=== PATIENT | male | born 1950 | race Caucasian/White ===

== ENCOUNTER → 2019-08-30 | Outpatient (CLI) | payer MEDICARE ==
--- NOTE | 2019-08-30 14:59 | CT ---
EXAMINATION TYPE: CT chest wo con DATE OF EXAM: 08/30/2019 COMPARISON: NONE HISTORY: Shortness of breath, asthma CT DLP: 576 mGycm. Automated Exposure Control for Dose Reduction was Utilized. TECHNIQUE: CT scan of the thorax is performed without IV contrast. FINDINGS: LUNGS: There are a few scattered small nodules measuring under 3 mm reference right middle lobe axial image 29. No suspicious focal consolidation or groundglass opacity. No pleural effusion or pneumotho rax noted bilaterally. Mild to moderate central bronchial wall thickening. MEDIASTINUM: Lack of IV contrast is noted to limit evaluation for mediastinal and especially hilar ad enopathy. There are no definitive greater than 1 cm hilar or mediastinal lymph nodes. No cardiomega ly or pericardial effusion is seen. Moderate to severe three-vessel coronary artery calcification and /or stents. Calcification at level of aortic valve. Enlarged main pulmonary artery of 3.5 cm diameter image 25. OTHER: Moderate multilevel disc space narrowing and vacuum disc phenomenon with mild/moderate multile nancy spurring. IMPRESSION: Mild to moderate central peribronchial wall thickening consistent with small airway disea se possibly from acute asthma exacerbation or a viral bronchiolitis. Correlate clinically. No suspici ous focal infiltrate.
== END | disposition home or self-care (01) ==
LOC: RADCTMAIN 13:23
PROVIDERS: ATTEND Family Medicine
DX: J98.4 Other disorders of lung (principal); J45.909 Unspecified asthma, uncomplicated
CPT/HCPCS: 71250; 94060; 94726; 94729

== ENCOUNTER 2019-10-20 17:13 | Inpatient (IN) | payer MEDICARE ==
[2019-10-20] MEDS ORDERED: MAGNESIUM SULFATE-D5W PMX 1 GM in DEXTROSE/WATER 1 100ML.BAG IVPB STA (18:28)
[2019-10-20] MEDS ORDERED: IPRATROPIUM-ALBUTEROL 3 ML NEB INHALATION STA ×2 (18:28→20:49)
[2019-10-20] MEDS ORDERED: methylPREDNISolone SOD SUCCI 125 MG/2 ML VIAL IV STA (18:28)
--- NOTE | 2019-10-20 18:42 | ED ---
SOB HPI - General Chief Complaint: Shortness of Breath Stated Complaint: SOB, bilat foot swelling Time Seen by Provider: 10/20/19 17:20 Source: patient, family Mode of arrival: wheelchair Limitations: no limitations - History of Present Illness Initial Comments: The patient is a 69-year-old male with past medical history of asthma and diabetes who presents emergency Department with reported shortness of breath. is at bedside and helps provide history. She states that the patient has been suffering from shortness of breath for a while however the symptoms have gotten progressively worse over the past month. He was sent for a pulmonary test on August [address] of his chest. He was told that everything looked okay however his symptoms have gotten worse. States he cannot get up and embedded across a room without feeling short of breath. He also states that he cannot lie flat and he has some bilateral lower extremity edema. Reports that he takes hctz 25 mg daily. Has not missed any doses. The swelling is getting more significant. He denies a history of DVT or PE. He is not on any blood thinners. He does admit that he had some mild chest pain yesterday however that has resolved. He denies a previous history of coronary artery disease or congestive heart failure. He has never had a heart cath. Does admit that he has a "leaky valve" for which he gets an ultrasound frequently and follows up with cardiology. He denies ripping or tearing sensation to his back. No recent surgeries. Denies any fevers or chills. No cough or hemoptysis. There are no alleviating, precipitating or modifying factors - Related Data Home Medications Medication Instructions Recorded Confirmed Albuterol Sulfate [Proair Hfa] 1 - 2 puff INHALATION RT-Q4H PRN 10/20/19 10/20/19 Atorvastatin Calcium [Lipitor] 10 mg PO DAILY 10/20/19 10/20/19 Dorzolamide 2% [Trusopt 2%] 1 drop BOTH EYES BID 10/20/19 10/20/19 Hydrochlorothiazide [Hydrodiuril] 25 mg PO DAILY 10/20/19 10/20/19 Lisinopril 40 mg PO DAILY 10/20/19 10/20/19 Montelukast Sodium [Singulair] 10 mg PO HS 10/20/19 10/20/19 Netarsudil Mesylat/Latanoprost 1 drop BOTH EYES HS 10/20/19 10/20/19 [Rocklatan 0.02%-0.005% Eye Drp] glipiZIDE XL [Glucotrol Xl] 2.5 mg PO DAILY 10/20/19 10/20/19 metFORMIN HCL [Glucophage] 500 mg PO TID 10/20/19 10/20/19 Allergies Allergy/AdvReac Type Severity Reaction Status Date / Time No Known Allergies Allergy Verified 10/20/19 23:24 Review of Systems ROS Statement: Those systems with pertinent positive or pertinent negative responses have been documented in the HPI. ROS Other: All systems not noted in ROS Statement are negative. Past Medical History Past Medical History: Asthma, Diabetes Mellitus, Eye Disorder History of Any Multi-Drug Resistant Organisms: None Reported Additional Past Surgical History / Comment(s): throat surgery, cataract removal Past Psychological History: No Psychological Hx Reported Smoking Status: Current every day smoker Past Alcohol Use History: Occasional Past Drug Use History: None Reported - Past Family History Father Family Medical History: Coronary Artery Disease (CAD) Additional Family Medical History / Comment(s): Father had CAD/CABG. He is . Pt had not had contact with his father for 30 yrs. Mother Family Medical History: Congestive Heart Failure (CHF), Neurologic Disorder Additional Family Medical History / Comment(s): Parkinsons dx. Mother from CHF. family Additional Family Medical History / Comment(s): reports CAD history General Exam Limitations: no limitations General appearance: alert, anxious, in distress, other (diaphoretic) Eye exam: Present: normal appearance, PERRL, EOMI. Absent: scleral icterus, conjunctival injection, periorbital swelling ENT exam: Present: normal exam, mucous membranes moist Neck exam: Present: normal inspection. Absent: tenderness, meningismus, lymphadenopathy Respiratory exam: Present: respiratory distress, wheezes, rales, accessory muscle use, decreased breath sounds Cardiovascular Exam: Present: regular rate, normal rhythm, normal heart sounds. Absent: systolic murmur, diastolic murmur, rubs, gallop, clicks GI/Abdominal exam: Present: soft, normal bowel sounds. Absent: distended, tende rness, guarding, rebound, rigid Extremities exam: Present: normal inspection, full ROM, normal capillary refill. Absent: tenderness, pedal edema, joint swelling, calf tenderness Back exam: Present: normal inspection Neurological exam: Present: alert, oriented X3, CN II-XII intact Psychiatric exam: Present: anxious Skin exam: Present: warm, intact, normal color, diaphoretic. Absent: rash Course Vital Signs 10/20/19 10/20/19 10/20/19 17:18 17:58 19:00 Temperature 97.7 F Pulse Rate 97 110 H Pulse Rate [ Pulse Oximetery ] Respiratory 21 26 H Rate Blood Pressure 140/78 Blood Pressure [Right Arm] O2 Sat by Pulse 97 Oximetry 10/20/19 10/20/19 10/20/19 19:10 21:02 21:12 Temperature Pulse Rate 105 H 104 H 107 H Pulse Rate [ Pulse Oximetery ] Respiratory Rate Blood Pressure Blood Pressure [Right Arm] O2 Sat by Pulse Oximetry 10/20/19 10/21/19 10/21/19 21:20 00:18 01:33 Temperature Pulse Rate 105 H 98 96 Pulse Rate [ Pulse Oximetery ] Respiratory 21 20 Rate Blood Pressure 134/98 129/71 Blood Pressure [Right Arm] O2 Sat by Pulse 96 98 Oximetry 10/21/19 10/21/19 10/21/19 01:45 05:59 08:00 Temperature 98 F Pulse Rate 94 83 Pulse Rate [ 76 Pulse Oximetery ] Respiratory 20 20 Rate Blood Pressure 123/71 Blood Pressure 132/74 [Right Arm] O2 Sat by Pulse 99 98 Oximetry 10/21/19 10/21/19 08:28 08:41 Temperature Pulse Rate 88 88 Pulse Rate [ Pulse Oximetery ] Respiratory Rate Blood Pressure Blood Pressure [Right Arm] O2 Sat by Pulse Oximetry Medical Decision Making - Medical Decision Making Upon arrival patient was placed into room 5. A thorough history and physical exam was performed. The patient is a wheezy with conversational dyspnea. We did insert a peripheral IV. The patient was given a DuoNeb breathing treatment, 1 g of magnesium and 125 mg of Solu-Medrol. I did recommend laboratory studies. 12-lead EKG was performed and demonstrates no signs of acute ischemia. Lab studies did demonstrate a sodium of 128, chloride 88, lactic acid 2.9, troponin 0.044. BNP of 4180. Chest x-ray was performed which demonstrates findings due to COPD, bronchitis or reactive airway disease. Pulmonary artery hypertension possibly perihilar airspace disease or atelectasis. Because of the patient's elevated BNP and troponin did recommend a CT of the patient's chest which does not demonstrate any acute signs of PE E however there is development of mediastinal adenopathy in the interval from prior to CT. Interstitial prominence with groundglass opacities. Correlates for congestive heart failure. Recommend to exclude metastatic disease. I also performed Dopplers patient lower extremities because of this lower extremity edema which demonstrates no signs of DVT. Because of the patient's elevated troponin I did heparinize the patient. He has no contra indications to heparinization. He is given a second breathing treatment in the emergency room and as he does have worsening whee zing. I did recommend hospitalization for continued breathing treatments, steroids and echo. I provided the patient with a dose of Lasix 40 mg. I also recommended pulmonology and cardiology consult. The patient did agree to this. I discussed the case with Dr. Downey who accepted admission for the patient. The patient is currently awaiting a bed on the floor - Lab Data Result diagrams: 10/23/19 06:09 10/25/19 06:38 Lab Results 10/20/19 10/20/19 10/20/19 Range/Units 17:53 17:53 17:53 WBC 9.2 (3.8-10.6) k/uL RBC 3.66 L (4.30-5.90) m/uL Hgb 11.9 L (13.0-17.5) gm/dL Hct 35.6 L (39.0-53.0) % MCV 97.1 (80.0-100.0) fL MCH 32.5 (25.0-35.0) pg MCHC 33.5 (31.0-37.0) g/dL RDW 12.7 (11.5-15.5) % Plt Count 270 (150-450) k/uL Neutrophils % 78 % Lymphocytes % 11 % Monocytes % 5 % Eosinophils % 3 % Basophils % 0 % Neutrophils # 7.2 (1.3-7.7) k/uL Lymphocytes # 1.1 (1.0-4.8) k/uL Monocytes # 0.4 (0-1.0) k/uL Eosinophils # 0.3 (0-0.7) k/uL Basophils # 0.0 (0-0.2) k/uL PT 10.0 (9.0-12.0) sec INR 1.0 (<1.2) APTT 25.7 (22.0-30.0) sec Sodium 128 L (137-145) mmol/L Potassium 4.7 (3.5-5.1) mmol/L Chloride 88 L (98-107) mmol/L Carbon Dioxide 26 (22-30) mmol/L Anion Gap 14 mmol/L BUN 20 (9-20) mg/dL Creatinine 1.15 (0.66-1.25) mg/dL Est GFR (CKD-EPI)AfAm 75 (>60 ml/min/1.73 sqM) Est GFR (CKD-EPI)NonAf 65 (>60 ml/min/1.73 sqM) Glucose 207 H (74-99) mg/dL Lactic Ac Sepsis Rflx Plasma Lactic Acid Helder (0.7-2.0) mmol/L Calcium 9.9 (8.4-10.2) mg/dL Total Bilirubin 0.3 (0.2-1.3) mg/dL AST 23 (17-59) U/L ALT 16 (4-49) U/L Alkaline Phosphatase 67 (38-126) U/L Troponin I (0.000-0.034) ng/mL NT-Pro-B Natriuret Pep pg/mL Total Protein 7.2 (6.3-8.2) g/dL Albumin 4.7 (3.5-5.0) g/dL 10/20/19 10/20/19 10/20/19 Range/Units 17:53 17:53 17:53 WBC (3.8-10.6) k/uL RBC (4.30-5.90) m/uL Hgb (13.0-17.5) gm/dL Hct (39.0-53.0) % MCV (80.0-100.0) fL MCH (25.0-35.0) pg MCHC (31.0-37.0) g/dL RDW (11.5-15.5) % Plt Count (150-450) k/uL Neutrophils % % Lymphocytes % % Monocytes % % Eosinophils % % Basophils % % Neutrophils # (1.3-7.7) k/uL Lymphocytes # (1.0-4.8) k/uL Monocytes # (0-1.0) k/uL Eosinophils # (0-0.7) k/uL Basophils # (0-0.2) k/uL PT (9.0-12.0) sec INR (<1.2) APTT (22.0-30.0) sec Sodium (137-145) mmol/L Potassium (3.5-5.1) mmol/L Chloride (98-107) mmol/L Carbon Dioxide (22-30) mmol/L Anion Gap mmol/L BUN (9-20) mg/dL Creatinine (0.66-1.25) mg/dL Est GFR (CKD-EPI)AfAm (>60 ml/min/1.73 sqM) Est GFR (CKD-EPI)NonAf (>60 ml/min/1.73 sqM) Glucose (74-99) mg/dL Lactic Ac Sepsis Rflx Plasma Lactic Acid Helder 2.9 H* (0.7-2.0) mmol/L Calcium (8.4-10.2) mg/dL Total Bilirubin (0.2-1.3) mg/dL AST (17-59) U/L ALT (4-49) U/L Alkaline Phosphatase (38-126) U/L Troponin I 0.044 H* (0.000-0.034) ng/mL NT-Pro-B Natriuret Pep 4180 pg/mL Total Protein (6.3-8.2) g/dL Albumin (3.5-5.0) g/dL 10/20/19 Range/Units 19:03 WBC (3.8-10.6) k/uL RBC (4.30-5.90) m/uL Hgb (13.0-17.5) gm/dL Hct (39.0-53.0) % MCV (80.0-100.0) fL MCH (25.0-35.0) pg MCHC (31.0-37.0) g/dL RDW (11.5-15.5) % Plt Count (150-450) k/uL Neutrophils % % Lymphocytes % % Monocytes % % Eosinophils % % Basophils % % Neutrophils # (1.3-7.7) k/uL Lymphocytes # (1.0-4.8) k/uL Monocytes # (0-1.0) k/uL Eosinophils # (0-0.7) k/uL Basophils # (0-0.2) k/uL PT (9.0-12.0) sec INR (<1.2) APTT (22.0-30.0) sec Sodium (137-145) mmol/L Potassium (3.5-5.1) mmol/L Chloride (98-107) mmol/L Carbon Dioxide (22-30) mmol/L Anion Gap mmol/L BUN (9-20) mg/dL Creatinine (0.66-1.25) mg/dL Est GFR (CKD-EPI)AfAm (>60 ml/min/1.73 sqM) Est GFR (CKD-EPI)NonAf (>60 ml/min/1.73 sqM) Glucose (74-99) mg/dL Lactic Ac Sepsis Rflx Y Plasma Lactic Acid Helder (0.7-2.0) mmol/L Calcium (8.4-10.2) mg/dL Total Bilirubin (0.2-1.3) mg/dL AST (17-59) U/L ALT (4-49) U/L Alkaline Phosphatase (38-126) U/L Troponin I (0.000-0.034) ng/mL NT-Pro-B Natriuret Pep pg/mL Total Protein (6.3-8.2) g/dL Albumin (3.5-5.0) g/dL - EKG Data EKG Comments: EKG demonstrates normal sinus rhythm with a ventricular rate of 99. PA interval 164. QRS 74. QTC of 423. No acute ST segment elevations or depressions concerning for ischemic changes Critical Care Time Critical Care Time: Yes Critical Care Time: 35 minutes Disposition Clinical Impression: Lower extremity edema, NSTEMI (non-ST elevated myocardial infarction), Heart failure, Respiratory insufficiency, Hypernatremia, Lactic acidosis Disposition: ADMITTED IP TO THIS HOSP Condition: Serious Is patient prescribed a controlled substance at d/c from ED?: No Decision to Admit Reason: Admit from EC Decision Date: 10/20/19 Decision Time: 20:52
[2019-10-20 18:45] LABS: Basophils % (A) 0 %; Eosinophils # (A) 0.3 k/uL (0-0.7); Eosinophils % (A) 3 %; HCT 35.6 % (39.0-53.0); HGB 11.9 gm/dL (13.0-17.5); Lymphocytes # (A) 1.1 k/uL (1.0-4.8); Lymphocytes % (A) 11 %; MCH 32.5 pg (25.0-35.0); MCHC 33.5 g/dL (31.0-37.0); MCV 97.1 fL (80.0-100.0); Mean Platelet Volume 7.9; Monocytes # (A) 0.4 k/uL (0-1.0); Monocytes % (A) 5 %; Neutrophils # (A) 7.2 k/uL (1.3-7.7); Neutrophils % (A) 78 %; Platelet Count 270 k/uL (150-450); RBC 3.66 m/uL (4.30-5.90); RDW 12.7 % (11.5-15.5); WBC 9.2 k/uL (3.8-10.6)
[2019-10-20 18:53] LABS: Partial Thromboplastin Time 25.7 sec (22.0-30.0)
[2019-10-20 18:56] LABS: Albumin 4.7 g/dL (3.5-5.0); Calcium 9.9 mg/dL (8.4-10.2); Potassium 4.7 mmol/L (3.5-5.1); Total Bilirubin 0.3 mg/dL (0.2-1.3); Total Protein 7.2 g/dL (6.3-8.2)
--- NOTE | 2019-10-20 19:18 | XR ---
EXAMINATION TYPE: XR chest 2V DATE OF EXAM: 10/20/2019 COMPARISON: Chest CT 08/30/2019 HISTORY: Shortness of breath and asthma TECHNIQUE: Frontal and lateral views of the chest are obtained. FINDINGS: There is no focal air space opacity, pleural effusion, or pneumothorax seen. The cardiac silhouette size is within normal limits. The osseous structures are intact. There is increased AP d iameter of the chest. Bronchial wall thickening is present. There is thoracic spondylosis. Prominence of pulmonary artery could be due to pulmonary artery hypertension. Technique somewhat apical lordoti c and rotated. There are overlying cardiac leads. Patchy perihilar density is noted. IMPRESSION: Findings could be due to COPD, bronchitis or reactive airways disease, pulmonary artery hypertension and possibly perihilar airspace disease or atelectasis
--- NOTE | 2019-10-20 19:27 | US ---
EXAMINATION TYPE: US venous doppler duplex LE BI DATE OF EXAM: 10/20/2019 7:14 PM COMPARISON: NONE CLINICAL HISTORY: swelling, shortness of breath. Swelling x months. Short of breath. No hx of DVT. Pa tient does not take blood thinners. SIDE PERFORMED: Bilateral TECHNIQUE: The lower extremity deep venous system is examined utilizing real time linear array sonog bindu with graded compression, doppler sonography and color-flow sonography. VESSELS IMAGED: External Iliac Vein (EIV) Common Femoral Vein Deep Femoral Vein Greater Saphenous Vein * Femoral Vein Popliteal Vein Small Saphenous Vein * Proximal Calf Veins (* superficial vessels) Normal color flow, compressibility, no abnormal luminal echoes Right Leg: No evidence of DVT in veins imaged at this time from popliteal vein to EIV. Limited visib ility and evaluation of prox calf veins due to edema. Left Leg: No evidence of DVT in veins imaged at this time from popliteal vein to EIV. Limited visibi lity and evaluation of prox calf veins due to edema. Limited due to body habitus and edema. IMPRESSION: No evident deep venous thrombosis within the limitations of the exam at or above the kne es
--- NOTE | 2019-10-20 20:27 | CT ---
EXAMINATION TYPE: CT chest angio for PE DATE OF EXAM: 10/20/2019 COMPARISON: HISTORY: SOB EDEMA POSSIBLE PE CT DLP: 805 mGycm Automated exposure control for dose reduction was used. CONTRAST: CT Chest for pulmonary embolism performed with with IV Contrast, patient injected with 90 mL of Isovu e 370. Three-dimensional reconstructions performed on an alternate workstation FINDINGS: LUNGS: The lungs are remarkable for diffuse prominence of the interstitium, some interval development of soft tissue in the left upper lobe, axial image 63, nodular density in the left lower lobe axial image 111 measures 12 mm and some groundglass opacity adjacent to the fissure in the left lower lobe on axial image 72 are also interval findings, some scattered areas of groundglass opacity also presen t in the right lung some of which are somewhat nodular. There is no pleural effusion or pneumothora x seen. The tracheobronchial tree is patent. MEDIASTINUM: There is satisfactory enhancement of the pulmonary artery and its branches, there is no CT evidence for pulmonary embolism. There is retrocaval pretracheal lymph node which is mildly enlar ged with short axis XII.3 mm, prevascular adenopathy also present, aorticopulmonary window adenopathy and subcarinal adenopathy present. Pulmonary artery is again enlarged. There is prominence of the h ilar nodes. No pericardial effusion is seen. There are coronary artery calcifications. AORTA: No additional significant abnormality is seen. OTHER: Hiatal hernia is present.. IMPRESSION: Development of mediastinal adenopathy in the interval from prior CT. Interstitial prominence with martita undglass opacity, correlate to exclude congestive heart failure, follow-up is recommended to exclude soft tissue nodules, metastatic disease. There is no pulmonary embolus. Correlate for possible pulmon donald artery hypertension. Coronary artery disease.
[2019-10-20] MEDS ORDERED: HEPARIN SODIUM,PORCINE 5,000 UNIT/ML 1 ML VIAL IV ONE (20:48)
[2019-10-20] MEDS ORDERED: HEPARIN SODIUM,PORCINE 5,000 UNIT/ML 1 ML VIAL IV PRN (20:48)
[2019-10-20] MEDS ORDERED: NALOXONE 0.4 MG/ML 1 ML VIAL IV PRN (20:52)
[2019-10-20] MEDS ORDERED: FUROSEMIDE 10 MG/ML 4 ML VIAL IV STA (20:54)
[2019-10-20] MEDS: HEPARIN SOD,PORK IN 0.45% NACL 25,000 UNIT in 0.45% NACL 1 250ML.BAG IV SCH (21:12)
[2019-10-20] MEDS ORDERED: ASPIRIN 81 MG PO STA (21:31)
[2019-10-21] MEDS: methylPREDNISolone SOD SUCCI 40 MG/ML 1 ML VIAL IV SCH ×4 (00:19→23:22)
[2019-10-21 00:23] LABS: Glucose,Whole Blood 302 mg/dL (75-99)
[2019-10-21] MEDS ORDERED: INSULIN ASPART (NovoLOG) 100 UNIT/ML VIAL SQ ONE (00:29)
--- NOTE | 2019-10-21 01:17 | P.HPIM ---
History of Present Illness H&P Date: 10/20/19 Chief Complaint: SOB 69 year old male with hypertension well controlled, diabetes mellitus well controlled with A1C 6.8%, and asthma presents due to worsening shortness of breath over the past few days. he reports symptoms has been going on for one to two months now with on/off symptoms of exertional dyspnea, but he believes that overall his symptoms has been slowly worsening. he describes symptoms of orthopnea, PND, and exertional dyspnea with mild exertions. he denies any chest pain, he does not use home oxygen , and walks independantly . he noticed bilateral swelling of his feet and legs. denies any recent immobility, traveling, hospitalization or surgery. denies any history of cancer. denies any cardiac history. over the past few days, he noticed increase wheezing, not improving much with inhalers. he does not use nebulizer,. he started feeling increase chest tightness with mild activity. denies any fever, chills, coughing, runny nose, sore throat or body aches. denies any history of intubation. denies any sick contact. or contact with people traveling from high risk areas for COVID-19 one. in the ED, he was wheezing, improved alittle bit with nebulizers but continues to feel tight, blood work showed elevated pro bnp and troponin , he was started on heparin gtt. CTA of chest and lower extremity doppler was negative for VTE. Review of Systems Pertinent positives as noted in HPI. All other systems were reviewed and are negative Past Medical History Past Medical History: Asthma, Diabetes Mellitus, Eye Disorder, Hypertension History of Any Multi-Drug Resistant Organisms: None Reported Additional Past Surgical History / Comment(s): throat surgery, cataract removal Past Psychological History: No Psychological Hx Reported Smoking Status: Current every day smoker Past Alcohol Use History: Occasional Past Drug Use History: None Reported - Past Family History family Additional Family Medical History / Comment(s): reports CAD history Medications and Allergies Home Medications Medication Instructions Recorded Confirmed Type Albuterol Sulfate [Proair Hfa] 1 - 2 puff INHALATION RT-Q4H PRN 10/20/19 10/20/19 History Atorvastatin Calcium [Lipitor] 10 mg PO DAILY 10/20/19 10/20/19 History Dorzolamide 2% [Trusopt 2%] 1 drop BOTH EYES BID 10/20/19 10/20/19 History Hydrochlorothiazide [Hydrodiuril] 25 mg PO DAILY 10/20/19 10/20/19 History Lisinopril 40 mg PO DAILY 10/20/19 10/20/19 History Montelukast Sodium [Singulair] 10 mg PO HS 10/20/19 10/20/19 History Netarsudil Mesylat/Latanoprost 1 drop BOTH EYES HS 10/20/19 10/20/19 History [Rocklatan 0.02%-0.005% Eye Drp] glipiZIDE XL [Glucotrol Xl] 2.5 mg PO DAILY 10/20/19 10/20/19 History metFORMIN HCL [Glucophage] 500 mg PO TID 10/20/19 10/20/19 History Allergies Allergy/AdvReac Type Severity Reaction Status Date / Time No Known Allergies Allergy Verified 10/20/19 23:24 Physical Exam Vitals: Vital Signs Temp Pulse Resp BP Pulse Ox 10/20/19 21:02 104 H 10/20/19 19:10 105 H 10/20/19 19:00 110 H 10/20/19 17:58 26 H 10/20/19 17:18 97.7 F 97 21 140/78 97 Intake and Output 10/20/19 10/20/19 10/20/19 06:59 14:59 22:59 Other: Weight 99.79 kg Constitutional: No acute distress, conversant, pleasant Eyes: Anicteric sclerae, moist conjunctiva, Pupils equal round reactive to light ENMT: NC/AT Oropharynx clear, no erythema, or exudates Neck: Supple, FROM, no masses, or JVD No carotid bruits No thyromegaly Lungs: good breath sounds, diffuse expiratory wheezing, no rales Clear to percussion Normal respiratory effort, no accessory muscle use Cardiovascular: Heart regular in rate and rhythm, No murmurs, gallops, or rubs +2 peripheral edema bilaterally Abdominal: Soft Nontender, no guarding, rebound or rigidity Abdomen moving with respiration Normoactive bowel sounds No hepatomegaly, No splenomegaly No palpable mass No abdominal wall hernia noted Skin: Normal temperature, tone, texture, turgor No induration No subcutaneous nodules No rash, lesions No ulcers Extremities: No digital cyanosis No clubbing Pedal pulses intact and symmetrical Radial pulses intact and symmetrical No calf tenderness Psychiatric: Alert and oriented to person, place and time Appropriate affect fair judgment Neuro Muscles Strength 5/5 in all 4 extremities Sensation to light touch grossly present throughout Cranial nerves II-XII grossly intact No focal sensory deficits Lymphatics: no palpable cervical or supraclavicular , or inguinal lymph nodes Results CBC & Chem 7: 10/20/19 17:53 10/20/19 17:53 Labs: Abnormal Lab Results - Last 24 Hours (Table) 10/20/19 10/20/19 10/20/19 Range/Units 17:53 17:53 17:53 RBC 3.66 L (4.30-5.90) m/uL Hgb 11.9 L (13.0-17.5) gm/dL Hct 35.6 L (39.0-53.0) % Sodium 128 L (137-145) mmol/L Chloride 88 L (98-107) mmol/L Glucose 207 H (74-99) mg/dL Plasma Lactic Acid Helder 2.9 H* (0.7-2.0) mmol/L Troponin I (0.000-0.034) ng/mL 10/20/19 Range/Units 17:53 RBC (4.30-5.90) m/uL Hgb (13.0-17.5) gm/dL Hct (39.0-53.0) % Sodium (137-145) mmol/L Chloride (98-107) mmol/L Glucose (74-99) mg/dL Plasma Lactic Acid Helder (0.7-2.0) mmol/L Troponin I 0.044 H* (0.000-0.034) ng/mL Assessment and Plan Assessment: 69 year old male with hypertension well controlled, diabetes mellitus well controlled with A1C 6.8%, and asthma admitted as inpatient for acute asthma exacerbation and to rule out new onset CHF , anticipated length of stay >2 midnights Plan: acute asthma exacerbation rule out new onset CHF, and underlying cardiac disease hyperglycemia with well controlled DM , A1C 6.8%, secondary to steroids hypertension well controlled hyponatremia lactic acidosis resolved mild anemia , denies any GI bleeding plan systemic iv steroids breathing treatment around the clock and as needed check echocardiogram, evaluate for LV function , and for valve disease IV diuresis trend cardiac enzymes continue home meds hold oral hypoglycemic agents, transition to insulin sliding scale while hospitalized heparin drip for elevated troponins cardiology input CODE STATUS: full code DVT prophylaxis: heparin drip for elevated troponin Discussed with: Patient, ER, RN Anticipated length of stay > than [address]: home A total of 60 minutes was spent on the care of this complex patient more than 50% of the time was spent in counseling and care coordination.
[2019-10-21] MEDS: IPRATROPIUM-ALBUTEROL 3 ML NEB INHALATION PRN ×3 (01:32→11:50)
[2019-10-21 02:34] LABS: Glucose,Whole Blood 244 mg/dL (75-99)
[2019-10-21 03:20] LABS: Basophils % (A) 0 %; Eosinophils % (A) 0 %; HGB 11.5 gm/dL (13.0-17.5); Lymphocytes # (A) 0.3 k/uL (1.0-4.8); Lymphocytes % (A) 4 %; MCH 32.2 pg (25.0-35.0); MCV 97.7 fL (80.0-100.0); Mean Platelet Volume 7.3; Monocytes # (A) 0.1 k/uL (0-1.0); Monocytes % (A) 1 %; Neutrophils # (A) 6.2 k/uL (1.3-7.7); Neutrophils % (A) 93 %; Platelet Count 259 k/uL (150-450); RBC 3.58 m/uL (4.30-5.90); RDW 12.6 % (11.5-15.5); WBC 6.7 k/uL (3.8-10.6)
[2019-10-21 03:33] LABS: Calcium 9.3 mg/dL (8.4-10.2); Potassium 4.8 mmol/L (3.5-5.1)
[2019-10-21 06:46] LABS: Prothrombin Time 10.6 sec (9.0-12.0)
[2019-10-21 08:07] LABS: Glucose,Whole Blood 231 mg/dL (75-99)
[2019-10-21] MEDS: FUROSEMIDE 10 MG/ML 2 ML VIAL IV SCH ×2 (08:52→20:34)
[2019-10-21] MEDS: INSULIN ASPART (NovoLOG) 100 UNIT/ML VIAL SQ SCH ×4 (08:54→20:48)
[2019-10-21] MEDS: ATORVASTATIN 10 MG TAB PO SCH (08:54)
[2019-10-21] MEDS ORDERED: LISINOPRIL 20 MG TAB PO SCH (09:00)
[2019-10-21] MEDS ORDERED: INFLUENZA VACCINE (6 MOS+) 60 MCG/0.5 ML SYRINGE IM ONE (10:15)
--- NOTE | 2019-10-21 10:34 | P.CRDCN ---
History of Present Illness Consult date: 10/21/19 Requesting physician: Pako Downey Reason for Consult (text): NSTEMI Chief complaint: progressively worsening shortness of breath History of present illness: This is a pleasant 69-year-old male patient who follows with a firmware developer through [facility], Dr. Beto Silverman. He is a past medical history of hypertension, hyperlipidemia, diabetes mellitus type 2, and a "leaky heart valve ". According to him he last underwent echocardiogram about 3 months ago and followed up with his firmware developer shortly after that. It's been many years since his last stress test. He has a current every day smoker about a half a pack a day for many years, drinks about 4 cups of coffee daily and drinks 4-5 mixed drinks every other day. He's been having complaints of shortness of breath over the last several months with a PFT in August which findings were consistent with interstitial lung disease and recommended high resolution computed tomography scan of the chest. Presented to the emergency department because over the last 3 days or so his shortness of breath has been progressively getting worse causing him to have difficulties even walking to the bathroom. He's also been having complaints of lower extremity edema which has been intermittent over the last several months as well but recently somewhat worse. Also complains of orthopnea and PND. He's been sleeping in a chair for the last few weeks. Venous Doppler of the lower extremities show no evidence of DVT. Chest x-ray showed findings related to either COPD, bronchitis or reactive airway disease, pulmonary artery hypertension and possibly perihilar airspace disease or atelectasis. Computed tomography scan of the chest showed development of mediastinal adenopathy and the intraoral from prior CT, interstitial prominence with groundglass [place], correlate to exclude congestive heart failure, follow-up is recommended to exclude soft tissue nodules, metastatic disease, no PE, correlate for possible pulmonary artery hypertension, coronary artery disease. EKG on admission showed sinus rhythm with nonspecific ST-T wave abnormalities with no findings suggestive of acute ischemia. Labs on admission showed a normal white blood cell count, hemoglobin 11.9, sodium 128, chloride 88, BUN 20, creatinine 1.15, plasma lactic acid 2.9, NT proBNP 4180 which was 1970 in August, and troponins minimally elevated at 0. 044, 0.045 and 0.051. Vital signs are stable. Upon examination, patient is sitting up at the edge of the bed. Overall he feels his breathing is somewhat better but he has not been up moving around much. He denies any recent complaints of chest discomfort but did have an episode a few weeks ago which he attributed to gas, occurred after eating and relieved with belching. He is currently on heparin drip and Lasix 20 mg IV push every 12 hours as well as lisinopril 40 mg daily, Singulair, NovoLog, and Solu-Medrol. Past Medical History Past Medical History: Asthma, Diabetes Mellitus, Eye Disorder, Hypertension History of Any Multi-Drug Resistant Organisms: None Reported Additional Past Surgical History / Comment(s): throat surgery, cataract removal Past Psychological History: No Psychological Hx Reported Smoking Status: Current every day smoker Past Alcohol Use History: Occasional Past Drug Use History: None Reported - Past Family History family Additional Family Medical History / Comment(s): reports CAD history Father Family Medical History: Coronary Artery Disease (CAD) Additional Family Medical History / Comment(s): Father had CAD/CABG. He is . Pt had not had contact with his father for 30 yrs. Mother Family Medical History: Congestive Heart Failure (CHF), Neurologic Disorder Additional Family Medical History / Comment(s): Parkinsons dx. Mother from CHF. Medications and Allergies Home Medications Medication Instructions Recorded Confirmed Type Albuterol Sulfate [Proair Hfa] 1 - 2 puff INHALATION RT-Q4H PRN 10/20/19 10/20/19 History Atorvastatin Calcium [Lipitor] 10 mg PO DAILY 10/20/19 10/20/19 History Dorzolamide 2% [Trusopt 2%] 1 drop BOTH EYES BID 10/20/19 10/20/19 History Hydrochlorothiazide [Hydrodiuril] 25 mg PO DAILY 10/20/19 10/20/19 History Lisinopril 40 mg PO DAILY 10/20/19 10/20/19 History Montelukast Sodium [Singulair] 10 mg PO HS 10/20/19 10/20/19 History Netarsudil Mesylat/Latanoprost 1 drop BOTH EYES HS 10/20/19 10/20/19 History [Rocklatan 0.02%-0.005% Eye Drp] glipiZIDE XL [Glucotrol Xl] 2.5 mg PO DAILY 10/20/19 10/20/19 History metFORMIN HCL [Glucophage] 500 mg PO TID 10/20/19 10/20/19 History Allergies Allergy/AdvReac Type Severity Reaction Status Date / Time No Known Allergies Allergy Verified 10/20/19 23:24 Physical Exam Vitals: Vital Signs Temp Pulse Pulse Resp BP BP Pulse Ox 10/21/19 08:41 88 10/21/19 08:28 88 10/21/19 08:00 98 F 76 20 132/74 98 10/21/19 05:59 83 20 123/71 99 10/21/19 01:45 94 10/21/19 01:33 96 10/21/19 00:18 98 20 129/71 98 10/20/19 21:20 105 H 21 134/98 96 10/20/19 21:12 107 H 10/20/19 21:02 104 H 10/20/19 19:10 105 H 10/20/19 19:00 110 H 10/20/19 17:58 26 H 10/20/19 17:18 97.7 F 97 21 140/78 97 Intake and Output 10/20/19 10/21/19 10/21/19 22:59 06:59 14:59 Output Total 500 Balance -500 Output: Urine 500 Other: Weight 99.79 kg PHYSICAL EXAMINATION: HEENT: Head is atraumatic, normocephalic. Pupils equal, round. Neck is supple. There is no elevated jugular venous pressure. No carotid bruits auscultated. HEART EXAMINATION: Heart sounds regular, S1 and S2 with a systolic ejection murmur at the base. CHEST EXAMINATION: Lungs reveal diffuse expiratory wheezing. No chest wall tenderness is noted on palpation or with deep breathing. ABDOMEN: Soft, obese, nontender. Bowel sounds are heard. No organomegaly noted. EXTREMITIES: 2+ peripheral pulses with evidence of 1-2+ pitting peripheral edema and no calf tenderness noted. NEUROLOGIC patient is awake, alert and oriented x3. . Results 10/21/19 02:55 10/21/19 02:55 Cardiac Enzymes 10/20/19 10/20/19 10/20/19 Range/Units 17:53 17:53 23:54 AST 23 (17-59) U/L Troponin I 0.044 H* 0.049 H* (0.000-0.034) ng/mL 10/21/19 Range/Units 06:16 AST (17-59) U/L Troponin I 0.051 H* (0.000-0.034) ng/mL Coagulation 10/20/19 10/21/19 10/21/19 Range/Units 17:53 02:55 06:16 PT 10.0 10.6 (9.0-12.0) sec APTT 25.7 35.9 H (22.0-30.0) sec CBC 10/20/19 10/21/19 Range/Units 17:53 02:55 WBC 9.2 6.7 (3.8-10.6) k/uL RBC 3.66 L 3.58 L (4.30-5.90) m/uL Hgb 11.9 L 11.5 L (13.0-17.5) gm/dL Hct 35.6 L 35.0 L (39.0-53.0) % Plt Count 270 259 (150-450) k/uL Comprehensive Metabolic Panel 10/20/19 10/21/19 Range/Units 17:53 02:55 Sodium 128 L 128 L (137-145) mmol/L Potassium 4.7 4.8 (3.5-5.1) mmol/L Chloride 88 L 91 L (98-107) mmol/L Carbon Dioxide 26 27 (22-30) mmol/L BUN 20 22 H (9-20) mg/dL Creatinine 1.15 1.17 (0.66-1.25) mg/dL Glucose 207 H 199 H (74-99) mg/dL Calcium 9.9 9.3 (8.4-10.2) mg/dL AST 23 (17-59) U/L ALT 16 (4-49) U/L Alkaline Phosphatase 67 (38-126) U/L Total Protein 7.2 (6.3-8.2) g/dL Albumin 4.7 (3.5-5.0) g/dL Current Medications Generic Name Dose Route Start Last Admin Trade Name Freq PRN Reason Stop Dose Admin Albuterol/Ipratropium 3 ml 10/20/19 21:11 10/21/19 08:28 Duoneb 0.5 Mg-3 Mg/3 Ml Soln INHALATION 3 ml RT-QID PRN Administration Shortness Of Breath Or Wheezing Atorvastatin Calcium 10 mg 10/21/19 09:00 10/21/19 08:54 Lipitor PO 10 mg DAILY ARIELA Administration Dorzolamide HCl 1 drops 10/21/19 09:00 Trusopt BOTH EYES BID ARIELA Furosemide 20 mg 10/21/19 09:00 10/21/19 08:52 Lasix IV 20 mg Q12HR ARIELA Administration Heparin Sodium (Porcine) 0 unit 10/20/19 20:48 Heparin IV PER PROTOCOL PRN Low PTT Protocol Heparin Sodium/Sodium Chloride 250 mls @ 9.979 mls/hr 10/20/19 21:00 10/20/19 21:12 25,000 unit/ Sodium Chloride IV 10 units/kg/hr .Q24H ARIELA 9.979 mls/hr Administration Protocol 10 UNITS/KG/HR Insulin Aspart 0 unit 10/21/19 07:30 10/21/19 08:54 Novolog SQ 10 unit ACHS ARIELA Administration Protocol Lisinopril 40 mg 10/21/19 09:00 10/21/19 08:55 Zestril PO 40 mg DAILY ARIELA Administration Methylprednisolone Sodium Succinate 40 mg 10/21/19 00:00 10/21/19 08:54 Solu-Medrol IV 40 mg Q8HR ARIELA Administration Montelukast Sodium 10 mg 10/21/19 21:00 Singulair PO HS ARIELA Naloxone HCl 0.2 mg 10/20/19 20:52 Narcan IV Q2M PRN Opioid Reversal Netarsudil Mesylat/ 1 drop 10/21/19 21:00 Latanoprost [ BOTH EYES Rocklatan 0.02%-0. HS ARIELA 005% Eye Drp] 1 Drop Intake and Output 10/20/19 10/21/19 10/21/19 22:59 06:59 14:59 Output Total 500 Balance -500 Output: Urine 500 Other: Weight 99.79 kg 10/21/19 02:55 10/21/19 02:55 Assessment and Plan Assessment: #1 symptoms of progressively worsening shortness of breath, edema, orthopnea and PND likely secondary to combination of underlying lung disease as well as acute on chronic congestive heart failure, ejection fraction unknown at this time but likely diastolic in nature as patient has never been told he has cardiomyopathy. #2 hypertension #3 hyperlipidemia #4 diabetes mellitus type 2 #5 nicotine dependence #6 minimally elevated troponins, not consistent with acute coronary syndrome #7 valvular heart disease, systolic ejection murmur consistent with Plan: From cardiology's perspective, we will review echocardiogram done in the emergency department. Continue IV Lasix. We'll obtain records from Dr. Silverman. Awaiting input from pulmonology. We'll continue to follow the patient for further recommendations accordingly. HUNTING GUIDE note has been reviewed, I agree with a documented findings and plan of care. Patient was seen and examined.
--- NOTE | 2019-10-21 11:01 | ECHOF ---
Referral Reason:CHF exacerbation, NSTEMI, hx valve disease MEASUREMENTS -------- HEIGHT: 170.2 cm WEIGHT: 99.8 kg BP: 151/86 RVIDd: 3.5 cm (< 3.3) IVSd: 1.4 cm (0.6 - 1.1) LVIDd: 4.5 cm (3.9 - 5.3) LVPWd: 1.5 cm (0.6 - 1.1) IVSs: 1.7 cm LVIDs: 3.4 cm LVPWs: 2.2 cm LA Diam: 3.9 cm (2.7 - 3.8) LAESV Index (A-L): 36.61 ml/m Ao Diam: 3.6 cm (2.0 - 3.7) AV Cusp: 1.5 cm (1.5 - 2.6) MV EXCURSION: 19.132 mm (> 18.000) MV EF SLOPE: 100 mm/s (70 - 150) EPSS: 1.8 cm MV E Koko: 1.26 m/s MV DecT: 210 ms MV A Koko: 0.64 m/s MV E/A Ratio: 1.98 AV maxP.92 mmHg AV meanP.27 mmHg RAP: 15.00 mmHg RVSP: 48.72 mmHg TAPSE: 21.95 mm FINDINGS -------- Sinus rhythm. This was a technically difficult study with suboptimal views. The left ventricular size is normal. There is moderate concentric left ventricular hypertrophy. O verall left ventricular systolic function is normal with, an EF between 55 - 60 %. The right ventricle is mildly enlarged. LA is moderately dilated 34-39 ml/m2 The right atrium is normal in size. 3 ml of Lumason was utilized for enhancement of images. Interatrial and interventricular septum intact. There is moderate aortic valve sclerosis. There is mild aortic regurgitation. There is moderate a ortic stenosis present. Peak/mean gradient across the Aortic Valve is 48.92mmHg / 25.27mmHg. Mild mitral annular calcification present. Mild mitral regurgitation is present. Mild tricuspid regurgitation present. There is moderate pulmonary hypertension. The right ventric ular systolic pressure, as measured by Doppler, is 48.72mmHg. The pulmonic valve was not well visualized. The aortic root size is normal. Normal inferior vena cava with less than 50% inspiratory collapse consistent with estimated right atr ial pressure of 15 mmHg. There is no pericardial effusion. CONCLUSIONS -------- 1. Sinus rhythm. 2. This was a technically difficult study with suboptimal views. 3. The left ventricular size is normal. 4. There is moderate concentric left ventricular hypertrophy. 5. Overall left ventricular systolic function is normal with, an EF between 55 - 60 %. 6. The right ventricle is mildly enlarged. 7. LA is moderately dilated 34-39 ml/m2 8. The right atrium is normal in size. 9. 3 ml of Lumason was utilized for enhancement of images. 10. Interatrial and interventricular septum intact. 11. There is moderate aortic valve sclerosis. 12. There is mild aortic regurgitation. 13. There is moderate aortic stenosis present. 14. Peak/mean gradient across the Aortic Valve is 48.92mmHg / 25.27mmHg. 15. Mild mitral annular calcification present. 16. Mild mitral regurgitation is present. 17. Mild tricuspid regurgitation present. 18. There is moderate pulmonary hypertension. 19. The right ventricular systolic pressure, as measured by Doppler, is 48.72mmHg. 20. The pulmonic valve was not well visualized. 21. The aortic root size is normal. 22. Normal inferior vena cava with less than 50% inspiratory collapse consistent with estimated right atrial pressure of 15 mmHg. 23. consider RAYMON for more optimal evaluation FARM ADVISOR: Roxann Johnson RDCS
[2019-10-21 12:12] LABS: Glucose,Whole Blood 159 mg/dL (75-99)
[2019-10-21] MEDS: IPRATROPIUM-ALBUTEROL 3 ML NEB INHALATION SCH ×3 (14:31→20:34)
--- NOTE | 2019-10-21 15:19 | P.PN ---
Subjective Progress Note Date: 10/21/19 Principal diagnosis: sob Patient is feeling a little better compared to when he came in. Still having shortness of breath upon lying down and moving. No fevers or chills. No chest pain. He has cough but that is not productive. Objective - Vital Signs Vital signs: Vital Signs Temp 97 F L 10/21/19 11:55 Pulse 90 10/21/19 14:43 Resp 16 10/21/19 11:55 BP 118/74 10/21/19 11:55 Pulse Ox 99 10/21/19 11:55 Intake & Output 10/20/19 10/21/19 10/21/19 18:59 06:59 18:59 Intake Total 162.491 Output Total 500 175 Balance -500 -12.509 Weight 99.79 kg 99.79 kg Intake: Intake, IV Titration 162.491 Amount Heparin Sod,Pork in 0.45% 162.491 NaCl 25,000 unit In 0.45 % NaCl 1 250ml.bag @ 10 UNITS/KG/HR 9.979 mls/hr IV .Q24H [facility] Rx#: [id number] Output: Urine 500 175 Other: # Voids 1 - Exam Constitutional: No acute distress, conversant, pleasant Eyes:Anicteric sclerae, moist conjunctiva, no lid-lag, PERRLA, ENMT: Oropharynx clear, no erythema, exudates Neck: Supple, FROM, no masses, or JVD, No carotid bruits, No thyromegaly Lungs: Diminished breath sounds bilaterally, bilateral diffuse wheezing Clear to percussion, Normal respiratory effort, no accessory muscle use Cardiovascular: Heart regular in rate and rhythm, No murmurs, gallops, or rubs, 2+ peripheral edema Abdominal: Soft, Nontender, no guarding, rebound or rigidity, Normoactive bowel sounds, No hepatomegaly, No splenomegaly, No palpable mass Skin: Normal temperature, tone, texture, turgor, no induration, No subcutaneous nodules, No rash, lesions, No ulcers Extremities: No digital cyanosis, No clubbing, Pedal pulses intact and symmetrical, Radial pulses intact and symmetrical, No calf tenderness Psychiatric: Alert and oriented to person, place and time, appropriate affect, intact judgement Neuro: Muscles Strength 5/5 in all 4 extremities, Sensation to light touch grossly present throughout, Cranial nerves II-XII grossly intact, no focal sensory deficits - Labs CBC & Chem 7: 10/21/19 02:55 10/21/19 02:55 Labs: Abnormal Lab Results - Last 24 Hours (Table) 10/20/19 10/20/19 10/20/19 Range/Units 17:53 17:53 17:53 RBC 3.66 L (4.30-5.90) m/uL Hgb 11.9 L (13.0-17.5) gm/dL Hct 35.6 L (39.0-53.0) % Lymphocytes # (1.0-4.8) k/uL APTT (22.0-30.0) sec Sodium 128 L (137-145) mmol/L Chloride 88 L (98-107) mmol/L BUN (9-20) mg/dL Glucose 207 H (74-99) mg/dL POC Glucose (mg/dL) (75-99) mg/dL Plasma Lactic Acid Helder 2.9 H* (0.7-2.0) mmol/L Troponin I (0.000-0.034) ng/mL 10/20/19 10/20/19 10/21/19 Range/Units 17:53 23:54 00:21 RBC (4.30-5.90) m/uL Hgb (13.0-17.5) gm/dL Hct (39.0-53.0) % Lymphocytes # (1.0-4.8) k/uL APTT (22.0-30.0) sec Sodium (137-145) mmol/L Chloride (98-107) mmol/L BUN (9-20) mg/dL Glucose (74-99) mg/dL POC Glucose (mg/dL) 302 H (75-99) mg/dL Plasma Lactic Acid Helder (0.7-2.0) mmol/L Troponin I 0.044 H* 0.049 H* (0.000-0.034) ng/mL 10/21/19 10/21/19 10/21/19 Range/Units 02:32 02:55 02:55 RBC 3.58 L (4.30-5.90) m/uL Hgb 11.5 L (13.0-17.5) gm/dL Hct 35.0 L (39.0-53.0) % Lymphocytes # 0.3 L (1.0-4.8) k/uL APTT 35.9 H (22.0-30.0) sec Sodium (137-145) mmol/L Chloride (98-107) mmol/L BUN (9-20) mg/dL Glucose (74-99) mg/dL POC Glucose (mg/dL) 244 H (75-99) mg/dL Plasma Lactic Acid Helder (0.7-2.0) mmol/L Troponin I (0.000-0.034) ng/mL 10/21/19 10/21/19 10/21/19 Range/Units 02:55 06:16 08:04 RBC (4.30-5.90) m/uL Hgb (13.0-17.5) gm/dL Hct (39.0-53.0) % Lymphocytes # (1.0-4.8) k/uL APTT (22.0-30.0) sec Sodium 128 L (137-145) mmol/L Chloride 91 L (98-107) mmol/L BUN 22 H (9-20) mg/dL Glucose 199 H (74-99) mg/dL POC Glucose (mg/dL) 231 H (75-99) mg/dL Plasma Lactic Acid Helder (0.7-2.0) mmol/L Troponin I 0.051 H* (0.000-0.034) ng/mL 10/21/19 10/21/19 Range/Units 09:43 12:10 RBC (4.30-5.90) m/uL Hgb (13.0-17.5) gm/dL Hct (39.0-53.0) % Lymphocytes # (1.0-4.8) k/uL APTT 31.3 H (22.0-30.0) sec Sodium (137-145) mmol/L Chloride (98-107) mmol/L BUN (9-20) mg/dL Glucose (74-99) mg/dL POC Glucose (mg/dL) 159 H (75-99) mg/dL Plasma Lactic Acid Helder (0.7-2.0) mmol/L Troponin I (0.000-0.034) ng/mL Assessment and Plan Plan: Acute asthma exacerbation Acute diastolic CHF, echo showing normal EF, aortic stenosis as well as moderate pulmonary hypertension Hyperglycemia with well controlled DM , A1C 6.8%, secondary to steroids Hypertension well controlled Hyponatremia lactic acidosis resolved Systemic iv steroids Continue DuoNeb IV diuresis IV heparin Cardiology and pulmonary consultations continue home meds Hold oral hypoglycemic agents, transition to insulin sliding scale while ho spitalized CODE STATUS: full code DVT prophylaxis: heparin drip for elevated troponin Discussed with: Patient, family Anticipated discharge place: home A total of 35 minutes was spent on the care of this complex patient more than 50% of the time was spent in counseling and care coordination.
--- NOTE | 2019-10-21 16:20 | P.CNPUL ---
History of Present Illness Consult date: 10/21/19 Reason for consult: dyspnea History of present illness: A 69-year-old patient with known history of COPD, obesity, diabetes and hyperlipidemia, who has been having progressive worsening shortness of breath and lower extremity edema that has been developing over the past few weeks. Limited cough. No symptoms sputum production. No angina. No palpitations. No chest pain. He presented with these symptoms and as part of a further investigation, his sodium was at 128 with a creatinine of 1.1 and lactic acid level of 2.9. ProBNP level was elevated at 4150 and the troponins were slightly elevated and fluid leaking with level of 0.04 and 0.04 and 0.05. Chest x-ray showed COPD and some increased residual markings. CAT scan of the chest was done utilizing the PEEP principal discharge no evidence of pulmonary embolism and there is chronic calcification and increased interstitial marking consistent with CHF. There was some limited groundglass changes bilaterally consistent with CHF. EKG was sinus rhythm with nonspecific changes. The patient is currently being treated with a combination of COPD and CHF exacerbation. He is on examination bronchodilators and steroids and the patient is also on IV diuretics. Echocardiogram was done and echo showed moderate LVH, EF 55-60%, moderate aortic sclerosis, moderate aortic stenosis, mild MR, no significant pulmonary hypertension and the gradient across the aortic valve was 48 max 25 mean. Review of Systems Constitutional: Reports fatigue, Reports weakness, Reports weight gain Eyes: denies as per HPI, denies blurred vision, denies bulging eye, denies decreased vision, denies diplopia, denies discharge, denies dry eye, denies irritation, denies itching, denies pain, denies photophobia, denies loss of peripheral vision, denies loss of vision, denies tunnel vision/blind spots Ears: deny: decreased hearing, ear discharge, earache, tinnitus Ears, nose, mouth and throat: Denies headache, Denies sore throat Breasts: absent: as per HPI, gynecomastia Cardiovascular: Reports decreased exercise tolerance, Reports dyspnea on exertion, Reports leg edema, Reports shortness of breath Respiratory: Reports cough, Reports dyspnea, Reports wheezing Gastrointestinal: Reports as per HPI Genitourinary: Reports as per HPI Musculoskeletal: Reports as per HPI Musculoskeletal: bilateral: ankle swelling, absent: ankle pain, ankle stiffness Integumentary: Denies pruritus, Denies rash Neurological: Reports as per HPI Psychiatric: Reports as per HPI Endocrine: Reports as per HPI, Reports fatigue Hematologic/Lymphatic: Reports as per HPI Allergic/Immunologic: Reports as per HPI Past Medical History Past Medical History: COPD, Diabetes Mellitus, Eye Disorder, Hyperlipidemia, Hypertension Additional Past Medical History / Comment(s): "leaky" heart valve-pt does not recall which valve, NIDDM type II, neuropathy bilateral feet, bronchitis, bilateral glaucoma, past gastric ulcer, chronic low back pain History of Any Multi-Drug Resistant Organisms: None Reported Additional Past Surgical History / Comment(s): throat surgery, cataract removal Past Anesthesia/Blood Transfusion Reactions: No Reported Reaction Past Psychological History: No Psychological Hx Reported Smoking Status: Current every day smoker Past Alcohol Use History: Occasional Past Drug Use History: None Reported - Past Family History Father Family Medical History: Coronary Artery Disease (CAD) Additional Family Medical History / Comment(s): Father had CAD/CABG. He is . Pt had not had contact with his father for 30 yrs. Mother Family Medical History: Congestive Heart Failure (CHF), Neurologic Disorder Additional Family Medical History / Comment(s): Parkinsons dx. Mother from CHF. family Additional Family Medical History / Comment(s): reports CAD history Medications and Allergies Home Medications Medication Instructions Recorded Confirmed Type Albuterol Sulfate [Proair Hfa] 1 - 2 puff INHALATION RT-Q4H PRN 10/20/19 10/20/19 History Atorvastatin Calcium [Lipitor] 10 mg PO DAILY 10/20/19 10/20/19 History Dorzolamide 2% [Trusopt 2%] 1 drop BOTH EYES BID 10/20/19 10/20/19 History Hydrochlorothiazide [Hydrodiuril] 25 mg PO DAILY 10/20/19 10/20/19 History Lisinopril 40 mg PO DAILY 10/20/19 10/20/19 History Montelukast Sodium [Singulair] 10 mg PO HS 10/20/19 10/20/19 History Netarsudil Mesylat/Latanoprost 1 drop BOTH EYES HS 10/20/19 10/20/19 History [Rocklatan 0.02%-0.005% Eye Drp] glipiZIDE XL [Glucotrol Xl] 2.5 mg PO DAILY 10/20/19 10/20/19 History metFORMIN HCL [Glucophage] 500 mg PO TID 10/20/19 10/20/19 History Allergies Allergy/AdvReac Type Severity Reaction Status Date / Time No Known Allergies Allergy Verified 10/20/19 23:24 Physical Exam Vitals: Vital Signs Temp Pulse Pulse Resp BP BP Pulse Ox 10/21/19 14:43 90 10/21/19 14:31 92 10/21/19 12:00 88 10/21/19 11:55 97 F L 81 16 118/74 99 10/21/19 11:50 80 10/21/19 08:41 88 10/21/19 08:28 88 10/21/19 08:00 98 F 76 20 132/74 98 10/21/19 05:59 83 20 123/71 99 10/21/19 01:45 94 10/21/19 01:33 96 10/21/19 00:18 98 20 129/71 98 10/20/19 21:20 105 H 21 134/98 96 10/20/19 21:12 107 H 10/20/19 21:02 104 H 10/20/19 19:10 105 H 10/20/19 19:00 110 H 10/20/19 17:58 26 H 10/20/19 17:18 97.7 F 97 21 140/78 97 Intake and Output 10/21/19 10/21/19 10/21/19 06:59 14:59 22:59 Intake Total 162.491 Output Total 175 Balance -12.509 Intake: Intake, IV Titration 162.491 Amount Heparin Sod,Pork in 0.45% 162.491 NaCl 25,000 unit In 0.45 % NaCl 1 250ml.bag @ 10 UNITS/KG/HR 9.979 mls/hr IV .Q24H [facility] Rx#: [id number] Output: Urine 175 Other: # Voids 1 Weight 99.79 kg Constitutional: No acute distress, conversant, pleasant Eyes:Anicteric sclerae, moist conjunctiva, no lid-lag, PERRLA, ENMT: Oropharynx clear, no erythema, exudates Neck: Supple, FROM, no masses, or JVD, No carotid bruits, No thyromegaly Lungs: Diminished breath sounds bilaterally, bilateral diffuse wheezing Clear to percussion, Normal respiratory effort, no accessory muscle use Cardiovascular: Heart regular in rate and rhythm, No murmurs, gallops, or rubs, 2+ peripheral edema Abdominal: Soft, Nontender, no guarding, rebound or rigidity, Normoactive bowel sounds, No hepatomegaly, No splenomegaly, No palpable mass Skin: Normal temperature, tone, texture, turgor, no induration, No subcutaneous nodules, No rash, lesions, No ulcers Extremities: No digital cyanosis, No clubbing, Pedal pulses intact and symmetrical, Radial pulses intact and symmetrical, No calf tenderness Psychiatric: Alert and oriented to person, place and time, appropriate affect, intact judgement Neuro: Muscles Strength 5/5 in all 4 extremities, Sensation to light touch grossly present throughout, Cranial nerves II-XII grossly intact, no focal senso ry deficits Results - Laboratory Findings CBC and BMP: 10/21/19 02:55 10/21/19 02:55 PT/INR, D-dimer PT 10.6 sec (9.0-12.0) 10/21/19 06:16 INR 1.0 (<1.2) 10/21/19 06:16 Abnormal lab findings: Abnormal Labs 10/20/19 10/20/19 10/20/19 17:53 17:53 17:53 RBC 3.66 L Hgb 11.9 L Hct 35.6 L Lymphocytes # APTT Sodium 128 L Chloride 88 L BUN Glucose 207 H POC Glucose (mg/dL) Plasma Lactic Acid Helder 2.9 H* Troponin I 10/20/19 10/20/19 10/21/19 17:53 23:54 00:21 RBC Hgb Hct Lymphocytes # APTT Sodium Chloride BUN Glucose POC Glucose (mg/dL) 302 H Plasma Lactic Acid Helder Troponin I 0.044 H* 0.049 H* 10/21/19 10/21/19 10/21/19 02:32 02:55 02:55 RBC 3.58 L Hgb 11.5 L Hct 35.0 L Lymphocytes # 0.3 L APTT 35.9 H Sodium Chloride BUN Glucose POC Glucose (mg/dL) 244 H Plasma Lactic Acid Helder Troponin I 10/21/19 10/21/19 10/21/19 02:55 06:16 08:04 RBC Hgb Hct Lymphocytes # APTT Sodium 128 L Chloride 91 L BUN 22 H Glucose 199 H POC Glucose (mg/dL) 231 H Plasma Lactic Acid Helder Troponin I 0.051 H* 10/21/19 10/21/19 09:43 12:10 RBC Hgb Hct Lymphocytes # APTT 31.3 H Sodium Chloride BUN Glucose POC Glucose (mg/dL) 159 H Plasma Lactic Acid Helder Troponin I - Diagnostic Findings Chest x-ray: image reviewed CT scan - chest: image reviewed Assessment and Plan Plan: 1 dyspnea, multifactorial, with a combination of COPD and CHF exacerbation 2 acute hypoxic respiratory failure secondary to above 3 COPD with acute exacerbation 4 CHF with diastolic heart failure and the mother aortic stenosis based on echocardiogram findings 5 diabetes mellitus 6 hypertension 7 hyperlipidemia 8 lower extremity edema 9 troponin leak Plan Continue current treatment which includes a combination of bronchodilators steroids and diuretics Monitor lower extremity edema Monitor body weight Monitor blood sugar and put the patient on sliding scale coverage insulin Industrial Eng comment on the patient's troponin leak as the patient has several risk factors for now underlying CAD We'll follow
[2019-10-21 17:17] LABS: Glucose,Whole Blood 340 mg/dL (75-99)
[2019-10-21] MEDS: DORZOLAMIDE HCL 2% DROPS 10 ML BTL BOTH EYES SCH ×2 (18:42→20:31)
[2019-10-21 20:31] LABS: Glucose,Whole Blood 169 mg/dL (75-99)
[2019-10-21] MEDS: NETARSUDIL MESYLAT BOTH EYES SCH (20:31)
[2019-10-21] MEDS: LATANOPROST BOTH EYES SCH (20:31)
[2019-10-21] MEDS: MONTELUKAST 10 MG TAB PO SCH (20:34)
[2019-10-21] MEDS: HEPARIN SOD,PORK IN 0.45% NACL 25,000 UNIT in 0.45% NACL 1 250ML.BAG IV SCH (20:36)
[2019-10-22] MEDS: IPRATROPIUM-ALBUTEROL 3 ML NEB INHALATION SCH ×5 (00:06→21:18)
[2019-10-22] MEDS: IPRATROPIUM-ALBUTEROL 3 ML NEB INHALATION PRN ×2 (00:08→05:56)
[2019-10-22 03:14] LABS: Calcium 8.9 mg/dL (8.4-10.2); Magnesium 1.7 mg/dL (1.6-2.3); Phosphorus 4.1 mg/dL (2.5-4.5); Potassium 5.4 mmol/L (3.5-5.1)
[2019-10-22 06:12] LABS: Glucose,Whole Blood 313 mg/dL (75-99)
[2019-10-22] MEDS: INSULIN ASPART (NovoLOG) 100 UNIT/ML VIAL SQ SCH ×4 (06:28→21:26)
[2019-10-22 08:05] LABS: Basophils % (A) 0 %; Eosinophils % (A) 0 %; HCT 34.7 % (39.0-53.0); HGB 11.2 gm/dL (13.0-17.5); Lymphocytes # (A) 0.7 k/uL (1.0-4.8); Lymphocytes % (A) 5 %; MCH 32.2 pg (25.0-35.0); MCHC 32.2 g/dL (31.0-37.0); Mean Platelet Volume 8.1; Monocytes # (A) 0.6 k/uL (0-1.0); Monocytes % (A) 4 %; Neutrophils # (A) 12.5 k/uL (1.3-7.7); Neutrophils % (A) 90 %; Platelet Count 195 k/uL (150-450); RBC 3.47 m/uL (4.30-5.90); RDW 12.7 % (11.5-15.5)
[2019-10-22 08:17] LABS: Prothrombin Time 10.4 sec (9.0-12.0)
[2019-10-22] MEDS: DORZOLAMIDE HCL 2% DROPS 10 ML BTL BOTH EYES SCH ×2 (08:53→21:26)
[2019-10-22] MEDS: methylPREDNISolone SOD SUCCI 40 MG/ML 1 ML VIAL IV SCH ×2 (08:53→21:27)
[2019-10-22] MEDS: ATORVASTATIN 10 MG TAB PO SCH (08:54)
[2019-10-22 08:57] LABS: Albumin 4.5 g/dL (3.5-5.0); Calcium 9.1 mg/dL (8.4-10.2); Magnesium 1.7 mg/dL (1.6-2.3); Phosphorus 4.3 mg/dL (2.5-4.5); Potassium 5.2 mmol/L (3.5-5.1); Total Bilirubin 0.3 mg/dL (0.2-1.3)
--- NOTE | 2019-10-22 09:08 | P.PN ---
Subjective Progress Note Date: 10/22/19 Principal diagnosis: sob Patient is feeling better. Breathing is getting better, no chest pain. Still having cough but not able to bring anything up. Objective - Vital Signs Vital signs: Vital Signs Temp 98.0 F 10/22/19 00:00 Pulse 88 10/22/19 08:54 Resp 18 10/22/19 03:56 BP 135/74 10/22/19 00:00 Pulse Ox 95 10/22/19 00:00 Intake & Output 10/21/19 10/22/19 10/22/19 18:59 06:59 18:59 Intake Total 402.491 565.433 Output Total 175 800 Balance 227.491 -234.567 Weight 99.79 kg 97.9 kg Intake: Intake, IV Titration 162.491 85.433 Amount Heparin Sod,Pork in 0.45% 162.491 85.433 NaCl 25,000 unit In 0.45 % NaCl 1 250ml.bag @ 10 UNITS/KG/HR 9.979 mls/hr IV .Q24H [facility] Rx#: [id number] Oral 240 480 Output: Urine 175 800 Other: Voiding Method Urinal # Voids 1 - Exam Constitutional: No acute distress, conversant, pleasant Eyes:Anicteric sclerae, moist conjunctiva, no lid-lag, PERRLA, ENMT: Oropharynx clear, no erythema, exudates Neck: Supple, FROM, no masses, or JVD, No carotid bruits, No thyromegaly Lungs: Diminished breath sounds bilaterally, scattered wheezing Clear to percussion, Normal respiratory effort, no accessory muscle use Cardiovascular: Heart regular in rate and rhythm, No murmurs, gallops, or rubs, 2+ peripheral edema Abdominal: Soft, Nontender, no guarding, rebound or rigidity, Normoactive bowel sounds, No hepatomegaly, No splenomegaly, No palpable mass Skin: Normal temperature, tone, texture, turgor, no induration, No subcutaneous nodules, No rash, lesions, No ulcers Extremities: No digital cyanosis, No clubbing, Pedal pulses intact and symmetrical, Radial pulses intact and symmetrical, No calf tenderness Psychiatric: Alert and oriented to person, place and time, appropriate affect, intact judgement Neuro: Muscles Strength 5/5 in all 4 extremities, Sensation to light touch grossly present throughout, Cranial nerves II-XII grossly intact, no focal sensory deficits - Labs CBC & Chem 7: 10/22/19 07:17 10/22/19 07:17 Labs: Abnormal Lab Results - Last 24 Hours (Table) 10/21/19 10/21/19 10/21/19 Range/Units 09:43 12:10 17:14 WBC (3.8-10.6) k/uL RBC (4.30-5.90) m/uL Hgb (13.0-17.5) gm/dL Hct (39.0-53.0) % Neutrophils # (1.3-7.7) k/uL Lymphocytes # (1.0-4.8) k/uL APTT 31.3 H (22.0-30.0) sec Sodium (137-145) mmol/L Potassium (3.5-5.1) mmol/L Chloride (98-107) mmol/L BUN (9-20) mg/dL Creatinine (0.66-1.25) mg/dL Glucose (74-99) mg/dL POC Glucose (mg/dL) 159 H 340 H (75-99) mg/dL 10/21/19 10/21/19 10/22/19 Range/Units 18:59 20:30 02:25 WBC (3.8-10.6) k/uL RBC (4.30-5.90) m/uL Hgb (13.0-17.5) gm/dL Hct (39.0-53.0) % Neutrophils # (1.3-7.7) k/uL Lymphocytes # (1.0-4.8) k/uL APTT 36.0 H (22.0-30.0) sec Sodium 125 L (137-145) mmol/L Potassium 5.4 H (3.5-5.1) mmol/L Chloride 88 L (98-107) mmol/L BUN 41 H (9-20) mg/dL Creatinine 1.48 H (0.66-1.25) mg/dL Glucose 265 H (74-99) mg/dL POC Glucose (mg/dL) 169 H (75-99) mg/dL 10/22/19 10/22/19 10/22/19 Range/Units 02:25 06:11 07:17 WBC 14.0 H (3.8-10.6) k/uL RBC 3.47 L (4.30-5.90) m/uL Hgb 11.2 L (13.0-17.5) gm/dL Hct 34.7 L (39.0-53.0) % Neutrophils # 12.5 H (1.3-7.7) k/uL Lymphocytes # 0.7 L (1.0-4.8) k/uL APTT 58.2 H (22.0-30.0) sec Sodium (137-145) mmol/L Potassium (3.5-5.1) mmol/L Chloride (98-107) mmol/L BUN (9-20) mg/dL Creatinine (0.66-1.25) mg/dL Glucose (74-99) mg/dL POC Glucose (mg/dL) 313 H (75-99) mg/dL 10/22/19 Range/Units 07:17 WBC (3.8-10.6) k/uL RBC (4.30-5.90) m/uL Hgb (13.0-17.5) gm/dL Hct (39.0-53.0) % Neutrophils # (1.3-7.7) k/uL Lymphocytes # (1.0-4.8) k/uL APTT (22.0-30.0) sec Sodium 127 L (137-145) mmol/L Potassium 5.2 H (3.5-5.1) mmol/L Chloride 89 L (98-107) mmol/L BUN 42 H (9-20) mg/dL Creatinine 1.40 H (0.66-1.25) mg/dL Glucose 264 H (74-99) mg/dL POC Glucose (mg/dL) (75-99) mg/dL Assessment and Plan Plan: Acute asthma exacerbation Acute diastolic CHF, echo showing normal EF, aortic stenosis as well as moderate pulmonary hypertension GUY Hyponatremia Hyperglycemia with history of type 2 DM , A1C 6.8%, secondary to steroids Hypertension well controlled Wean down systemic iv steroids as wheezing improved Continue DuoNeb Decrease IV lasix to once a day due to GUY Hold lisinopril due to GUY and hyperkalemia IV heparin Send plasma and urine osmolalities to investigate hyponatremia Start Lantus 10 units daily due to persistently elevated blood sugars, resume sliding scale insulin Cardiology and pulmonary following continue home meds Hold oral hypoglycemic agents, transition to insulin sliding scale while hospitalized CODE STATUS: full code DVT prophylaxis: heparin drip for elevated troponin Discussed with: Patient, family Anticipated discharge place: home A total of 35 minutes was spent on the care of this complex patient more than 50% of the time was spent in counseling and care coordination.
[2019-10-22 12:45] LABS: Glucose,Whole Blood 286 mg/dL (75-99)
[2019-10-22] MEDS: guaiFENesin 600 MG TABLET.ER PO SCH ×2 (13:08→21:26)
--- NOTE | 2019-10-22 14:51 | P.PN ---
Subjective Progress Note Date: 10/22/19 On today's evaluation of 10/22/2019, the patient continues to be symptomatic. Continues to BE short of breath. He is having difficulty laying down flat because of increased shortness of breath. He is on IV Lasix 20 mg every 24 hours. Urine output is not a whole lot in the creatinine is up to 1.4 and I'm concerned about an underlying conscious nephropathy as the patient underwent a CT angiogram a time of admission and the patient is diabetic. In terms of his COPD exacerbation, he continues to be actively bronchospastic and wheezy. Limited improvement since yesterday. He remains on DuoNeb nebulized treatments around the clock and IV Solu Medrol 40 mg every 12 hours. Based on his blood work, the sodium level is up down to 125 and later on it's up to 127. BUN is at 42 with a creatinine of 1.4 stable compared to yesterday. Blood sugar is elevated related to systemic steroid use. Objective - Vital Signs Vital signs: Vital Signs Temp 98.5 F 10/22/19 12:00 Pulse 79 10/22/19 12:00 Resp 16 10/22/19 12:00 BP 105/62 10/22/19 12:00 Pulse Ox 98 10/22/19 08:00 Intake & Output 10/21/19 10/22/19 10/22/19 18:59 06:59 18:59 Intake Total 402.491 565.433 600 Output Total 175 800 100 Balance 227.491 -234.567 500 Weight 99.79 kg 97.9 kg Intake: Intake, IV Titration 162.491 85.433 Amount Heparin Sod,Pork in 0.45% 162.491 85.433 NaCl 25,000 unit In 0.45 % NaCl 1 250ml.bag @ 10 UNITS/KG/HR 9.979 mls/hr IV .Q24H [facility] Rx#: [id number] Oral 240 480 600 Output: Urine 175 800 100 Other: Voiding Method Urinal Urinal # Voids 1 - Exam Constitutional: No acute distress, conversant, pleasant Eyes:Anicteric sclerae, moist conjunctiva, no lid-lag, PERRLA, ENMT: Oropharynx clear, no erythema, exudates Neck: Supple, FROM, no masses, or JVD, No carotid bruits, No thyromegaly Lungs: Diminished breath sounds bilaterally, bilateral diffuse wheezing Clear to percussion, Normal respiratory effort, no accessory muscle use Cardiovascular: Heart regular in rate and rhythm, No murmurs, gallops, or rubs, 2+ peripheral edema Abdominal: Soft, Nontender, no guarding, rebound or rigidity, Normoactive bowel sounds, No hepatomegaly, No splenomegaly, No palpable mass Skin: Normal temperature, tone, texture, turgor, no induration, No subcutaneous nodules, No rash, lesions, No ulcers Extremities: No digital cyanosis, No clubbing, Pedal pulses intact and symmetrical, Radial pulses intact and symmetrical, No calf tenderness Psychiatric: Alert and oriented to person, place and time, appropriate affect, intact judgement Neuro: Muscles Strength 5/5 in all 4 extremities, Sensation to light touch grossly present throughout, Cranial nerves II-XII grossly intact, no focal sens ory deficits - Labs CBC & Chem 7: 10/22/19 07:17 10/22/19 07:17 Labs: Abnormal Lab Results - Last 24 Hours (Table) 10/21/19 10/21/19 10/21/19 Range/Units 17:14 18:59 20:30 WBC (3.8-10.6) k/uL RBC (4.30-5.90) m/uL Hgb (13.0-17.5) gm/dL Hct (39.0-53.0) % Neutrophils # (1.3-7.7) k/uL Lymphocytes # (1.0-4.8) k/uL APTT 36.0 H (22.0-30.0) sec Sodium (137-145) mmol/L Potassium (3.5-5.1) mmol/L Chloride (98-107) mmol/L BUN (9-20) mg/dL Creatinine (0.66-1.25) mg/dL Glucose (74-99) mg/dL POC Glucose (mg/dL) 340 H 169 H (75-99) mg/dL 10/22/19 10/22/19 10/22/19 Range/Units 02:25 02:25 06:11 WBC (3.8-10.6) k/uL RBC (4.30-5.90) m/uL Hgb (13.0-17.5) gm/dL Hct (39.0-53.0) % Neutrophils # (1.3-7.7) k/uL Lymphocytes # (1.0-4.8) k/uL APTT 58.2 H (22.0-30.0) sec Sodium 125 L (137-145) mmol/L Potassium 5.4 H (3.5-5.1) mmol/L Chloride 88 L (98-107) mmol/L BUN 41 H (9-20) mg/dL Creatinine 1.48 H (0.66-1.25) mg/dL Glucose 265 H (74-99) mg/dL POC Glucose (mg/dL) 313 H (75-99) mg/dL 10/22/19 10/22/19 10/22/19 Range/Units 07:17 07:17 12:43 WBC 14.0 H (3.8-10.6) k/uL RBC 3.47 L (4.30-5.90) m/uL Hgb 11.2 L (13.0-17.5) gm/dL Hct 34.7 L (39.0-53.0) % Neutrophils # 12.5 H (1.3-7.7) k/uL Lymphocytes # 0.7 L (1.0-4.8) k/uL APTT (22.0-30.0) sec Sodium 127 L (137-145) mmol/L Potassium 5.2 H (3.5-5.1) mmol/L Chloride 89 L (98-107) mmol/L BUN 42 H (9-20) mg/dL Creatinine 1.40 H (0.66-1.25) mg/dL Glucose 264 H (74-99) mg/dL POC Glucose (mg/dL) 286 H (75-99) mg/dL Assessment and Plan Plan: 1 dyspnea, multifactorial, with a combination of COPD and CHF exacerbation 2 acute hypoxic respiratory failure secondary to above 3 COPD with acute exacerbation 4 CHF with diastolic heart failure and the moderate aortic stenosis based on echocardiogram findings 5 diabetes mellitus 6 hypertension 7 hyperlipidemia 8 lower extremity edema 9 troponin leak 10 acute kidney injury with a creatinine of 1.4, consider contrast nephropathy Plan Continue DuoNeb nebulized treatments around the clock Add Perforomist and Pulmicort neb last treatment twice a day Continue IV Solu-Medrol IV Lasix Monitor renal function We'll continue to follow
--- NOTE | 2019-10-22 15:56 | P.PN ---
Subjective Progress Note Date: 10/22/19 This is a pleasant 69-year-old male patient who follows with a engineering drafter through [facility], Dr. Beto Silverman. He is a past medical history of hypertension, hyperlipidemia, diabetes mellitus type 2, and a "leaky heart valve". According to him he last underwent echocardiogram about 3 months ago a nd followed up with his engineering drafter shortly after that. It's been many years since his last stress test. He has a current every day smoker about a half a pack a day for many years, drinks about 4 cups of coffee daily and drinks 4-5 mixed drinks every other day. He's been having complaints of shortness of breath over the last several months with a PFT in August which findings were consistent with interstitial lung disease and recommended high resolution computed tomography scan of the chest. Presented to the emergency department because over the last 3 days or so his shortness of breath has been progressively getting worse causing him to have difficulties even walking to the bathroom. He's also been having complaints of lower extremity edema which has been intermittent over the last several months as well but recently somewhat worse. Also complains of orthopnea and PND. He's been sleeping in a chair for the last few weeks. Venous Doppler of the lower extremities show no evidence of DVT. Chest x-ray showed findings related to either COPD, bronchitis or reactive airway disease, pulmonary artery hypertension and possibly perihilar airspace disease or atelectasis. Computed tomography scan of the chest showed development of mediastinal adenopathy and the intraoral from prior CT, interstitial prominence with groundglass [place], correlate to exclude congestive heart failure, follow-up is recommended to exclude soft tissue nodules, metastatic disease, no PE, correlate for possible pulmonary artery hypertension, coronary artery disease. EKG on admission showed sinus rhythm with nonspecific ST-T wave abnormalities with no findings suggestive of acute ischemia. Labs on admission showed a normal white blood cell count, hemoglobin 11.9, sodium 128, chloride 88, BUN 20, creatinine 1.15, plasma lactic acid 2.9, NT proBNP 4180 which was 1970 in August, and troponins minimally elevated at 0.044, 0.045 and 0.051. Vital signs are stable. Upon examination, patient is sitting up at the edge of the bed. Overall he feels his breathing is somewhat better but he has not been up moving around much. He denies any recent complaints of chest discomfort but did have an episode a few weeks ago which he attributed to gas, occurred after eating and relieved with belching. He is currently on heparin drip and Lasix 20 mg IV push every 12 hours as well as lisinopril 40 mg daily, Singulair, NovoLog, and Solu-Medrol. 10/22/2019 Upon examination, patient continues to feel short of breath but is feeling somewhat better. Echocardiogram done yesterday showed moderate LVH, normal LV systolic function with an ejection fraction between 55-60%, mildly enlarged RV, moderately dilated LA, moderate aortic valve sclerosis, mild aortic regurgitation, moderate aortic stenosis, mild mitral regurgitation, mild tricuspid regurgitation and moderate pulmonary hypertension. Aortic valve appears stable compared to his last echocardiogram done with his primary engineering drafter. Labs this morning showed sodium of 127, potassium 5.2, BUN 42, creatinine 1.4. He is currently on Lasix 20 mg IV daily and Solu-Medrol. Objective - Vital Signs Vital signs: Vital Signs Temp 98.5 F 10/22/19 12:00 Pulse 79 10/22/19 12:00 Resp 16 10/22/19 12:00 BP 105/62 10/22/19 12:00 Pulse Ox 98 10/22/19 08:00 Intake & Output 10/21/19 10/22/19 10/22/19 18:59 06:59 18:59 Intake Total 402.491 565.433 600 Output Total 175 800 100 Balance 227.491 -234.567 500 Weight 99.79 kg 97.9 kg Intake: Intake, IV Titration 162.491 85.433 Amount Heparin Sod,Pork in 0.45% 162.491 85.433 NaCl 25,000 unit In 0.45 % NaCl 1 250ml.bag @ 10 UNITS/KG/HR 9.979 mls/hr IV .Q24H ARIELA Rx#: [id number] Oral 240 480 600 Output: Urine 175 800 100 Other: Voiding Method Urinal Urinal # Voids 1 - Exam PHYSICAL EXAMINATION: HEENT: Head is atraumatic, normocephalic. Pupils equal, round. Neck is supple. There is no elevated jugular venous pressure. No carotid bruits auscultated. HEART EXAMINATION: Heart sounds regular, S1 and S2 with a systolic ejection murmur at the base. CHEST EXAMINATION: Lungs reveal diffuse expiratory wheezing. No chest wall tenderness is noted on palpation or with deep breathing. ABDOMEN: Soft, obese, nontender. Bowel sounds are heard. No organomegaly noted. EXTREMITIES: 2+ peripheral pulses with evidence of 1-2+ pitting peripheral edema and no calf tenderness noted. NEUROLOGIC patient is awake, alert and oriented x3. - Labs CBC & Chem 7: 10/22/19 07:17 10/22/19 07:17 Labs: Abnormal Lab Results - Last 24 Hours (Table) 10/21/19 10/21/19 10/21/19 Range/Units 17:14 18:59 20:30 WBC (3.8-10.6) k/uL RBC (4.30-5.90) m/uL Hgb (13.0-17.5) gm/dL Hct (39.0-53.0) % Neutrophils # (1.3-7.7) k/uL Lymphocytes # (1.0-4.8) k/uL APTT 36.0 H (22.0-30.0) sec Sodium (137-145) mmol/L Potassium (3.5-5.1) mmol/L Chloride (98-107) mmol/L BUN (9-20) mg/dL Creatinine (0.66-1.25) mg/dL Glucose (74-99) mg/dL POC Glucose (mg/dL) 340 H 169 H (75-99) mg/dL 10/22/19 10/22/19 10/22/19 Range/Units 02:25 02:25 06:11 WBC (3.8-10.6) k/uL RBC (4.30-5.90) m/uL Hgb (13.0-17.5) gm/dL Hct (39.0-53.0) % Neutrophils # (1.3-7.7) k/uL Lymphocytes # (1.0-4.8) k/uL APTT 58.2 H (22.0-30.0) sec Sodium 125 L (137-145) mmol/L Potassium 5.4 H (3.5-5.1) mmol/L Chloride 88 L (98-107) mmol/L BUN 41 H (9-20) mg/dL Creatinine 1.48 H (0.66-1.25) mg/dL Glucose 265 H (74-99) mg/dL POC Glucose (mg/dL) 313 H (75-99) mg/dL 10/22/19 10/22/19 10/22/19 Range/Units 07:17 07:17 12:43 WBC 14.0 H (3.8-10.6) k/uL RBC 3.47 L (4.30-5.90) m/uL Hgb 11.2 L (13.0-17.5) gm/dL Hct 34.7 L (39.0-53.0) % Neutrophils # 12.5 H (1.3-7.7) k/uL Lymphocytes # 0.7 L (1.0-4.8) k/uL APTT (22.0-30.0) sec Sodium 127 L (137-145) mmol/L Potassium 5.2 H (3.5-5.1) mmol/L Chloride 89 L (98-107) mmol/L BUN 42 H (9-20) mg/dL Creatinine 1.40 H (0.66-1.25) mg/dL Glucose 264 H (74-99) mg/dL POC Glucose (mg/dL) 286 H (75-99) mg/dL Assessment and Plan Assessment: #1 symptoms of progressively worsening shortness of breath, edema, orthopnea and PND likely secondary to combination of underlying lung disease as well as acute on chronic diastolic congestive heart failure #2 hypertension #3 hyperlipidemia #4 diabetes mellitus type 2 #5 nicotine dependence #6 minimally elevated troponins, not consistent with acute coronary syndrome #7 moderate aortic valve stenosis #8 COPD with evidence of moderate pulmonary hypertension on echocardiogram #9 suspected obstructive sleep apnea Plan: From cardiology's perspective, we will continue IV Lasix. Continue to follow th e patient's renal function, electrolytes, daily weights and accurate I&O's. We will discontinue IV heparin. We will continue to follow the patient provide further recommendations accordingly. ELECTRICIAN ASSISTANT note has been reviewed, I agree with a documented findings and plan of care. Patient was seen and examined.
[2019-10-22 17:19] LABS: Glucose,Whole Blood 246 mg/dL (75-99)
[2019-10-22 20:39] LABS: Glucose,Whole Blood 166 mg/dL (75-99)
[2019-10-22] MEDS: FORMOTEROL FUMARATE 20 MCG/2 ML NEBU INHALATION SCH (21:18)
[2019-10-22] MEDS: BUDESONIDE 0.5 MG/2 ML NEBU INHALATION SCH (21:18)
[2019-10-22] MEDS: MONTELUKAST 10 MG TAB PO SCH (21:26)
[2019-10-22] MEDS: INSULIN DETEMIR (LEVEMIR) 100 UNIT/ML SYR SQ SCH (21:26)
[2019-10-22] MEDS: LATANOPROST BOTH EYES SCH (21:28)
[2019-10-22] MEDS: NETARSUDIL MESYLAT BOTH EYES SCH (21:28)
[2019-10-23 06:19] LABS: Glucose,Whole Blood 241 mg/dL (75-99)
[2019-10-23] MEDS: INSULIN ASPART (NovoLOG) 100 UNIT/ML VIAL SQ SCH ×4 (06:35→20:53)
[2019-10-23 07:05] LABS: Basophils % (A) 0 %; Eosinophils % (A) 0 %; HGB 11.5 gm/dL (13.0-17.5); Lymphocytes # (A) 0.5 k/uL (1.0-4.8); Lymphocytes % (A) 4 %; MCH 32.6 pg (25.0-35.0); MCHC 32.8 g/dL (31.0-37.0); MCV 99.3 fL (80.0-100.0); Mean Platelet Volume 8.1; Monocytes # (A) 0.4 k/uL (0-1.0); Monocytes % (A) 3 %; Neutrophils # (A) 10.8 k/uL (1.3-7.7); Neutrophils % (A) 92 %; Platelet Count 189 k/uL (150-450); RBC 3.52 m/uL (4.30-5.90); RDW 12.7 % (11.5-15.5); WBC 11.8 k/uL (3.8-10.6)
[2019-10-23 07:13] LABS: Prothrombin Time 10.2 sec (9.0-12.0)
[2019-10-23 07:19] LABS: Potassium 5.7 mmol/L (3.5-5.1)
[2019-10-23] MEDS: methylPREDNISolone SOD SUCCI 40 MG/ML 1 ML VIAL IV SCH ×2 (07:59→20:08)
[2019-10-23] MEDS: guaiFENesin 600 MG TABLET.ER PO SCH ×2 (08:00→20:08)
[2019-10-23] MEDS: ATORVASTATIN 10 MG TAB PO SCH (08:00)
[2019-10-23] MEDS: DORZOLAMIDE HCL 2% DROPS 10 ML BTL BOTH EYES SCH ×2 (08:05→20:08)
[2019-10-23] MEDS: FORMOTEROL FUMARATE 20 MCG/2 ML NEBU INHALATION SCH ×2 (09:00→20:35)
[2019-10-23] MEDS: BUDESONIDE 0.5 MG/2 ML NEBU INHALATION SCH ×2 (09:00→20:35)
[2019-10-23] MEDS ORDERED: FUROSEMIDE 10 MG/ML 2 ML VIAL IV SCH (09:00)
[2019-10-23] MEDS: IPRATROPIUM-ALBUTEROL 3 ML NEB INHALATION SCH ×4 (09:01→20:35)
[2019-10-23 12:05] LABS: Glucose,Whole Blood 373 mg/dL (75-99)
--- NOTE | 2019-10-23 13:27 | XR ---
EXAMINATION TYPE: XR chest 2V DATE OF EXAM: 10/23/2019 COMPARISON: 10/20/2019 HISTORY: Congestive heart failure TECHNIQUE: Frontal and lateral views of the chest are obtained. FINDINGS: Cardiomediastinal silhouette is enlarged. There is slightly improved diffuse interstitial edema. No sizable pleural effusion. Flattening of the diaphragms on the lateral view indicative of un derlying COPD. Mild degenerative change of the spine. IMPRESSION: Improved, now minimal diffuse interstitial pulmonary edema. No pleural effusions. Cardio megaly persists.
--- NOTE | 2019-10-23 15:45 | P.NPCON ---
History of Present Illness - Reason for Consult Consult date: 10/23/19 acute renal failure - Chief Complaint Acute kidney injury and chronic kidney disease - History of Present Illness This is a 69-year-old patient seen in consultation because of acute kidney injury and chronic kidney disease. He had CTA on 10/20/2019, and a PE was ruled out. Creatinine was stable at 1.17 on 10/21/2019 but went up to 1.48 on 10/22/2019. It subsequently was 1.4 and is down to 1.29 as of this morning He continues to have significant edema and shortness of breath. No nausea vo miting diarrhea. No chest pain no fever chills. Further workup has included an echocardiogram, shows 55-60% ejection fraction, moderate aortic valve sclerosis and stenosis, right and blood pressure is 48 mm He is on Lasix 40 IV every 12, blood pressure in the 120-140 range Urine output is not well documented Past Medical History Past Medical History: COPD, Diabetes Mellitus, Eye Disorder, Hyperlipidemia, Hypertension Additional Past Medical History / Comment(s): "leaky" heart valve-pt does not recall which valve, NIDDM type II, neuropathy bilateral feet, bronchitis, bilateral glaucoma, past gastric ulcer, chronic low back pain History of Any Multi-Drug Resistant Organisms: None Reported Additional Past Surgical History / Comment(s): throat surgery, cataract removal Past Anesthesia/Blood Transfusion Reactions: No Reported Reaction Past Psychological History: No Psychological Hx Reported Smoking Status: Current every day smoker Past Alcohol Use History: Occasional Past Drug Use History: None Reported - Past Family History Father Family Medical History: Coronary Artery Disease (CAD) Additional Family Medical History / Comment(s): Father had CAD/CABG. He is de ceased. Pt had not had contact with his father for 30 yrs. Mother Family Medical History: Congestive Heart Failure (CHF), Neurologic Disorder Additional Family Medical History / Comment(s): Parkinsons dx. Mother from CHF. family Additional Family Medical History / Comment(s): reports CAD history Medications and Allergies Home Medications Medication Instructions Recorded Confirmed Type Albuterol Sulfate [Proair Hfa] 1 - 2 puff INHALATION RT-Q4H PRN 10/20/19 10/20/19 History Atorvastatin Calcium [Lipitor] 10 mg PO DAILY 10/20/19 10/20/19 History Dorzolamide 2% [Trusopt 2%] 1 drop BOTH EYES BID 10/20/19 10/20/19 History Hydrochlorothiazide [Hydrodiuril] 25 mg PO DAILY 10/20/19 10/20/19 History Lisinopril 40 mg PO DAILY 10/20/19 10/20/19 History Montelukast Sodium [Singulair] 10 mg PO HS 10/20/19 10/20/19 History Netarsudil Mesylat/Latanoprost 1 drop BOTH EYES HS 10/20/19 10/20/19 History [Rocklatan 0.02%-0.005% Eye Drp] glipiZIDE XL [Glucotrol Xl] 2.5 mg PO DAILY 10/20/19 10/20/19 History metFORMIN HCL [Glucophage] 500 mg PO TID 10/20/19 10/20/19 History Allergies Allergy/AdvReac Type Severity Reaction Status Date / Time No Known Allergies Allergy Verified 10/20/19 23:24 Physical Exam Vitals: Vital Signs Temp Pulse Pulse Resp BP Pulse Ox 10/23/19 15:18 97.3 F L 90 18 117/67 93 L 10/23/19 12:27 87 10/23/19 12:13 86 10/23/19 12:00 98.2 F 84 18 119/74 98 10/23/19 09:29 90 10/23/19 09:20 89 10/23/19 09:04 91 96 10/23/19 08:00 90 18 10/23/19 07:53 98.4 F 90 18 124/77 95 10/23/19 04:00 85 24 126/71 95 10/23/19 00:00 76 20 10/22/19 23:41 76 20 115/60 96 10/22/19 21:47 80 10/22/19 21:34 84 10/22/19 21:32 84 10/22/19 21:19 88 10/22/19 20:00 75 16 105/68 10/22/19 16:36 84 10/22/19 16:20 80 10/22/19 16:00 16 Intake and Output 10/23/19 10/23/19 10/23/19 06:59 14:59 22:59 Intake Total 540 Output Total 600 Balance 540 -600 Intake: Oral 540 Output: Urine 600 Other: Voiding Method Urinal # Voids 2 Weight 102.6 kg On examination is awake alert oriented comfortable HEENT exam no JVP neck is supple no facial asymmetry Lungs are clear to auscultation good air entry bilaterally Heart sounds are unremarkable for any murmur rub gallop Abdomen soft nontender obese protuberant Extremity exam was 2+ edema Neurologically awake alert oriented Results - Lab Results Most recent lab results Calcium 9.0 mg/dL (8.4-10.2) 10/23/19 06:09 Phosphorus 4.3 mg/dL (2.5-4.5) 10/22/19 07:17 Magnesium 1.7 mg/dL (1.6-2.3) 10/22/19 07:17 10/23/19 06:09 10/23/19 06:09 Assessment and Plan Assessment: Impression 1. Acute kidney injury likely from CTA., An element of prerenal cannot be completely ruled out 2. 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 Hyponatremia secondary to acute kidney injury. Sodium is 125 4. Hyperkalemia secondary to acute kidney injury potassium is 5.7 with a concurrent blood sugar of 227 therefore this is an element of transcellular shift because of the hyperglycemia. 5. Blood pressure is controlled at target 6. Significant edema. Venous Doppler dated 10/20/2019 is unremarkable Recommendation 1. Check urine analysis again less urine on 08/26/2019 showed no proteins microglial to creatinine ratio 60 mg/g of creatinine. 2. Continue diuretics for right now. 3. Expect renal function to improve it is from dye toxicity, in a few days 4. Monitor labs urine output and vital signs closely
--- NOTE | 2019-10-23 16:03 | P.PN ---
Subjective Progress Note Date: 10/23/19 Principal diagnosis: Acute exacerbation of COPD with an acute exacerbation of diastolic congestive heart failure The patient is seen today 10/23/2019 in follow-up on the selective care unit. He is currently sitting up in a chair at the bedside. Awake and alert in no acute distress. Breathing a bit easier today compared to yesterday. Still somewhat bronchospastic and wheezy. Not quite back to his baseline. He is maintaining good O2 saturations in the 90s on room air. He's been afebrile. Hemodynamically stable. White count 11.8. Hemoglobin 11.5. Sodium 125. Potas sium 5.7. Creatinine 1.29. He remains on diuretics at 40 mg of Lasix IV every 12 hours now. DuoNeb inhalations, Pulmicort and Perforomist inhalations, IV Solu-Medrol. Objective - Vital Signs Vital signs: Vital Signs Temp 97.3 F L 10/23/19 15:18 Pulse 90 10/23/19 15:18 Resp 18 10/23/19 15:18 BP 117/67 10/23/19 15:18 Pulse Ox 93 L 10/23/19 15:18 Intake & Output 10/22/19 10/23/19 10/23/19 18:59 06:59 18:59 Intake Total 840 540 Output Total 100 600 Balance 740 540 -600 Weight 102.6 kg Intake: Oral 840 540 Output: Urine 100 600 Other: Voiding Method Urinal Urinal # Voids 2 - Exam GENERAL EXAM: Alert, pleasant 69-year-old gentleman, up in a chair, on room air comfortable in no apparent distress. HEAD: Normocephalic. EYES: Normal reaction of pupils, equal size. NOSE: Clear with pink turbinates. THROAT: No erythema or exudates. NECK: No masses, no JVD. CHEST: No chest wall deformity. LUNGS: Equal air entry with crackles in the bilateral bases, end expiratory wheeze, diminished. CVS: S1 and S2 normal with no audible murmur, regular rhythm. ABDOMEN: No hepatosplenomegaly, normal bowel sounds, no guarding or rigidity. SPINE: No scoliosis or deformity SKIN: No rashes CENTRAL NERVOUS SYSTEM: No focal deficits, tone is normal in all 4 extremities. EXTREMITIES: There is no peripheral edema. No clubbing, no cyanosis. Peripheral pulses are intact. - Labs CBC & Chem 7: 10/23/19 06:09 10/23/19 06:09 Labs: Abnormal Lab Results - Last 24 Hours (Table) 10/22/19 10/22/19 10/23/19 Range/Units 17:18 20:38 06:09 WBC 11.8 H (3.8-10.6) k/uL RBC 3.52 L (4.30-5.90) m/uL Hgb 11.5 L (13.0-17.5) gm/dL Hct 35.0 L (39.0-53.0) % Neutrophils # 10.8 H (1.3-7.7) k/uL Lymphocytes # 0.5 L (1.0-4.8) k/uL Sodium (137-145) mmol/L Potassium (3.5-5.1) mmol/L Chloride (98-107) mmol/L BUN (9-20) mg/dL Creatinine (0.66-1.25) mg/dL Glucose (74-99) mg/dL POC Glucose (mg/dL) 246 H 166 H (75-99) mg/dL 10/23/19 10/23/19 10/23/19 Range/Units 06:09 06:18 12:04 WBC (3.8-10.6) k/uL RBC (4.30-5.90) m/uL Hgb (13.0-17.5) gm/dL Hct (39.0-53.0) % Neutrophils # (1.3-7.7) k/uL Lymphocytes # (1.0-4.8) k/uL Sodium 125 L (137-145) mmol/L Potassium 5.7 H (3.5-5.1) mmol/L Chloride 89 L (98-107) mmol/L BUN 48 H (9-20) mg/dL Creatinine 1.29 H (0.66-1.25) mg/dL Glucose 227 H (74-99) mg/dL POC Glucose (mg/dL) 241 H 373 H (75-99) mg/dL Assessment and Plan Assessment: 1 dyspnea, multifactorial, with a combination of COPD and CHF exacerbation 2 acute hypoxic respiratory failure secondary to above 3 COPD with acute exacerbation 4 CHF with diastolic heart failure and the moderate aortic stenosis based on echocardiogram findings 5 diabetes mellitus 6 hypertension 7 hyperlipidemia 8 lower extremity edema 9 troponin leak 10 acute kidney injury with a creatinine of 1.29, consider contrast nephropathy Plan Seen and evaluated by Dr. Garcia Remains on DuoNeb inhalations Pulmicort and perform his inhalations IV Solu-Medrol IV diuretics We'll continue to follow I, the cosigning physician, performed a history & physical examination of the patient. Lungs sounds with crackles in bilateral posterior bases, end expiratory wheeze, diminished. Maintaining good O2 saturations in the 90s on room air. I discussed the assessment and plan of care with my nurse practitioner, Brook Souaz. I attest to the above note as dictated by her.
[2019-10-23 17:15] LABS: Glucose,Whole Blood 334 mg/dL (75-99)
[2019-10-23] MEDS: FUROSEMIDE 10 MG/ML 4 ML VIAL IV SCH (20:07)
[2019-10-23] MEDS: MONTELUKAST 10 MG TAB PO SCH (20:08)
[2019-10-23 20:11] LABS: Glucose,Whole Blood 301 mg/dL (75-99)
[2019-10-23] MEDS: INSULIN DETEMIR (LEVEMIR) 100 UNIT/ML SYR SQ SCH (20:53)
--- NOTE | 2019-10-23 22:20 | PN ---
PROGRESS NOTE Mr. Caro is a 69-year-old gentleman. The patient is admitted with the symptoms of shortness of breath and is treated with acute exacerbation of underlying COPD as well as congestive diastolic heart failure. The patient is feeling better. He continues to feel short of breath, but is afebrile and denies any chest pain. The patient's heart rate is 90 per minute, blood pressure is 117/67 mmHg, oxygen saturation is 93%. First and second heart sounds are heard. Lungs examination revealed bilateral scattered wheezing and rhonchi. The patient's sodium is 125, potassium is 5.7, BUN is 48, and creatinine is 1.29. Chest x-ray shows mild degree of congestion. ASSESSMENT AND PLAN: 1. At present patient's symptoms primary appears to be acute exacerbation of chronic obstructive pulmonary disease. 2. He may have underlying mild heart failure. 3. Hyponatremia could be secondary to diuretic. 4. We will decrease the dose of the Lasix to IV once a day. MMODL / IJN: [id number] /
[2019-10-23] MEDS: NETARSUDIL MESYLAT BOTH EYES SCH (22:27)
[2019-10-23] MEDS: LATANOPROST BOTH EYES SCH (22:27)
[2019-10-24 06:18] LABS: Glucose,Whole Blood 282 mg/dL (75-99)
[2019-10-24] MEDS: INSULIN ASPART (NovoLOG) 100 UNIT/ML VIAL SQ SCH ×5 (06:22→20:38)
[2019-10-24] MEDS: FORMOTEROL FUMARATE 20 MCG/2 ML NEBU INHALATION SCH ×2 (07:04→19:21)
[2019-10-24] MEDS: IPRATROPIUM-ALBUTEROL 3 ML NEB INHALATION SCH ×4 (07:04→19:21)
[2019-10-24] MEDS: BUDESONIDE 0.5 MG/2 ML NEBU INHALATION SCH ×2 (07:04→19:21)
[2019-10-24] MEDS: ATORVASTATIN 10 MG TAB PO SCH (08:15)
[2019-10-24] MEDS: guaiFENesin 600 MG TABLET.ER PO SCH ×2 (08:15→20:37)
[2019-10-24] MEDS: methylPREDNISolone SOD SUCCI 40 MG/ML 1 ML VIAL IV SCH ×2 (08:16→20:37)
[2019-10-24] MEDS: DORZOLAMIDE HCL 2% DROPS 10 ML BTL BOTH EYES SCH ×2 (08:16→20:38)
[2019-10-24] MEDS: FUROSEMIDE 10 MG/ML 4 ML VIAL IV SCH ×2 (08:16→20:37)
[2019-10-24] MEDS ORDERED: SODIUM POLYSTYRENE SULFONATE 15 GM/60 ML BOTTLE PO STA (10:04)
--- NOTE | 2019-10-24 10:07 | P.PN ---
Subjective Progress Note Date: 10/24/19 Patient seen and examined at bedside sitting up reporting that he still wheezing but it's improved but not quite back to his baseline, patient still pretty dyspneic with ambulation to the restroom. No acute events overnight Objective - Vital Signs Vital signs: Vital Signs Temp 98.1 F 10/24/19 08:00 Pulse 90 10/24/19 08:00 Resp 18 10/24/19 08:00 BP 117/68 10/24/19 08:00 Pulse Ox 98 10/24/19 08:00 Intake & Output 10/23/19 10/24/19 10/24/19 18:59 06:59 18:59 Intake Total 240 Output Total 2925 1500 Balance -5305 -1500 Weight 103.1 kg Intake: Oral 240 Output: Urine 2925 1500 Other: Voiding Method Urinal # Voids 2 1 - Exam Constitutional: No acute distress, conversant, pleasant Eyes: Anicteric sclerae, moist conjunctiva, no lid-lag, PERRLA ENMT: NC/AT,Oropharynx clear, no erythema, exudates Neck:Supple, FROM, no masses, or JVD, No carotid bruits; No thyromegaly Lungs: Expiratory wheezes improved, currently on room air unlabored Cardiovascular: Heart regular in rate and rhythm, No murmurs, gallops, or rubs no peripheral edema Abdominal: Soft Nontender, nom distended, no guarding, no rebound or rigidity, Normoactive bowel sounds No hepatomegaly, No splenomegaly, No palpable mass No abdominal wall hernia noted Skin: Normal temperature, tone, texture, turgor, No induration No subcutaneous nodules, No rash, lesions, No ulcers Extremities:No digital cyanosis No clubbing, Pedal pulses intact and sy mmetrical Radial pulses intact and symmetrical Normal gait and station, No calf tenderness Psychiatric: Alert and oriented to person, place and time, Appropriate affect Intact judgement Neuro: Muscles Strength 5/5 in all 4 extremities, Sensation to light touch grossly present throughout, Cranial nerves II-XII grossly intact. No focal sensory deficits - Labs CBC & Chem 7: 10/23/19 06:09 10/23/19 06:09 Labs: Abnormal Lab Results - Last 24 Hours (Table) 10/23/19 10/23/19 10/23/19 Range/Units 12:04 17:14 20:09 POC Glucose (mg/dL) 373 H 334 H 301 H (75-99) mg/dL 10/24/19 Range/Units 06:16 POC Glucose (mg/dL) 282 H (75-99) mg/dL Assessment and Plan Assessment: Acute asthma exacerbation * Continue systemic steroids with IV Solu-Medrol 40 mg IV qv12 * Continue DuoNeb, Perforomist, Singulair and Mucinex Acute diastolic CHF, echo showing normal EF, aortic stenosis as well as moderate pulmonary hypertension * Continue Lasix 40 mg IV q12 * Cardiology consulted for further recommendations * Chest x-ray yesterday showed minimal diffuse interstitial pulmonary edema without pleural effusions GUY with hyperkalemia * Creatinine trending down to 1.29 * Nephrology consulted * Continue to hold nephrotoxic agents Hyponatremia * Labs pending, plasma and urine osmolalities to investigate hyponatremia * Nephrology consult pending Hyperkalemia * We'll give a dose of Kayexalate and recheck labs tomorrow Hyperglycemia with history of type 2 DM , A1C 6.8%, secondary to steroids * Continue Lantus 10 units daily due to persistently elevated blood sugars, re sume sliding scale insulin * Hold oral hypoglycemic agents, transition to insulin sliding scale while hospitalized Hypertension well controlled * Continue home regimen CODE STATUS: full code DVT prophylaxis: Subcu heparin Discussed with: Patient, family Anticipated discharge place: In 1-2 days A total of 35 minutes was spent on the care of this complex patient more than 50% of the time was spent in counseling and care coordination.
--- NOTE | 2019-10-24 10:09 | P.PN ---
Subjective Progress Note Date: 10/23/19 The patient examined at bedside, currently receiving breathing treatment and complains of dyspnea ongoing wheezing as he continues to be bronchospastic. Serum sodium was 125, serum potassium 5.7, creatinine 1.29, WBC 11.8 hemoglobin 11.5. No acute events overnight Objective - Vital Signs Vital signs: Vital Signs Temp 98.2 F 10/23/19 12:00 Pulse 87 10/23/19 12:27 Resp 18 10/23/19 12:00 BP 119/74 10/23/19 12:00 Pulse Ox 98 10/23/19 12:00 Intake & Output 10/22/19 10/23/19 10/23/19 18:59 06:59 18:59 Intake Total 840 540 Output Total 100 225 Balance 740 540 -225 Weight 102.6 kg Intake: Oral 840 540 Output: Urine 100 225 Other: Voiding Method Urinal Urinal - Exam Constitutional: No acute distress, conversant, pleasant Eyes: Anicteric sclerae, moist conjunctiva, no lid-lag, PERRLA ENMT: NC/AT,Oropharynx clear, no erythema, exudates Neck:Supple, FROM, no masses, or JVD, No carotid bruits; No thyromegaly Lungs: Bronchospastic with expiratory wheezes on 2 L by nasal cannula respirations unlabored Cardiovascular: Heart regular in rate and rhythm, No murmurs, gallops, or rubs no peripheral edema Abdominal: Soft Nontender, nom distended, no guarding, no rebound or rigidity, Normoactive bowel sounds No hepatomegaly, No splenomegaly, No palpable mass No abdominal wall hernia noted Skin: Normal temperature, tone, texture, turgor, No induration No subcutaneous nodules, No rash, lesions, No ulcers Extremities:No digital cyanosis No clubbing, Pedal pulses intact and symmetrical Radial pulses intact and symmetrical Normal gait and station, No calf tenderness Psychiatric: Alert and oriented to person, place and time, Appropriate affect Intact judgement Neuro: Muscles Strength 5/5 in all 4 extremities, Sensation to light touch grossly present throughout, Cranial nerves II-XII grossly intact. No focal sensory deficits - Labs CBC & Chem 7: 10/23/19 06:09 10/23/19 06:09 Labs: Abnormal Lab Results - Last 24 Hours (Table) 10/22/19 10/22/19 10/23/19 Range/Units 17:18 20:38 06:09 WBC 11.8 H (3.8-10.6) k/uL RBC 3.52 L (4.30-5.90) m/uL Hgb 11.5 L (13.0-17.5) gm/dL Hct 35.0 L (39.0-53.0) % Neutrophils # 10.8 H (1.3-7.7) k/uL Lymphocytes # 0.5 L (1.0-4.8) k/uL Sodium (137-145) mmol/L Potassium (3.5-5.1) mmol/L Chloride (98-107) mmol/L BUN (9-20) mg/dL Creatinine (0.66-1.25) mg/dL Glucose (74-99) mg/dL POC Glucose (mg/dL) 246 H 166 H (75-99) mg/dL 10/23/19 10/23/19 10/23/19 Range/Units 06:09 06:18 12:04 WBC (3.8-10.6) k/uL RBC (4.30-5.90) m/uL Hgb (13.0-17.5) gm/dL Hct (39.0-53.0) % Neutrophils # (1.3-7.7) k/uL Lymphocytes # (1.0-4.8) k/uL Sodium 125 L (137-145) mmol/L Potassium 5.7 H (3.5-5.1) mmol/L Chloride 89 L (98-107) mmol/L BUN 48 H (9-20) mg/dL Creatinine 1.29 H (0.66-1.25) mg/dL Glucose 227 H (74-99) mg/dL POC Glucose (mg/dL) 241 H 373 H (75-99) mg/dL Assessment and Plan Assessment: Acute asthma exacerbation * Continue systemic steroids with IV Solu-Medrol 40 mg IV qv12 * Continue DuoNeb, Perforomist, Singulair and Mucinex Acute diastolic CHF, echo showing normal EF, aortic stenosis as well as moderate pulmonary hypertension * Continue Lasix 40 mg IV q12 * Cardiology consulted for further recommendations * Chest x-ray yesterday showed minimal diffuse interstitial pulmonary edema without pleural effusions GUY with hyperkalemia * Creatinine trending up to 1.4 * Nephrology consulted * Continue to hold nephrotoxic agents Hyponatremia * Labs pending, plasma and urine osmolalities to investigate hyponatremia * Nephrology consult pending Hyperkalemia * We'll give a dose of Kayexalate and recheck labs tomorrow Hyperglycemia with history of type 2 DM , A1C 6.8%, secondary to steroids * Continue Lantus 10 units daily due to persistently elevated blood sugars, res ume sliding scale insulin * Hold oral hypoglycemic agents, transition to insulin sliding scale while hospitalized Hypertension well controlled * Continue home regimen CODE STATUS: full code DVT prophylaxis: heparin drip for elevated troponin Discussed with: Patient, family Anticipated discharge place: home A total of 35 minutes was spent on the care of this complex patient more than 50% of the time was spent in counseling and care coordination.
[2019-10-24 10:11] LABS: Albumin 4.8 g/dL (3.5-5.0); Calcium 9.5 mg/dL (8.4-10.2); Potassium 5.9 mmol/L (3.5-5.1); Total Bilirubin 0.5 mg/dL (0.2-1.3); Total Protein 7.2 g/dL (6.3-8.2)
--- NOTE | 2019-10-24 11:52 | P.PN ---
Subjective Progress Note Date: 10/24/19 Principal diagnosis: Acute exacerbation of COPD with an acute exacerbation of diastolic congestive heart failure The patient was seen today 10/24/2019 in follow-up on the selective care unit. He is currently sitting up in a chair at the bedside. Awake and alert in no acute distress. Breathing a bit easier today compared to yesterday. Not quite back to his baseline. He is maintaining O2 saturations in the 90s on room air. He's afebrile. Hemodynamically stable. Sodium 126. Potassium 5.9. Creatinine 1.27. Continued on DuoNeb inhalations, Pulmicort and Perforomist inhalations, IV Solu-Medrol. He is also continued on IV diuretics. Currently in a negative balance. Less lower extremity edema. Objective - Vital Signs Vital signs: Vital Signs Temp 98.1 F 10/24/19 08:00 Pulse 91 10/24/19 11:11 Resp 18 10/24/19 08:00 BP 117/68 10/24/19 08:00 Pulse Ox 98 10/24/19 08:00 Intake & Output 10/23/19 10/24/19 10/24/19 18:59 06:59 18:59 Intake Total 240 Output Total 2925 1500 Balance -2685 -1500 Weight 103.1 kg Intake: Oral 240 Output: Urine 2925 1500 Other: Voiding Method Urinal # Voids 2 1 - Exam GENERAL EXAM: Alert, pleasant 69-year-old gentleman, up in a chair, on room air comfortable in no apparent distress. HEAD: Normocephalic. EYES: Normal reaction of pupils, equal size. NOSE: Clear with pink turbinates. THROAT: No erythema or exudates. NECK: No masses, no JVD. CHEST: No chest wall deformity. LUNGS: Equal air entry with crackles in the bilateral bases, end expiratory whe mike, diminished. CVS: S1 and S2 normal with no audible murmur, regular rhythm. ABDOMEN: No hepatosplenomegaly, normal bowel sounds, no guarding or rigidity. SPINE: No scoliosis or deformity SKIN: No rashes CENTRAL NERVOUS SYSTEM: No focal deficits, tone is normal in all 4 extremities. EXTREMITIES: There is 1+ peripheral edema. No clubbing, no cyanosis. Peripheral pulses are intact. - Labs CBC & Chem 7: 10/23/19 06:09 10/24/19 06:23 Labs: Abnormal Lab Results - Last 24 Hours (Table) 10/23/19 10/23/19 10/23/19 Range/Units 12:04 17:14 20:09 Sodium (137-145) mmol/L Potassium (3.5-5.1) mmol/L Chloride (98-107) mmol/L BUN (9-20) mg/dL Creatinine (0.66-1.25) mg/dL Glucose (74-99) mg/dL POC Glucose (mg/dL) 373 H 334 H 301 H (75-99) mg/dL 10/24/19 10/24/19 Range/Units 06:16 06:23 Sodium 126 L (137-145) mmol/L Potassium 5.9 H (3.5-5.1) mmol/L Chloride 89 L (98-107) mmol/L BUN 50 H (9-20) mg/dL Creatinine 1.27 H (0.66-1.25) mg/dL Glucose 275 H (74-99) mg/dL POC Glucose (mg/dL) 282 H (75-99) mg/dL Assessment and Plan Assessment: 1 dyspnea, multifactorial, with a combination of COPD and CHF exacerbation 2 acute hypoxic respiratory failure secondary to above 3 COPD with acute exacerbation 4 CHF with diastolic heart failure and the moderate aortic stenosis based on e chocardiogram findings 5 diabetes mellitus 6 hypertension 7 hyperlipidemia 8 lower extremity edema 9 troponin leak 10 acute kidney injury with a creatinine of 1.29, consider contrast nephropathy Plan Improved today not quite back to his baseline. Continued on bronchodilators IV Solu-Medrol IV diuretics Increase activity as tolerated We'll continue to follow I, the cosigning physician, performed a history & physical examination of the patient. Lungs sounds with crackles in bilateral posterior bases, end expiratory wheeze, diminished. Maintaining good O2 saturations in the 90s on room air. I discussed the assessment and plan of care with my nurse practitioner, Brook Souza . I attest to the above note as dictated by her.
[2019-10-24 12:07] LABS: Glucose,Whole Blood 347 mg/dL (75-99)
--- NOTE | 2019-10-24 13:13 | P.PN ---
Subjective Progress Note Date: 10/24/19 Principal diagnosis: This is a 69-year-old male seen in consultation because of acute kidney injury from diet toxicity after he underwent a CTA to rule out pulmonary embolism. Creatinine went up from 1.1-1.4 and is coming down with good urine output. He has significant edema. Venous Doppler is negative for any DVT. Additionally he had hyperkalemia and hyponatremia from acute kidney injury. Some of the hyperkalemia secondary to high blood sugar. Potassium this morning is 5.9 with a concurrent blood sugar of 282. Bicarb is 25 and anion gap is 12. Creatinine is 1.2 improved from 1.48 He had 44 25 mL of urine output, on Lasix 40 twice a day He is known with diabetes, COPD, neuropathy obesity and chronic low back pain Objective - Vital Signs Vital signs: Vital Signs Temp 98.3 F 10/24/19 12:00 Pulse 90 10/24/19 12:00 Resp 18 10/24/19 12:00 BP 132/76 10/24/19 12:00 Pulse Ox 98 10/24/19 12:00 Intake & Output 10/23/19 10/24/19 10/24/19 18:59 06:59 18:59 Intake Total 240 Output Total 2925 1500 1000 Balance -2685 -1500 -1000 Weight 103.1 kg Intake: Oral 240 Output: Urine 2925 1500 1000 Other: Voiding Method Urinal # Voids 2 1 On examination is awake alert oriented comfortable somewhat anxious HEENT exam no JVP neck is supple no facial asymmetry Lungs are clear to auscultation good air entry bilaterally Heart sounds are unremarkable for any murmur rub gallop Abdomen somewhat obese protuberant nontender Extremity exam reveals moderate edema. Neurologically awake alert oriented - Labs CBC & Chem 7: 10/23/19 06:09 10/24/19 06:23 Labs: Abnormal Lab Results - Last 24 Hours (Table) 10/23/19 10/23/19 10/24/19 Range/Units 17:14 20:09 06:16 Sodium (137-145) mmol/L Potassium (3.5-5.1) mmol/L Chloride (98-107) mmol/L BUN (9-20) mg/dL Creatinine (0.66-1.25) mg/dL Glucose (74-99) mg/dL POC Glucose (mg/dL) 334 H 301 H 282 H (75-99) mg/dL 10/24/19 10/24/19 Range/Units 06:23 12:06 Sodium 126 L (137-145) mmol/L Potassium 5.9 H (3.5-5.1) mmol/L Chloride 89 L (98-107) mmol/L BUN 50 H (9-20) mg/dL Creatinine 1.27 H (0.66-1.25) mg/dL Glucose 275 H (74-99) mg/dL POC Glucose (mg/dL) 347 H (75-99) mg/dL Assessment and Plan Assessment: Impression 1. Acute kidney injury likely from CTA., An element of prerenal cannot be completely ruled out. Improving with creatinine coming down to 1.27 from a peak of 1.4 2. 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 Hyponatremia secondary to acute kidney injury. Sodium is 125, sodium rem ains low at 126, from acute kidney injury as well as blood sugar being high of 275 and 282 4. Hyperkalemia secondary to acute kidney injury as well as from transcellular shift. Today potassium is 5.9, with a concurrent blood sugar of 282. 5. Blood pressure is controlled at target 6. Significant edema. Venous Doppler dated 10/20/2019 is unremarkable. Echocardiogram shows right ventricular pressure 48. Urine microalbumin to creatinine ratio 60 mg/g of creatinine dated 08/26/2019 Recommendation 1. Continue diuretics for right now. This will improve his edema as well as his potassium 2. Monitor labs urine output and vital signs closely. 3. to improve his sodium and potassium is controlled his blood sugars better. The Lasix will also improve his hyponatremia and hyperkalemia 4. Restrict free water to 1500 mL
[2019-10-24 16:44] LABS: Glucose,Whole Blood 394 mg/dL (75-99)
--- NOTE | 2019-10-24 19:53 | PN ---
PROGRESS NOTE This patient is admitted with acute respiratory distress secondary to underlying congestive heart failure as well as bronchitis. Patient is doing well. He is comfortable and is having mostly some non-productive cough. Oxygen saturation is 98% on room air and blood pressure is 117/68 mmHg. First and second heart sounds are normal. Bilateral lungs reveal bilateral scattered rhonchi, which is improved as compared to yesterday. Chest x-ray showed minimal pulmonary venous congestion. The patient's sodium is 126 and potassium is 5.9. The patient's BNP remains elevated. We will recommend to continue the patient on IV diuretics. MMODL / IJN: [id number] /
[2019-10-24 20:17] LABS: Glucose,Whole Blood 199 mg/dL (75-99)
[2019-10-24] MEDS: HEPARIN SODIUM,PORCINE 5,000 UNIT/ML 1 ML VIAL SQ SCH (20:37)
[2019-10-24] MEDS: MONTELUKAST 10 MG TAB PO SCH (20:38)
[2019-10-24] MEDS: INSULIN DETEMIR (LEVEMIR) 100 UNIT/ML SYR SQ SCH (20:38)
[2019-10-24] MEDS: NETARSUDIL MESYLAT BOTH EYES SCH (20:39)
[2019-10-24] MEDS: LATANOPROST BOTH EYES SCH (20:39)
[2019-10-25 06:07] LABS: Glucose,Whole Blood 294 mg/dL (75-99)
[2019-10-25] MEDS: INSULIN ASPART (NovoLOG) 100 UNIT/ML VIAL SQ SCH ×4 (06:34→20:48)
[2019-10-25 07:06] LABS: Albumin 4.4 g/dL (3.5-5.0); Calcium 9.2 mg/dL (8.4-10.2); Potassium 5.1 mmol/L (3.5-5.1); Total Bilirubin 0.4 mg/dL (0.2-1.3); Total Protein 6.9 g/dL (6.3-8.2)
[2019-10-25] MEDS: IPRATROPIUM-ALBUTEROL 3 ML NEB INHALATION SCH ×4 (07:07→20:20)
[2019-10-25] MEDS: FORMOTEROL FUMARATE 20 MCG/2 ML NEBU INHALATION SCH ×2 (07:07→20:20)
[2019-10-25] MEDS: BUDESONIDE 0.5 MG/2 ML NEBU INHALATION SCH ×2 (07:07→20:20)
[2019-10-25] MEDS: HEPARIN SODIUM,PORCINE 5,000 UNIT/ML 1 ML VIAL SQ SCH ×2 (09:01→20:47)
[2019-10-25] MEDS: ATORVASTATIN 10 MG TAB PO SCH (09:01)
[2019-10-25] MEDS: FUROSEMIDE 10 MG/ML 4 ML VIAL IV SCH ×2 (09:01→20:47)
[2019-10-25] MEDS: methylPREDNISolone SOD SUCCI 40 MG/ML 1 ML VIAL IV SCH (09:01)
[2019-10-25] MEDS: guaiFENesin 600 MG TABLET.ER PO SCH ×2 (09:01→20:47)
[2019-10-25] MEDS: DORZOLAMIDE HCL 2% DROPS 10 ML BTL BOTH EYES SCH ×2 (09:02→20:48)
--- NOTE | 2019-10-25 10:22 | P.PN ---
Subjective Patient is seen in follow-up for acute kidney injury and chronic kidney disease. Renal function is stable. He admits to good urine output. No vomiting or diarrhea. Oral intake is fair. Vital signs are stable. General: The patient appeared well nourished and normally developed. HEENT: Head exam is unremarkable. Neck is without jugular venous distension. LUNGS: Lungs are clear to auscultation and percussion. Breath sounds decreased. HEART: Rate and Rhythm are regular. Murmur present. ABDOMEN: Abdominal exam reveals normal bowel sounds. Non-tender and non- distended. No evidence of peritonitis. EXTREMITITES: 1+ edema. Objective - Vital Signs Vital signs: Vital Signs Temp 97.3 F L 10/25/19 08:00 Pulse 71 10/25/19 08:00 Resp 18 10/25/19 08:00 BP 124/76 10/25/19 08:00 Pulse Ox 94 L 10/25/19 08:00 Intake & Output 10/24/19 10/25/19 10/25/19 18:59 06:59 18:59 Intake Total 240 500 Output Total 1000 400 Balance -760 -400 500 Weight 96.4 kg Intake: Oral 240 500 Output: Urine 1000 400 Other: Voiding Method Urinal # Voids 200 1 - Labs CBC & Chem 7: 10/23/19 06:09 10/25/19 06:38 Labs: Abnormal Lab Results - Last 24 Hours (Table) 10/24/19 10/24/19 10/24/19 Range/Units 12:06 16:38 20:16 Sodium (137-145) mmol/L Chloride (98-107) mmol/L BUN (9-20) mg/dL Glucose (74-99) mg/dL POC Glucose (mg/dL) 347 H 394 H 199 H (75-99) mg/dL 10/25/19 10/25/19 Range/Units 06:05 06:38 Sodium 129 L (137-145) mmol/L Chloride 88 L (98-107) mmol/L BUN 50 H (9-20) mg/dL Glucose 277 H (74-99) mg/dL POC Glucose (mg/dL) 294 H (75-99) mg/dL Assessment and Plan Plan: Assessment: 1. Acute kidney injury mostly prerenal secondary to cardiorenal syndrome. Renal function stable. Creatinine 1.25 today. 2. Chronic kidney disease stage III with baseline creatinine near 1.1 secondary to nephrosclerosis. 3. Acute on chronic diastolic CHF with moderate aortic stenosis and pulmonary hypertension. 4. Volume overload. 5. Hypervolemic hyponatremia. Also component of hyperglycemia. Better. 6. Diabetes mellitus. Plan: Maintain Lasix 40 mg IV twice daily - can be transitioned to oral upon discharge. 1500 mL fluid restriction. Avoid nephrotoxins. Continue to monitor renal function and urine output.
--- NOTE | 2019-10-25 11:11 | P.PN ---
Subjective Progress Note Date: 10/25/19 On 10/25/2019 patient seen in follow-up on selective care unit. He is awake and alert, in no acute distress, he sitting up in the chair the room air pulse ox is 94%, afebrile, hemodynamically stable, he is in sinus mechanism with a rate of 71 BPM, no compressive chest pain, no worsening dyspnea, he states he is breathing easier, and his exertional dyspnea has improved, he was able to ambulate in the hallway without any significant problems. He remains on IV Lasix at 40 mg every 12 hours and he is in -4185 ML fluid balance over the last 24 hours. Lower extremity edema is improving, with residual 1+ pitting edema in the pretibial and pedal areas. Repeat chest x-ray is pending today, today's lab work has been reviewed, showing serum sodium improvement up to 129 from 126 on yesterday's labs, potassium is 5.1, chloride is 88, BUN 50, creatinine is 1.25. Patient remains on oral steroids, 60 mg daily, no significant wheezing, lung sounds reveal scattered bibasilar crackles, no rhonchi, only occasional cough, no significant congestion. Objective - Vital Signs Vital signs: Vital Signs Temp 97.3 F L 10/25/19 08:00 Pulse 71 10/25/19 08:00 Resp 18 10/25/19 08:00 BP 124/76 10/25/19 08:00 Pulse Ox 94 L 10/25/19 08:00 Intake & Output 10/24/19 10/25/19 10/25/19 18:59 06:59 18:59 Intake Total 240 500 Output Total 1000 400 Balance -760 -400 500 Weight 96.4 kg Intake: Oral 240 500 Output: Urine 1000 400 Other: Voiding Method Urinal # Voids 200 1 - Exam GENERAL EXAM: Alert, very pleasant, 69-year-old white male, with room air pulse ox 94%, sitting up in the recliner comfortable in no apparent distress. HEAD: Normocephalic/atraumatic. EYES: Normal reaction of pupils, equal size. Conjunctiva pink, sclera white. NOSE: Clear with pink turbinates. THROAT: No erythema or exudates. NECK: No masses, no JVD, no thyroid enlargement, no adenopathy. CHEST: No chest wall deformity. Symmetrical expansion. LUNGS: Equal air entry with basilar crackles, no wheezes, no rhonchi CVS: Regular rate and rhythm, normal S1 and S2, no gallops, no murmurs, no rubs ABDOMEN: Soft, nontender. No hepatosplenomegaly, normal bowel sounds, no guarding or rigidity. EXTREMITIES: No clubbing, mild pretibial and pedal edema, no cyanosis, 2+ pulses and upper and lower extremities. MUSCULOSKELETAL: Muscle strength and tone normal. SPINE: No scoliosis or deformity SKIN: No rashes CENTRAL NERVOUS SYSTEM: Alert and oriented -3. No focal deficits, tone is normal in all 4 extremities. PSYCHIATRIC: Alert and oriented -3. Appropriate affect. Intact judgment and insight. - Labs CBC & Chem 7: 10/23/19 06:09 10/25/19 06:38 Labs: Abnormal Lab Results - Last 24 Hours (Table) 10/24/19 10/24/19 10/24/19 Range/Units 12:06 16:38 20:16 Sodium (137-145) mmol/L Chloride (98-107) mmol/L BUN (9-20) mg/dL Glucose (74-99) mg/dL POC Glucose (mg/dL) 347 H 394 H 199 H (75-99) mg/dL 10/25/19 10/25/19 Range/Units 06:05 06:38 Sodium 129 L (137-145) mmol/L Chloride 88 L (98-107) mmol/L BUN 50 H (9-20) mg/dL Glucose 277 H (74-99) mg/dL POC Glucose (mg/dL) 294 H (75-99) mg/dL Assessment and Plan Plan: Assessment: 1 dyspnea, multifactorial, with a combination of COPD and CHF exacerbation 2 acute hypoxic respiratory failure secondary to above 3 COPD with acute exacerbation 4 CHF with diastolic heart failure and the moderate aortic stenosis based on echocardiogram findings 5 diabetes mellitus 6 hypertension 7 hyperlipidemia 8 lower extremity edema 9 troponin leak 10 acute kidney injury with a creatinine of 1.29, consider contrast nephropathy, on 10/25/2019 creatinine improved down to 1.25 11 hyponatremia likely hypervolemic, improving patient remains on IV Lasix Plan: Patient is on room air, vital signs are stable, breathing is improving, no wheezing no congestion, patient has been transitioned to oral prednisone, continue breathing treatments, vital signs are stable, he is maintaining diuresis, is in negative fluid balance, creatinine is improving, no acute issues overnight, repeat chest x-ray is pending. We'll review chest x-ray, from pulmonary perspective patient can be considered for discharge home once cleared by cardiology I performed a history & physical examination of the patient and discussed their management with my nurse practitioner, Karishma Major. I reviewed the nurse practitioner's note and agree with the documented findings and plan of care. Lung sounds are positive for basilar rales. The findings and the impression was discussed with the patient. I attest to the documentation by the nurse pract dequan. Time with Patient: Less than 30
--- NOTE | 2019-10-25 11:23 | P.PN ---
Subjective Progress Note Date: 10/25/19 Principal diagnosis: shortness of breath Patient is a 69-year-old male past medical history of hypertension, diabetes well-controlled with A1c of 6.8, asthma, and aortic stenosis who presented to the emergency department with complaints of worsening shortness of breath and lower extremity edema. In the ER he underwent an extensive evaluation. His initial vital signs within normal limits. Lower extremity venous Doppler showed no DVT, chest x-ray showed COPD, bronchitis or active airway disease, or pulmonary hypertension and possible perihilar airspace disease, CTA showed mediastinal adenopathy with interstitial prominence with groundglass with possible congestive heart failure. Initial laboratory analysis shows a hemoglobin of 11.9, sodium 128, chloride 88, and glucose of 207. Troponin was mildly elevated at 0.049 and BNP was mildly elevated at 4180. He was diagnosed with acute exacerbation of asthma and possible new onset congestive heart failure. He was admitted for further monitoring. He was started on diuretics, IV steroids, and bronchodilators. He underwent an echocardiogram which showed an ejection fraction of 55-60%, moderate LVH, modera te aortic stenosis, and moderate pulmonary hypertension with RVSP of 48.72. His troponin remained flat and was not consistent with acute coronary syndrome. He was seen by cardiology and pulmonary who agreed with continued bronchodilators, steroids, and Lasix. He did have an increase in his creatinine which is felt to be multifactorial including exposure to IV contrast dye. Nephrology was consulted and recommended continuing diuretics. He did have a slight increase in his potassium which was treated with Lasix and ultimately Kayexalate. He has continued to slowly improve. Patient seen and examined at bedside. He feels as though his breathing is significantly improved. He is still struggling with some lower extremity edema. He is frustrated that his blood sugars have been so uncontrolled on steroids. He denies any nausea or vomiting. He reports that he has not been sleeping w ell. Objective - Vital Signs Vital signs: Vital Signs Temp 97.3 F L 10/25/19 08:00 Pulse 71 10/25/19 08:00 Resp 18 10/25/19 08:00 BP 124/76 10/25/19 08:00 Pulse Ox 94 L 10/25/19 08:00 Intake & Output 10/24/19 10/25/19 10/25/19 18:59 06:59 18:59 Intake Total 240 500 Output Total 1000 400 Balance -760 -400 500 Weight 96.4 kg Intake: Oral 240 500 Output: Urine 1000 400 Other: Voiding Method Urinal # Voids 200 1 - Exam General: non toxic, no distress, appears at stated age Derm: Red sydni appearance to face, warm, dry Head: atraumatic, normocephalic, symmetric Eyes: EOMI, no lid lag, anicteric sclera Mouth: no lip lesion, mucus membranes moist Cardiovascular: S1S2 reg, grade 3 systolic ejection murmur, positive posterior tibial pulse bilateral, Lungs: Wheeze right base , no accessory muscle use Abdominal: soft, nontender to palpation, no guarding, no appreciable organomegaly Ext: no gross muscle atrophy, + edema, no contractures Neuro: CN II-XI grossly intact, no focal neuro deficits Psych: Alert, oriented, appropriate affect - Labs CBC & Chem 7: 10/23/19 06:09 10/25/19 06:38 Labs: Abnormal Lab Results - Last 24 Hours (Table) 10/24/19 10/24/19 10/24/19 Range/Units 12:06 16:38 20:16 Sodium (137-145) mmol/L Chloride (98-107) mmol/L BUN (9-20) mg/dL Glucose (74-99) mg/dL POC Glucose (mg/dL) 347 H 394 H 199 H (75-99) mg/dL 10/25/19 10/25/19 Range/Units 06:05 06:38 Sodium 129 L (137-145) mmol/L Chloride 88 L (98-107) mmol/L BUN 50 H (9-20) mg/dL Glucose 277 H (74-99) mg/dL POC Glucose (mg/dL) 294 H (75-99) mg/dL Assessment and Plan Assessment: Acute exacerbation of diastolic congestive heart failure, new onset with coexisting moderate aortic stenosis and moderate pulmonary hypertension -Continue with Lasix IV twice daily plan to transition to oral on discharge -Cardiology recommendations appreciated -Lisinopril on hold secondary recent hyperkalemia -Has been transitioned from hydrochlorothiazide to Lasix -Not chronically on a beta melissa -RAYMON suggested on initial echo -Strict I's and O's, daily weight Acute exacerbation of COPD -Pulmonary recommendations appreciated -Transition to oral steroids -Continue with bronchodilators -Pulmonary hygiene - singulair Acute hypoxic respiratory failure -Treatment as above GUY on chronic kidney disease stage III secondary to cardiorenal syndrome -Nephrology recommendations appreciated -Avoid additional nephrotoxic agents -Continue with diuresis and fluid restriction Diabetes mellitus type 2 with hyperglycemia and drug induced secondary to s teroids -Hemoglobin A1c 6.8 in August - Levemir increased, SSI -metformin on hold, glipizide on hold Hyponatremia secondary to fluid overload examination of chronic hyponatremia -Baseline is approximately 132 -Improving -Continue to monitor with IV diuresis Chronic: Hypertension Dyslipidemia Troponin leak Hyperkalemia, resolved DVT prophylaxis: Heparin Discussed with: Patient, nursing, cardio, left message with patients 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
--- NOTE | 2019-10-25 11:31 | PN ---
PROGRESS NOTE This patient is admitted with acute shortness of breath and he was treated for acute bronchitis as well as acute diastolic heart failure. The patient is feeling better. Denies any orthopnea or PND. The patient has mild swelling in the legs. First and second heart sounds are normal. The rhonchi are significantly improving. IMPRESSION: Congestive heart failure is improving. We will repeat the chest x-ray and continue the Lasix 40 mg IV b.i.d. for 24 hours and then can switch to the p.o. Lasix. MMODL / IJN: [id number] /
[2019-10-25 12:24] LABS: Glucose,Whole Blood 265 mg/dL (75-99)
--- NOTE | 2019-10-25 15:48 | XR ---
EXAMINATION TYPE: XR chest 2V DATE OF EXAM: 10/25/2019 COMPARISON: 10/23/2019 TECHNIQUE: PA and lateral views submitted. HISTORY: Shortness of breath FINDINGS: Diffuse interstitial pattern with bilateral consolidation and pleural atherosclerotic change aorta. N o pneumothorax. Hypertrophic and degenerative change of the spine. IMPRESSION: 1. Correlate for CHF otherwise consider interstitial pneumonitis
[2019-10-25 16:59] LABS: Glucose,Whole Blood 341 mg/dL (75-99)
[2019-10-25 20:09] LABS: Glucose,Whole Blood 363 mg/dL (75-99)
[2019-10-25] MEDS: MONTELUKAST 10 MG TAB PO SCH (20:47)
[2019-10-25] MEDS ORDERED: INSULIN DETEMIR (LEVEMIR) 100 UNIT/ML SYR SQ SCH (21:00)
[2019-10-25] MEDS: LATANOPROST BOTH EYES SCH (22:45)
[2019-10-25] MEDS: NETARSUDIL MESYLAT BOTH EYES SCH (22:45)
[2019-10-26] MEDS: INSULIN ASPART (NovoLOG) 100 UNIT/ML VIAL SQ SCH ×2 (06:19→12:28)
[2019-10-26 06:42] LABS: Glucose,Whole Blood 97 mg/dL (75-99)
[2019-10-26 06:57] LABS: Calcium 9.5 mg/dL (8.4-10.2); Magnesium 2.1 mg/dL (1.6-2.3)
[2019-10-26] MEDS: ATORVASTATIN 10 MG TAB PO SCH (08:57)
[2019-10-26] MEDS: HEPARIN SODIUM,PORCINE 5,000 UNIT/ML 1 ML VIAL SQ SCH (08:57)
[2019-10-26] MEDS: FUROSEMIDE 10 MG/ML 4 ML VIAL IV SCH (08:57)
[2019-10-26] MEDS: guaiFENesin 600 MG TABLET.ER PO SCH (08:57)
[2019-10-26] MEDS: DORZOLAMIDE HCL 2% DROPS 10 ML BTL BOTH EYES SCH (08:58)
[2019-10-26 09:12] VITALS: BP 130/59; RESP 20; TEMP 98
[2019-10-26] MEDS: FORMOTEROL FUMARATE 20 MCG/2 ML NEBU INHALATION SCH (09:17)
[2019-10-26] MEDS: IPRATROPIUM-ALBUTEROL 3 ML NEB INHALATION SCH ×2 (09:17→12:19)
[2019-10-26] MEDS: BUDESONIDE 0.5 MG/2 ML NEBU INHALATION SCH (09:17)
--- NOTE | 2019-10-26 09:54 | P.PN ---
Subjective Progress Note Date: 10/26/19 On 10/25/2019 patient seen in follow-up on selective care unit. He is awake and alert, in no acute distress, he sitting up in the chair the room air pulse ox is 94%, afebrile, hemodynamically stable, he is in sinus mechanism with a rate of 71 BPM, no compressive chest pain, no worsening dyspnea, he states he is breathing easier, and his exertional dyspnea has improved, he was able to ambulate in the hallway without any significant problems. He remains on IV Lasix at 40 mg every 12 hours and he is in -4185 ML fluid balance over the last 24 hours. Lower extremity edema is improving, with residual 1+ pitting edema in the pretibial and pedal areas. Repeat chest x-ray is pending today, today's lab work has been reviewed, showing serum sodium improvement up to 129 from 126 on yesterday's labs, potassium is 5.1, chloride is 88, BUN 50, creatinine is 1.25. Patient remains on oral steroids, 60 mg daily, no significant wheezing, lung sounds reveal scattered bibasilar crackles, no rhonchi, only occasional cough, no significant congestion. On 10/26/2019 patient seen in follow-up on selective care unit, he is up ambulating, he is on room air in no acute distress, lung sounds reveal minimal expiratory wheezes, no rhonchi, equal air entry bilaterally, patient has been afebrile, yesterday chest x-ray has been reviewed still showing interstitial edema and patient was kept on IV diuretics for another 24 hours, lower extremity edema is improving, with some residual 1+ pitting edema in the pretibial and pedal areas, breathing is improving, will obtain a follow-up chest x-ray today, and possibly discharge home today Objective - Vital Signs Vital signs: Vital Signs Temp 98 F 10/26/19 08:00 Pulse 82 10/26/19 09:40 Resp 20 10/26/19 08:00 BP 130/59 10/26/19 08:00 Pulse Ox 96 10/26/19 08:00 Intake & Output 10/25/19 10/26/19 10/26/19 18:59 06:59 18:59 Intake Total 980 240 240 Output Total 365 1150 140 Balance 615 -910 100 Weight 97.3 kg Intake: Oral 980 240 240 Output: Urine 365 1150 140 Other: Voiding Method Urinal # Voids 1 1 - Exam GENERAL EXAM: Alert, very pleasant, 69-year-old white male, with room air pulse ox 94%, sitting up in the recliner comfortable in no apparent distress. HEAD: Normocephalic/atraumatic. EYES: Normal reaction of pupils, equal size. Conjunctiva pink, sclera white. NOSE: Clear with pink turbinates. THROAT: No erythema or exudates. NECK: No masses, no JVD, no thyroid enlargement, no adenopathy. CHEST: No chest wall deformity. Symmetrical expansion. LUNGS: Equal air entry with minimal wheezes on forced expiratory maneuver, no rhonchi or crackles CVS: Regular rate and rhythm, normal S1 and S2, no gallops, no murmurs, no rubs ABDOMEN: Soft, nontender. No hepatosplenomegaly, normal bowel sounds, no guarding or rigidity. EXTREMITIES: No clubbing, mild pretibial and pedal edema, no cyanosis, 2+ pulses and upper and lower extremities. MUSCULOSKELETAL: Muscle strength and tone normal. SPINE: No scoliosis or deformity SKIN: No rashes CENTRAL NERVOUS SYSTEM: Alert and oriented -3. No focal deficits, tone is normal in all 4 extremities. PSYCHIATRIC: Alert and oriented -3. Appropriate affect. Intact judgment and insight. - Labs CBC & Chem 7: 10/23/19 06:09 10/26/19 05:41 Labs: Abnormal Lab Results - Last 24 Hours (Table) 10/25/19 10/25/19 10/25/19 Range/Units 12:22 16:57 19:49 Sodium (137-145) mmol/L Chloride (98-107) mmol/L Carbon Dioxide (22-30) mmol/L BUN (9-20) mg/dL Creatinine (0.66-1.25) mg/dL POC Glucose (mg/dL) 265 H 341 H 363 H (75-99) mg/dL 10/26/19 Range/Units 05:41 Sodium 135 L (137-145) mmol/L Chloride 92 L (98-107) mmol/L Carbon Dioxide 34 H (22-30) mmol/L BUN 54 H (9-20) mg/dL Creatinine 1.49 H (0.66-1.25) mg/dL POC Glucose (mg/dL) (75-99) mg/dL Assessment and Plan Plan: Assessment: 1 dyspnea, multifactorial, with a combination of COPD and CHF exacerbation 2 acute hypoxic respiratory failure secondary to above 3 COPD with acute exacerbation 4 CHF with diastolic heart failure and the moderate aortic stenosis based on echocardiogram findings 5 diabetes mellitus 6 hypertension 7 hyperlipidemia 8 lower extremity edema 9 troponin leak 10 acute kidney injury with a creatinine of 1.29, consider contrast nephropathy, on 10/25/2019 creatinine improved down to 1.25 11 hyponatremia likely hypervolemic, improving patient remains on IV Lasix Plan: We'll obtain follow-up chest x-ray today, patient was kept on IV diuretics for 24 hours, breathing easier, maintaining negative fluid balance, case discussed with nephrology, who cleared the patient for discharge home today on oral Lasix 40 mg twice daily. From pulmonary perspective patient stable for discharge home, will speak to discharge planning in regards to a nebulizer with DuoNeb treatments, prednisone taper. He will need outpatient follow-up in the office in 7-10 days I performed a history & physical examination of the patient and discussed their management with my nurse practitioner, Karishma Major. I reviewed the nurse practitioner's note and agree with the documented findings and plan of care. Lung sounds are positive for basilar rales. The findings and the impression was discussed with the patient. I attest to the documentation by the nurse practitioner. Time with Patient: Less than 30
--- NOTE | 2019-10-26 10:10 | P.PN ---
Subjective Patient is seen in follow-up for acute kidney injury and chronic kidney disease. Renal function is slightly worse which is due to diuresis. He admits to good urine output. No vomiting or diarrhea. Oral intake is fair. Eager to be discharged. Vital signs are stable. General: The patient appeared well nourished and normally developed. HEENT: Head exam is unremarkable. Neck is without jugular venous distension. LUNGS: Lungs are clear to auscultation and percussion. Breath sounds decreased. HEART: Rate and Rhythm are regular. Murmur present. ABDOMEN: Abdominal exam reveals normal bowel sounds. Non-tender and non- distended. No evidence of peritonitis. EXTREMITITES: 1+ edema. Objective - Vital Signs Vital signs: Vital Signs Temp 98 F 10/26/19 08:00 Pulse 82 10/26/19 09:40 Resp 20 10/26/19 08:00 BP 130/59 10/26/19 08:00 Pulse Ox 96 10/26/19 08:00 Intake & Output 10/25/19 10/26/19 10/26/19 18:59 06:59 18:59 Intake Total 980 240 240 Output Total 365 1150 140 Balance 615 -910 100 Weight 97.3 kg Intake: Oral 980 240 240 Output: Urine 365 1150 140 Other: Voiding Method Urinal # Voids 1 1 - Labs CBC & Chem 7: 10/23/19 06:09 10/26/19 05:41 Labs: Abnormal Lab Results - Last 24 Hours (Table) 10/25/19 10/25/19 10/25/19 Range/Units 12:22 16:57 19:49 Sodium (137-145) mmol/L Chloride (98-107) mmol/L Carbon Dioxide (22-30) mmol/L BUN (9-20) mg/dL Creatinine (0.66-1.25) mg/dL POC Glucose (mg/dL) 265 H 341 H 363 H (75-99) mg/dL 10/26/19 Range/Units 05:41 Sodium 135 L (137-145) mmol/L Chloride 92 L (98-107) mmol/L Carbon Dioxide 34 H (22-30) mmol/L BUN 54 H (9-20) mg/dL Creatinine 1.49 H (0.66-1.25) mg/dL POC Glucose (mg/dL) (75-99) mg/dL Assessment and Plan Plan: Assessment: 1. Acute kidney injury mostly prerenal secondary to cardiorenal syndrome. Renal function is slightly worse which is due to diuresis. Creatinine 1.49 today. 2. Chronic kidney disease stage III with baseline creatinine near 1.1 secondary to nephrosclerosis. 3. Acute on chronic diastolic CHF with moderate aortic stenosis and pulmonary hypertension. 4. Volume overload. 5. Hypervolemic hyponatremia. Also component of hyperglycemia. Better. 6. Diabetes mellitus. Plan: Maintain Lasix 40 mg IV twice daily - can be transitioned to oral upon discharge. 1500 mL fluid restriction. Avoid nephrotoxins. Continue to monitor renal function and urine output. Discussed with pulmonology team. If chest x-ray shows improvement, he will be discharged.
--- NOTE | 2019-10-26 10:15 | XR ---
EXAMINATION TYPE: XR chest 2V DATE OF EXAM: 10/26/2019 COMPARISON: Chest x-ray from yesterday and older studies. CT chest October 20, 2019. HISTORY: CHF progress study. TECHNIQUE: Frontal and lateral views of the chest are obtained. FINDINGS: Overlying EKG leads. Osseous structures demineralized with some exaggerated kyphosis. Card iac silhouette size upper limits of normal with atherosclerotic thoracic aorta. Background chronic em physematous change with continued improving reticulonodular opacities bilaterally from CT. No new foc al airspace opacity, pleural effusion, or pneumothorax seen bilaterally. Patchy left basilar atelecta sis and/or infiltrate is redemonstrated. IMPRESSION: Resolving reticular and nodular interstitial opacities bilaterally on background chronic emphysematous change. Persistent patchy left basilar atelectasis and/or infiltrate noted.
[2019-10-26 10:28] VITALS: PULSE 78
[2019-10-26 10:32] VITALS: BMI 33.5
--- NOTE | 2019-10-26 10:55 | P.DS ---
Providers Date of admission: 10/20/19 20:54 Expected date of discharge: 10/26/19 Attending physician: Pako Downey MD Consults: 10/20/19 20:53 Consult Physician Urgent Consulting Provider: Chastity Garcia Consult Reason/Comments: acute respiratory insufficiency Do you want consulting provider notified?: Yes Consult Physician Urgent Consulting Provider: [facility] Consult Reason/Comments: NSTEMI Do you want consulting provider notified?: Yes 10/23/19 13:28 Consult Physician Routine Consulting Provider: Armand Jon Consult Reason/Comments: hyponatremia/GUY Do you want consulting provider notified?: Yes Primary care physician: Kitty Stacy Hospital Course: Discharge Diagnosis: Acute exacerbation of diastolic congestive heart failure, new onset with coexisting moderate aortic stenosis and moderate pulmonary hypertension Acute exacerbation of COPD Acute hypoxic respiratory failure GUY on chronic kidney disease stage III secondary to cardiorenal syndrome Diabetes mellitus type 2 with hyperglycemia and drug induced secondary to steroids Hyponatremia secondary to fluid overload examination of chronic hyponatremia, resolved Hypertension Dyslipidemia Troponin leak, not consistent with PA or acute coronary syndrome Hyperkalemia, resolved Hospital Course: Patient is a 69-year-old male past medical history of hypertension, diabetes well-controlled with A1c of 6.8, asthma, and aortic stenosis who presented to the emergency department with complaints of worsening shortness of breath and lower extremity edema. In the ER he underwent an extensive evaluation. His initial vital signs within normal limits. Lower extremity venous Doppler showed no DVT, chest x-ray showed COPD, bronchitis or active airway disease, or pulmonary hypertension and possible perihilar airspace disease, CTA showed mediastinal adenopathy with interstitial prominence with groundglass with possible congestive heart failure. Initial laboratory analysis shows a hemoglobin of 11.9, sodium 128, chloride 88, and glucose of 207. Troponin was mildly elevated at 0.049 and BNP was mildly elevated at 4180. He was diagnosed with acute exacerbation of asthma and possible new onset congestive heart failure. He was admitted for further monitoring. He was started on diuretics, IV steroids, and bronchodilators. He underwent an echocardiogram which showed an ejection fraction of 55-60%, moderate LVH, moderate aortic stenosis, and moderate pulmonary hypertension with RVSP of 48. 72. His troponin remained flat and was not consistent with acute coronary syndrome. He was seen by cardiology and pulmonary who agreed with continued bronchodilators, steroids, and Lasix. He did have an increase in his creatinine which is felt to be multifactorial including exposure to IV contrast dye. Nephrology was consulted and recommended continuing diuretics. He did have a slight increase in his potassium which was treated with Lasix and ultimately Kayexalate. He has continued to slowly improve. His renal function stabilized. He was clincally improved. He was determined stable for discharge home. He will stop his HCTZ and start Lasix twice daily. He will follow with his penology professor in 1-2 weeks, Pulm in 7-10 days, and Dr. Stacy in 3-5 days. Patient seen and examined at bedside. No chest pain, Shortness of breath, Vital signs reviewed and stable. General: non toxic, no distress, appears at stated age Derm: warm, dry Head: atraumatic, normocephalic, symmetric Eyes: EOMI, no lid lag, anicteric sclera Mouth: no lip lesion, mucus membranes moist Cardiovascular: S1S2 reg, no murmur, positive posterior tibial pulse bilateral, Lungs: wheeze left anterior chest, no rhonchi, no rales , no accessory muscle use Abdominal: soft, nontender to palpation, no guarding, no appreciable organomegaly Ext: no gross muscle atrophy, 2+ edema, no contractures Neuro: CN II-XI grossly intact, no focal neuro deficits Psych: Alert, oriented, appropriate affect A total of 35 minutes of time were spent preparing this complex discharge summary . Patient Condition at Discharge: Stable Plan - Discharge Summary Discharge Rx Participant: No New Discharge Prescriptions: New Ipratropium-Albuterol Nebulize [Duoneb 0.5 mg-3 mg/3 ml Soln] 3 ml INHALATION QID 30 Days #6 box predniSONE [Deltasone] 60 mg PO DAILY #15 tab Furosemide [Lasix] 40 mg PO BID #30 tablet guaiFENesin [Mucinex] 600 mg PO Q12HR tablet.er Continue glipiZIDE XL [Glucotrol XL] 2.5 mg PO DAILY Dorzolamide 2% [Trusopt 2%] 1 drop BOTH EYES BID Albuterol Sulfate [Proair Hfa] 1 - 2 puff INHALATION RT-Q4H PRN PRN Reason: Shortness Of Breath metFORMIN HCL [Glucophage] 500 mg PO TID Montelukast Sodium [Singulair] 10 mg PO HS Atorvastatin Calcium [Lipitor] 10 mg PO DAILY Netarsudil Mesylat/Latanoprost [Rocklatan 0.02%-0.005% Eye Drp] 1 drop BOTH EYES HS Discontinued Hydrochlorothiazide [Hydrodiuril] 25 mg PO DAILY Lisinopril 40 mg PO DAILY Discharge Medication List Albuterol Sulfate [Proair Hfa] 1 - 2 puff INHALATION RT-Q4H PRN 10/20/19 [History] Atorvastatin Calcium [Lipitor] 10 mg PO DAILY 10/20/19 [History] Dorzolamide 2% [Trusopt 2%] 1 drop BOTH EYES BID 10/20/19 [History] Montelukast Sodium [Singulair] 10 mg PO HS 10/20/19 [History] Netarsudil Mesylat/Latanoprost [Rocklatan 0.02%-0.005% Eye Drp] 1 drop BOTH EYES HS 10/20/19 [History] glipiZIDE XL [Glucotrol XL] 2.5 mg PO DAILY 10/20/19 [History] metFORMIN HCL [Glucophage] 500 mg PO TID 10/20/19 [History] Furosemide [Lasix] 40 mg PO BID #30 tablet 10/26/19 [Rx] Ipratropium-Albuterol Nebulize [Duoneb 0.5 mg-3 mg/3 ml Soln] 3 ml INHALATION QID 30 Days #6 box 10/26/19 [Rx] guaiFENesin [Mucinex] 600 mg PO Q12HR tablet.er 10/26/19 [Rx] predniSONE [Deltasone] 60 mg PO DAILY #15 tab 10/26/19 [Rx] Follow up Appointment(s)/Referral(s): Cardiology, [Other] - 1 Week (Please follow up with your penology professor) Kitty Stacy MD [Primary Care Provider] - 11/02/19 11:20 am (Friday) Evens Gastelum DO [Doctor of Osteopathic Medicine] - 1 Week Ambulatory/Diagnostic Orders: Basic Metabolic Panel [LAB.AMB] Location: None Selected Activity/Diet/Wound Care/Special Instructions: Activity: as tolerated Diet: heart healthy and carb consistent Special Instructions: Recommended repeat labs with Dr. Stacy for renal function, stay off your lisinopril until you see Dr. Stacy and then will likely be restarted on this. Discharge Disposition: HOME SELF-CARE
[2019-10-26 11:59] LABS: Glucose,Whole Blood 196 mg/dL (75-99)
[2019-10-26] MEDS ORDERED: predniSONE 20 MG TAB PO SCH (16:00)
== END 2019-10-26 12:48 | disposition home or self-care (01) | DRG 291 ==
LOC: EC 17:13 → 3SCARD 20:54
PROVIDERS: ADMIT Internal Medicine; ATTEND Internal Medicine
DX: I13.0 Hypertensive heart and chronic kidney disease with heart failure and stage 1 through stage 4 chronic kidney disease, or unspecified chronic kidney disease (principal); I50.33 Acute on chronic diastolic (congestive) heart failure; J96.01 Acute respiratory failure with hypoxia; J45.901 Unspecified asthma with (acute) exacerbation; E87.2 Acidosis; E87.0 Hyperosmolality and hypernatremia; E87.1 Hypo-osmolality and hyponatremia; J84.9 Interstitial pulmonary disease, unspecified; J44.1 Chronic obstructive pulmonary disease with (acute) exacerbation; N17.9 Acute kidney failure, unspecified; J44.0 Chronic obstructive pulmonary disease with (acute) lower respiratory infection; I27.29 Other secondary pulmonary hypertension; D63.1 Anemia in chronic kidney disease; E11.22 Type 2 diabetes mellitus with diabetic chronic kidney disease; N18.3 Chronic kidney disease, stage 3 (moderate); E11.42 Type 2 diabetes mellitus with diabetic polyneuropathy; E11.65 Type 2 diabetes mellitus with hyperglycemia; F17.210 Nicotine dependence, cigarettes, uncomplicated; H40.9 Unspecified glaucoma; R59.0 Localized enlarged lymph nodes; E78.5 Hyperlipidemia, unspecified; E66.9 Obesity, unspecified; G89.29 Other chronic pain; E87.5 Hyperkalemia; I08.3 Combined rheumatic disorders of mitral, aortic and tricuspid valves; J20.9 Acute bronchitis, unspecified; N14.1 Nephropathy induced by other drugs, medicaments and biological substances; T38.0X5A Adverse effect of glucocorticoids and synthetic analogues, initial encounter; T50.1X5A Adverse effect of loop [high-ceiling] diuretics, initial encounter; T50.8X5A Adverse effect of diagnostic agents, initial encounter; Z68.33 Body mass index [BMI] 33.0-33.9, adult; Z79.84 Long term (current) use of oral hypoglycemic drugs; Z79.899 Other long term (current) drug therapy; Z98.42 Cataract extraction status, left eye; Z98.41 Cataract extraction status, right eye; Z87.11 Personal history of peptic ulcer disease; Z98.890 Other specified postprocedural states; Z71.3 Dietary counseling and surveillance; Z90.13 Acquired absence of bilateral breasts and nipples; Z82.49 Family history of ischemic heart disease and other diseases of the circulatory system; Z82.0 Family history of epilepsy and other diseases of the nervous system
CPT/HCPCS: 36415; 71046; 71275; 80048; 80053; 83605; 83735; 83880; 84100; 84484; 85025; 85610; 85730; 90686; 93005; 93306; 93970; 94640; 94760; 96365; 96366; 96367; 96375; 96376; 99291

== ENCOUNTER → 2019-10-29 | Outpatient (CLI) | payer MEDICARE ==
[2019-10-29 16:23] LABS: Anion Gap 14.3 mmol/L (4.00-12.00); Calcium 9.7 mg/dL (8.7-10.3); Carbon Dioxide 29.7 mmol/L (21.6-31.8); Non-African American GFR(CKD) 50.9 (60.0-200.0); Potassium 4.7 mmol/L (3.5-5.5)
== END | disposition home or self-care (01) ==
LOC: LABWHC1 08:54
PROVIDERS: ATTEND Internal Medicine
DX: N17.9 Acute kidney failure, unspecified (principal)
CPT/HCPCS: 36415; 80048

== ENCOUNTER → 2020-01-26 | Outpatient (CLI) | payer MEDICARE ==
[2020-01-26 09:20] LABS: Basophils % (A) 1 %; Eosinophils # (A) 0.3 k/uL (0-0.7); Eosinophils % (A) 3 %; HCT 37.9 % (39.0-53.0); HGB 12.2 gm/dL (13.0-17.5); Lymphocytes # (A) 1.1 k/uL (1.0-4.8); Lymphocytes % (A) 13 %; MCH 31.8 pg (25.0-35.0); MCHC 32.1 g/dL (31.0-37.0); Mean Platelet Volume 7.6; Monocytes # (A) 0.4 k/uL (0-1.0); Monocytes % (A) 5 %; Neutrophils # (A) 6.5 k/uL (1.3-7.7); Neutrophils % (A) 76 %; Platelet Count 253 k/uL (150-450); RBC 3.82 m/uL (4.30-5.90); RDW 13.2 % (11.5-15.5); WBC 8.6 k/uL (3.8-10.6)
[2020-01-26 09:35] LABS: Appearance,Urine Clear (Clear); Bilirubin,Urine Negative (Negative); Blood,Urine Negative (Negative); Color,Urine Yellow; Glucose,Urine (UA) 3+ (Negative); Ketones,Urine Negative (Negative); Leukocyte Esterase,Urine Negative (Negative); Nitrite,Urine Negative (Negative); PH, Urine 6.5 (5.0-8.0); Protein,Urine Negative (Negative); Specific Gravity,Urine 1.008 (1.001-1.035); Urobilinogen,Urine <2.0 mg/dL (<2.0)
[2020-01-26 18:37] LABS: % Iron Saturation 24.32 (15.00-50.00); African American GFR (CKD) 54.3 (60.0-200.0); Anion Gap 12.6 mmol/L (4.00-12.00); Calcium 9.1 mg/dL (8.7-10.3); Carbon Dioxide 28.4 mmol/L (21.6-31.8); Magnesium 1.5 mg/dL (1.5-2.4); Non-African American GFR(CKD) 46.8 (60.0-200.0); Phosphorus 3.8 mg/dL (2.4-5.1); Potassium 3.8 mmol/L (3.5-5.5); Uric Acid 10.3 mg/dL (3.7-8.7)
[2020-01-26 18:46] LABS: Ferritin 76.1 ng/mL (22.0-322.0)
== END | disposition home or self-care (01) ==
LOC: LABWHC1 08:19
PROVIDERS: ATTEND Nurse Practitioner Family
DX: N18.3 Chronic kidney disease, stage 3 (moderate) (principal); D63.1 Anemia in chronic kidney disease; E55.9 Vitamin D deficiency, unspecified; N25.81 Secondary hyperparathyroidism of renal origin; N39.0 Urinary tract infection, site not specified; M10.9 Gout, unspecified
CPT/HCPCS: 36415; 80048; 81003; 82306; 82728; 83540; 83550; 83735; 83970; 84100; 84550; 85025

== ENCOUNTER 2020-04-23 03:36 | Inpatient (IN) | payer MEDICARE ==
[2020-04-23] MEDS ORDERED: IPRATROPIUM-ALBUTEROL 3 ML NEB INHALATION STA (03:49)
[2020-04-23] MEDS: ALBUTEROL NEB (CONC) 2.5 MG/0.5 ML INHALATION SCH ×4 (03:52→19:28)
[2020-04-23] MEDS ORDERED: NITROGLYCERIN-D5W PMX 50 MG in DEXTROSE/WATER 1 250ML.BAG IV STA (03:57)
[2020-04-23] MEDS ORDERED: MORPHINE SULFATE 4 MG/ML SYRINGE IV STA (03:57)
[2020-04-23 04:14] LABS: Basophils # (A) 0.1 k/uL (0-0.2); Basophils % (A) 0 %; Eosinophils # (A) 0.2 k/uL (0-0.7); Eosinophils % (A) 2 %; HCT 38.4 % (39.0-53.0); HGB 12.7 gm/dL (13.0-17.5); Lymphocytes # (A) 1.1 k/uL (1.0-4.8); Lymphocytes % (A) 8 %; MCH 32.5 pg (25.0-35.0); MCHC 32.9 g/dL (31.0-37.0); MCV 98.6 fL (80.0-100.0); Mean Platelet Volume 7.7; Monocytes # (A) 0.5 k/uL (0-1.0); Monocytes % (A) 3 %; Neutrophils # (A) 11.9 k/uL (1.3-7.7); Neutrophils % (A) 85 %; Platelet Count 206 k/uL (150-450); RDW 13.4 % (11.5-15.5); WBC 14.1 k/uL (3.8-10.6)
--- NOTE | 2020-04-23 04:22 | ED ---
SOB HPI - General Chief Complaint: Shortness of Breath Stated Complaint: JORDYN Time Seen by Provider: 04/23/20 03:50 Source: patient, family Mode of arrival: wheelchair - History of Present Illness Initial Comments: This patient is a 70-year-old man with history of COPD, CHF, diabetes and renal failure, who presents with worsening dyspnea going on for the past 2-3 days. The patient also has developed orthopnea tonight and states that the shortness of breath became severe. He has a little bit of a cough mainly nonproductive. No chest pain. This morning he noted that he was feeling hot and sweaty. The patient does have some bilateral ankle edema but states she has had this much worse past. No change in urination. No bloody or dark tarry stools. MD Complaint: shortness of breath -: days(s) Improves With: upright position Worsens With: lying flat, exertion Known History Of: COPD, congestive heart failure, diabetes Associated Symptoms: orthopnea, diaphoresis Treatments Prior to Arrival: bronchodilator - Related Data Home Oxygen Therapy: No Home Medications Medication Instructions Recorded Confirmed Albuterol Sulfate [Proair Hfa] 1 - 2 puff INHALATION RT-QID PRN 10/20/19 04/23/20 Atorvastatin Calcium [Lipitor] 10 mg PO DAILY 10/20/19 04/23/20 Dorzolamide 2% [Trusopt 2%] 1 drop BOTH EYES BID 10/20/19 04/23/20 Montelukast Sodium [Singulair] 10 mg PO HS 10/20/19 04/23/20 Netarsudil Mesylat/Latanoprost 1 drop BOTH EYES HS 10/20/19 04/23/20 [Rocklatan 0.02%-0.005% Eye Drp] glipiZIDE XL [Glucotrol XL] 5 mg PO BID 10/20/19 04/23/20 metFORMIN HCL [Glucophage] 500 mg PO TID 10/20/19 04/23/20 Allopurinol [Zyloprim] 100 mg PO DAILY 04/23/20 04/23/20 Baclofen [Lioresal] 10 mg PO TID PRN 04/23/20 04/23/20 Ergocalciferol [Vitamin D2] 50,000 unit PO Q30D 04/23/20 04/23/20 Ipratropium-Albuterol Nebulize 3 ml INHALATION RT-QID 04/23/20 04/23/20 [Duoneb 0.5 mg-3 mg/3 ml Soln] Metoprolol Succinate (ER) [Toprol 25 mg PO DAILY 04/23/20 04/23/20 Xl] Previous Rx's Medication Instructions Recorded Furosemide [Lasix] 40 mg PO BID #30 tablet 10/26/19 Allergies Allergy/AdvReac Type Severity Reaction Status Date / Time No Known Allergies Allergy Verified 04/23/20 08:55 Review of Systems ROS Statement: Those systems with pertinent positive or pertinent negative responses have been documented in the HPI. ROS Other: All systems not noted in ROS Statement are negative. Constitutional: Denies: fever, chills Respiratory: Reports: as per HPI, cough, dyspnea. Denies: wheezes, hemoptysis, stridor Cardiovascular: Reports: orthopnea, edema. Denies: chest pain, palpitations, dyspnea on exertion, syncope Gastrointestinal: Denies: abdominal pain, nausea, vomiting, diarrhea, melena, hematochezia Genitourinary: Denies: dysuria, hematuria Musculoskeletal: Denies: back pain Skin: Denies: rash Neurological: Denies: headache, weakness, numbness Psychiatric: Reports: anxiety Past Medical History Past Medical History: Asthma, Diabetes Mellitus, Eye Disorder Additional Past Medical History / Comment(s): "leaky" heart valve-pt does not recall which valve, NIDDM type II, neuropathy bilateral feet, bronchitis, bilateral glaucoma, past gastric ulcer, chronic low back pain History of Any Multi-Drug Resistant Organisms: None Reported Additional Past Surgical History / Comment(s): throat surgery, cataract removal Past Anesthesia/Blood Transfusion Reactions: No Reported Reaction Past Psychological History: No Psychological Hx Reported Smoking Status: Former smoker Past Alcohol Use History: Occasional Past Drug Use History: None Reported - Past Family History Father Family Medical History: Coronary Artery Disease (CAD) Additional Family Medical History / Comment(s): Father had CAD/CABG. He is . Pt had not had contact with his father for 30 yrs. Mother Family Medical History: Congestive Heart Failure (CHF), Neurologic Disorder Additional Family Medical History / Comment(s): Parkinsons dx. Mother from CHF. family Additional Family Medical History / Comment(s): reports CAD history General Exam General appearance: alert, anxious, in distress Head exam: Present: atraumatic, normocephalic Eye exam: Present: normal appearance. Absent: scleral icterus, conjunctival injection ENT exam: Present: normal oropharynx Neck exam: Present: normal inspection, full ROM Respiratory exam: Present: respiratory distress, wheezes, accessory muscle use. Absent: rales, rhonchi, stridor, decreased breath sounds, prolonged expiratory Cardiovascular Exam: Present: normal rhythm, tachycardia, gallop. Absent: systolic murmur, diastolic murmur, rubs GI/Abdominal exam: Present: soft. Absent: distended, tenderness, guarding, rebound, rigid, mass, pulsatile mass Extremities exam: Present: normal capillary refill, pedal edema (Bilateral ankle edema.). Absent: tenderness, calf tenderness Back exam: Present: normal inspection. Absent: CVA tenderness (R), CVA tende rness (L) Neurological exam: Present: alert Skin exam: Present: warm, intact, normal color, diaphoretic. Absent: rash, cyanosis, petechiae, pallor, mottled Course Vital Signs 04/23/20 04/23/20 04/23/20 03:39 03:56 04:00 Temperature 99.4 F Pulse Rate 126 H 133 H 128 H Pulse Rate [ Pulse Oximetery ] Respiratory 32 H 22 23 Rate Blood Pressure 164/82 186/117 134/105 Blood Pressure [Right Arm] O2 Sat by Pulse 94 L 92 L 91 L Oximetry 04/23/20 04/23/20 04/23/20 04:05 04:07 04:18 Temperature Pulse Rate Pulse Rate [ Pulse Oximetery ] Respiratory 23 Rate Blood Pressure 118/92 127/71 Blood Pressure [Right Arm] O2 Sat by Pulse 99 Oximetry 04/23/20 04/23/20 04/23/20 05:03 05:17 05:55 Temperature 97.9 F Pulse Rate 110 H Pulse Rate [ 107 H Pulse Oximetery ] Respiratory 20 Rate Blood Pressure 130/93 Blood Pressure 135/79 [Right Arm] O2 Sat by Pulse 99 99 97 Oximetry 04/23/20 06:06 Temperature Pulse Rate 114 H Pulse Rate [ Pulse Oximetery ] Respiratory 18 Rate Blood Pressure 122/75 Blood Pressure [Right Arm] O2 Sat by Pulse 99 Oximetry Medical Decision Making - Lab Data Result diagrams: 04/23/20 04:07 04/23/20 04:07 Lab Results 04/23/20 04/23/20 04/23/20 Range/Units 04:07 04:07 04:07 WBC 14.1 H (3.8-10.6) k/uL RBC 3.90 L (4.30-5.90) m/uL Hgb 12.7 L (13.0-17.5) gm/dL Hct 38.4 L (39.0-53.0) % MCV 98.6 (80.0-100.0) fL MCH 32.5 (25.0-35.0) pg MCHC 32.9 (31.0-37.0) g/dL RDW 13.4 (11.5-15.5) % Plt Count 206 (150-450) k/uL Neutrophils % 85 % Lymphocytes % 8 % Monocytes % 3 % Eosinophils % 2 % Basophils % 0 % Neutrophils # 11.9 H (1.3-7.7) k/uL Lymphocytes # 1.1 (1.0-4.8) k/uL Monocytes # 0.5 (0-1.0) k/uL Eosinophils # 0.2 (0-0.7) k/uL Basophils # 0.1 (0-0.2) k/uL PT 10.0 (9.0-12.0) sec INR 1.0 (<1.2) APTT 24.8 (22.0-30.0) sec D-Dimer 0.51 (<0.60) mg/L FEU Sodium 132 L (137-145) mmol/L Potassium 4.0 (3.5-5.1) mmol/L Chloride 94 L (98-107) mmol/L Carbon Dioxide 24 (22-30) mmol/L Anion Gap 14 mmol/L BUN 19 (9-20) mg/dL Creatinine 1.51 H (0.66-1.25) mg/dL Est GFR (CKD-EPI)AfAm 54 (>60 ml/min/1.73 sqM) Est GFR (CKD-EPI)NonAf 46 (>60 ml/min/1.73 sqM) Glucose 273 H (74-99) mg/dL Lactic Ac Sepsis Rflx Plasma Lactic Acid Helder (0.7-2.0) mmol/L Calcium 9.3 (8.4-10.2) mg/dL Magnesium 1.3 L (1.6-2.3) mg/dL Total Bilirubin 0.9 (0.2-1.3) mg/dL AST 27 (17-59) U/L ALT 18 (4-49) U/L Alkaline Phosphatase 92 (38-126) U/L Troponin I (0.000-0.034) ng/mL NT-Pro-B Natriuret Pep pg/mL Total Protein 7.3 (6.3-8.2) g/dL Albumin 4.7 (3.5-5.0) g/dL 04/23/20 04/23/20 04/23/20 Range/Units 04:07 04:07 04:07 WBC (3.8-10.6) k/uL RBC (4.30-5.90) m/uL Hgb (13.0-17.5) gm/dL Hct (39.0-53.0) % MCV (80.0-100.0) fL MCH (25.0-35.0) pg MCHC (31.0-37.0) g/dL RDW (11.5-15.5) % Plt Count (150-450) k/uL Neutrophils % % Lymphocytes % % Monocytes % % Eosinophils % % Basophils % % Neutrophils # (1.3-7.7) k/uL Lymphocytes # (1.0-4.8) k/uL Monocytes # (0-1.0) k/uL Eosinophils # (0-0.7) k/uL Basophils # (0-0.2) k/uL PT (9.0-12.0) sec INR (<1.2) APTT (22.0-30.0) sec D-Dimer (<0.60) mg/L FEU Sodium (137-145) mmol/L Potassium (3.5-5.1) mmol/L Chloride (98-107) mmol/L Carbon Dioxide (22-30) mmol/L Anion Gap mmol/L BUN (9-20) mg/dL Creatinine (0.66-1.25) mg/dL Est GFR (CKD-EPI)AfAm (>60 ml/min/1.73 sqM) Est GFR (CKD-EPI)NonAf (>60 ml/min/1.73 sqM) Glucose (74-99) mg/dL Lactic Ac Sepsis Rflx Plasma Lactic Acid Helder 2.1 H* (0.7-2.0) mmol/L Calcium (8.4-10.2) mg/dL Magnesium (1.6-2.3) mg/dL Total Bilirubin (0.2-1.3) mg/dL AST (17-59) U/L ALT (4-49) U/L Alkaline Phosphatase (38-126) U/L Troponin I 0.055 H* (0.000-0.034) ng/mL NT-Pro-B Natriuret Pep 6290 pg/mL Total Protein (6.3-8.2) g/dL Albumin (3.5-5.0) g/dL 04/23/20 Range/Units 04:28 WBC (3.8-10.6) k/uL RBC (4.30-5.90) m/uL Hgb (13.0-17.5) gm/dL Hct (39.0-53.0) % MCV (80.0-100.0) fL MCH (25.0-35.0) pg MCHC (31.0-37.0) g/dL RDW (11.5-15.5) % Plt Count (150-450) k/uL Neutrophils % % Lymphocytes % % Monocytes % % Eosinophils % % Basophils % % Neutrophils # (1.3-7.7) k/uL Lymphocytes # (1.0-4.8) k/uL Monocytes # (0-1.0) k/uL Eosinophils # (0-0.7) k/uL Basophils # (0-0.2) k/uL PT (9.0-12.0) sec INR (<1.2) APTT (22.0-30.0) sec D-Dimer (<0.60) mg/L FEU Sodium (137-145) mmol/L Potassium (3.5-5.1) mmol/L Chloride (98-107) mmol/L Carbon Dioxide (22-30) mmol/L Anion Gap mmol/L BUN (9-20) mg/dL Creatinine (0.66-1.25) mg/dL Est GFR (CKD-EPI)AfAm (>60 ml/min/1.73 sqM) Est GFR (CKD-EPI)NonAf (>60 ml/min/1.73 sqM) Glucose (74-99) mg/dL Lactic Ac Sepsis Rflx Y Plasma Lactic Acid Helder (0.7-2.0) mmol/L Calcium (8.4-10.2) mg/dL Magnesium (1.6-2.3) mg/dL Total Bilirubin (0.2-1.3) mg/dL AST (17-59) U/L ALT (4-49) U/L Alkaline Phosphatase (38-126) U/L Troponin I (0.000-0.034) ng/mL NT-Pro-B Natriuret Pep pg/mL Total Protein (6.3-8.2) g/dL Albumin (3.5-5.0) g/dL - EKG Data -: EKG Interpreted by Me EKG shows normal: sinus rhythm (With PVC), axis (Normal), intervals (Normal), QRS complexes (Normal) Rate: tachycardia (Rate approximately 141) Interpretation: nonspecific ST-T wave changes Critical Care Time Critical Care Time: Yes (35 minutes) Disposition Clinical Impression: Congestive heart failure, COPD (chronic obstructive pulmonary disease) Disposition: ADMITTED IP TO THIS [facility] Condition: Serious
[2020-04-23 04:23] LABS: Albumin 4.7 g/dL (3.5-5.0); Calcium 9.3 mg/dL (8.4-10.2); Magnesium 1.3 mg/dL (1.6-2.3); Total Bilirubin 0.9 mg/dL (0.2-1.3); Total Protein 7.3 g/dL (6.3-8.2)
[2020-04-23 04:27] LABS: D-Dimer 0.51 mg/L FEU (<0.60); Partial Thromboplastin Time 24.8 sec (22.0-30.0)
--- NOTE | 2020-04-23 04:32 | XR ---
EXAMINATION TYPE: XR chest 1V portable DATE OF EXAM: 04/23/2020 COMPARISON: 10/26/2019 HISTORY: Short of breath TECHNIQUE: Single view FINDINGS: There is some pulmonary vascular mild congestion. Heart appears enlarged. There are chest l rachid. Costophrenic angles are clear. IMPRESSION: There is evidence of mild heart failure that is a change compared to old exam.
[2020-04-23] MEDS ORDERED: LORazepam 2 MG/ML INJ IV STA (04:56)
[2020-04-23] MEDS ORDERED: FUROSEMIDE 10 MG/ML 10 ML VIAL IV STA (05:04)
--- NOTE | 2020-04-23 05:51 | P.HPIM ---
History of Present Illness H&P Date: 04/23/20 The patient is a 70-year-old male with a PMH of diastolic CHF, COPD, chronic kidney disease stage III, type II DM, hypertension, and hyperlipidemia who presented to the ED accompanied short of breath. Patient reports that over the past few days, he noticed that his breathing gradually got worse. He reports that he was not able to lay flat in his bed, and has been sleeping in his chair, and also had significant exertional dyspnea with just a few steps. Reported a cough productive of whitish phlegm. He also noted some lower extremity swelling that worsened over the past few days. Reports compliance with his Lasix and dietary restrictions. Also reports compliance with his inhalers and nebulizers at home. He notes that he took his rescue inhaler several times today, with little improvement in his symptoms. He denied chest pain, nausea, vomiting, diaphoresis, fever, or leg pain. In the emergency room a chest x-ray was consistent with mild heart failure with laboratory evaluation showing proBNP 6290, WBC count of 14.1, hemoglobin 12.7, lactic acid 2.1, sodium 132, creatinine 1.51, glucose 273, and magnesium 1.3. The patient was noted to be hypoxic and was started on BiPAP. Review of Systems Pertinent positives and negatives as discussed in HPI, a complete review of systems was performed and all other systems are negative. Past Medical History Past Medical History: Asthma, Diabetes Mellitus, Eye Disorder Additional Past Medical History / Comment(s): "leaky" heart valve-pt does not recall which valve, NIDDM type II, neuropathy bilateral feet, bronchitis, bilateral glaucoma, past gastric ulcer, chronic low back pain History of Any Multi-Drug Resistant Organisms: None Reported Additional Past Surgical History / Comment(s): throat surgery, cataract removal Past Anesthesia/Blood Transfusion Reactions: No Reported Reaction Past Psychological History: No Psychological Hx Reported Smoking Status: Former smoker Past Alcohol Use History: Occasional Past Drug Use History: None Reported - Past Family History Father Family Medical History: Coronary Artery Disease (CAD) Additional Family Medical History / Comment(s): Father had CAD/CABG. He is . Pt had not had contact with his father for 30 yrs. Mother Family Medical History: Congestive Heart Failure (CHF), Neurologic Disorder Additional Family Medical History / Comment(s): Parkinsons dx. Mother from CHF. family Additional Family Medical History / Comment(s): reports CAD history Medications and Allergies Home Medications Medication Instructions Recorded Confirmed Type Albuterol Sulfate [Proair Hfa] 1 - 2 puff INHALATION RT-Q4H PRN 10/20/19 10/20/19 History Atorvastatin Calcium [Lipitor] 10 mg PO DAILY 10/20/19 10/20/19 History Dorzolamide 2% [Trusopt 2%] 1 drop BOTH EYES BID 10/20/19 10/20/19 History Montelukast Sodium [Singulair] 10 mg PO HS 10/20/19 10/20/19 History Netarsudil Mesylat/Latanoprost 1 drop BOTH EYES HS 10/20/19 10/20/19 History [Rocklatan 0.02%-0.005% Eye Drp] glipiZIDE XL [Glucotrol XL] 2.5 mg PO DAILY 10/20/19 10/20/19 History metFORMIN HCL [Glucophage] 500 mg PO TID 10/20/19 10/20/19 History Furosemide [Lasix] 40 mg PO BID #30 tablet 10/26/19 Rx Ipratropium-Albuterol Nebulize 3 ml INHALATION QID 30 Days #6 box 10/26/19 Rx [Duoneb 0.5 mg-3 mg/3 ml Soln] guaiFENesin [Mucinex] 600 mg PO Q12HR tablet.er 10/26/19 Rx predniSONE [Deltasone] 60 mg PO DAILY #15 tab 10/26/19 Rx Allergies Allergy/AdvReac Type Severity Reaction Status Date / Time No Known Allergies Allergy Verified 04/23/20 03:43 Physical Exam Vitals: Vital Signs Temp Pulse Resp BP Pulse Ox 04/23/20 04:07 118/92 04/23/20 04:05 23 04/23/20 04:00 128 H 23 134/105 91 L 04/23/20 03:56 133 H 22 186/117 92 L 04/23/20 03:39 99.4 F 126 H 32 H 164/82 94 L Intake and Output 04/22/20 04/22/20 04/23/20 14:59 22:59 06:59 Other: Weight 99.79 kg General: non toxic, in some respiratory distress, appears at stated age, morbidly obese Derm: Right forearm ecchymosis (from a fall 2 weeks ago, no head injury reported), warm, dry Head: atraumatic, normocephalic, symmetric Eyes: EOMI, no lid lag, anicteric sclera, pupils equal round reactive to light ENT: Nose and ears atraumatic, no thrush, no pharyngeal erythema Neck: No thyromegaly, no cervical lymphadenopathy, trachea midline, supple Mouth: no lip lesion, mucus membranes moist Cardiovascular: S1S2 reg, tachycardic, no murmur, positive posterior tibial pulse bilateral, 2+ bilateral lower extremity pitting edema, capillary refill less than 2 seconds Lungs: Bilateral poor air entry with decreased breath sounds and wheezing with bibasilar rales, no accessory muscle use Abdominal: soft, nontender to palpation, no guarding, no appreciable organomegaly, normal bowel sounds Ext: no gross muscle atrophy, muscle strength 5 out of 5 in all 4 extremities grossly, no contractures Neuro: CN II-XI grossly intact, light touch intact all 4 extremities, finger to nose within normal limits Psych: Alert, oriented, appropriate affect Results CBC & Chem 7: 04/23/20 04:07 04/23/20 04:07 Labs: Abnormal Lab Results - Last 24 Hours (Table) 04/23/20 04/23/20 04/23/20 Range/Units 04:07 04:07 04:07 WBC 14.1 H (3.8-10.6) k/uL RBC 3.90 L (4.30-5.90) m/uL Hgb 12.7 L (13.0-17.5) gm/dL Hct 38.4 L (39.0-53.0) % Neutrophils # 11.9 H (1.3-7.7) k/uL Sodium 132 L (137-145) mmol/L Chloride 94 L (98-107) mmol/L Creatinine 1.51 H (0.66-1.25) mg/dL Glucose 273 H (74-99) mg/dL Plasma Lactic Acid Helder 2.1 H* (0.7-2.0) mmol/L Magnesium 1.3 L (1.6-2.3) mg/dL Assessment and Plan Plan: Shortness of breath, likely multifactorial from acute diastolic CHF and acute COPD exacerbations -Continue with BiPAP when necessary -Lasix 40 mg every 12 hourly -Fluid restriction, intake and output, daily weights -Cardiac monitoring -Solu-Medrol 60 mg every 6 hourly -DuoNeb's [id number] and as needed -Supplemental oxygen Type II DM -Levemir 10 units daily at bedtime with lispro insulin sliding scale and blood glucose monitoring -Hold oral hypoglycemics Hyponatremia, chronic -Likely secondary to cardiorenal syndrome -Monitor for now Leukocytosis -Likely secondary to acute stress -Monitor for now Hypomagnesemia -Replace and monitor Chronic kidney disease, at baseline DVT prophylaxis -Heparin subq The patient is admitted with an anticipated more than 2 midnight stay for luis alfredo luation of CHF exacerbations CODE STATUS: Full Code Discussed with: Patient, Anticipated discharge date: 2-[address]: Home A total of 40 minutes was spent on the care of this complex patient more than 50% of the time was spent in counseling and care coordination.
[2020-04-23] MEDS ORDERED: NITROGLYCERIN OINT 1 INCH/GM PACKET TOPICAL STA (06:05)
[2020-04-23] MEDS: methylPREDNISolone SOD SUCCI 125 MG/2 ML VIAL IV SCH ×3 (06:15→17:30)
[2020-04-23] MEDS: MAGNESIUM SULFATE-D5W PMX 1 GM in DEXTROSE/WATER 1 100ML.BAG IVPB SCH ×3 (06:17→09:37)
[2020-04-23 06:39] LABS: Glucose,Whole Blood 258 mg/dL (75-99)
[2020-04-23] MEDS: INSULIN ASPART (NovoLOG) 100 UNIT/ML VIAL SQ SCH ×4 (06:47→21:10)
[2020-04-23] MEDS: FUROSEMIDE 10 MG/ML 4 ML VIAL IV SCH ×2 (06:47→17:13)
[2020-04-23 07:16] LABS: Appearance,Urine Clear (Clear); Bilirubin,Urine Negative (Negative); Blood,Urine Negative (Negative); Color,Urine Yellow; Glucose,Urine (UA) 2+ (Negative); Ketones,Urine Negative (Negative); Leukocyte Esterase,Urine Negative (Negative); Nitrite,Urine Negative (Negative); Protein,Urine Trace (Negative); Urobilinogen,Urine <2.0 mg/dL (<2.0)
[2020-04-23] MEDS: IPRATROPIUM-ALBUTEROL 3 ML NEB INHALATION SCH ×4 (07:48→19:28)
[2020-04-23] MEDS: HEPARIN SODIUM,PORCINE 5,000 UNIT/ML 1 ML VIAL SQ SCH ×2 (09:40→17:13)
[2020-04-23 12:12] LABS: Glucose,Whole Blood 243 mg/dL (75-99)
--- NOTE | 2020-04-23 12:45 | P.PN ---
Progress Note - Text Progress Note Date: 04/23/20 Patient was seen. Please refer to H&P for full documentation. Patient reports slight improvement in his breathing since admission. Still not back to baseline. He denies any chest pain or palpitations. No nausea or vomiting. No fever chills. Patient is in no acute distress eating lunch. He is decreased breath sounds bilaterally. 1+ pitting edema bilaterally. Speaking in full sentences. Acute COPD exacerbation Acute diastolic CHF exacerbation Acute kidney injury Plans: Continue Lasix IV. Optimize COPD medications. Continue Solu-Medrol. Supplemental O2 to maintain O2 saturation greater than 92%. Telemetry monitoring. Plans: We'll obtain kidney ultrasound.
[2020-04-23] MEDS: ATORVASTATIN 10 MG TAB PO SCH (13:09)
[2020-04-23] MEDS: allopurinoL 100 MG TAB PO SCH (13:09)
[2020-04-23] MEDS: METOPROLOL SUCCINATE (ER) 25 MG TAB.ER.24H PO SCH (13:09)
--- NOTE | 2020-04-23 13:17 | US ---
EXAMINATION TYPE: US kidneys/renal and bladder DATE OF EXAM: 04/23/2020 COMPARISON: NONE CLINICAL HISTORY: elevated Creatinine. Diabetic EXAM MEASUREMENTS: Right Kidney: 10.1 x 7.1 x 5.4 cm Left Kidney: 10.4 x 4.2 x 5.9 cm Post Void Residual Volume: not assessed on inpatient Right Kidney: No hydronephrosis or masses seen Left Kidney: mid lateral hypoechoic nodule is imaged = 1.3 x 1.2 x 1.1cm` Bladder: wnl Bilateral Jets seen: yes There is no evidence for hydronephrosis at this point in time. No nephrolithiasis is seen. The urina ry bladder is anechoic. Bilateral ureteral jets are seen. IMPRESSION: No hydronephrosis or nephrolithiasis. Hypoechoic nodule within the left kidney is too small to charac terize but likely related to a cyst
[2020-04-23 17:02] LABS: Glucose,Whole Blood 318 mg/dL (75-99)
[2020-04-23] MEDS ORDERED: INSULIN ASPART (NovoLOG) 100 UNIT/ML VIAL SQ ONE (17:07)
[2020-04-23 20:48] LABS: Glucose,Whole Blood 339 mg/dL (75-99)
[2020-04-23] MEDS: MONTELUKAST 10 MG TAB PO SCH (20:48)
[2020-04-23] MEDS: FUROSEMIDE 40 MG TAB PO SCH (20:48)
[2020-04-23] MEDS: DORZOLAMIDE HCL 2% DROPS 10 ML BTL BOTH EYES SCH (20:48)
[2020-04-23] MEDS ORDERED: NON FORMULARY DRUG (Netarsudil Mesylat/Latanoprost [Rocklatan 0.02%-0.005% Eye Drp] 2.5 ML BOTH EYES SCH (21:00)
[2020-04-24] MEDS: HEPARIN SODIUM,PORCINE 5,000 UNIT/ML 1 ML VIAL SQ SCH ×3 (00:28→17:08)
[2020-04-24] MEDS: methylPREDNISolone SOD SUCCI 125 MG/2 ML VIAL IV SCH ×4 (00:29→21:34)
[2020-04-24] MEDS: FUROSEMIDE 10 MG/ML 4 ML VIAL IV SCH ×2 (05:50→18:57)
[2020-04-24 06:18] LABS: Glucose,Whole Blood 390 mg/dL (75-99)
[2020-04-24] MEDS ORDERED: INSULIN ASPART (NovoLOG) 100 UNIT/ML VIAL SQ ONE ×2 (06:50→17:15)
[2020-04-24 06:57] LABS: Magnesium 2.3 mg/dL (1.6-2.3); Phosphorus 4.8 mg/dL (2.5-4.5); Uric Acid 7.9 mg/dL (3.5-8.5)
[2020-04-24] MEDS: INSULIN ASPART (NovoLOG) 100 UNIT/ML VIAL SQ SCH ×4 (06:57→17:14)
[2020-04-24] MEDS: IPRATROPIUM-ALBUTEROL 3 ML NEB INHALATION SCH ×4 (08:37→19:33)
[2020-04-24] MEDS: ALBUTEROL NEB (CONC) 2.5 MG/0.5 ML INHALATION SCH (08:37)
[2020-04-24] MEDS: DORZOLAMIDE HCL 2% DROPS 10 ML BTL BOTH EYES SCH ×2 (09:59→21:34)
[2020-04-24] MEDS: ATORVASTATIN 10 MG TAB PO SCH (09:59)
[2020-04-24] MEDS: allopurinoL 100 MG TAB PO SCH (09:59)
[2020-04-24] MEDS: METOPROLOL SUCCINATE (ER) 25 MG TAB.ER.24H PO SCH (10:00)
[2020-04-24] MEDS: FUROSEMIDE 40 MG TAB PO SCH (10:00)
[2020-04-24 10:10] LABS: % Iron Saturation 14.86 (15.00-50.00)
[2020-04-24 10:15] LABS: Basophils % (A) 0 %; Eosinophils % (A) 0 %; HCT 37.2 % (39.0-53.0); HGB 11.8 gm/dL (13.0-17.5); Lymphocytes # (A) 0.6 k/uL (1.0-4.8); Lymphocytes % (A) 4 %; MCH 31.9 pg (25.0-35.0); MCHC 31.8 g/dL (31.0-37.0); MCV 100.5 fL (80.0-100.0); Macrocytosis Slight; Mean Platelet Volume 9.5; Monocytes # (A) 0.2 k/uL (0-1.0); Monocytes % (A) 2 %; Neutrophils # (A) 12.9 k/uL (1.3-7.7); Neutrophils % (A) 93 %; Platelet Count 196 k/uL (150-450); RDW 13.4 % (11.5-15.5); WBC 13.8 k/uL (3.8-10.6)
[2020-04-24 10:19] LABS: Ferritin 125.1 ng/mL (22.0-322.0)
[2020-04-24 10:31] LABS: Potassium 4.8 mmol/L (3.5-5.1)
[2020-04-24 11:59] LABS: Glucose,Whole Blood 359 mg/dL (75-99)
--- NOTE | 2020-04-24 13:35 | ECHOF ---
Referral Reason:SOB MEASUREMENTS -------- HEIGHT: 170.2 cm WEIGHT: 100.7 kg BP: 127/69 RVIDd: 3.7 cm (< 3.3) IVSd: 1.4 cm (0.6 - 1.1) LVIDd: 4.3 cm (3.9 - 5.3) LVPWd: 1.4 cm (0.6 - 1.1) IVSs: 2.1 cm LVIDs: 3.8 cm LVPWs: 1.8 cm LA Diam: 3.2 cm (2.7 - 3.8) LAESV Index (A-L): 34.88 ml/m Ao Diam: 3.6 cm (2.0 - 3.7) AV Cusp: 1.4 cm (1.5 - 2.6) MV EXCURSION: 12.885 mm (> 18.000) MV EF SLOPE: 68 mm/s (70 - 150) EPSS: 2.2 cm AV maxP.66 mmHg AV meanP.93 mmHg AR PHT: 439 ms RAP: 5.00 mmHg RVSP: 53.43 mmHg FINDINGS -------- Sinus rhythm. This was a technically difficult study with suboptimal views. The left ventricular size is normal. There is moderate concentric left ventricular hypertrophy. O verall left ventricular systolic function is mildly impaired with, an EF between 45 - 50 %. The right ventricle is mildly enlarged. LA is moderately dilated 34-39 ml/m2 The right atrial size is normal. 5.0mg of Lumason was utilized for enhancement of images Interatrial and interventricular septum intact. There is moderate aortic valve sclerosis. There is mild aortic regurgitation. Moderate to severe aortic stenosis with peak/mean pressure gradient of 59.66mmHg / 40.93mmHg, the aortic valve area by c ontinuity equation is 0.8cm. Peak/mean gradient across the Aortic Valve is 59.66mmHg / 40.93mmHg. Mild mitral annular calcification present. [id number] mitral regurgitation is present. Mild tricuspid regurgitation present. There is moderate pulmonary hypertension. The right ventric ular systolic pressure, as measured by Doppler, is 53.43mmHg. There is no pulmonic regurgitation present. The aortic root size is normal. Normal inferior vena cava with normal inspiratory collapse consistent with estimated right atrial pre ssure of 5 mmHg. The inferior vena cava is mildly dilated. There is no pericardial effusion. CONCLUSIONS -------- 1. There is moderate concentric left ventricular hypertrophy. 2. Overall left ventricular systolic function is mildly impaired with, an EF between 45 - 50 %. 3. The right ventricle is mildly enlarged. 4. LA is moderately dilated 34-39 ml/m2 5. There is moderate aortic valve sclerosis. 6. There is mild aortic regurgitation. 7. Moderate to severe aortic stenosis with peak/mean pressure gradient of 59.66mmHg / 40.93mmHg, the aortic valve area by continuity equation is 0.8cm. 8. Peak/mean gradient across the Aortic Valve is 59.66mmHg / 40.93mmHg. 9. Mild mitral annular calcification present. 10. [id number] mitral regurgitation is present. 11. Mild tricuspid regurgitation present. 12. There is moderate pulmonary hypertension. 13. The inferior vena cava is mildly dilated. 14. There is no pericardial effusion. 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
[2020-04-24] MEDS ORDERED: NETARSUDIL MESYLAT BOTH EYES SCH (15:02)
[2020-04-24] MEDS ORDERED: LATANOPROST BOTH EYES SCH (15:02)
--- NOTE | 2020-04-24 15:17 | P.PN ---
Subjective Progress Note Date: 04/24/20 The patient is a 70-year-old male with a PMH of diastolic CHF, COPD, chronic kidney disease stage III, type II DM, hypertension, and hyperlipidemia who presented to the ED accompanied short of breath. In the emergency room a chest x-ray was consistent with mild heart failure with laboratory evaluation showing proBNP 6290, WBC count of 14.1, hemoglobin 12.7, lactic acid 2.1, sodium 132, creatinine 1.51, glucose 273, and magnesium 1.3. The patient was noted to be hypoxic and was started on BiPAP. He was transitioned to nasal cannula. Patient was started on Solu-Medrol and was given DuoNeb's around the clock. Patient was started on Lasix IV for treatment of diastolic CHF exacerbation. Echocardiogram was ordered which showed EF 45-50%. Patient was seen and examined. No acute events overnight. Patient reports not much improvement in breathing since admission. [place] winded this morning. He denies any chest pain or palpitations. No nausea or vomiting. No fever or chills. Objective - Vital Signs Vital signs: Vital Signs Temp 97.8 F 04/24/20 08:00 Pulse 94 04/24/20 12:17 Resp 20 04/24/20 12:00 BP 115/63 04/24/20 12:00 Pulse Ox 97 04/24/20 12:00 Intake & Output 04/23/20 04/24/20 04/24/20 18:59 06:59 18:59 Intake Total 240 480 Output Total 700 1000 400 Balance -460 -1000 80 Weight 101.6 kg 101 kg Intake: Oral 240 480 Output: Urine 700 1000 400 - Exam General: [non toxic], [no distress], [appears at stated age] Derm: [warm], [dry] Head: [atraumatic], [normocephalic], [symmetric] Eyes: [EOMI], [no lid lag], [anicteric sclera] Mouth: [no lip lesion], [mucus membranes moist] Cardiovascular: [S1S2 reg], [tachycardic], [positive posterior tibial pulse bilateral], Lungs: [Decreased breath sounds bilateral], [no rhonchi, no rales] , [no accessory muscle use] Abdominal: [soft], [ nontender to palpation], [no guarding], [no appreciable organomegaly] Ext: [no gross muscle atrophy], [no edema], [no contractures] Neuro: [ CN II-XI grossly intact], [no focal neuro deficits] Psych: [Alert], [oriented], [appropriate affect] - Labs CBC & Chem 7: 04/24/20 06:18 04/24/20 06:18 Labs: Abnormal Lab Results - Last 24 Hours (Table) 04/23/20 04/23/20 04/24/20 Range/Units 17:01 20:46 06:17 WBC (3.8-10.6) k/uL RBC (4.30-5.90) m/uL Hgb (13.0-17.5) gm/dL Hct (39.0-53.0) % MCV (80.0-100.0) fL Neutrophils # (1.3-7.7) k/uL Lymphocytes # (1.0-4.8) k/uL Sodium (137-145) mmol/L BUN (9-20) mg/dL Creatinine (0.66-1.25) mg/dL Glucose (74-99) mg/dL POC Glucose (mg/dL) 318 H 339 H 390 H (75-99) mg/dL Phosphorus (2.5-4.5) mg/dL Iron (65-175) ug/dL % Saturation (15.00-50.00) Troponin I (0.000-0.034) ng/mL Vitamin D 25-Hydroxy (30.0-100.0) ng/mL 04/24/20 04/24/20 04/24/20 Range/Units 06:18 06:18 06:18 WBC 13.8 H (3.8-10.6) k/uL RBC 3.70 L (4.30-5.90) m/uL Hgb 11.8 L (13.0-17.5) gm/dL Hct 37.2 L (39.0-53.0) % MCV 100.5 H (80.0-100.0) fL Neutrophils # 12.9 H (1.3-7.7) k/uL Lymphocytes # 0.6 L (1.0-4.8) k/uL Sodium (137-145) mmol/L BUN (9-20) mg/dL Creatinine (0.66-1.25) mg/dL Glucose (74-99) mg/dL POC Glucose (mg/dL) (75-99) mg/dL Phosphorus 4.8 H (2.5-4.5) mg/dL Iron 48 L (65-175) ug/dL % Saturation 14.86 L (15.00-50.00) Troponin I 0.046 H* (0.000-0.034) ng/mL Vitamin D 25-Hydroxy 19.4 L (30.0-100.0) ng/mL 04/24/20 04/24/20 Range/Units 06:18 11:57 WBC (3.8-10.6) k/uL RBC (4.30-5.90) m/uL Hgb (13.0-17.5) gm/dL Hct (39.0-53.0) % MCV (80.0-100.0) fL Neutrophils # (1.3-7.7) k/uL Lymphocytes # (1.0-4.8) k/uL Sodium 133 L (137-145) mmol/L BUN 38 H (9-20) mg/dL Creatinine 1.46 H (0.66-1.25) mg/dL Glucose 428 H (74-99) mg/dL POC Glucose (mg/dL) 359 H (75-99) mg/dL Phosphorus (2.5-4.5) mg/dL Iron (65-175) ug/dL % Saturation (15.00-50.00) Troponin I (0.000-0.034) ng/mL Vitamin D 25-Hydroxy (30.0-100.0) ng/mL Assessment and Plan Assessment: Shortness of breath, likely multifactorial from acute diastolic CHF and acute COPD exacerbations -Continue with BiPAP when necessary -Lasix 40 mg every 12 hourly -Fluid restriction, intake and output, daily weights -Cardiac monitoring -Solu-Medrol 60 mg every 6 hourly -DuoNeb's [id number] and as needed - Add Mucinex and Pulmicort -Supplemental oxygen Troponin elevation -Troponin 0.055, 0.076, 0.084, 0.046 -Likely demand ischemia -Acute coronary syndrome ruled out -Echocardiogram shows no regional wall motion abnormalities Type II DM -Levemir 10 units daily at bedtime with lispro insulin sliding scale and blood glucose monitoring - Add NovoLog 5 units 3 times a day with meals and cut down on steroids to 3 t imes a day dosing instead a 4 times a day dosing -Hold oral hypoglycemics Hyponatremia, chronic -Likely secondary to cardiorenal syndrome -Monitor for now Leukocytosis -Likely secondary to acute stress -Monitor for now Hypomagnesemia -Replace and monitor Chronic kidney disease -Renal ultrasound and lab work ordered DVT prophylaxis -Heparin subq
[2020-04-24 16:52] LABS: Glucose,Whole Blood 463 mg/dL (75-99)
[2020-04-24 18:16] LABS: Glucose,Whole Blood 470 mg/dL (75-99)
[2020-04-24] MEDS ORDERED: INSULIN REGULAR BOLUS (FROM DRIP BAG) IV ONE (18:33)
[2020-04-24] MEDS: INSULIN REGULAR 100 UNIT in SODIUM CHLORIDE 0.9% 100 ML IV SCH (19:07)
[2020-04-24] MEDS: SYMBICORT 160-4.5 MCG INHALER INHALATION SCH (19:34)
[2020-04-24 19:41] LABS: Glucose,Whole Blood 345 mg/dL (75-99)
[2020-04-24] MEDS ORDERED: BUDESONIDE 0.5 MG/2 ML NEBU INHALATION SCH (20:00)
[2020-04-24 20:14] LABS: Glucose,Whole Blood 232 mg/dL (75-99)
[2020-04-24 20:48] LABS: Glucose,Whole Blood 163 mg/dL (75-99)
[2020-04-24 21:25] LABS: Glucose,Whole Blood 145 mg/dL (75-99)
[2020-04-24] MEDS: MONTELUKAST 10 MG TAB PO SCH (21:34)
[2020-04-24] MEDS: guaiFENesin 600 MG TABLET.ER PO SCH (21:34)
[2020-04-24] MEDS: NETARSUDIL MESYLAT BOTH EYES SCH (21:35)
[2020-04-24] MEDS: LATANOPROST BOTH EYES SCH (21:35)
[2020-04-24 21:58] LABS: Glucose,Whole Blood 114 mg/dL (75-99)
[2020-04-24 23:06] LABS: Glucose,Whole Blood 153 mg/dL (75-99)
[2020-04-25] MEDS: HEPARIN SODIUM,PORCINE 5,000 UNIT/ML 1 ML VIAL SQ SCH ×4 (00:05→23:30)
[2020-04-25 01:11] LABS: Glucose,Whole Blood 185 mg/dL (75-99)
[2020-04-25] MEDS: INSULIN REGULAR 100 UNIT in SODIUM CHLORIDE 0.9% 100 ML IV SCH (01:16)
[2020-04-25 03:01] LABS: Glucose,Whole Blood 127 mg/dL (75-99)
[2020-04-25 04:59] LABS: Protein/Creatinine Ratio,Urine 0.088
[2020-04-25] MEDS: methylPREDNISolone SOD SUCCI 125 MG/2 ML VIAL IV SCH (05:09)
[2020-04-25] MEDS: FUROSEMIDE 10 MG/ML 4 ML VIAL IV SCH (05:09)
[2020-04-25 05:10] LABS: Glucose,Whole Blood 170 mg/dL (75-99)
[2020-04-25 05:11] LABS: Hemoglobin A1C 8.8 % (4.0-6.0)
[2020-04-25 06:53] LABS: Glucose,Whole Blood 177 mg/dL (75-99)
[2020-04-25] MEDS: INSULIN ASPART (NovoLOG) 100 UNIT/ML VIAL SQ SCH ×5 (06:53→20:46)
[2020-04-25] MEDS: IPRATROPIUM-ALBUTEROL 3 ML NEB INHALATION SCH ×4 (07:41→19:15)
[2020-04-25] MEDS: SYMBICORT 160-4.5 MCG INHALER INHALATION SCH ×2 (07:41→19:15)
[2020-04-25] MEDS: DORZOLAMIDE HCL 2% DROPS 10 ML BTL BOTH EYES SCH ×2 (08:39→20:45)
[2020-04-25] MEDS: ATORVASTATIN 10 MG TAB PO SCH (08:40)
[2020-04-25] MEDS: guaiFENesin 600 MG TABLET.ER PO SCH ×2 (08:40→20:49)
[2020-04-25] MEDS: allopurinoL 100 MG TAB PO SCH (08:40)
[2020-04-25] MEDS: METOPROLOL SUCCINATE (ER) 25 MG TAB.ER.24H PO SCH (08:40)
[2020-04-25 09:01] LABS: Glucose,Whole Blood 246 mg/dL (75-99)
[2020-04-25 09:17] LABS: Basophils % (A) 0 %; Eosinophils % (A) 0 %; HCT 35.2 % (39.0-53.0); HGB 11.3 gm/dL (13.0-17.5); Lymphocytes # (A) 0.6 k/uL (1.0-4.8); Lymphocytes % (A) 4 %; MCH 31.7 pg (25.0-35.0); MCHC 31.9 g/dL (31.0-37.0); MCV 99.4 fL (80.0-100.0); Mean Platelet Volume 8.3; Monocytes # (A) 0.3 k/uL (0-1.0); Monocytes % (A) 2 %; Neutrophils # (A) 15.3 k/uL (1.3-7.7); Neutrophils % (A) 93 %; Platelet Count 190 k/uL (150-450); RBC 3.54 m/uL (4.30-5.90); RDW 13.6 % (11.5-15.5); WBC 16.4 k/uL (3.8-10.6)
[2020-04-25 09:30] LABS: Magnesium 2.2 mg/dL (1.6-2.3); Potassium 4.5 mmol/L (3.5-5.1)
[2020-04-25] MEDS: INSULIN DETEMIR (LEVEMIR) 100 UNIT/ML SYR SQ SCH (11:04)
[2020-04-25 11:18] LABS: Glucose,Whole Blood 234 mg/dL (75-99)
[2020-04-25 11:58] LABS: Glucose,Whole Blood 207 mg/dL (75-99)
--- NOTE | 2020-04-25 13:09 | P.CRDCN ---
History of Present Illness Consult date: 04/25/20 Reason for Consult (text): Aortic stenosis Chief complaint: Shortness of breath History of present illness: This is a pleasant 70-year-old gentleman who follows with a him specialists through [facility], Dr. Silverman. He has a past medical history significant for hypertension, hyperlipidemia, diabetes, aortic stenosis. Patient also is a current smoker, and drinks about 4 cups of coffee a day and 4- 5 mixed drinks every other day. He presented to the hospital on this occasion with symptoms of shortness of breath. Patient had an echocardiogram with Doppler study performed in October of this year which revealed an ejection fraction of 55-60%, he had moderate aortic stenosis. The peak/mean gradient acr oss the aortic valve was 48.92/ 25.27, he had a repeat echocardiogram with Doppler study performed on this admission which revealed an ejection fraction of 45-50%. Moderate to severe aortic stenosis with a peak/mean gradient of 59.6/40.9, aortic valve area 0.8 cm, mild to moderate mitral regurgitation. Because of the worsening in the aortic stenosis as well as the patient's congestive heart failure, a cardiology consultation has been requested. Chest x-ray on presentation here showed evidence of mild congestive heart failure. EKG shows a sinus tachycardia with occasional PVC. Ultrasound of the bladder and abdomen show no hydronephrosis, no nephrolithiasis. Hypoechogenic nodule within the left kidney, likely a cyst. Blood pressure 130/70 with a heart rate in the 70s, 93% on room air. White blood cell count 16.4, hemoglobin 11.3, platelet count 190. Sodium 134, potassium 4.5, BUN 56, creatinine 1.6. Magnesium 2.2, iron 48, TIBC 323, iron saturation 14.8. Troponins 0.05, 0.07, 0.08, 0.04. BNP level 6290. Patient was initiated on IV Lasix, overall he's been diuresing well but still complains of feeling quite short of breath. Past Medical History Past Medical History: Asthma, Diabetes Mellitus, Eye Disorder Additional Past Medical History / Comment(s): "leaky" heart valve-pt does not recall which valve, NIDDM type II, neuropathy bilateral feet, bronchitis, bilateral glaucoma, past gastric ulcer, chronic low back pain History of Any Multi-Drug Resistant Organisms: None Reported Additional Past Surgical History / Comment(s): throat surgery, cataract removal Past Anesthesia/Blood Transfusion Reactions: No Reported Reaction Past Psychological History: No Psychological Hx Reported Smoking Status: Former smoker Past Alcohol Use History: Occasional Past Drug Use History: None Reported - Past Family History Father Family Medical History: Coronary Artery Disease (CAD) Additional Family Medical History / Comment(s): Father had CAD/CABG. He is d eceased. Pt had not had contact with his father for 30 yrs. Mother Family Medical History: Congestive Heart Failure (CHF), Neurologic Disorder Additional Family Medical History / Comment(s): Parkinsons dx. Mother from CHF. family Additional Family Medical History / Comment(s): reports CAD history Medications and Allergies Home Medications Medication Instructions Recorded Confirmed Type Albuterol Sulfate [Proair Hfa] 1 - 2 puff INHALATION RT-QID PRN 10/20/19 04/23/20 History Atorvastatin Calcium [Lipitor] 10 mg PO DAILY 10/20/19 04/23/20 History Dorzolamide 2% [Trusopt 2%] 1 drop BOTH EYES BID 10/20/19 04/23/20 History Montelukast Sodium [Singulair] 10 mg PO HS 10/20/19 04/23/20 History Netarsudil Mesylat/Latanoprost 1 drop BOTH EYES HS 10/20/19 04/23/20 History [Rocklatan 0.02%-0.005% Eye Drp] glipiZIDE XL [Glucotrol XL] 5 mg PO BID 10/20/19 04/23/20 History metFORMIN HCL [Glucophage] 500 mg PO TID 10/20/19 04/23/20 History Furosemide [Lasix] 40 mg PO BID #30 tablet 10/26/19 04/23/20 Rx Allopurinol [Zyloprim] 100 mg PO DAILY 04/23/20 04/23/20 History Baclofen [Lioresal] 10 mg PO TID PRN 04/23/20 04/23/20 History Ergocalciferol [Vitamin D2] 50,000 unit PO Q30D 04/23/20 04/23/20 History Ipratropium-Albuterol Nebulize 3 ml INHALATION RT-QID 04/23/20 04/23/20 History [Duoneb 0.5 mg-3 mg/3 ml Soln] Metoprolol Succinate (ER) [Toprol 25 mg PO DAILY 04/23/20 04/23/20 History Xl] Allergies Allergy/AdvReac Type Severity Reaction Status Date / Time No Known Allergies Allergy Verified 04/23/20 08:55 Physical Exam Vitals: Vital Signs Temp Pulse Pulse Resp BP Pulse Ox 04/25/20 11:20 78 04/25/20 11:09 78 04/25/20 08:00 97.5 F L 82 19 131/70 93 L 04/25/20 07:52 90 04/25/20 07:41 90 96 04/25/20 04:00 97.9 F 72 18 120/65 97 04/25/20 00:00 97.7 F 62 18 126/50 97 04/24/20 20:00 98.3 F 89 20 121/60 98 04/24/20 19:47 100 04/24/20 19:35 100 04/24/20 16:00 96 20 120/67 96 04/24/20 15:30 100 04/24/20 15:17 100 04/24/20 12:17 94 04/24/20 12:06 98 04/24/20 12:00 103 H 20 115/63 97 Intake and Output 04/24/20 04/25/20 04/25/20 22:59 06:59 14:59 Intake Total 247.511 7881.189 249.427 Output Total 250 400 725 Balance -104.001 618.189 -475.573 Intake: Intake, IV Titration 25.999 18.189 9.427 Amount Insulin Regular 100 unit 25.999 18.189 9.427 In Sodium Chloride 0.9% 100 ml @ Titrate IV .Q0M [facility] Rx#:[id number] Oral 120 1000 240 Output: Urine 250 400 725 Other: # Voids 2 Weight 101 kg PHYSICAL EXAMINATION: GENERAL: 70-year-old gentleman in no acute distress at the time of my examination HEENT: Head is atraumatic, normocephalic. Pupils equal, round. Sclera anicteric. Conjunctiva are clear. Mucous membranes of the mouth are moist. Neck is supple. There is elevated jugular venous pressure. No carotid bruit is heard. HEART EXAMINATION: Heart S1 S2 1 systolic ejection murmur is heard CHEST EXAMINATION: Lungs reveal scattered diffuse wheezing throughout ABDOMEN: Soft, obese, nontender. Bowel sounds are heard. No organomegaly noted. EXTREMITIES: 2+ peripheral pulses with trace to 1+ evidence of peripheral edema and no calf tenderness noted. NEUROLOGIC patient is awake, alert and oriented 3 . Results 04/25/20 08:59 04/25/20 08:59 CBC 04/25/20 Range/Units 08:59 WBC 16.4 H (3.8-10.6) k/uL RBC 3.54 L (4.30-5.90) m/uL Hgb 11.3 L (13.0-17.5) gm/dL Hct 35.2 L (39.0-53.0) % Plt Count 190 (150-450) k/uL Comprehensive Metabolic Panel 04/25/20 Range/Units 08:59 Sodium 134 L (137-145) mmol/L Potassium 4.5 (3.5-5.1) mmol/L Chloride 94 L (98-107) mmol/L Carbon Dioxide 30 (22-30) mmol/L BUN 56 H (9-20) mg/dL Creatinine 1.67 H (0.66-1.25) mg/dL Glucose 254 H (74-99) mg/dL Calcium 9.0 (8.4-10.2) mg/dL Current Medications Generic Name Dose Route Start Last Admin Trade Name Freq PRN Reason Stop Dose Admin Albuterol/Ipratropium 3 ml 04/23/20 08:00 04/25/20 11:09 Ipratropium-Albuterol 3 Ml Neb INHALATION 3 ml RT-QID [facility] Administration Albuterol/Ipratropium 3 ml 04/23/20 05:57 Ipratropium-Albuterol 3 Ml Neb INHALATION RT-QID PRN Shortness Of Breath Or Wheezing Allopurinol 100 mg 04/23/20 12:30 04/25/20 08:40 Allopurinol 100 Mg Tab PO 100 mg DAILY [facility] Administration Atorvastatin Calcium 10 mg 04/23/20 12:30 04/25/20 08:40 Atorvastatin 10 Mg Tab PO 10 mg DAILY [facility] Administration Budesonide/Formoterol Fumarate 2 puff 04/24/20 20:00 04/25/20 07:41 Symbicort 160-4.5 Mcg Inhaler INHALATION 2 puff RT-BID [facility] Administration Dorzolamide HCl 1 drops 04/23/20 21:00 04/25/20 08:39 Dorzolamide Hcl 2% Drops 10 Ml Btl BOTH EYES 1 drops BID [facility] Administration Furosemide 40 mg 04/23/20 05:45 04/25/20 05:09 Furosemide 10 Mg/Ml 4 Ml Vial IV 40 mg Q12H [facility] Administration Guaifenesin 1,200 mg 04/24/20 21:00 04/25/20 08:40 Guaifenesin 600 Mg Tablet.Er PO 1,200 mg Q12HR [facility] Administration Heparin Sodium (Porcine) 5,000 unit 04/23/20 08:00 04/25/20 08:39 Heparin Sodium,Porcine 5,000 Unit/Ml 1 Ml Vial SQ 5,000 unit Q8HR [facility] Administration Insulin Aspart 0 unit 04/25/20 12:30 Insulin Aspart (Novolog) 100 Unit/Ml Vial SQ ACHS [facility] Protocol Insulin Detemir 20 unit 04/25/20 11:00 Insulin Detemir (Levemir) 100 Unit/Ml Syr SQ DAILY@0700 [facility] Melatonin 5 mg 04/25/20 21:00 Melatonin 5 Mg Tablet PO HS [facility] Metoprolol Succinate 25 mg 04/23/20 12:30 04/25/20 08:40 Metoprolol Succinate (Er) 25 Mg Tab.Er.24h PO 25 mg DAILY [facility] Administration Montelukast Sodium 10 mg 04/23/20 21:00 04/24/20 21:34 Montelukast 10 Mg Tab PO 10 mg HS [facility] Administration (Netarsudil Mesylat/ 1 drop 04/24/20 21:00 04/24/20 21:35 Latanoprost [ BOTH EYES 1 drop Rocklatan 0.02%-0. HS [facility] Administration 005% Eye Drp] 2.5 Ml Prednisone 60 mg 04/26/20 09:00 Prednisone 20 Mg Tab PO DAILY [facility] Sodium Chloride 10 ml 04/23/20 09:00 04/25/20 08:40 Sodium Chloride 0.9% Flush 10 Ml Syringe IV Not Given BID [facility] Intake and Output 04/24/20 04/25/20 04/25/20 22:59 06:59 14:59 Intake Total 904.806 1944.189 249.427 Output Total 250 400 725 Balance -104.001 618.189 -475.573 Intake: Intake, IV Titration 25.999 18.189 9.427 Amount Insulin Regular 100 unit 25.999 18.189 9.427 In Sodium Chloride 0.9% 100 ml @ Titrate IV .Q0M [facility] Rx#:[id number] Oral 120 1000 240 Output: Urine 250 400 725 Other: # Voids 2 Weight 101 kg 04/25/20 08:59 04/25/20 08:59 EKG Interpretations (text) EKG shows sinus tachycardia with occasional PVC, nonspecific ST-T wave changes Assessment and Plan Plan: Assessment and plan #1 symptoms of shortness of breath, likely secondary to COPD exacerbation and mild diastolic congestive heart failure acute on chronic #2 moderate to severe aortic stenosis #3 diabetes #4 hypertension #5 hyponatremia #6 chronic kidney disease #7 troponin abnormality, not reflective of acute coronary syndrome, patient consistently has troponin abnormality within this range Plan We'll discontinue the IV Lasix. Patient's aortic stenosis appears to have worsened since October of this year, patient has been recommended to undergo a t ransesophageal echocardiographic study. Seizure explained to the patient, this will be performed tomorrow by Dr. Hebert. We'll check lytes BUN and creatinine in the morning. DNP note has been reviewed, I agree with a documented findings and plan of care. Patient was seen and examined.
[2020-04-25 17:07] LABS: Glucose,Whole Blood 361 mg/dL (75-99)
--- NOTE | 2020-04-25 20:14 | P.PN ---
Subjective Progress Note Date: 04/25/20 (delayed charting seen at 0945) Principal diagnosis: shortness of breath Patient is a 70-year-old male for history of diastolic congestive heart failure, COPD, aortic stenosis, chronic kidney disease stage III, diabetes mellitus type 2, hypertension, and dyslipidemia who initially presented to the emergency department for complaints of shortness of breath. She was subsequently admitted for treatment of acute exacerbation of CHF and acute exacerbation of COPD. Patient seen and examined at bedside. 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 He reports continued dyspnea is improved somewhat from admission. He reports chronic fatigue with exercise intolerance that has been progressive. He denies any nausea or vomiting. He states he is not having any lower extremity edema at this point in time. General: non toxic, no distress, appears at stated age Derm: warm, dry Head: atraumatic, normocephalic, symmetric Eyes: EOMI, no lid lag, anicteric sclera Mouth: no lip lesion, mucus membranes moist Cardiovascular: S1S2 reg, no murmur, positive posterior tibial pulse bilateral, Lungs: Wheeze bilateral bases, no accessory muscle use Abdominal: soft, nontender to palpation, no guarding, no appreciable organomegaly Ext: no gross muscle atrophy, no edema, no contractures Neuro: CN II-XI grossly intact, no focal neuro deficits Psych: Alert, oriented, appropriate affect Acute exacerbation of diastolic congestive heart failure with ejection fraction 45-50% and severe aortic stenosis -Continue with Lasix -Consult cardiology: plan is for [facility] -Telemetry, strict I's and O's, daily weights -Patient is not on beta melissa and BIPIN inhibitor at this point in time and will not start Acute exacerbation of COPD -Transition to oral steroids -Continue with scheduled and as needed bronchodilators -Outpatient follow-up with pulmonary -Singulair -Mucinex -Pulmonary hygiene - Due to leukocytosis + sputum production start doxycycline Leukocytosis -Aiken to be steroid-induced vs bronchitis, start doxycycline -repeat in AM Diabetes mellitus type 2 with hyperglycemia -Stop insulin drip, start long-acting, fixed dose, and sliding scale insulin -Follow blood sugars -Hemoglobin A1c 8.8 CKD basleine Cr 1.5 - Renal US with cyts - follow closely with lasix - avoid additional nephrotoxic agents Hyponatremia - suspect due to fluid overload - improving with diuresis - repeat in AM Elevated troponin - flat and not consistent with ACS - CArdio recs - likely reflective of demand ischemia with severe and AE CHF Hypomagnesemia, resolved DVT prophylaxis: Heparin Discussed with: nursing, cardio Anticipated discharge: 2-[address]: home A total of 45 minutes was spent on the care of this complex patient more than 50% of the time was spent in counseling and care coordination. Objective - Vital Signs Vital signs: Vital Signs Temp 97.5 F L 04/25/20 08:00 Pulse 77 04/25/20 19:26 Resp 18 04/25/20 16:00 BP 131/80 04/25/20 16:00 Pulse Ox 96 04/25/20 16:00 Intake & Output 04/25/20 04/25/20 04/26/20 06:59 18:59 06:59 Intake Total 1044.188 489.427 240 Output Total 650 1225 275 Balance 394.188 -735.573 -35 Weight 101 kg Intake: Intake, IV Titration 44.188 9.427 Amount Insulin Regular 100 unit 44.188 9.427 In Sodium Chloride 0.9% 100 ml @ Titrate IV .Q0M [facility] Rx#:[id number] Oral 1000 480 240 Output: Urine 650 1225 275 Other: # Voids 2 - Labs CBC & Chem 7: 04/25/20 08:59 04/25/20 08:59 Labs: Abnormal Lab Results - Last 24 Hours (Table) 04/24/20 04/24/20 04/24/20 Range/Units 06:18 20:13 20:46 WBC (3.8-10.6) k/uL RBC (4.30-5.90) m/uL Hgb (13.0-17.5) gm/dL Hct (39.0-53.0) % Neutrophils # (1.3-7.7) k/uL Lymphocytes # (1.0-4.8) k/uL Sodium (137-145) mmol/L Chloride (98-107) mmol/L BUN (9-20) mg/dL Creatinine (0.66-1.25) mg/dL Glucose (74-99) mg/dL POC Glucose (mg/dL) 232 H 163 H (75-99) mg/dL Hemoglobin A1c 8.8 H (4.0-6.0) % 04/24/20 04/24/20 04/24/20 Range/Units 21:24 21:57 23:04 WBC (3.8-10.6) k/uL RBC (4.30-5.90) m/uL Hgb (13.0-17.5) gm/dL Hct (39.0-53.0) % Neutrophils # (1.3-7.7) k/uL Lymphocytes # (1.0-4.8) k/uL Sodium (137-145) mmol/L Chloride (98-107) mmol/L BUN (9-20) mg/dL Creatinine (0.66-1.25) mg/dL Glucose (74-99) mg/dL POC Glucose (mg/dL) 145 H 114 H 153 H (75-99) mg/dL Hemoglobin A1c (4.0-6.0) % 04/25/20 04/25/20 04/25/20 Range/Units 01:10 02:59 05:08 WBC (3.8-10.6) k/uL RBC (4.30-5.90) m/uL Hgb (13.0-17.5) gm/dL Hct (39.0-53.0) % Neutrophils # (1.3-7.7) k/uL Lymphocytes # (1.0-4.8) k/uL Sodium (137-145) mmol/L Chloride (98-107) mmol/L BUN (9-20) mg/dL Creatinine (0.66-1.25) mg/dL Glucose (74-99) mg/dL POC Glucose (mg/dL) 185 H 127 H 170 H (75-99) mg/dL Hemoglobin A1c (4.0-6.0) % 04/25/20 04/25/20 04/25/20 Range/Units 06:51 08:59 08:59 WBC 16.4 H (3.8-10.6) k/uL RBC 3.54 L (4.30-5.90) m/uL Hgb 11.3 L (13.0-17.5) gm/dL Hct 35.2 L (39.0-53.0) % Neutrophils # 15.3 H (1.3-7.7) k/uL Lymphocytes # 0.6 L (1.0-4.8) k/uL Sodium 134 L (137-145) mmol/L Chloride 94 L (98-107) mmol/L BUN 56 H (9-20) mg/dL Creatinine 1.67 H (0.66-1.25) mg/dL Glucose 254 H (74-99) mg/dL POC Glucose (mg/dL) 177 H (75-99) mg/dL Hemoglobin A1c (4.0-6.0) % 04/25/20 04/25/20 04/25/20 Range/Units 08:59 11:07 11:54 WBC (3.8-10.6) k/uL RBC (4.30-5.90) m/uL Hgb (13.0-17.5) gm/dL Hct (39.0-53.0) % Neutrophils # (1.3-7.7) k/uL Lymphocytes # (1.0-4.8) k/uL Sodium (137-145) mmol/L Chloride (98-107) mmol/L BUN (9-20) mg/dL Creatinine (0.66-1.25) mg/dL Glucose (74-99) mg/dL POC Glucose (mg/dL) 246 H 234 H 207 H (75-99) mg/dL Hemoglobin A1c (4.0-6.0) % 04/25/20 Range/Units 17:04 WBC (3.8-10.6) k/uL RBC (4.30-5.90) m/uL Hgb (13.0-17.5) gm/dL Hct (39.0-53.0) % Neutrophils # (1.3-7.7) k/uL Lymphocytes # (1.0-4.8) k/uL Sodium (137-145) mmol/L Chloride (98-107) mmol/L BUN (9-20) mg/dL Creatinine (0.66-1.25) mg/dL Glucose (74-99) mg/dL POC Glucose (mg/dL) 361 H (75-99) mg/dL Hemoglobin A1c (4.0-6.0) %
[2020-04-25 20:25] LABS: Glucose,Whole Blood 335 mg/dL (75-99)
[2020-04-25] MEDS: MELATONIN 5 MG TABLET PO SCH (20:45)
[2020-04-25] MEDS: MONTELUKAST 10 MG TAB PO SCH (20:45)
[2020-04-25] MEDS: DOXYCYCLINE 100 MG CAP PO SCH (20:45)
[2020-04-25] MEDS: LATANOPROST BOTH EYES SCH (20:46)
[2020-04-25] MEDS: NETARSUDIL MESYLAT BOTH EYES SCH (20:46)
[2020-04-25] MEDS: IPRATROPIUM-ALBUTEROL 3 ML NEB INHALATION PRN (23:36)
--- NOTE | 2020-04-26 00:29 | XR ---
EXAMINATION TYPE: XR chest 1V portable DATE OF EXAM: 04/26/2020 COMPARISON: 04/23/2020 HISTORY: Short of breath TECHNIQUE: FINDINGS: Heart is top normal in size. Thoracic aorta is atheromatous. There is coarse interstitial p ulmonary density. There is no pleural effusion. There are no hilar masses. Mediastinum is normal. Bon y thorax is intact. IMPRESSION: Increased pulmonary interstitial density. This probably relates to some mild heart failur e unchanged compared to old exam. There is probably some pulmonary fibrosis.
[2020-04-26] MEDS: IPRATROPIUM-ALBUTEROL 3 ML NEB INHALATION PRN (03:27)
[2020-04-26] MEDS ORDERED: ASPIRIN 325 MG TAB PO ONE (06:00)
[2020-04-26] MEDS ORDERED: ALPRAZolam 0.25 MG TAB PO STA (06:27)
[2020-04-26 07:05] LABS: Glucose,Whole Blood 149 mg/dL (75-99)
[2020-04-26] MEDS ORDERED: ALBUTEROL NEBULIZED 2.5 MG/3 ML INHALATION PRN (07:21)
[2020-04-26 07:42] LABS: HCT 35.9 % (39.0-53.0); HGB 11.5 gm/dL (13.0-17.5); MCH 31.8 pg (25.0-35.0); MCHC 31.9 g/dL (31.0-37.0); MCV 99.4 fL (80.0-100.0); Mean Platelet Volume 7.8; Platelet Count 209 k/uL (150-450); RBC 3.61 m/uL (4.30-5.90); RDW 13.6 % (11.5-15.5); WBC 14.3 k/uL (3.8-10.6)
[2020-04-26] MEDS: INSULIN DETEMIR (LEVEMIR) 100 UNIT/ML SYR SQ SCH (07:43)
[2020-04-26 08:03] LABS: Calcium 8.7 mg/dL (8.4-10.2); Magnesium 2.1 mg/dL (1.6-2.3); Phosphorus 3.4 mg/dL (2.5-4.5); Potassium 4.5 mmol/L (3.5-5.1)
[2020-04-26] MEDS: SYMBICORT 160-4.5 MCG INHALER INHALATION SCH ×2 (08:21→19:58)
[2020-04-26] MEDS: IPRATROPIUM-ALBUTEROL 3 ML NEB INHALATION SCH ×4 (08:21→19:59)
[2020-04-26] MEDS: INSULIN ASPART (NovoLOG) 100 UNIT/ML VIAL SQ SCH ×5 (08:36→20:51)
[2020-04-26] MEDS: DOXYCYCLINE 100 MG CAP PO SCH ×2 (08:37→20:52)
[2020-04-26] MEDS: allopurinoL 100 MG TAB PO SCH (08:37)
[2020-04-26] MEDS: guaiFENesin 600 MG TABLET.ER PO SCH ×2 (08:37→20:52)
[2020-04-26] MEDS: METOPROLOL SUCCINATE (ER) 25 MG TAB.ER.24H PO SCH (08:37)
[2020-04-26] MEDS: predniSONE 20 MG TAB PO SCH (08:37)
[2020-04-26] MEDS: ATORVASTATIN 10 MG TAB PO SCH (08:37)
[2020-04-26] MEDS: HEPARIN SODIUM,PORCINE 5,000 UNIT/ML 1 ML VIAL SQ SCH ×2 (08:42→14:41)
[2020-04-26] MEDS: DORZOLAMIDE HCL 2% DROPS 10 ML BTL BOTH EYES SCH ×2 (08:43→20:52)
--- NOTE | 2020-04-26 09:16 | P.PN ---
Subjective Progress Note Date: 04/26/20 Principal diagnosis: shortness of breath Patient is a 70-year-old male for history of diastolic congestive heart failure, COPD, aortic stenosis, chronic kidney disease stage III, diabetes mellitus type 2, hypertension, and dyslipidemia who initially presented to the emergency dep artment for complaints of shortness of breath. Patient is a 70-year-old male with diastolic congestive heart failure, known moderate aortic stenosis, COPD, chronic kidney disease stage III, and diabetes mellitus type 2 who presented to the emergency department with complaints of shortness of breath. On arrival to the ER he was tachycardic to 126, respirations 32, satting 94% on room air. She'll laboratory analysis showed a white blood cell count of 14.1, hemoglobin 12.7, d-dimer 0.5, sodium 132, creatinine 1.51, glucose 273, lactic acid 2.1, troponin was mildly elevated at 0.055. Chest x-ray showed mild heart failure. He was started on chemotherapy, Lasix, and fluid extraction. He was admitted for further management of acute exacerbation of CHF and acute exacerbation of COPD. He was also started on DuoNeb's and IV steroids. He underwent an echocardiogram ejection fraction 45-50%, moderate aortic sclerosis with moderate to severe aortic stenosis. Renal ultrasound showed no hydronephrosis or nephrolithiasis. Despite IV diuresis and steroid use he continued to feel mildly winded. His troponins remained flat and was felt to be elevated due to demand ischemia. Cardiology was consulted and recommended a RAYMON. They stopped his Lasix. Patient seen and examined at bedside. He had an episode of shortness of breath overnight last night when he was feeling anxious and this improved with Xanax. At this point in time his breathing is improved. No chest pain, no nausea, no v omiting. Feeling anxious about the RAYMON. All questions answered best of my ability. General: non toxic, no distress, appears at stated age Derm: warm, dry Head: atraumatic, normocephalic, symmetric Eyes: EOMI, no lid lag, anicteric sclera Mouth: no lip lesion, mucus membranes moist Cardiovascular: S1S2 reg with grade 3 systolic murmur, positive posterior tibial pulse bilateral, Lungs: Faint wheeze bilateral apex , no accessory muscle use Abdominal: soft, nontender to palpation, no guarding, no appreciable organomegaly Ext: no gross muscle atrophy, no edema, no contractures Neuro: CN II-XI grossly intact, no focal neuro deficits Psych: Alert, oriented, appropriate affect Acute exacerbation of diastolic congestive heart failure with ejection fraction 45-50% and severe aortic stenosis - cardiology recs: plan is for RAYMON today, off lasix - Telemetry, strict I's and O's, daily weights - Patient is not on beta melissa and BIPIN inhibitor at this point in time and will not start Acute exacerbation of COPD with acute bronchitis -Oral steroids -Continue with scheduled and as needed bronchodilators -Outpatient follow-up with pulmonary -Singulair -Mucinex -Pulmonary hygiene -Doxycycline Leukocytosis -Ulm to be steroid-induced vs bronchitis, start doxycycline -repeat in AM Diabetes mellitus type 2 with hyperglycemia -long-acting, and sliding scale insulin -stop fixed dose -Follow blood sugars -Hemoglobin A1c 8.8 CKD baseline Cr 1.5 - Renal US with cysts - avoid additional nephrotoxic agents - follow renal profile Hyponatremia - suspect due to fluid overload - improving with diuresis - repeat in AM Elevated troponin - flat and not consistent with ACS - Cardio recs - likely reflective of demand ischemia with severe and AE CHF Anemia, mild - appears to have Fe deficiency - start oral iron - outpatient evaluation for causes of Fe deficiency anemia Hypomagnesemia, resolved DVT prophylaxis: Heparin Discussed with: nursing, cardio Anticipated discharge: 2-[address]: home A total of 45 minutes was spent on the care of this complex patient more than 50% of the time was spent in counseling and care coordination. Objective - Vital Signs Vital signs: Vital Signs Temp 98.3 F 04/26/20 08:00 Pulse 100 04/26/20 08:42 Resp 18 04/26/20 08:00 BP 133/61 04/26/20 08:00 Pulse Ox 96 04/26/20 08:00 Intake & Output 04/25/20 04/26/20 04/26/20 18:59 06:59 18:59 Intake Total 489.427 240 Output Total 1225 1375 Balance -735.573 -1135 Weight 102.2 kg Intake: Intake, IV Titration 9.427 Amount Insulin Regular 100 unit 9.427 In Sodium Chloride 0.9% 100 ml @ Titrate IV .Q0M [facility] Rx#:[id number] Oral 480 240 Output: Urine 1225 1375 - Labs CBC & Chem 7: 04/26/20 07:23 04/26/20 07:23 Labs: Abnormal Lab Results - Last 24 Hours (Table) 04/25/20 04/25/20 04/25/20 Range/Units 08:59 08:59 08:59 WBC 16.4 H (3.8-10.6) k/uL RBC 3.54 L (4.30-5.90) m/uL Hgb 11.3 L (13.0-17.5) gm/dL Hct 35.2 L (39.0-53.0) % Neutrophils # 15.3 H (1.3-7.7) k/uL Lymphocytes # 0.6 L (1.0-4.8) k/uL Sodium 134 L (137-145) mmol/L Chloride 94 L (98-107) mmol/L BUN 56 H (9-20) mg/dL Creatinine 1.67 H (0.66-1.25) mg/dL Glucose 254 H (74-99) mg/dL POC Glucose (mg/dL) 246 H (75-99) mg/dL 04/25/20 04/25/20 04/25/20 Range/Units 11:07 11:54 17:04 WBC (3.8-10.6) k/uL RBC (4.30-5.90) m/uL Hgb (13.0-17.5) gm/dL Hct (39.0-53.0) % Neutrophils # (1.3-7.7) k/uL Lymphocytes # (1.0-4.8) k/uL Sodium (137-145) mmol/L Chloride (98-107) mmol/L BUN (9-20) mg/dL Creatinine (0.66-1.25) mg/dL Glucose (74-99) mg/dL POC Glucose (mg/dL) 234 H 207 H 361 H (75-99) mg/dL 04/25/20 04/26/20 04/26/20 Range/Units 20:24 07:04 07:23 WBC 14.3 H (3.8-10.6) k/uL RBC 3.61 L (4.30-5.90) m/uL Hgb 11.5 L (13.0-17.5) gm/dL Hct 35.9 L (39.0-53.0) % Neutrophils # (1.3-7.7) k/uL Lymphocytes # (1.0-4.8) k/uL Sodium (137-145) mmol/L Chloride (98-107) mmol/L BUN (9-20) mg/dL Creatinine (0.66-1.25) mg/dL Glucose (74-99) mg/dL POC Glucose (mg/dL) 335 H 149 H (75-99) mg/dL 04/26/20 Range/Units 07:23 WBC (3.8-10.6) k/uL RBC (4.30-5.90) m/uL Hgb (13.0-17.5) gm/dL Hct (39.0-53.0) % Neutrophils # (1.3-7.7) k/uL Lymphocytes # (1.0-4.8) k/uL Sodium 135 L (137-145) mmol/L Chloride (98-107) mmol/L BUN 48 H (9-20) mg/dL Creatinine 1.42 H (0.66-1.25) mg/dL Glucose 156 H (74-99) mg/dL POC Glucose (mg/dL) (75-99) mg/dL
[2020-04-26] MEDS: FERROUS SULFATE 325 MG TAB PO SCH (11:11)
[2020-04-26] MEDS ORDERED: fentaNYL (PF) 50 MCG/ML 2 ML AMP ONE (11:45)
[2020-04-26 11:54] LABS: Glucose,Whole Blood 220 mg/dL (75-99)
[2020-04-26] MEDS: BENZOCAINE SPRAY 1 CAN MUCOUS MEM ONE ×2 (12:13→12:22)
[2020-04-26] MEDS ORDERED: SODIUM CHLORIDE 0.9% 500 ML 500 ML IV ONE (12:18)
[2020-04-26] MEDS ORDERED: fentaNYL (PF) 50 MCG/ML 2 ML AMP IV ONE (12:25)
[2020-04-26] MEDS ORDERED: MIDAZOLAM 2 MG/2 ML VIAL IV ONE (12:26)
[2020-04-26 13:23] VITALS: BMI 35.2
[2020-04-26] MEDS: ALPRAZolam 0.25 MG TAB PO PRN (14:41)
--- NOTE | 2020-04-26 14:50 | ECHOT ---
TRANSESOPHAGEAL ECHOCARDIOGRAM INDICATION: Aortic stenosis. PROCEDURE NOTE: After obtaining informed consent, transesophageal echocardiogram is performed in left lateral position using an Omniplane probe. Local and IV sedation were obtained with 2 mg of Versed and 25 mcg of fentanyl. Patient tolerated the procedure well without any obvious immediate complication. Total sedation time was 9 minutes. We performed color Doppler, 2D and pulse-wave evaluation. FINDINGS: 1. Aortic valve is a 3-leaflet valve, appears heavily calcified with severe restriction in leaflet mobility. By planimetry the valve area is on 0.8 cm2. There is moderate aortic regurgitation noted. Ascending aorta does not appear enlarged. Mitral valve shows electromechanical technologist calcification with moderate central mitral regurgitation. 2. Tricuspid valve shows mild tricuspid regurgitation. 3. Interatrial septum, there is no evidence of [id number]-[id number] shunt by color-flow Doppler or scwoy-gq-ieje shunt by agitated saline contrast study. Aorta shows mild- to-moderate atherosclerotic changes. Left atrium appears enlarged, right atrium and right ventricle seen within normal limits. Left ventricle is normal size and systolic function. CONCLUSION: Heavily calcified 3-leaflet aortic valve with severe restriction in leaflet mobility consistent with severe aortic stenosis. Planimetry was difficult. The valve area is somewhere around 0.8 cm2. There is moderate aortic regurgitation also. MMODL / IJN: [id number] /
--- NOTE | 2020-04-26 14:56 | CDI ---
Documentation Clarification Form Date: 04/26/2020 CDS: Jessi Porter RN, CCDS Admit Date: 04/23/2020 Patient Name: Davy Caro ATTENTION: The Clinical Documentation Specialists (CDI) and [facility] Coding Staff appreciate your assistance in clarifying documentation. Please respond to the clarification below the line at the bottom and electronically sign. The CDI & [facility] Coding staff will review the response and follow-up if needed. Please note: Queries are made part of the Legal Health Record. If you have any questions, please contact the author of this message via ITS. Dr. Lenka Pruitt, DO Elevated troponin likely reflective of demand ischemia with severe and AE CHF is documented in the Internal medicine progress note 04/26 Patient History/Risk Factors: 70-year-old male presents to the ED with shortness of breath and lower extremity swelling. Medical history Diastolic CHF, COPD, CKD 3, DM 2 and HTN Clinical Indicators: 04/23 Troponin: 0.076; 0.084 04/23 EKG Results: Undetermined rhythm; ST & T wave abnormality, consider inferolateral ischemia Treatment: 04/23 Toprol XL Daily; Lasix 60mg IV x1 followed by 40mg IV Q12 d/c 04/25 915 Cardiology Consult: troponin abnormality, not reflective of acute coronary syndrome, patient consistently has troponin abnormality within this range In your professional opinion, can you please clarify the clinical significance of the Troponins? Type 2 SD secondary to demand ischemia in the setting of Acute Exacerbation of CHF Type 2 SD secondary to demand ischemia due to (please specify) Type 2 SD ruled out Unable to determine Other Condition, please specify (Last Revision: August 2019) Unable to determine MTDD
[2020-04-26 16:58] LABS: Glucose,Whole Blood 328 mg/dL (75-99)
[2020-04-26 20:16] LABS: Glucose,Whole Blood 289 mg/dL (75-99)
[2020-04-26] MEDS: MONTELUKAST 10 MG TAB PO SCH (20:52)
[2020-04-26] MEDS: MELATONIN 5 MG TABLET PO SCH (20:53)
[2020-04-26] MEDS: NETARSUDIL MESYLAT BOTH EYES SCH (20:58)
[2020-04-26] MEDS: LATANOPROST BOTH EYES SCH (20:58)
[2020-04-27] MEDS: HEPARIN SODIUM,PORCINE 5,000 UNIT/ML 1 ML VIAL SQ SCH ×4 (01:29→23:27)
[2020-04-27] MEDS ORDERED: SODIUM CHLORIDE 0.9% 1,000 ML in EMPTY BAG 1 BAG IV ONE (06:00)
[2020-04-27] MEDS ORDERED: ALPRAZolam 0.5 MG TAB PO PRN (06:00)
[2020-04-27] MEDS ORDERED: ATORVASTATIN 80 MG TAB PO ONE (06:00)
[2020-04-27] MEDS ORDERED: NITROGLYCERIN SL TABS 0.4 MG TAB SUBLINGUAL PRN ×2 (06:00→11:07)
[2020-04-27] MEDS: ATORVASTATIN 10 MG TAB PO SCH (06:28)
[2020-04-27] MEDS: guaiFENesin 600 MG TABLET.ER PO SCH ×2 (06:28→20:53)
[2020-04-27] MEDS: ALPRAZolam 0.25 MG TAB PO PRN ×2 (06:28→23:27)
[2020-04-27] MEDS: METOPROLOL SUCCINATE (ER) 25 MG TAB.ER.24H PO SCH (06:29)
[2020-04-27] MEDS: allopurinoL 100 MG TAB PO SCH (06:29)
[2020-04-27] MEDS: predniSONE 20 MG TAB PO SCH (06:29)
[2020-04-27 06:31] LABS: Glucose,Whole Blood 202 mg/dL (75-99)
[2020-04-27] MEDS: DOXYCYCLINE 100 MG CAP PO SCH ×2 (06:31→23:27)
[2020-04-27] MEDS: DORZOLAMIDE HCL 2% DROPS 10 ML BTL BOTH EYES SCH ×2 (06:31→20:53)
[2020-04-27] MEDS: INSULIN DETEMIR (LEVEMIR) 100 UNIT/ML SYR SQ SCH ×2 (06:35→12:13)
[2020-04-27] MEDS: INSULIN ASPART (NovoLOG) 100 UNIT/ML VIAL SQ SCH ×4 (06:48→20:52)
[2020-04-27] MEDS: IPRATROPIUM-ALBUTEROL 3 ML NEB INHALATION SCH ×4 (07:38→19:31)
[2020-04-27] MEDS: SYMBICORT 160-4.5 MCG INHALER INHALATION SCH ×2 (07:38→19:31)
[2020-04-27] MEDS ORDERED: ASPIRIN 325 MG TAB PO STA (08:21)
[2020-04-27 08:28] LABS: HCT 34.6 % (39.0-53.0); MCH 31.3 pg (25.0-35.0); MCHC 31.9 g/dL (31.0-37.0); MCV 98.3 fL (80.0-100.0); Mean Platelet Volume 7.6; Platelet Count 188 k/uL (150-450); RBC 3.52 m/uL (4.30-5.90); RDW 13.4 % (11.5-15.5); WBC 8.5 k/uL (3.8-10.6)
[2020-04-27 08:39] LABS: Calcium 8.9 mg/dL (8.4-10.2); Potassium 4.9 mmol/L (3.5-5.1)
[2020-04-27] MEDS ORDERED: IV FLUID CONTINUATION 900 ML IV ONE (09:14)
[2020-04-27] MEDS ORDERED: LIDOCAINE 1% INJ 10MG/ML (20 ML MDV) SQ ONE (09:40)
[2020-04-27] MEDS ORDERED: fentaNYL (PF) 50 MCG/ML 2 ML AMP IV ONE (09:40)
[2020-04-27] MEDS ORDERED: MIDAZOLAM 2 MG/2 ML VIAL IV ONE (09:40)
[2020-04-27] MEDS: NITROGLYCERIN 1000MCG/10ML SYRINGE INTRACORON ONE ×2 (10:36→10:51)
--- NOTE | 2020-04-27 10:37 | CC ---
CARDIAC CATHETERIZATION REPORT INDICATION: Aortic stenosis. PROCEDURE NOTE: After obtaining informed consent, left heart catheterization and coronary angiogram were performed via the right femoral artery using standard Cecilia catheters. Patient tolerated the procedure well without any obvious immediate complications. Patient received moderate conscious sedation. Total sedation time was 16 minutes. FINDINGS: 1. HEMODYNAMICS: Central aortic pressure is 110/60. 2. LEFT VENTRICULOGRAM: Left ventriculogram is not performed. 3. ANGIOGRAPHIC DATA: LEFT MAIN CORONARY ARTERY: Left main coronary artery appears calcified but is free of significant stenosis. Divides into left anterior descending coronary artery and circumflex coronary artery. Both the LAD and the left main appear calcified but the LAD is free of significant disease. Gives off large caliber diagonals. One of the branches of the diagonal seems to be occluded. CIRCUMFLEX CORONARY ARTERY: The AV groove circumflex is a small caliber vessel and appears diffusely diseased. RIGHT CORONARY ARTERY: Right coronary artery is a large dominant vessel. There is a long segment of moderate stenosis. IMPRESSION: 1. Severe aortic stenosis by RAYMON. 2. Moderate two-vessel coronary artery disease. PLAN: The patient will undergo an FFR of the right coronary artery and if it is significant undergo stenting. Then I refer the patient for TAVR. He does not want to go through open heart surgery and have surgical aortic valve replacement. MMODL / IJN: [id number] /
--- NOTE | 2020-04-27 10:37 | LTR ---
DATE OF SERVICE: 04/27/2020 RE: Davy Caro Dear Dr. Tang: I performed cardiac catheterization on Davy Caro, a detailed catheterization note is enclosed for your records. In brief, the cardiac catheterization revealed moderate stenosis involving right coronary artery and circumflex coronary artery and patient has severe aortic stenosis. Patient will undergo an FFR of the right coronary artery and undergo stenting if necessary. He does not want to have surgical aortic valve replacement. Hence, we will refer him for TAVR after addressing the CAD. Thank you for giving us the privilege to participate in the care of this pleasant gentleman. Sincerely, MD KEMAL Jansen / JORGE: [id number] /
[2020-04-27] MEDS ORDERED: TICAGRELOR 90 MG TAB PO ONE (10:47)
[2020-04-27] MEDS ORDERED: IOPAMIDOL-370 125ML BTL INJ ONE (10:51)
[2020-04-27] MEDS ORDERED: IOPAMIDOL-370 100ML BTL INJ ONE (10:57)
[2020-04-27] MEDS ORDERED: RX INFO: IV CONTRAST WAS GIVEN 1 EACH MISC MISCELLANE PRN (11:07)
[2020-04-27] MEDS ORDERED: MAG HYDROX/AL HYDROX/SIMETH 30 ML CUP PO PRN (11:07)
[2020-04-27] MEDS ORDERED: ATROPINE SULFATE 0.1 MG/ML 10ML SYRINGE IV PRN (11:07)
[2020-04-27] MEDS ORDERED: ZOLPIDEM 5 MG TAB PO PRN (11:07)
[2020-04-27 11:56] LABS: Glucose,Whole Blood 237 mg/dL (75-99)
[2020-04-27] MEDS: SODIUM CHLORIDE 0.9% 1,000 ML IV SCH ×2 (12:04→23:28)
[2020-04-27] MEDS: FERROUS SULFATE 325 MG TAB PO SCH (12:13)
[2020-04-27] MEDS: METOPROLOL SUCCINATE (ER) 50 MG TAB.ER.24H PO SCH (12:13)
[2020-04-27 17:00] LABS: Glucose,Whole Blood 284 mg/dL (75-99)
--- NOTE | 2020-04-27 17:19 | PTCA ---
PERCUTANEOUSTRANS CORORONARY ANGIOGRAPHY DATE OF SERVICE: 04/27/2020 PROCEDURE: 1. Fractional flow reserve assessment of a moderate lesion in the proximal and mid RCA. 2. Percutaneous transluminal coronary angioplasty and stenting of proximal and mid RCA with a drug-eluting stent. PERFORMED BY: Dr. Carlos Gerardo. Moderate conscious sedation time was 32 minutes. Patient was administered Versed. Oxygen saturation, hemodynamics and EKG were monitored closely. CLINICAL INFORMATION: Mr. Davy Caro is a 70-year-old gentleman with a history of diabetes, hypertension, hyperlipidemia, a patient of Dr. Stacy. He was admitted to the hospital and was seen by Dr. eHbert, who performed a cardiac cath and noted that there was a moderate long area of disease of about 60% in the dominant RCA. Patient has severe aortic stenosis and is being considered for percutaneous aortic valve implant. He also had a diagonal branch occlusion as well with moderate calcification in all of his coronary arteries, but no significant disease in the left system. He was advised FFR and intervention of RCA if significant, and I proceeded to perform procedure in the same setting. PROCEDURE NOTE: The existing right 6-Chinese introducer in the right femoral artery was used to perform the procedure. I used a standard right Cecilia guide catheter to cannulate the right coronary artery. The patient received a total of 7500 units of heparin and his ACT was 314. A Verrata wire was used. Wire was placed under fluoroscopic guidance in the distal portion of the RCA. An IFR was measured. It was about 0.79. Multiple values were checked. After confirming that this was a significant IFR suggesting significant disease in the RCA, which was a long 60% to 70% lesion, I recommended PCI that was performed expeditiously. The same wire was kept. The patient received heparin, and Brilinta 180 mg was given. ACT was 314. I used a 2.5 caliber 20 mm long NC Emerge balloon and pre-dilated the lesion. I then deployed a 33 mm long 3.0 caliber Xience stent at 13 atmospheres. Patient did not have chest pain but had mild inferior ST elevation. Excellent angiographic result without complication was achieved. The sheath was taken out and Angio-Seal device used to secure hemostasis. Results were discussed with the patient, but there were no family members available. Excellent angiographic result without complication was achieved. The patient intends to have a percutaneous aortic valve implant, and this can be done after 6 weeks or so. Results were discussed with the patient and Dr. Hebert. No family was available. MMMONTY / IJN: [id number] /
--- NOTE | 2020-04-27 17:30 | P.PN ---
Subjective Progress Note Date: 04/27/20 (delayed charting seen at 0830) Principal diagnosis: shortness of breath Patient is a 70-year-old male for history of diastolic congestive heart failure, COPD, aortic stenosis, chronic kidney disease stage III, diabetes mellitus type 2, hypertension, and dyslipidemia who initially presented to the emergency department for complaints of shortness of breath. Patient is a 70-year-old male with diastolic congestive heart failure, known moderate aortic stenosis, COPD, chronic kidney disease stage III, and diabetes mellitus type 2 who presented to the emergency department with complaints of shortness of breath. On arrival to the ER he was tachycardic to 126, respirations 32, satting 94% on room air. She'll laboratory analysis showed a white blood cell count of 14.1, hemoglobin 12.7, d-dimer 0.5, sodium 132, creatinine 1.51, glucose 273, lactic acid 2.1, troponin was mildly elevated at 0.055. Chest x-ray showed mild heart failure. He was started on chemotherapy, Lasix, and fluid extraction. He was admitted for further management of acute exacerbation of CHF and acute exacerbation of COPD. He was also started on DuoNeb's and IV steroids. He underwent an echocardiogram ejection fraction 45-50%, moderate aortic sclerosis with moderate to severe aortic stenosis. Renal ultrasound showed no hydronephrosis or nephrolithiasis. Despite IV diuresis and steroid use he continued to feel mildly winded. His troponins remained flat and was felt to be elevated due to demand ischemia. Cardiology was consulted and recommended a RAYMON. They stopped his Lasix. RAYMON showed critical aortic stenosis with valve 0.8 cm. He underwent cardiac cath which showed moderate two-vessel CAD. Patient seen and examined at bedside. Feeling better today, shortness of breath better, no chest pain, Does not want open heart and would prefer TAVR. General: non toxic, no distress, appears at stated age Derm: warm, dry Head: atraumatic, normocephalic, symmetric Eyes: EOMI, no lid lag, anicteric sclera Mouth: no lip lesion, mucus membranes moist Cardiovascular: S1S2 reg with grade 3 systolic murmur, positive posterior tibial pulse bilateral, Lungs: CTA bilateral, no accessory muscle use Abdominal: soft, nontender to palpation, no guarding, no appreciable organomegaly Ext: no gross muscle atrophy, no edema, no contractures Neuro: CN II-XI grossly intact, no focal neuro deficits Psych: Alert, oriented, appropriate affect Acute exacerbation of diastolic congestive heart failure with ejection fraction 45-50% and severe aortic stenosis - Cardiology recs: will need valve replacement TAVR. off lasix - Telemetry, strict I's and O's, daily weights - Cozaar, metoprolol 2 vessel CAD - Brillenta, ASA, lipitor Acute exacerbation of COPD with acute bronchitis -Oral steroids -Continue with scheduled and as needed bronchodilators -Outpatient follow-up with pulmonary -Singulair -Mucinex -Pulmonary hygiene -Doxycycline Diabetes mellitus type 2 with hyperglycemia -long-acting, and sliding scale insulin -stop fixed dose -Follow blood sugars -Hemoglobin A1c 8.8 CKD baseline Cr 1.5 - Renal US with cysts - avoid additional nephrotoxic agents - follow renal profile Elevated troponin - flat and not consistent with ACS - Cardio recs - likely reflective of demand ischemia with severe and AE CHF Anemia, mild - appears to have Fe deficiency - start oral iron - outpatient evaluation for causes of Fe deficiency anemia Hypomagnesemia, resolved Leukocytosis, resolved Hyponatremia, resolved DVT prophylaxis: Heparin Discussed with: nursing, cardio Anticipated discharge: 2-[address]: home A total of 25 minutes was spent on the care of this complex patient more than 50% of the time was spent in counseling and care coordination. Objective - Vital Signs Vital signs: Vital Signs Temp 97.9 F 04/27/20 16:00 Pulse 72 04/27/20 16:05 Resp 19 04/27/20 16:00 BP 121/74 04/27/20 16:00 Pulse Ox 95 04/27/20 16:00 Intake & Output 04/26/20 04/27/20 04/27/20 18:59 06:59 18:59 Intake Total 100 390 Output Total 850 650 320 Balance -750 -650 70 Weight 102.2 kg 101.2 kg Intake: IV 100 150 Oral 240 Output: Urine 850 650 320 Other: Voiding Method Urinal Urinal Urinal # Voids 1 2 1 - Labs CBC & Chem 7: 04/27/20 07:59 04/27/20 07:59 Labs: Abnormal Lab Results - Last 24 Hours (Table) 04/26/20 04/27/20 04/27/20 Range/Units 20:14 06:29 07:59 RBC 3.52 L (4.30-5.90) m/uL Hgb 11.0 L (13.0-17.5) gm/dL Hct 34.6 L (39.0-53.0) % BUN (9-20) mg/dL Glucose (74-99) mg/dL POC Glucose (mg/dL) 289 H 202 H (75-99) mg/dL 04/27/20 04/27/20 04/27/20 Range/Units 07:59 11:55 16:58 RBC (4.30-5.90) m/uL Hgb (13.0-17.5) gm/dL Hct (39.0-53.0) % BUN 25 H (9-20) mg/dL Glucose 206 H (74-99) mg/dL POC Glucose (mg/dL) 237 H 284 H (75-99) mg/dL
[2020-04-27 20:15] LABS: Glucose,Whole Blood 370 mg/dL (75-99)
[2020-04-27] MEDS: LATANOPROST BOTH EYES SCH (20:52)
[2020-04-27] MEDS: NETARSUDIL MESYLAT BOTH EYES SCH (20:52)
[2020-04-27] MEDS: MELATONIN 5 MG TABLET PO SCH (20:53)
[2020-04-27] MEDS: MONTELUKAST 10 MG TAB PO SCH (20:53)
[2020-04-27] MEDS ORDERED: LOSARTAN 25 MG TAB PO SCH (21:00)
[2020-04-28 07:25] LABS: Glucose,Whole Blood 206 mg/dL (75-99)
[2020-04-28] MEDS: INSULIN ASPART (NovoLOG) 100 UNIT/ML VIAL SQ SCH ×2 (08:12→12:46)
[2020-04-28] MEDS: IPRATROPIUM-ALBUTEROL 3 ML NEB INHALATION SCH ×2 (08:15→11:12)
[2020-04-28] MEDS: SYMBICORT 160-4.5 MCG INHALER INHALATION SCH (08:15)
[2020-04-28] MEDS ORDERED: INSULIN DETEMIR (LEVEMIR) 100 UNIT/ML SYR SQ SCH (08:30)
[2020-04-28] MEDS: predniSONE 20 MG TAB PO SCH (08:37)
[2020-04-28] MEDS: allopurinoL 100 MG TAB PO SCH (08:37)
[2020-04-28] MEDS: METOPROLOL SUCCINATE (ER) 50 MG TAB.ER.24H PO SCH (08:38)
[2020-04-28] MEDS: HEPARIN SODIUM,PORCINE 5,000 UNIT/ML 1 ML VIAL SQ SCH (08:38)
[2020-04-28] MEDS: DOXYCYCLINE 100 MG CAP PO SCH (08:39)
[2020-04-28] MEDS: guaiFENesin 600 MG TABLET.ER PO SCH (08:39)
[2020-04-28] MEDS: INSULIN DETEMIR (LEVEMIR) 100 UNIT/ML SYR SQ SCH (08:48)
[2020-04-28 08:51] LABS: Basophils % (A) 0 %; Eosinophils # (A) 0.3 k/uL (0-0.7); Eosinophils % (A) 2 %; HCT 35.5 % (39.0-53.0); HGB 11.3 gm/dL (13.0-17.5); Lymphocytes # (A) 1.9 k/uL (1.0-4.8); Lymphocytes % (A) 16 %; MCH 31.4 pg (25.0-35.0); MCHC 31.9 g/dL (31.0-37.0); MCV 98.4 fL (80.0-100.0); Mean Platelet Volume 8.4; Monocytes # (A) 0.5 k/uL (0-1.0); Monocytes % (A) 4 %; Neutrophils # (A) 9.6 k/uL (1.3-7.7); Neutrophils % (A) 77 %; Platelet Count 245 k/uL (150-450); RDW 13.6 % (11.5-15.5); WBC 12.5 k/uL (3.8-10.6)
[2020-04-28] MEDS ORDERED: ASPIRIN 81 MG PO SCH (09:00)
[2020-04-28] MEDS ORDERED: ATORVASTATIN 80 MG TAB PO SCH (09:00)
[2020-04-28] MEDS ORDERED: TICAGRELOR 90 MG TAB PO SCH (09:00)
[2020-04-28 09:05] LABS: Calcium 8.9 mg/dL (8.4-10.2); Potassium 4.1 mmol/L (3.5-5.1)
[2020-04-28] MEDS: DORZOLAMIDE HCL 2% DROPS 10 ML BTL BOTH EYES SCH (10:50)
[2020-04-28 11:59] LABS: Glucose,Whole Blood 267 mg/dL (75-99)
--- NOTE | 2020-04-28 12:00 | P.PN ---
Subjective Progress Note Date: 04/28/20 This is a pleasant 70-year-old gentleman who follows with a visitor services technician through [facility], Dr. Silverman. He has a past medical history significant for hypertension, hyperlipidemia, diabetes, aortic stenosis. Patient also is a current smoker, and drinks about 4 cups of coffee a day and 4-5 mixed drinks every other day. He presented to the hospital on this occasion with symptoms of shortness of breath. Patient had an echocardiogram with Doppler study performed in October of this year which revealed an ejection fraction of 55-60%, he had moderate aortic stenosis. The peak/mean gradient across the aortic valve was 48.92/ 25.27, he had a repeat echocardiogram with Doppler study performed on this admission which revealed an ejection fraction of 45-50%. Moderate to severe aortic stenosis with a peak/mean gradient of 59.6/40.9, aortic valve area 0.8 cm, mild to moderate mitral regurgitation. Because of the worsening in the aortic stenosis as well as the patient's congestive heart failure, a cardiology consultation has been requested. Chest x-ray on presentation here showed evidence of mild congestive heart failure. EKG shows a sinus tachycardia with occasional PVC. Ultrasound of the bladder and abdomen show no hydronephrosis, no nephrolithiasis. Hypoechogenic nodule wi thin the left kidney, likely a cyst. Blood pressure 130/70 with a heart rate in the 70s, 93% on room air. White blood cell count 16.4, hemoglobin 11.3, platelet count 190. Sodium 134, potassium 4.5, BUN 56, creatinine 1.6. Magnesium 2.2, iron 48, TIBC 323, iron saturation 14.8. Troponins 0.05, 0.07, 0.08, 0.04. BNP level 6290. Patient was initiated on IV Lasix, overall he's been diuresing well but still complains of feeling quite short of breath. 04/28/2020 Patient underwent a RAYMON day before yesterday which revealed a heavily calcified 3 leaflet aortic valve with severe restriction in leaflet mobility consistent with severe aortic stenosis. Aortic valve area is somewhere around 0.8 cm. There is moderate aortic regurgitation also. Yesterday the patient underwent a cardiac catheterization with subsequent FFR which revealed a moderate lesion in the proximal and mid RCA. Subsequently patient underwent PTCA and stenting of the proximal and mid RCA with a drug-eluting stent. He was seen and examined this morning, denied any chest pain or difficulty in breathing. Blood pressure this morning 104/60 with a heart rate in the 70s, 95% on room air. White blood cell count 12.5, hemoglobin 11.3, platelet count 245. Sodium 137, potassium 4.1, BUN 29, creatinine 1.2. Objective - Vital Signs Vital signs: Vital Signs Temp 97.8 F 04/28/20 08:00 Pulse 80 04/28/20 11:22 Resp 20 04/28/20 08:10 BP 104/62 04/28/20 08:00 Pulse Ox 95 04/28/20 08:00 Intake & Output 04/27/20 04/28/20 04/28/20 18:59 06:59 18:59 Intake Total 390 222 240 Output Total 495 500 Balance -105 -278 240 Weight 101.8 kg Intake: IV 150 Oral 240 222 240 Output: Urine 495 500 Other: Voiding Method Urinal Urinal Urinal # Voids 1 1 - Exam PHYSICAL EXAMINATION: GENERAL: 70-year-old gentleman in no acute distress at the time of my examination HEENT: Head is atraumatic, normocephalic. Pupils equal, round. Sclera anicteric. Conjunctiva are clear. Mucous membranes of the mouth are moist. Neck is supple. There is elevated jugular venous pressure. No carotid bruit is heard. HEART EXAMINATION: Heart S1 S2 1 systolic ejection murmur is heard CHEST EXAMINATION: Lungs reveal scattered diffuse wheezing throughout ABDOMEN: Soft, obese, nontender. Bowel sounds are heard. No organomegaly noted. EXTREMITIES: 2+ peripheral pulses with trace to 1+ evidence of peripheral edema and no calf tenderness noted. Right groin soft, no evidence of any hematoma. NEUROLOGIC patient is awake, alert and oriented 3 - Labs CBC & Chem 7: 04/28/20 08:31 04/28/20 08:31 Labs: Abnormal Lab Results - Last 24 Hours (Table) 04/27/20 04/27/20 04/27/20 Range/Units 11:55 16:58 20:12 WBC (3.8-10.6) k/uL RBC (4.30-5.90) m/uL Hgb (13.0-17.5) gm/dL Hct (39.0-53.0) % Neutrophils # (1.3-7.7) k/uL BUN (9-20) mg/dL Creatinine (0.66-1.25) mg/dL Glucose (74-99) mg/dL POC Glucose (mg/dL) 237 H 284 H 370 H (75-99) mg/dL 04/28/20 04/28/20 04/28/20 Range/Units 07:18 08:31 08:31 WBC 12.5 H (3.8-10.6) k/uL RBC 3.60 L (4.30-5.90) m/uL Hgb 11.3 L (13.0-17.5) gm/dL Hct 35.5 L (39.0-53.0) % Neutrophils # 9.6 H (1.3-7.7) k/uL BUN 29 H (9-20) mg/dL Creatinine 1.27 H (0.66-1.25) mg/dL Glucose 252 H (74-99) mg/dL POC Glucose (mg/dL) 206 H (75-99) mg/dL Assessment and Plan Plan: Assessment and plan #1 symptoms of shortness of breath, likely secondary to COPD exacerbation and mild diastolic congestive heart failure acute on chronic #2 severe aortic stenosis, by RAYMON #3 diabetes #4 hypertension #5 hyponatremia #6 chronic kidney disease #7 status post change see and stenting of the proximal and mid RCA Plan From cardiology's perspective, patient may be able to be discharged home today. We'll make him a follow-up appointment to see Dr. Coello in the office in 2 weeks post discharge. As an outpatient Dr. Coello will arrange for TAVR. DNP note has been reviewed, I agree with a documented findings and plan of care. Patient was seen and examined.
[2020-04-28 12:24] VITALS: BP 116/68; PULSE 69; RESP 16
[2020-04-28] MEDS ORDERED: INSULIN ASPART (NovoLOG) 100 UNIT/ML VIAL SQ SCH (12:30)
[2020-04-28] MEDS: FERROUS SULFATE 325 MG TAB PO SCH (12:36)
[2020-04-28 13:17] VITALS: TEMP 98.1
--- NOTE | 2020-04-28 20:31 | P.DS ---
Providers Date of admission: 04/23/20 05:38 Expected date of discharge: 04/28/20 Attending physician: Maria E Patel MD Consults: 04/25/20 10:17 Consult Physician Routine Consulting Provider: Micha Hebert Consult Reason/Comments: cardiomyopathy severe Do you want consulting provider notified?: Yes 04/27/20 11:07 Consult Physician Routine Consulting Provider: [facility] Consult Reason/Comments: Post Interventional patient Do you want consulting provider notified?: Already Contacted Primary care physician: Kitty Stacy [facility] Course: Discharge Diagnosis: Severe symptomatic aortic stenosis Two-vessel coronary artery disease Acute exacerbation of diastolic congestive heart failure Acute exacerbation of COPD Diabetes mellitus type 2 with hyperglycemia steroid induced-A1c 8.8 CKD stage III Elevated troponin, not consistent with myocardial infarction Mild anemia secondary to iron deficiency Hypomagnesemia Leukocytosis Hyponatremia Hospital Course: Patient is a 70-year-old male for history of diastolic congestive heart failure, COPD, aortic stenosis, chronic kidney disease stage III, diabetes mellitus type 2, hypertension, and dyslipidemia who initially presented to the emergency department for complaints of shortness of breath. Patient is a 70-year-old male with diastolic congestive heart failure, known moderate aortic stenosis, COPD, chronic kidney disease stage III, and diabetes mellitus type 2 who presented to the emergency department with complaints of shortness of breath. On arrival to the ER he was tachycardic to 126, respirations 32, satting 94% on room air. She'll laboratory analysis showed a white blood cell count of 14.1, hemoglobin 12.7, d-dimer 0.5, sodium 132, creatinine 1.51, glucose 273, lactic acid 2.1, troponin was mildly elevated at 0.055. Chest x-ray showed mild heart failure. He was started on chemotherapy, Lasix, and fluid extraction. He was admitted for further management of acute exacerbation of CHF and acute exacerbation of COPD. He was also started on DuoNeb's and IV steroids. He underwent an echocardiogram ejection fraction 45-50%, moderate aortic sclerosis with moderate to severe aortic stenosis. Renal ultrasound showed no hydronephrosis or nephrolithiasis. Despite IV diuresis and steroid use he continued to feel mildly winded. His troponins remained flat and was felt to be elevated due to demand ischemia. Cardiology was consulted and recommended a RAYMON. They stopped his Lasix. RAYMON showed critical aortic stenosis with valve 0.8 cm. He underwent cardiac cath which showed moderate two-vessel CAD and he subsequently underwent PCI to the right coronary with good results. The morning after his breathing was improved significantly. He is determined stable for discharge home. He'll continue on Brillenta. Approximately 6 weeks after intervention he will be evaluated for TAVR. He'll follow-up with Dr. Stacy on 05/[address] Hebert on 05/08 Patient seen and examined at bedside. Breathing is much improved since admission but not quite back to his baseline from several months ago, no chest pain, no nausea, no vomiting. Wants to be discharged home. He is aware of the importance of following up for his shalonda. Vital signs reviewed and stable. General: non toxic, no distress, appears at stated age Derm: warm, dry Head: atraumatic, normocephalic, symmetric Eyes: EOMI, no lid lag, anicteric sclera Mouth: no lip lesion, mucus membranes moist Cardiovascular: S1S2 reg with grade 3 systolic ejection murmur, positive posterior tibial pulse bilateral, Lungs: CTA bilateral, no rhonchi, no rales , no accessory muscle use Abdominal: soft, nontender to palpation, no guarding, no appreciable organome luzmaria Ext: no gross muscle atrophy, no edema, no contractures Neuro: CN II-XI grossly intact, no focal neuro deficits Psych: Alert, oriented, appropriate affect A total of 37 minutes of time were spent preparing this complex discharge summary . Patient Condition at Discharge: Stable Plan - Discharge Summary Discharge Rx Participant: No New Discharge Prescriptions: New Aspirin 81 mg PO DAILY #30 tab Ticagrelor [Brilinta] 90 mg PO BID #60 tab Losartan [Cozaar] 25 mg PO HS #30 tab Ferrous Sulfate [Iron (65 MG Elemental)] 325 mg PO W/LUNCH #30 tab Atorvastatin [Lipitor] 80 mg PO DAILY #30 tab Doxycycline [Vibramycin] 100 mg PO BID #4 cap Continue glipiZIDE XL [Glucotrol XL] 5 mg PO BID Dorzolamide 2% [Trusopt 2%] 1 drop BOTH EYES BID Albuterol Sulfate [Proair Hfa] 1 - 2 puff INHALATION RT-QID PRN PRN Reason: Shortness Of Breath metFORMIN HCL [Glucophage] 500 mg PO TID Montelukast Sodium [Singulair] 10 mg PO HS Netarsudil Mesylat/Latanoprost [Rocklatan 0.02%-0.005% Eye Drp] 1 drop BOTH EYES HS Furosemide [Lasix] 40 mg PO BID #30 tablet Metoprolol Succinate (ER) [Toprol XL] 25 mg PO DAILY Ergocalciferol [Vitamin D2 (DRISDOL)] 50,000 unit PO Q30D Baclofen [Lioresal] 10 mg PO TID PRN PRN Reason: Pain Ipratropium-Albuterol Nebulize [Duoneb 0.5 mg-3 mg/3 ml Soln] 3 ml INHALATION RT-QID Allopurinol [Zyloprim] 100 mg PO DAILY Discontinued Atorvastatin Calcium [Lipitor] 10 mg PO DAILY Discharge Medication List Albuterol Sulfate [Proair Hfa] 1 - 2 puff INHALATION RT-QID PRN 10/20/19 [History] Dorzolamide 2% [Trusopt 2%] 1 drop BOTH EYES BID 10/20/19 [History] Montelukast Sodium [Singulair] 10 mg PO HS 10/20/19 [History] Netarsudil Mesylat/Latanoprost [Rocklatan 0.02%-0.005% Eye Drp] 1 drop BOTH EYES HS 10/20/19 [History] glipiZIDE XL [Glucotrol XL] 5 mg PO BID 10/20/19 [History] metFORMIN HCL [Glucophage] 500 mg PO TID 10/20/19 [History] Furosemide [Lasix] 40 mg PO BID #30 tablet 10/26/19 [Rx] Allopurinol [Zyloprim] 100 mg PO DAILY 04/23/20 [History] Baclofen [Lioresal] 10 mg PO TID PRN 04/23/20 [History] Ergocalciferol [Vitamin D2 (DRISDOL)] 50,000 unit PO Q30D 04/23/20 [History] Ipratropium-Albuterol Nebulize [Duoneb 0.5 mg-3 mg/3 ml Soln] 3 ml INHALATION RT-QID 04/23/20 [History] Metoprolol Succinate (ER) [Toprol XL] 25 mg PO DAILY 04/23/20 [History] Aspirin 81 mg PO DAILY #30 tab 04/28/20 [Rx] Atorvastatin [Lipitor] 80 mg PO DAILY #30 tab 04/28/20 [Rx] Doxycycline [Vibramycin] 100 mg PO BID #4 cap 04/28/20 [Rx] Ferrous Sulfate [Iron (65 MG Elemental)] 325 mg PO W/LUNCH #30 tab 04/28/20 [Rx] Losartan [Cozaar] 25 mg PO HS #30 tab 04/28/20 [Rx] Ticagrelor [Brilinta] 90 mg PO BID #60 tab 04/28/20 [Rx] Follow up Appointment(s)/Referral(s): [facility], [NON-STAFF] - Kitty Stacy MD [Primary Care Provider] - 05/03/20 2:20 pm Micha Hebert MD [STAFF PHYSICIAN] - 05/08/20 9:30 am Patient Instructions/Handouts: Heart Failure (DC), COPD (Chronic Obstructive Pulmonary Disease) (DC), Heart Catheterization (DC) Activity/Diet/Wound Care/Special Instructions: Activity: as tolerated Diet: Heart healthy, carb consistent Special Instructions: call Dr. Stacy if morning blood sugars greater than 250 Discharge Disposition: HOME SELF-CARE
[2020-04-29] MEDS ORDERED: INSULIN DETEMIR (LEVEMIR) 100 UNIT/ML SYR SQ SCH (07:00)
--- NOTE | 2020-05-01 10:41 | CDI ---
Documentation Clarification Form Date: 05/01/20 From: Aida Hernandez CCS Phone: If you have a question about this query, please contact Asia Hart, Code Number Stamper at [phone] between 8am and 5pm. Admit Date: 04/23/20 Discharge Date:04/28/20 Patient Name: Davy Caro Visit Number: [id number] ATTENTION: The Clinical Documentation Specialists (CDI) and [facility] Coding Staff appreciate your assistance in clarifying documentation. Please respond to the clarification below the line at the bottom and electronically sign. The CDI & [facility] Coding staff will review the response and follow-up if needed. Please note: Queries are made part of the Legal Health Record. If you have any questions, please contact the author of this message via ITS. Dear Dr. Pruitt, Respiratory distress is documented in the ED and H&P. H&P documents: General: non toxic, in some respiratory distress, appears at stated age, morbidly obese. The patient was noted to be hypoxic and was started on BiPAP. ED note documents: Respiratory exam: Present: respiratory distress, wheezes, accessory muscle use. History/Risk Factors: A/C CHF, COPD w/Exac, HTN, DM, Obesity Clinical Indicators: Hypoxic, Accessory muscle use, Respiratory distress Vital Signs: BP 134/105- RR 32, 22, 23- [place] 128- O2 Sat 94, 92, 91 C-Xray: Increased pulmonary interstitial density.This probably relates to some mild heart failure unchanged compared to old exam.There is probably some pulmonary fibrosis. Treatment: BIPAP, Hand nebulizer Oxygen: Nasal cannula 2 lpm Medications: Albuterol, Pulmicort, Lasix 40 mg IV In order to accurately reflect the severity of condition, please indicate if the above clinical findings and treatment signify a respiratory condition, such as: Acute Respiratory Distress Hyoxia Respiratory Failure, please specify -Acute -Acute on Chronic -Chronic Other, please specify Unable to determine Other, please specify Symptomatic aortic stenosis MTDD
== END 2020-04-28 14:03 | disposition home health service (06) | DRG 246 ==
LOC: EC 03:36 → 3SCARD 05:38
PROVIDERS: ADMIT Internal Medicine; ATTEND Internal Medicine
PROC: 5A09357 Assistance with Respiratory Ventilation, Less than 24 Consecutive Hours, Continuous Positive Airway Pressure (ICD-10-PCS; 2020-04-23)
PROC: B24BZZ4 Ultrasonography of Heart with Aorta, Transesophageal (ICD-10-PCS; 2020-04-26)
PROC: 027034Z Dilation of Coronary Artery, One Artery with Drug-eluting Intraluminal Device, Percutaneous Approach (ICD-10-PCS; principal; 2020-04-27 09:00)
PROC: B2111ZZ Fluoroscopy of Multiple Coronary Arteries using Low Osmolar Contrast (ICD-10-PCS; 2020-04-27 09:00)
PROC: 4A023N7 Measurement of Cardiac Sampling and Pressure, Left Heart, Percutaneous Approach (ICD-10-PCS; 2020-04-27 09:00)
DX: I13.0 Hypertensive heart and chronic kidney disease with heart failure and stage 1 through stage 4 chronic kidney disease, or unspecified chronic kidney disease (principal); I50.33 Acute on chronic diastolic (congestive) heart failure; N17.9 Acute kidney failure, unspecified; J44.1 Chronic obstructive pulmonary disease with (acute) exacerbation; E87.1 Hypo-osmolality and hyponatremia; J44.0 Chronic obstructive pulmonary disease with (acute) lower respiratory infection; I42.9 Cardiomyopathy, unspecified; D63.1 Anemia in chronic kidney disease; N18.3 Chronic kidney disease, stage 3 (moderate); E11.22 Type 2 diabetes mellitus with diabetic chronic kidney disease; E11.42 Type 2 diabetes mellitus with diabetic polyneuropathy; E11.65 Type 2 diabetes mellitus with hyperglycemia; E66.01 Morbid (severe) obesity due to excess calories; H40.9 Unspecified glaucoma; G89.29 Other chronic pain; M54.5 Low back pain; E78.5 Hyperlipidemia, unspecified; R09.02 Hypoxemia; E83.42 Hypomagnesemia; I08.0 Rheumatic disorders of both mitral and aortic valves; N28.1 Cyst of kidney, acquired; I25.10 Atherosclerotic heart disease of native coronary artery without angina pectoris; R79.89 Other specified abnormal findings of blood chemistry; J20.9 Acute bronchitis, unspecified; R00.0 Tachycardia, unspecified; R53.82 Chronic fatigue, unspecified; T38.0X5A Adverse effect of glucocorticoids and synthetic analogues, initial encounter; Z68.35 Body mass index [BMI] 35.0-35.9, adult; Z79.899 Other long term (current) drug therapy; Z79.84 Long term (current) use of oral hypoglycemic drugs; Z98.49 Cataract extraction status, unspecified eye; Z98.890 Other specified postprocedural states; Z87.11 Personal history of peptic ulcer disease; Z87.891 Personal history of nicotine dependence; Z82.49 Family history of ischemic heart disease and other diseases of the circulatory system; Z82.0 Family history of epilepsy and other diseases of the nervous system; Z71.3 Dietary counseling and surveillance
CPT/HCPCS: 36415; 71045; 76770; 80048; 80053; 81003; 82306; 82570; 82728; 83036; 83540; 83550; 83605; 83735; 83880; 84100; 84156; 84484; 84550; 85025; 85027; 85379; 85610; 85730; 93005; 93306; 93312; 93320; 93325; 93454; 93571; 94640; 94660; 94760; 96365; 96366; 96375; 99291

== ENCOUNTER 2020-05-07 10:42 | Observation (INO) | payer MEDICARE ==
--- NOTE | 2020-05-07 11:02 | ED ---
SOB HPI - General Stated Complaint: SOB Time Seen by Provider: 05/07/20 10:50 Source: patient, RN notes reviewed, old records reviewed Mode of arrival: wheelchair Limitations: no limitations - History of Present Illness Initial Comments: This is a 70-year-old male with history of shortness of breath coming in for shortness with today for pound weight gain and history of asthma. Chest pain. Patient states he been taking all medications as prescribed. No other new illnesses. No recent travel history sick contacts, no recent hospitalizations MD Complaint: shortness of breath, cough -: days(s) Severity: moderate Severity scale (1-10): 5 Consistency: constant Improves With: oxygen Worsens With: exertion, movement, coughing Known History Of: COPD, asthma, congestive heart failure Context: recent URI Associated Symptoms: cough, sputum production, orthopnea, palpitations Treatments Prior to Arrival: none - Related Data Home Medications Medication Instructions Recorded Confirmed Albuterol Sulfate [Proair Hfa] 1 - 2 puff INHALATION RT-QID PRN 10/20/19 0 Dorzolamide 2% [Trusopt 2%] 1 drop BOTH EYES BID 10/20/19 04/23/20 Montelukast Sodium [Singulair] 10 mg PO HS 10/20/19 04/23/20 Netarsudil Mesylat/Latanoprost 1 drop BOTH EYES HS 10/20/19 04/23/20 [Rocklatan 0.02%-0.005% Eye Drp] glipiZIDE XL [Glucotrol XL] 5 mg PO BID 10/20/19 04/23/20 metFORMIN HCL [Glucophage] 500 mg PO TID 10/20/19 04/23/20 Allopurinol [Zyloprim] 100 mg PO DAILY 04/23/20 04/23/20 Baclofen [Lioresal] 10 mg PO TID PRN 04/23/20 04/23/20 Ergocalciferol [Vitamin D2 50,000 unit PO Q30D 04/23/20 04/23/20 (DRISDOL)] Ipratropium-Albuterol Nebulize 3 ml INHALATION RT-QID 04/23/20 04/23/20 [Duoneb 0.5 mg-3 mg/3 ml Soln] Metoprolol Succinate (ER) [Toprol 25 mg PO DAILY 04/23/20 04/23/20 XL] Previous Rx's Medication Instructions Recorded Furosemide [Lasix] 40 mg PO BID #30 tablet 10/26/19 Aspirin 81 mg PO DAILY #30 tab 04/28/20 Atorvastatin [Lipitor] 80 mg PO DAILY #30 tab 04/28/20 Doxycycline [Vibramycin] 100 mg PO BID #4 cap 04/28/20 Ferrous Sulfate [Iron (65 MG 325 mg PO W/LUNCH #30 tab 04/28/20 Elemental)] Losartan [Cozaar] 25 mg PO HS #30 tab 04/28/20 Ticagrelor [Brilinta] 90 mg PO BID #60 tab 04/28/20 Allergies Allergy/AdvReac Type Severity Reaction Status Date / Time No Known Allergies Allergy Verified 05/07/20 10:52 Review of Systems ROS Statement: Those systems with pertinent positive or pertinent negative responses have been documented in the HPI. ROS Other: All systems not noted in ROS Statement are negative. Past Medical History Past Medical History: Asthma, Heart Failure, COPD, Diabetes Mellitus, Eye Disorder Additional Past Medical History / Comment(s): "leaky" heart valve-pt does not recall which valve, NIDDM type II, neuropathy bilateral feet, bronchitis, bilateral glaucoma, past gastric ulcer, chronic low back pain History of Any Multi-Drug Resistant Organisms: None Reported Additional Past Surgical History / Comment(s): throat surgery, cataract removal Past Anesthesia/Blood Transfusion Reactions: No Reported Reaction Past Psychological History: No Psychological Hx Reported Smoking Status: Former smoker Past Alcohol Use History: Occasional Past Drug Use History: None Reported - Past Family History Father Family Medical History: Coronary Artery Disease (CAD) Additional Family Medical History / Comment(s): Father had CAD/CABG. He is . Pt had not had contact with his father for 30 yrs. Mother Family Medical History: Congestive Heart Failure (CHF), Neurologic Disorder Additional Family Medical History / Comment(s): Parkinsons dx. Mother from CHF. family Additional Family Medical History / Comment(s): reports CAD history General Exam Limitations: no limitations General appearance: alert, in no apparent distress Head exam: Present: atraumatic, normocephalic, normal inspection Eye exam: Present: normal appearance, PERRL, EOMI. Absent: scleral icterus, conjunctival injection, periorbital swelling ENT exam: Present: normal exam, mucous membranes moist Neck exam: Present: normal inspection. Absent: tenderness, meningismus, lymphadenopathy Respiratory exam: Present: normal lung sounds bilaterally. Absent: respiratory distress, wheezes, rales, rhonchi, stridor Cardiovascular Exam: Present: regular rate, normal rhythm, normal heart sounds. Absent: systolic murmur, diastolic murmur, rubs, gallop, clicks GI/Abdominal exam: Present: soft, normal bowel sounds. Absent: distended, tenderness, guarding, rebound, rigid Extremities exam: Present: normal inspection, full ROM, normal capillary refill. Absent: tenderness, pedal edema, joint swelling, calf tenderness Back exam: Present: normal inspection Neurological exam: Present: alert, oriented X3, CN II-XII intact Psychiatric exam: Present: normal affect, normal mood Skin exam: Present: warm, dry, intact, normal color. Absent: rash Course Vital Signs 05/07/20 05/07/20 05/07/20 10:50 11:12 11:16 Temperature 97.7 F 98.5 F Pulse Rate 77 80 Respiratory 25 H 19 19 Rate Blood Pressure 113/85 122/68 O2 Sat by Pulse 96 95 Oximetry 05/07/20 05/07/20 05/07/20 11:58 12:10 12:23 Temperature Pulse Rate 71 70 90 Respiratory 18 Rate Blood Pressure 122/68 O2 Sat by Pulse 97 Oximetry - Reevaluation(s) Reevaluation #1: 05/07/20 11:35 Medical records reviewed Reevaluation #2: 05/07/20 12:36 Patient feels that breathing is worsened while here in the emergency department, increasing heart rate, increasing shortness of breath - Consultations Consultation #1: Spoke with sound physicians agree to admit patient Medical Decision Making - Medical Decision Making 70 male to the ER for evaluation regards to significant shortness of breath with history of same, patient is probably multifactorial respiratory failure secondary to his COPD underlying CHF and new pneumonia. We'll patient will be test for coronavirus and admitted to the floor - Lab Data Result diagrams: 05/07/20 11:30 05/07/20 11:30 Lab Results 05/07/20 05/07/20 05/07/20 Range/Units 11:30 11:30 11:30 WBC 12.8 H (3.8-10.6) k/uL RBC 4.00 L (4.30-5.90) m/uL Hgb 13.0 (13.0-17.5) gm/dL Hct 38.2 L (39.0-53.0) % MCV 95.6 (80.0-100.0) fL MCH 32.4 (25.0-35.0) pg MCHC 33.9 (31.0-37.0) g/dL RDW 13.6 (11.5-15.5) % Plt Count 259 (150-450) k/uL Neutrophils % 78 % Lymphocytes % 14 % Monocytes % 5 % Eosinophils % 2 % Basophils % 0 % Neutrophils # 10.0 H (1.3-7.7) k/uL Lymphocytes # 1.7 (1.0-4.8) k/uL Monocytes # 0.6 (0-1.0) k/uL Eosinophils # 0.2 (0-0.7) k/uL Basophils # 0.1 (0-0.2) k/uL PT 10.2 (9.0-12.0) sec INR 1.0 (<1.2) APTT 24.1 (22.0-30.0) sec Sodium 135 L (137-145) mmol/L Potassium 4.4 (3.5-5.1) mmol/L Chloride 95 L (98-107) mmol/L Carbon Dioxide 25 (22-30) mmol/L Anion Gap 15 mmol/L BUN 29 H (9-20) mg/dL Creatinine 1.84 H (0.66-1.25) mg/dL Est GFR (CKD-EPI)AfAm 42 (>60 ml/min/1.73 sqM) Est GFR (CKD-EPI)NonAf 36 (>60 ml/min/1.73 sqM) Glucose 98 (74-99) mg/dL Plasma Lactic Acid Helder (0.7-2.0) mmol/L Calcium 9.8 (8.4-10.2) mg/dL Magnesium 1.6 (1.6-2.3) mg/dL Total Bilirubin 0.8 (0.2-1.3) mg/dL AST 32 (17-59) U/L ALT 37 (4-49) U/L Alkaline Phosphatase 71 (38-126) U/L Troponin I (0.000-0.034) ng/mL Total Protein 7.2 (6.3-8.2) g/dL Albumin 4.7 (3.5-5.0) g/dL 05/07/20 05/07/20 Range/Units 11:30 11:59 WBC (3.8-10.6) k/uL RBC (4.30-5.90) m/uL Hgb (13.0-17.5) gm/dL Hct (39.0-53.0) % MCV (80.0-100.0) fL MCH (25.0-35.0) pg MCHC (31.0-37.0) g/dL RDW (11.5-15.5) % Plt Count (150-450) k/uL Neutrophils % % Lymphocytes % % Monocytes % % Eosinophils % % Basophils % % Neutrophils # (1.3-7.7) k/uL Lymphocytes # (1.0-4.8) k/uL Monocytes # (0-1.0) k/uL Eosinophils # (0-0.7) k/uL Basophils # (0-0.2) k/uL PT (9.0-12.0) sec INR (<1.2) APTT (22.0-30.0) sec Sodium (137-145) mmol/L Potassium (3.5-5.1) mmol/L Chloride (98-107) mmol/L Carbon Dioxide (22-30) mmol/L Anion Gap mmol/L BUN (9-20) mg/dL Creatinine (0.66-1.25) mg/dL Est GFR (CKD-EPI)AfAm (>60 ml/min/1.73 sqM) Est GFR (CKD-EPI)NonAf (>60 ml/min/1.73 sqM) Glucose (74-99) mg/dL Plasma Lactic Acid Helder 2.8 H* (0.7-2.0) mmol/L Calcium (8.4-10.2) mg/dL Magnesium (1.6-2.3) mg/dL Total Bilirubin (0.2-1.3) mg/dL AST (17-59) U/L ALT (4-49) U/L Alkaline Phosphatase (38-126) U/L Troponin I 0.016 (0.000-0.034) ng/mL Total Protein (6.3-8.2) g/dL Albumin (3.5-5.0) g/dL - EKG Data -: EKG Interpreted by Me (EKG shows sinus rhythm 75. 160 QRS 76 QTc 454) - Radiology Data Radiology results: report reviewed (Chest x-ray shows right lower lobe pneumonia), image reviewed Critical Care Time Critical Care Time: Yes Total Critical Care Time: 31 Disposition Clinical Impression: Respiratory insufficiency, Congestive heart failure, Heart failure, COPD (chronic obstructive pulmonary disease), Hypoxia, Nosocomial pneumonia Disposition: ADMITTED IP TO THIS HOSP Condition: Fair Is patient prescribed a controlled substance at d/c from ED?: No Referrals: Kitty Stacy MD [Primary Care Provider] - 1-2 days
[2020-05-07] MEDS ORDERED: ALBUTEROL NEBULIZED 2.5 MG/3 ML INHALATION STA (11:12)
[2020-05-07] MEDS ORDERED: IPRATROPIUM 0.5 MG/2.5 ML NEBU INHALATION STA (11:12)
[2020-05-07 12:00] LABS: Albumin 4.7 g/dL (3.5-5.0); Calcium 9.8 mg/dL (8.4-10.2); Magnesium 1.6 mg/dL (1.6-2.3); Potassium 4.4 mmol/L (3.5-5.1); Total Bilirubin 0.8 mg/dL (0.2-1.3); Total Protein 7.2 g/dL (6.3-8.2)
[2020-05-07 12:04] LABS: Partial Thromboplastin Time 24.1 sec (22.0-30.0); Prothrombin Time 10.2 sec (9.0-12.0)
[2020-05-07 12:09] LABS: Basophils # (A) 0.1 k/uL (0-0.2); Basophils % (A) 0 %; Eosinophils # (A) 0.2 k/uL (0-0.7); Eosinophils % (A) 2 %; HCT 38.2 % (39.0-53.0); Lymphocytes # (A) 1.7 k/uL (1.0-4.8); Lymphocytes % (A) 14 %; MCH 32.4 pg (25.0-35.0); MCHC 33.9 g/dL (31.0-37.0); MCV 95.6 fL (80.0-100.0); Mean Platelet Volume 8.1; Monocytes # (A) 0.6 k/uL (0-1.0); Monocytes % (A) 5 %; Neutrophils % (A) 78 %; Platelet Count 259 k/uL (150-450); RDW 13.6 % (11.5-15.5); WBC 12.8 k/uL (3.8-10.6)
--- NOTE | 2020-05-07 12:28 | XR ---
EXAMINATION TYPE: XR chest 2V DATE OF EXAM: 05/07/2020 COMPARISON: 04/26/2020 INDICATION: Difficulty breathing short of breath TECHNIQUE: Frontal and lateral views of the chest are obtained. FINDINGS: The heart size is normal. The pulmonary vasculature is normal. Mild residual infiltrate may be in the right lower lobe. Findings are improved from comparison. IMPRESSION: 1. Mild residual right lower lobe infiltrate.
[2020-05-07] MEDS ORDERED: PNEUMONIA PROTOCOL UTILIZED 1 EACH MISC PO PRN (12:38)
[2020-05-07] MEDS ORDERED: AZITHROMYCIN 500 MG in SODIUM CHLORIDE 0.9% 250 ML IVPB STA (12:38)
[2020-05-07] MEDS ORDERED: PIPERACILLIN-TAZOBACTAM 3.375 GM in SODIUM CHLORIDE 0.9% 100 ML IVPB STA (12:38)
[2020-05-07] MEDS ORDERED: IPRATROPIUM-ALBUTEROL 3 ML NEB INHALATION PRN (12:38)
[2020-05-07] MEDS: SODIUM CHLORIDE 0.9% 1,000 ML IV SCH (13:04)
[2020-05-07 14:17] LABS: Glucose,Whole Blood 97 mg/dL (75-99)
[2020-05-07] MEDS ORDERED: Magnesium Replacement Protocol 1 EACH MISC MISCELLANE PRN (14:52)
[2020-05-07] MEDS ORDERED: IPRATROPIUM-ALBUTEROL 3 ML NEB INHALATION SCH (16:00)
--- NOTE | 2020-05-07 16:06 | P.CRDCN ---
History of Present Illness Consult date: 05/07/20 Chief complaint: Shortness of breath History of present illness: This is a 70-year-old gentleman who sees Dr. Hebert in the office with coronary a rtery disease and recent stenting of the right coronary artery as well as known severe aortic stenosis as well as hypertension and dyslipidemia and COPD/asthma presented to the hospital complaining of shortness of breath. The patient shortness of breath started about 3 days ago and got progressed. He describes exertional dyspnea as well as orthopnea. No lower extremities edema. The patient stated that he gained about 4 about within 24 hours. He denies any symptoms of chest pain or chest discomfort or dizziness or lightheadedness or any feeling of heart racing or fluttering or syncope. He was admitted to the hospital in April 2020 to with chest pain and shortness of breath where he was seen at that time by Dr. Hebert who performed an echocardiogram and transesophageal echocardiogram as well as a heart catheterization. The patient was diagnosed with severe aortic stenosis and moderate aortic insufficiency. The heart catheterization revealed intermediate to severe disease involving the right coronary artery with an FFR was performed and came in to be ischemic. He underwent subsequently stenting of the right coronary artery and he was told that he is going to [facility] to undergo aortic valve replacement. He stated that he was compliant with all of his medications. The patient stated that he was compliant with his diet. The workup at this time including chest x- ray showed infiltrates. The BNP came in to be slightly elevated. The EKG showed sinus rhythm with diffuse nonspecific ST and T wave abnormalities. The patient is known to have asthma/COPD. Past Medical History Past Medical History: Asthma, Heart Failure, COPD, Diabetes Mellitus, Eye Disorder Additional Past Medical History / Comment(s): "leaky" heart valve-pt does not recall which valve, NIDDM type II, neuropathy bilateral feet, bronchitis, bilateral glaucoma, past gastric ulcer, chronic low back pain History of Any Multi-Drug Resistant Organisms: None Reported Past Surgical History: Heart Catheterization With Stent Additional Past Surgical History / Comment(s): throat surgery (nodules removed from vocal cords.), cataract removal Past Anesthesia/Blood Transfusion Reactions: No Reported Reaction Date of Last Stent Placement:: 04/27/20 Past Psychological History: No Psychological Hx Reported Additional Psychological History / Comment(s): Pt resides with his spouse. He is independent. Smoking Status: Former smoker Past Alcohol Use History: Occasional Additional Past Alcohol Use History / Comment(s): Pt started smoking in 1968, quit in October of 2019 Past Drug Use History: None Reported - Past Family History Father Family Medical History: Coronary Artery Disease (CAD) Additional Family Medical History / Comment(s): Father had CAD/CABG. He is . Pt had not had contact with his father for 30 yrs. Mother Family Medical History: Congestive Heart Failure (CHF), Neurologic Disorder Additional Family Medical History / Comment(s): Parkinsons dx. Mother from CHF. family Additional Family Medical History / Comment(s): reports CAD history Medications and Allergies Home Medications Medication Instructions Recorded Confirmed Type Albuterol Sulfate [Proair Hfa] 1 - 2 puff INHALATION RT-QID PRN 10/20/19 04/23/20 History Dorzolamide 2% [Trusopt 2%] 1 drop BOTH EYES BID 10/20/19 04/23/20 History Montelukast Sodium [Singulair] 10 mg PO HS 10/20/19 04/23/20 History Netarsudil Mesylat/Latanoprost 1 drop BOTH EYES HS 10/20/19 04/23/20 History [Rocklatan 0.02%-0.005% Eye Drp] glipiZIDE XL [Glucotrol XL] 5 mg PO BID 10/20/19 04/23/20 History metFORMIN HCL [Glucophage] 500 mg PO TID 10/20/19 05/07/20 History Furosemide [Lasix] 40 mg PO BID #30 tablet 10/26/19 04/23/20 Rx Allopurinol [Zyloprim] 100 mg PO DAILY 04/23/20 04/23/20 History Baclofen [Lioresal] 10 mg PO TID PRN 04/23/20 04/23/20 History Ergocalciferol [Vitamin D2 50,000 unit PO Q30D 04/23/20 04/23/20 History (DRISDOL)] Ipratropium-Albuterol Nebulize 3 ml INHALATION RT-QID 04/23/20 04/23/20 History [Duoneb 0.5 mg-3 mg/3 ml Soln] Metoprolol Succinate (ER) [Toprol 25 mg PO DAILY 04/23/20 04/23/20 History XL] Aspirin 81 mg PO DAILY #30 tab 04/28/20 Rx Atorvastatin [Lipitor] 80 mg PO DAILY #30 tab 04/28/20 Rx Doxycycline [Vibramycin] 100 mg PO BID #4 cap 04/28/20 Rx Ferrous Sulfate [Iron (65 MG 325 mg PO W/LUNCH #30 tab 04/28/20 Rx Elemental)] Losartan [Cozaar] 25 mg PO HS #30 tab 04/28/20 Rx Ticagrelor [Brilinta] 90 mg PO BID #60 tab 04/28/20 Rx Insulin Glargine,Hum.rec.anlog 16 units SQ HS 05/07/20 05/07/20 History [Vickey Baird] Allergies Allergy/AdvReac Type Severity Reaction Status Date / Time No Known Allergies Allergy Verified 05/07/20 10:52 Physical Exam Vitals: Vital Signs Temp Pulse Pulse Resp BP BP Pulse Ox 05/07/20 15:55 74 05/07/20 15:46 72 05/07/20 14:24 98.0 F 71 18 132/55 97 05/07/20 14:09 98.1 F 80 16 113/67 96 05/07/20 13:05 76 18 109/71 96 05/07/20 12:39 86 16 137/58 96 05/07/20 12:23 90 18 122/68 97 05/07/20 12:10 70 05/07/20 11:58 71 05/07/20 11:16 98.5 F 80 19 122/68 95 05/07/20 11:12 19 05/07/20 10:50 97.7 F 77 25 H 113/85 96 Intake and Output 05/07/20 05/07/20 05/07/20 06:59 14:59 22:59 Other: Weight 97.522 kg - Constitutional General appearance: no acute distress - Respiratory Respiratory: bilateral: diminished - Cardiovascular Rhythm: regular Heart sounds: normal: S1, S2 Abnormal Heart Sounds: systolic murmur Results 05/07/20 11:30 05/07/20 11:30 Cardiac Enzymes 05/07/20 05/07/20 Range/Units 11:30 11:30 AST 32 (17-59) U/L Troponin I 0.016 (0.000-0.034) ng/mL Coagulation 05/07/20 Range/Units 11:30 PT 10.2 (9.0-12.0) sec APTT 24.1 (22.0-30.0) sec CBC 05/07/20 Range/Units 11:30 WBC 12.8 H (3.8-10.6) k/uL RBC 4.00 L (4.30-5.90) m/uL Hgb 13.0 (13.0-17.5) gm/dL Hct 38.2 L (39.0-53.0) % Plt Count 259 (150-450) k/uL Comprehensive Metabolic Panel 05/07/20 Range/Units 11:30 Sodium 135 L (137-145) mmol/L Potassium 4.4 (3.5-5.1) mmol/L Chloride 95 L (98-107) mmol/L Carbon Dioxide 25 (22-30) mmol/L BUN 29 H (9-20) mg/dL Creatinine 1.84 H (0.66-1.25) mg/dL Glucose 98 (74-99) mg/dL Calcium 9.8 (8.4-10.2) mg/dL AST 32 (17-59) U/L ALT 37 (4-49) U/L Alkaline Phosphatase 71 (38-126) U/L Total Protein 7.2 (6.3-8.2) g/dL Albumin 4.7 (3.5-5.0) g/dL Current Medications Generic Name Dose Route Start Last Admin Trade Name Freq PRN Reason Stop Dose Admin Albuterol/Ipratropium 3 ml 05/07/20 16:00 05/07/20 15:45 Ipratropium-Albuterol 3 Ml Neb INHALATION 3 ml RT-QID [facility] Administration Albuterol/Ipratropium 3 ml 05/07/20 12:38 Ipratropium-Albuterol 3 Ml Neb INHALATION RT-Q4H PRN shortness of breath Albuterol/Ipratropium 3 ml 05/07/20 16:00 Ipratropium-Albuterol 3 Ml Neb INHALATION RT-QID [facility] Allopurinol 100 mg 05/08/20 09:00 Allopurinol 100 Mg Tab PO DAILY [facility] Aspirin 81 mg 05/08/20 09:00 Aspirin 81 Mg PO DAILY [facility] Atorvastatin Calcium 80 mg 05/08/20 09:00 Atorvastatin 80 Mg Tab PO DAILY [facility] Dorzolamide HCl 1 drops 05/07/20 21:00 Dorzolamide Hcl 2% Drops 10 Ml Btl BOTH EYES BID [facility] Ferrous Sulfate 325 mg 05/08/20 12:30 Ferrous Sulfate 325 Mg Tab PO W/LUNCH [facility] Furosemide 40 mg 05/07/20 21:00 Furosemide 40 Mg Tab PO BID [facility] Sodium Chloride 1,000 mls @ 20 mls/hr 05/07/20 12:45 05/07/20 13:04 Saline 0.9% IV 20 mls/hr .Q24H [facility] Administration Azithromycin 500 mg/ Sodium 250 mls @ 250 mls/hr 05/08/20 16:00 Chloride IVPB 05/12/20 16:01 Q24H [facility] Piperacillin Sod/Tazobactam 100 mls @ 25 mls/hr 05/08/20 00:00 Sod 3.375 gm/ Sodium Chloride IVPB 05/14/20 16:01 Q8HR [facility] Magnesium Sulfate/Dextrose 1 100 mls @ 100 mls/hr 05/07/20 15:00 gm/ IV Solution IVPB 05/07/20 16:59 Q1H [facility] Insulin Aspart 0 unit 05/07/20 17:30 Insulin Aspart (Novolog) 100 Unit/Ml Vial SQ ACHS [facility] Protocol Metoprolol Succinate 25 mg 05/08/20 09:00 Metoprolol Succinate (Er) 25 Mg Tab.Er.24h PO DAILY [facility] Miscellaneous Information 1 each 05/07/20 12:38 Pneumonia Protocol Utilized 1 Each Misc PO ONCE PRN Per Protocol Miscellaneous Information 1 each 05/07/20 14:52 Magnesium Replacement Protocol 1 Each Misc MISCELLANE DAILY PRN Per Protocol Protocol Montelukast Sodium 10 mg 05/07/20 21:00 Montelukast 10 Mg Tab PO HS [facility] Non-Formulary Medication 16 units 05/07/20 21:00 Insulin Glargine,Hum.Rec.Anlog [Vickey Baird] SQ HS [facility] Non-Formulary Medication 1 drop 05/07/20 21:00 Netarsudil Mesylat/Latanoprost [Rocklatan 0.02%-0.005% Eye Drp] BOTH EYES HS [facility] Ticagrelor 90 mg 05/07/20 21:00 Ticagrelor 90 Mg Tab PO BID [facility] Intake and Output 05/07/20 05/07/20 05/07/20 06:59 14:59 22:59 Other: Weight 97.522 kg Patient Weight 05/08/20 06:59 Weight 97.522 kg 05/07/20 11:30 05/07/20 11:30 Assessment and Plan Assessment: Assessment #1 worsening shortness of breath probably related to a combination of COPD as well as heart failure #2 mild congestive heart failure exacerbation secondary to valvular heart disease and diastolic dysfunction #3 coronary artery disease and status post PCI of the RCA #4 severe aortic stenosis #5 COPD/asthma Plan #1 the patient does not seems to be in any severe/overt heart failure at this point. #2 agree about by mouth diuretics #3 avoid any aggressive lowering of the blood pressure in view of the severe aortic stenosis #4 continue monitor the kidney function and electrolytes #5 follow-up with the patient
[2020-05-07] MEDS ORDERED: NALOXONE 0.4 MG/ML 1 ML VIAL IV PRN (16:29)
--- NOTE | 2020-05-07 16:31 | P.HPIM ---
History of Present Illness H&P Date: 05/07/20 70-year-old male with PMH of diastolic CHF, COPD, severe aortic stenosis, chronic kidney disease stage III, diabetes mellitus type 2, hypertension and dyslipidemia presents the ED for shortness of breath. He was recently admitted on April 23 and discharge April 28 for shortness of breath. At that time, he was treated for COPD exacerbation and mild CHF exacerbation. He underwent RAYMON which showed critical aortic stenosis with valve 0.8 cm. Cardiac cath showed moderate 2 vessel CAD and underwent drug-eluting stent of the proximal and mid RCA. He was subsequently discharged to follow-up with cardiology for aortic valve replacement that was to be done 6 weeks later. Patient reports shortness of breath has been progressively getting worse since his discharge. Patient states that he can't lay flat at night. When he had difficulties catching his breath this morning this prompted him to come to the ED. He denies any headache, lower extremity edema, nausea or vomiting, fever or chills, cough, palpitations, changes in urination or bowel habits. No changes in appetite or weight. He denies any dizziness, numbness/weakness/tingling of the extremities. In the ED, his vital signs are stable. CBC showed leukocytosis of 12.8. CMP showed sodium of 135, chloride of 95, BUN 29, creatinine 1.84. Troponin was 0.016. BNP was 2150. Lactic acid was 2.8. Chest x-ray showed possible right lower lobe infiltrate. Patient is admitted for dyspnea, lactic acidosis, possible pneumonia with cardiology and pulmonology on consult. Review of Systems Pertinent positives and negatives as discussed in HPI, a complete review of systems was performed and all other systems are negative. Past Medical History Past Medical History: Asthma, Heart Failure, COPD, Diabetes Mellitus, Eye Disorder Additional Past Medical History / Comment(s): "leaky" heart valve-pt does not recall which valve, NIDDM type II, neuropathy bilateral feet, bronchitis, bilateral glaucoma, past gastric ulcer, chronic low back pain History of Any Multi-Drug Resistant Organisms: None Reported Past Surgical History: Heart Catheterization With Stent Additional Past Surgical History / Comment(s): throat surgery (nodules removed from vocal cords.), cataract removal Past Anesthesia/Blood Transfusion Reactions: No Reported Reaction Date of Last Stent Placement:: 04/27/20 Past Psychological History: No Psychological Hx Reported Additional Psychological History / Comment(s): Pt resides with his spouse. He is independent. Smoking Status: Former smoker Past Alcohol Use History: Occasional Additional Past Alcohol Use History / Comment(s): Pt started smoking in 1968, quit in October of 2019 Past Drug Use History: None Reported - Past Family History Father Family Medical History: Coronary Artery Disease (CAD) Additional Family Medical History / Comment(s): Father had CAD/CABG. He is . Pt had not had contact with his father for 30 yrs. Mother Family Medical History: Congestive Heart Failure (CHF), Neurologic Disorder Additional Family Medical History / Comment(s): Parkinsons dx. Mother from CHF. family Additional Family Medical History / Comment(s): reports CAD history Medications and Allergies Home Medications Medication Instructions Recorded Confirmed Type Albuterol Sulfate [Proair Hfa] 1 - 2 puff INHALATION RT-QID PRN 10/20/19 04/23/20 History Dorzolamide 2% [Trusopt 2%] 1 drop BOTH EYES BID 10/20/19 04/23/20 History Montelukast Sodium [Singulair] 10 mg PO HS 10/20/19 04/23/20 History Netarsudil Mesylat/Latanoprost 1 drop BOTH EYES HS 10/20/19 04/23/20 History [Rocklatan 0.02%-0.005% Eye Drp] glipiZIDE XL [Glucotrol XL] 5 mg PO BID 10/20/19 04/23/20 History metFORMIN HCL [Glucophage] 500 mg PO TID 10/20/19 05/07/20 History Furosemide [Lasix] 40 mg PO BID #30 tablet 10/26/19 04/23/20 Rx Allopurinol [Zyloprim] 100 mg PO DAILY 04/23/20 04/23/20 History Baclofen [Lioresal] 10 mg PO TID PRN 04/23/20 04/23/20 History Ergocalciferol [Vitamin D2 50,000 unit PO Q30D 04/23/20 04/23/20 History (DRISDOL)] Ipratropium-Albuterol Nebulize 3 ml INHALATION RT-QID 04/23/20 04/23/20 History [Duoneb 0.5 mg-3 mg/3 ml Soln] Metoprolol Succinate (ER) [Toprol 25 mg PO DAILY 04/23/20 04/23/20 History XL] Aspirin 81 mg PO DAILY #30 tab 04/28/20 Rx Atorvastatin [Lipitor] 80 mg PO DAILY #30 tab 04/28/20 Rx Doxycycline [Vibramycin] 100 mg PO BID #4 cap 04/28/20 Rx Ferrous Sulfate [Iron (65 MG 325 mg PO W/LUNCH #30 tab 04/28/20 Rx Elemental)] Losartan [Cozaar] 25 mg PO HS #30 tab 04/28/20 Rx Ticagrelor [Brilinta] 90 mg PO BID #60 tab 04/28/20 Rx Insulin Glargine,Hum.rec.anlog 16 units SQ HS 05/07/20 05/07/20 History [Vickey Baird] Allergies Allergy/AdvReac Type Severity Reaction Status Date / Time No Known Allergies Allergy Verified 05/07/20 10:52 Physical Exam Vitals: Vital Signs Temp Pulse Pulse Resp BP BP Pulse Ox 05/07/20 15:46 72 05/07/20 14:24 98.0 F 71 18 132/55 97 05/07/20 14:09 98.1 F 80 16 113/67 96 05/07/20 13:05 76 18 109/71 96 05/07/20 12:39 86 16 137/58 96 05/07/20 12:23 90 18 122/68 97 05/07/20 12:10 70 05/07/20 11:58 71 05/07/20 11:16 98.5 F 80 19 122/68 95 05/07/20 11:12 19 05/07/20 10:50 97.7 F 77 25 H 113/85 96 Intake and Output 05/07/20 05/07/20 05/07/20 06:59 14:59 22:59 Other: Weight 97.522 kg General: [non toxic], [no distress], [appears at stated age] Derm: [warm], [dry] Head: [atraumatic], [normocephalic], [symmetric] Eyes: [EOMI], [no lid lag], [anicteric sclera] Mouth: [no lip lesion], [mucus membranes moist] Cardiovascular: [S1S2 reg], [systolic murmur], [positive DP pulse bilateral], Lungs: [Decreased breath sounds bilateral with scattered wheezing], [no rhonchi, no rales] , [no accessory muscle use] Abdominal: [soft], [ nontender to palpation], [no guarding], [no appreciable org anomegaly] Ext: [no gross muscle atrophy], [minimal lower extremity edema], [no contractures] Neuro: [ CN II-XI grossly intact], [no focal neuro deficits] Psych: [Alert], [oriented], [appropriate affect] Results CBC & Chem 7: 05/07/20 11:30 05/07/20 11:30 Labs: Abnormal Lab Results - Last 24 Hours (Table) 05/07/20 05/07/20 05/07/20 Range/Units 11:30 11:30 11:59 WBC 12.8 H (3.8-10.6) k/uL RBC 4.00 L (4.30-5.90) m/uL Hct 38.2 L (39.0-53.0) % Neutrophils # 10.0 H (1.3-7.7) k/uL Sodium 135 L (137-145) mmol/L Chloride 95 L (98-107) mmol/L BUN 29 H (9-20) mg/dL Creatinine 1.84 H (0.66-1.25) mg/dL Plasma Lactic Acid Helder 2.8 H* (0.7-2.0) mmol/L Thrombosis Risk Factor Assmnt - Choose All That Apply Any of the Below Risk Factors Present?: Yes Each Factor Represents 1 point: Heart failure (<1month), Obesity (BMI >25), Serious lung disease incl. pneumonia (< 1month) Other Risk Factors: Yes Each Risk Factor Represents 2 Points: Age 61-74 years Thrombosis Risk Factor Assessment Total Risk Factor Score: 5 Thrombosis Risk Factor Assessment Level: High Risk Assessment and Plan Assessment: Dyspnea, multifactorial with history of diastolic CHF, COPD exacerbation, severe aortic stenosis and possible Pneumonia - BNP improved from previous admission - continue oral Lasix - Continue Metoprolol and Cozaar - Follow Cardiology consultation - Patient was to follow up with Cardiology in the outpatient setting for arrangements for TAVR - CXR showing possible R lower lobe infiltrate - Started on Zosyn and Azithromycin in the ED - Follow Sputum Cx, procalcitonin - Mucinex scheduled - Pulmonology consult - Optimize COPD medications - Continue singulair - DuoNeb as scheduled and as needed for SOB and wheezing - Start Prednisone by mouth for a total of 5 days - Telemetry monitoring Lactic acidosis - Lactic acid 2.8 - Gentle hydration - Repeat until negative CAD post stenting - Brilinta, ASA, lipitor, Metoprolol Diabetes mellitus type 2 with hyperglycemia -long-acting, and sliding scale insulin -Regular accuchecks with hypoglycemic precautions -Hemoglobin A1c 8.8 CKD baseline Cr 1.5 - Cr slightly elevated at 1.84 - Renal US with cysts on previous admission - avoid nephrotoxic meds - Repeat BMP tomorrow morning DVT prophylaxis: [Heparin] Discussed with: [Patient] Anticipated discharge: [2 days] Anticipated discharge place: [Home] A total of [45] minutes was spent on the care of this complex patient more than 50% of the time was spent in counseling and care coordination. Patient names his [place] decision-maker if he can't make decisions for himself. Patient would like to be full code.
[2020-05-07 16:34] LABS: Glucose,Whole Blood 218 mg/dL (75-99)
[2020-05-07] MEDS: IPRATROPIUM-ALBUTEROL 3 ML NEB INHALATION SCH ×2 (16:47→19:19)
[2020-05-07] MEDS: predniSONE 20 MG TAB PO SCH (17:07)
[2020-05-07] MEDS: FUROSEMIDE 40 MG TAB PO SCH (17:07)
[2020-05-07] MEDS: INSULIN ASPART (NovoLOG) 100 UNIT/ML VIAL SQ SCH ×2 (17:07→20:29)
[2020-05-07] MEDS: MAGNESIUM SULFATE-D5W PMX 1 GM in DEXTROSE/WATER 1 100ML.BAG IVPB SCH ×2 (17:24→18:45)
[2020-05-07 20:20] LABS: Glucose,Whole Blood 238 mg/dL (75-99)
[2020-05-07] MEDS: TICAGRELOR 90 MG TAB PO SCH (20:28)
[2020-05-07] MEDS: HEPARIN SODIUM,PORCINE 5,000 UNIT/ML 1 ML VIAL SQ SCH (20:29)
[2020-05-07] MEDS: guaiFENesin 600 MG TABLET.ER PO SCH (20:29)
[2020-05-07] MEDS: DORZOLAMIDE HCL 2% DROPS 10 ML BTL BOTH EYES SCH (20:30)
[2020-05-07] MEDS ORDERED: MELATONIN 5 MG TABLET PO PRN (20:33)
[2020-05-07] MEDS ORDERED: LOSARTAN 25 MG TAB PO SCH (21:00)
[2020-05-07] MEDS ORDERED: INSULIN DETEMIR (LEVEMIR) 100 UNIT/ML SYR SQ SCH (21:00)
[2020-05-07] MEDS ORDERED: PATIENT'S OWN (Netarsudil Mesylat/Latanoprost [Rocklatan 0.02%-0.005% Eye Drp] 2.5 ML BOTH EYES SCH (21:00)
[2020-05-07] MEDS ORDERED: MONTELUKAST 10 MG TAB PO SCH (21:00)
[2020-05-07] MEDS: PIPERACILLIN-TAZOBACTAM 3.375 GM in SODIUM CHLORIDE 0.9% 100 ML IVPB SCH (23:04)
[2020-05-08 07:21] LABS: Basophils % (A) 0 %; Eosinophils % (A) 0 %; HCT 37.6 % (39.0-53.0); HGB 12.4 gm/dL (13.0-17.5); Lymphocytes # (A) 0.6 k/uL (1.0-4.8); Lymphocytes % (A) 5 %; MCH 31.9 pg (25.0-35.0); MCHC 33.1 g/dL (31.0-37.0); MCV 96.5 fL (80.0-100.0); Monocytes # (A) 0.2 k/uL (0-1.0); Monocytes % (A) 2 %; Neutrophils # (A) 11.2 k/uL (1.3-7.7); Neutrophils % (A) 92 %; Platelet Count 255 k/uL (150-450); RBC 3.89 m/uL (4.30-5.90); RDW 13.3 % (11.5-15.5); WBC 12.2 k/uL (3.8-10.6)
[2020-05-08 07:26] LABS: Glucose,Whole Blood 269 mg/dL (75-99)
[2020-05-08] MEDS: predniSONE 20 MG TAB PO SCH (07:35)
[2020-05-08] MEDS: IPRATROPIUM-ALBUTEROL 3 ML NEB INHALATION SCH ×3 (07:36→15:32)
[2020-05-08] MEDS: guaiFENesin 600 MG TABLET.ER PO SCH (07:36)
[2020-05-08] MEDS: FUROSEMIDE 40 MG TAB PO SCH (07:36)
[2020-05-08] MEDS: INSULIN ASPART (NovoLOG) 100 UNIT/ML VIAL SQ SCH ×2 (07:38→12:04)
[2020-05-08] MEDS: HEPARIN SODIUM,PORCINE 5,000 UNIT/ML 1 ML VIAL SQ SCH (07:39)
[2020-05-08] MEDS: PIPERACILLIN-TAZOBACTAM 3.375 GM in SODIUM CHLORIDE 0.9% 100 ML IVPB SCH (07:39)
[2020-05-08] MEDS: TICAGRELOR 90 MG TAB PO SCH (08:12)
[2020-05-08] MEDS: DORZOLAMIDE HCL 2% DROPS 10 ML BTL BOTH EYES SCH (08:12)
[2020-05-08] MEDS ORDERED: allopurinoL 100 MG TAB PO SCH (09:00)
[2020-05-08] MEDS ORDERED: ATORVASTATIN 80 MG TAB PO SCH (09:00)
[2020-05-08] MEDS ORDERED: METOPROLOL SUCCINATE (ER) 25 MG TAB.ER.24H PO SCH (09:00)
[2020-05-08] MEDS ORDERED: ASPIRIN 81 MG PO SCH (09:00)
--- NOTE | 2020-05-08 10:48 | P.PN ---
Subjective HISTORY OF PRESENTING ILLNESS This is a pleasant 70-year-old male past medical history significant for very artery disease status post recent PCI to the RCA, severe aortic stenosis, hypertension, dyslipidemia and COPD. He follows in the office with Dr. Hebert. He is seen and examined sitting up in the chair in no acute distress. He states he is feeling much better since admission. He did sleep sitting up in the chair last night however he states that is normal for him. He denies worsening shortness of breath. He has no chest pain, dizziness or palpitations. Laboratory data reviewed, WBC 12.2, hemoglobin 12.4, platelets 255, cardiac enzymes negative 2. Currently maintained on IV antibiotics, aspirin 81 mg daily, brilinta 90 mg twice a day, atorvastatin 80 mg daily, Lasix 40 mg by mouth twice a day, losartan 25 mg at bedtime and Toprol 25 mg daily. PHYSICAL EXAMINATION Blood pressure 110/68 heart rate 60 afebrile and maintaining oxygen saturation on room air. CONSTITUTIONAL: No apparent distress. HEENT: Head is normocephalic. Pupils are equal, round. Sclerae anicteric. Mucous membranes of the mouth are moist. No JVD. No carotid bruit. CHEST EXAMINATION: Rales at the right base, no wheezes or rhonchi. No chest wall tenderness is noted on palpation or with deep breathing. HEART EXAMINATION: Regular rate and rhythm. S1, S2 heard. Systolic ejection murmur at the base, no gallops or rub. EXTREMITIES: 2+ peripheral pulses, no lower extremity edema and no calf tenderness. ASSESSMENT Acute on chronic diastolic heart failure Pneumonia Severe aortic stenosis Leukocytosis Lactic acidosis Acute on chronic renal failure Coronary artery disease status post recent PCI maintained on dual antiplatelet therapy Hypertension Dyslipidemia Diabetes mellitus PLAN Continue current medical regimen. Nurse Practitioner note has been reviewed, I agree with a documented findings and plan of care. Patient was seen and examined. Objective - Vital Signs Vital signs: Vital Signs Temp 97.5 F L 05/08/20 07:00 Pulse 60 05/08/20 07:36 Resp 16 05/08/20 07:30 BP 110/68 05/08/20 07:00 Pulse Ox 96 05/08/20 07:00 Intake & Output 05/07/20 05/08/20 05/08/20 18:59 06:59 18:59 Intake Total 240 Output Total 550 Balance -550 240 Weight 97.522 kg 98 kg Intake: Oral 240 Output: Urine 550 Other: # Voids 3 - Labs CBC & Chem 7: 05/08/20 06:52 05/07/20 11:30 Labs: Abnormal Lab Results - Last 24 Hours (Table) 05/07/20 05/07/20 05/07/20 Range/Units 11:30 11:30 11:59 WBC 12.8 H (3.8-10.6) k/uL RBC 4.00 L (4.30-5.90) m/uL Hgb (13.0-17.5) gm/dL Hct 38.2 L (39.0-53.0) % Neutrophils # 10.0 H (1.3-7.7) k/uL Lymphocytes # (1.0-4.8) k/uL Sodium 135 L (137-145) mmol/L Chloride 95 L (98-107) mmol/L BUN 29 H (9-20) mg/dL Creatinine 1.84 H (0.66-1.25) mg/dL POC Glucose (mg/dL) (75-99) mg/dL Plasma Lactic Acid Helder 2.8 H* (0.7-2.0) mmol/L 05/07/20 05/07/20 05/08/20 Range/Units 16:33 20:18 06:52 WBC 12.2 H (3.8-10.6) k/uL RBC 3.89 L (4.30-5.90) m/uL Hgb 12.4 L (13.0-17.5) gm/dL Hct 37.6 L (39.0-53.0) % Neutrophils # 11.2 H (1.3-7.7) k/uL Lymphocytes # 0.6 L (1.0-4.8) k/uL Sodium (137-145) mmol/L Chloride (98-107) mmol/L BUN (9-20) mg/dL Creatinine (0.66-1.25) mg/dL POC Glucose (mg/dL) 218 H 238 H (75-99) mg/dL Plasma Lactic Acid Helder (0.7-2.0) mmol/L 05/08/20 Range/Units 07:13 WBC (3.8-10.6) k/uL RBC (4.30-5.90) m/uL Hgb (13.0-17.5) gm/dL Hct (39.0-53.0) % Neutrophils # (1.3-7.7) k/uL Lymphocytes # (1.0-4.8) k/uL Sodium (137-145) mmol/L Chloride (98-107) mmol/L BUN (9-20) mg/dL Creatinine (0.66-1.25) mg/dL POC Glucose (mg/dL) 269 H (75-99) mg/dL Plasma Lactic Acid Helder (0.7-2.0) mmol/L
[2020-05-08 11:02] LABS: African American GFR (CKD) 49.8 (60.0-200.0); Albumin 4.6 g/dL (3.80-4.90); Albumin/Globulin Ratio 2.42 (1.60-3.17); Anion Gap 11.5 mmol/L (4.00-12.00); Calcium 9.6 mg/dL (8.7-10.3); Carbon Dioxide 22.5 mmol/L (21.6-31.8); Globulin 1.9 g/dL (1.6-3.3); Magnesium 2.1 mg/dL (1.5-2.4); Potassium 4.8 mmol/L (3.5-5.5); Total Bilirubin 0.5 mg/dL (0.3-1.2); Total Protein 6.5 g/dL (6.2-8.2)
[2020-05-08 11:51] LABS: Glucose,Whole Blood 319 mg/dL (75-99)
[2020-05-08] MEDS ORDERED: FERROUS SULFATE 325 MG TAB PO SCH (12:30)
--- NOTE | 2020-05-08 14:11 | P.DS ---
Providers Date of admission: 05/07/20 12:38 Expected date of discharge: 05/08/20 Attending physician: Michelle Raymundo MD Consults: 05/07/20 12:38 Consult Physician Routine Consulting Provider: Chastity Garcia Consult Reason/Comments: copd Do you want consulting provider notified?: Yes 05/07/20 12:39 Consult Physician Routine Consulting Provider: George Hassan Consult Reason/Comments: chf Do you want consulting provider notified?: Yes Primary care physician: [facility] Course: 70-year-old male with PMH of diastolic CHF, COPD, severe aortic stenosis, chron ic kidney disease stage III, diabetes mellitus type 2, hypertension and dyslipidemia presents the ED for shortness of breath. He was recently admitted on April 23 and discharge April 28 for shortness of breath. At that time, he was treated for COPD exacerbation and mild CHF exacerbation. He underwent RAYMON which showed critical aortic stenosis with valve 0.8 cm. Cardiac cath showed moderate 2 vessel CAD and underwent drug-eluting stent of the proximal and mid RCA. He was subsequently discharged to follow-up with cardiology for aortic valve replacement that was to be done 6 weeks later. Patient reports shortness of breath has been progressively getting worse since his discharge. Patient states that he can't lay flat at night. When he had difficulties catching his breath this morning this prompted him to come to the ED. He denies any headache, lower extremity edema, nausea or vomiting, fever or chills, cough, palpitations, changes in urination or bowel habits. No changes in appetite or weight. He denies any dizziness, numbness/weakness/tingling of the extremities. In the ED, his vital signs are stable. CBC showed leukocytosis of 12.8. CMP showed sodium of 135, chloride of 95, BUN 29, creatinine 1.84. Troponin was 0.016. BNP was 2150. Lactic acid was 2.8. Chest x-ray showed possible right lower lobe infiltrate. Patient is admitted for dyspnea, lactic acidosis, possible pneumonia with cardiology and pulmonology on consult. Patient had an improved BNP from previous admission. Cardiology evaluated the patient and recommended continuing home medications. Patient was advised to follow-up in the outpatient setting for TAVR procedure. With regard to the possible right lower lobe infiltrate, patient was started on azithromycin and Zosyn from the emergency room. Pro-calcitonin was was obtained which was negative. He was otherwise optimized on his COPD medications. He had a lactic acidosis of 2.8 that resolved on repeat. He was continued on his home medication for CAD and was given insulin for his diabetes mellitus. Patient was seen and examined. No acute events overnight. He reports improvement in his shortness of breath. Continues to complain of feeling winded with exertion. His is at bedside. He denies any chest pain or palpitations. No nausea or vomiting. No fever or chills. General: [non toxic], [no distress], [appears at stated age] Derm: [warm], [dry] Head: [atraumatic], [normocephalic], [symmetric] Eyes: [EOMI], [no lid lag], [anicteric sclera] Mouth: [no lip lesion], [mucus membranes moist] Cardiovascular: [S1S2 reg], [systolic murmur], [positive DP pulse bilateral], Lungs: [Decreased breath sounds bilateral], [no rhonchi, no rales] , [no accessory muscle use] Abdominal: [soft], [ nontender to palpation], [no guarding], [no appreciable organomegaly] Ext: [no gross muscle atrophy], [minimal lower extremity edema], [no contractures] Neuro: [ CN II-XI grossly intact], [no focal neuro deficits] Psych: [Alert], [oriented], [appropriate affect] Dyspnea, multifactorial with history of diastolic CHF, COPD exacerbation, severe aortic stenosis and possible Pneumonia - BNP improved from previous admission - continue oral Lasix - Continue Metoprolol and Cozaar - Follow Cardiology consultation - Patient was to follow up with Cardiology in the outpatient setting for arrang ements for TAVR - CXR showing possible R lower lobe infiltrate - Clinically doubt PNA, DC antibiotics. - Procalcitonin negative - Mucinex scheduled - Pulmonology consult - Optimize COPD medications - Continue singulair - DuoNeb as scheduled and as needed for SOB and wheezing - Start Prednisone by mouth for a total of 5 days - Telemetry monitoring Lactic acidosis - Lactic acid 2.8 and negative on repeat - Gentle hydration CAD post stenting - Brilinta, ASA, lipitor, Metoprolol Diabetes mellitus type 2 with hyperglycemia -long-acting, and sliding scale insulin -Regular accuchecks with hypoglycemic precautions -Hemoglobin A1c 8.8 CKD baseline Cr 1.5 - Cr slightly elevated at 1.6 - Renal US with cysts on previous admission - avoid nephrotoxic meds - Repeat BMP tomorrow morning [Patient admitted for shortness of breath. Cleared by cardiology for discharge. Unfortunately, I think that this is his baseline and he will need to follow-up with cardiology for TAVR procedure for severe aortic stenosis. Patient has been advised to not exert himself until he is able to undergo this procedure. Patient advised to ambulate the hallways and I anticipate DC home today if patient is comfortable ambulating. This complex discharge took about 35 minutes to complete.] Pertinent Studies: Chest x-ray Patient Condition at Discharge: Stable Plan - Discharge Summary Discharge Rx Participant: No New Discharge Prescriptions: No Action glipiZIDE XL [Glucotrol XL] 5 mg PO BID Dorzolamide 2% [Trusopt 2%] 1 drop BOTH EYES BID Albuterol Sulfate [Proair Hfa] 1 - 2 puff INHALATION RT-QID PRN PRN Reason: Shortness Of Breath metFORMIN HCL [Glucophage] 500 mg PO TID Montelukast Sodium [Singulair] 10 mg PO HS Netarsudil Mesylat/Latanoprost [Rocklatan 0.02%-0.005% Eye Drp] 1 drop BOTH EYES HS Furosemide [Lasix] 40 mg PO BID #30 tablet Metoprolol Succinate (ER) [Toprol XL] 25 mg PO DAILY Ergocalciferol [Vitamin D2 (DRISDOL)] 50,000 unit PO Q30D Baclofen [Lioresal] 10 mg PO TID PRN PRN Reason: Pain Ipratropium-Albuterol Nebulize [Duoneb 0.5 mg-3 mg/3 ml Soln] 3 ml INHALATION RT-QID Allopurinol [Zyloprim] 100 mg PO DAILY Aspirin 81 mg PO DAILY #30 tab Ticagrelor [Brilinta] 90 mg PO BID #60 tab Losartan [Cozaar] 25 mg PO HS #30 tab Ferrous Sulfate [Iron (65 MG Elemental)] 325 mg PO W/LUNCH #30 tab Atorvastatin [Lipitor] 80 mg PO DAILY #30 tab Doxycycline [Vibramycin] 100 mg PO BID #4 cap Insulin Glargine,Hum.rec.anlog [Toujeo Max Solostar] 16 units SQ HS Discharge Medication List Albuterol Sulfate [Proair Hfa] 1 - 2 puff INHALATION RT-QID PRN 10/20/19 [History] Dorzolamide 2% [Trusopt 2%] 1 drop BOTH EYES BID 10/20/19 [History] Montelukast Sodium [Singulair] 10 mg PO HS 10/20/19 [History] Netarsudil Mesylat/Latanoprost [Rocklatan 0.02%-0.005% Eye Drp] 1 drop BOTH EYES HS 10/20/19 [History] glipiZIDE XL [Glucotrol XL] 5 mg PO BID 10/20/19 [History] metFORMIN HCL [Glucophage] 500 mg PO TID 10/20/19 [History] Furosemide [Lasix] 40 mg PO BID #30 tablet 10/26/19 [Rx] Allopurinol [Zyloprim] 100 mg PO DAILY 04/23/20 [History] Baclofen [Lioresal] 10 mg PO TID PRN 04/23/20 [History] Ergocalciferol [Vitamin D2 (DRISDOL)] 50,000 unit PO Q30D 04/23/20 [History] Ipratropium-Albuterol Nebulize [Duoneb 0.5 mg-3 mg/3 ml Soln] 3 ml INHALATION RT-QID 04/23/20 [History] Metoprolol Succinate (ER) [Toprol XL] 25 mg PO DAILY 04/23/20 [History] Aspirin 81 mg PO DAILY #30 tab 04/28/20 [Rx] Atorvastatin [Lipitor] 80 mg PO DAILY #30 tab 04/28/20 [Rx] Doxycycline [Vibramycin] 100 mg PO BID #4 cap 04/28/20 [Rx] Ferrous Sulfate [Iron (65 MG Elemental)] 325 mg PO W/LUNCH #30 tab 04/28/20 [Rx] Losartan [Cozaar] 25 mg PO HS #30 tab 04/28/20 [Rx] Ticagrelor [Brilinta] 90 mg PO BID #60 tab 04/28/20 [Rx] Insulin Glargine,Hum.rec.anlog [Vickey Hernandezostar] 16 units SQ HS 05/07/20 [H istory] Follow up Appointment(s)/Referral(s): Jorge Lu[facility], [NON-STAFF] - As Needed Kitty Stacy MD [Primary Care Provider] - 1-2 days Micha Hebert MD [STAFF PHYSICIAN] - 2 Weeks
[2020-05-08] MEDS: SODIUM CHLORIDE 0.9% 1,000 ML IV SCH (14:43)
[2020-05-08 15:17] VITALS: BP 123/70; RESP 20; TEMP 97.6
[2020-05-08 15:44] VITALS: PULSE 65
[2020-05-08] MEDS ORDERED: AZITHROMYCIN 500 MG in SODIUM CHLORIDE 0.9% 250 ML IVPB SCH (16:00)
--- NOTE | 2020-05-08 22:53 | CONS ---
CONSULTATION PULMONARY/CRITICAL CARE CONSULTATION: DATE OF SERVICE: May 08, 2020. REASON FOR CONSULTATION: Shortness of breath. HISTORY OF PRESENT ILLNESS: This is a 70-year-old male with a history of shortness of breath chronically. He comes into the emergency room with complaints of increasing weight gain, lower extremity edema and shortness of breath. The patient apparently was admitted with a diagnosis of possible underlying congestive heart failure. He apparently has a bad heart valve and is going to be transferred or evaluated at [facility], possibly for a transcatheter aortic valve replacement. He apparently has been taking all his medications as prescribed. He denies any fever or chills. He has not had any contacts with anybody who has been sick. The patient states he did have a hard time lying flat and sleeping. He did have a cough. It was dry. Other symptoms include orthopnea, and palpitations. His shortness of breath was primarily with exertion and much less at rest. CURRENT MEDICATIONS: Reviewed. He is on a ProAir inhaler, eye drops, Singulair, glipizide, metformin, Zyloprim, Baclofen, vitamin D2, updrafts, metoprolol, Lasix, aspirin, Lipitor, Vibramycin, iron, losartan, and Brilinta. ALLERGIES: Denied. PAST MEDICAL HISTORY: Reviewed. He has a history of asthma, CHF, COPD, diabetes, leaky heart valve, diabetes mellitus, neuropathy, bronchitis, glaucoma, gastric ulcer, and chronic low back pain. SURGICAL HISTORY: Includes among other things, throat surgery and cataract surgery. SOCIAL HISTORY: Positive for previous tobacco use. He drinks occasionally. Denies any illicit drug use. FAMILY HISTORY: Positive for CAD, and that was in his father. His father apparently has had a bypass grafting. Mother's history is positive for heart failure, heart failure, and Parkinson's disease. REVIEW OF SYSTEMS: CONSTITUTIONAL: Weakness. NEUROLOGIC negative. HEENT negative. CARDIOVASCULAR: Orthopnea. PULMONARY: Shortness of breath, cough, and dyspnea on exertion. GI negative. RHEUMATOLOGIC: Negative. IMMUNOLOGIC negative. ENDOCRINOLOGIC negative. DERMATOLOGIC negative. PHYSICAL EXAMINATION: VITAL SIGNS: Current vital signs are reviewed. Temperature 97.6. Heart rate 64, respiratory rate 20. Blood pressure 123/70, mean 87. Room-air saturation 93%. GENERAL: Appears in no acute distress. The patient is sitting up at the bedside. HEENT: Examination is grossly unremarkable. NECK: Supple. Full range of motion. No adenopathy. Neck veins are flat. CARDIOVASCULAR: Examination reveals a regular rhythm and rate. Heart sounds are distant. S1, S2 normal. There is a harsh systolic murmur, grade 3/6. LUNGS: Reveal bibasilar crackles. A few scattered rhonchi. No wheezes. Breath sounds equal bilaterally. ABDOMEN: Obese. Bowel sounds are heard. EXTREMITIES are intact. There is edema. It is pitting. It is 1 to 2+. No cyanosis or clubbing. SKIN: Without rash. NEUROLOGIC: Examination is nonfocal. LABS: Reviewed. White count 12.2, hemoglobin 12.4, hematocrit 37.6, platelet count 255,000. PT/INR PTT all normal. Sodium 132, potassium 4.8, chloride 98, CO2 23. Anion gap is 11.5, BUN and creatinine were 32 and 1.6. The N terminal proBNP on admission was 2150. Troponin was 0.019. Procalcitonin was 0.07. Microbiology is negative. Chest x-ray in my opinion shows some mild cephalization. The abnormalities described by the radiologist in the right lower lobe appeared to be more atelectatic to me. Medications are reviewed. He is basically on nothing at this time. ASSESSMENT: 1. History of a congestive heart failure, likely secondary to underlying aortic stenosis and valvular heart disease. 2. History of chronic bronchial asthma, not particularly active at this time. 3. No evidence of infection at this time. 4. Diabetes mellitus. 5. Rule out chronic obstructive pulmonary disease secondary to previous tobacco use. 6. Diabetes mellitus. 7. History of aortic stenosis. 8. History of coronary artery disease. 9. History of gastric ulcer. 10.Bilateral glaucoma. 11.Diabetic neuropathy. 12.Chronic low back pain. PLAN: The patient states that he is going to be evaluated at [facility] for possible valvular procedure. I think he is talking about a transcatheter aortic valve replacement. Clinically, the patient seems to be doing reasonably well. He is sitting up in bed. He is not particularly short of breath. The patient's medications are reviewed. Additional recommendations and suggestions are forthcoming. Prognosis is guarded. We will continue to follow. MMODL / IJN: [id number] /
--- NOTE | 2020-05-10 21:16 | CDI ---
Documentation Clarification Form Date: 05/11/2020 From: Jonathon Gerardo Phone: If you have a question about this query, please contact Asia Hart, Training Systems Officer at [phone] between 8am and 5pm. Admit Date: 05/07/2020 Discharge Date:05/08/2020 Patient Name: Davy Caro Visit Number: [id number] ATTENTION: The Clinical Documentation Specialists (CDI) and [facility] Coding Staff appreciate your assistance in clarifying documentation. Please respond to the clarification below the line at the bottom and electronically sign. The CDI & [facility] Coding staff will review the response and follow-up if needed. Please note: Queries are made part of the Legal Health Record. If you have any questions, please contact the author of this message via ITS. Dear Michelle Hernández MD., Conflicting documentation has been found in the medical record: History/Risk Factors: CHF,CKD stage 3, GUY, DM type 2 Clinical Indicators: SOB, COPD , Aortic stenosis Treatment: lasix, Prednisone. Pe cardiology Dr. Mo Vazquez "mild congestive heart failure exacerbation secondary to valvular heart disease and diastolic dysfunction". Per pulmonary Dr. Evens Gastelum "History of a congestive heart failure, likely secondary to underlying aortic stenosis and valvular heart disease", No evidence of infection at this time. Per DS Dyspnea, multifactorial with history of diastolic CHF, COPD exacerbation, severe aortic stenosis and possible Pneumonia In your opinion, Please Clarify the following Diagnosis? Acute on chronic diastolic CHF Exacerbation due to severe aortic stenosis Chronic diastolic CHF due to severe aortic stenosis and Pneumonia Ruled out Pneumonia Ruled in Other explanation of clinical findings Unable to determine (no explanation for clinical findings) PNA ruled out MTDD
== END 2020-05-08 16:10 | disposition home or self-care (01) ==
LOC: EC 10:42 → INTOOBSV 12:38 → 4SSUR 12:38 → UNDODISIN 05-08 16:10
PROVIDERS: ADMIT Family Medicine; ATTEND Family Medicine
DX: I35.2 Nonrheumatic aortic (valve) stenosis with insufficiency (principal); I13.0 Hypertensive heart and chronic kidney disease with heart failure and stage 1 through stage 4 chronic kidney disease, or unspecified chronic kidney disease; I50.33 Acute on chronic diastolic (congestive) heart failure; N18.3 Chronic kidney disease, stage 3 (moderate); J44.1 Chronic obstructive pulmonary disease with (acute) exacerbation; E87.2 Acidosis; N17.9 Acute kidney failure, unspecified; I25.10 Atherosclerotic heart disease of native coronary artery without angina pectoris; H40.9 Unspecified glaucoma; E78.5 Hyperlipidemia, unspecified; E11.22 Type 2 diabetes mellitus with diabetic chronic kidney disease; E11.40 Type 2 diabetes mellitus with diabetic neuropathy, unspecified; E11.65 Type 2 diabetes mellitus with hyperglycemia; G89.29 Other chronic pain; M54.5 Low back pain; R91.8 Other nonspecific abnormal finding of lung field; E66.9 Obesity, unspecified; Z68.33 Body mass index [BMI] 33.0-33.9, adult; Z79.84 Long term (current) use of oral hypoglycemic drugs; Z79.82 Long term (current) use of aspirin; Z79.02 Long term (current) use of antithrombotics/antiplatelets; Z79.899 Other long term (current) drug therapy; Z87.11 Personal history of peptic ulcer disease; Z95.5 Presence of coronary angioplasty implant and graft; Z87.891 Personal history of nicotine dependence; Z98.49 Cataract extraction status, unspecified eye; Z82.49 Family history of ischemic heart disease and other diseases of the circulatory system; Z82.0 Family history of epilepsy and other diseases of the nervous system
CPT/HCPCS: 96366 ×2; 96367; 96372 ×2; 96365; 99291; 36415; 94640 ×4; 93005; 83880; 80053 ×2; 83605; 83735 ×2; 84484; 85025 ×2; 85610; 85730; 87040; 87070; 87205; 83036; 84145; 71046; G0378 ×2; J2543 ×2; J1644 ×2; J0456; J3475; J7512 ×2

== ENCOUNTER → 2020-06-20 | Outpatient (CLI) | payer MEDICARE ==
[2020-06-20 10:21] LABS: Basophils # (A) 0.1 k/uL (0-0.2); Basophils % (A) 1 %; Eosinophils # (A) 0.2 k/uL (0-0.7); Eosinophils % (A) 3 %; HGB 11.8 gm/dL (13.0-17.5); Lymphocytes # (A) 1.1 k/uL (1.0-4.8); Lymphocytes % (A) 14 %; MCH 33.4 pg (25.0-35.0); MCHC 33.8 g/dL (31.0-37.0); MCV 98.9 fL (80.0-100.0); Mean Platelet Volume 7.9; Monocytes # (A) 0.3 k/uL (0-1.0); Monocytes % (A) 4 %; Neutrophils # (A) 5.7 k/uL (1.3-7.7); Neutrophils % (A) 76 %; Platelet Count 257 k/uL (150-450); RBC 3.54 m/uL (4.30-5.90); RDW 13.4 % (11.5-15.5); WBC 7.5 k/uL (3.8-10.6)
[2020-06-20 15:16] LABS: African American GFR (CKD) 40.5 (60.0-200.0); Albumin 4.8 g/dL (3.80-4.90); Albumin/Globulin Ratio 2.4 (1.60-3.17); Anion Gap 13.3 mmol/L (4.00-12.00); BUN/Creat Ratio 26.84 Ratio (12.00-20.00); Calcium 9.5 mg/dL (8.7-10.3); Carbon Dioxide 23.7 mmol/L (21.6-31.8); Non-African American GFR(CKD) 34.9 (60.0-200.0); Potassium 4.3 mmol/L (3.5-5.5); Total Bilirubin 0.5 mg/dL (0.3-1.2); Total Protein 6.8 g/dL (6.2-8.2)
[2020-06-20 15:22] LABS: INR 1.01 (0.90-1.11); Prothrombin Time 10.9 sec (9.9-11.9)
== END | disposition home or self-care (01) ==
LOC: LABWHC1 08:47
PROVIDERS: ATTEND Emergency Medicine
DX: I35.9 Nonrheumatic aortic valve disorder, unspecified (principal); N17.9 Acute kidney failure, unspecified
CPT/HCPCS: 36415; 80053; 83880; 85025; 85610

== ENCOUNTER → 2020-06-26 | Outpatient (CLI) | payer MEDICARE ==
[2020-06-26 15:55] LABS: African American GFR (CKD) 46.3 (60.0-200.0); Albumin 4.8 g/dL (3.80-4.90); Albumin/Globulin Ratio 2.53 (1.60-3.17); Anion Gap 10.8 mmol/L (4.00-12.00); BUN/Creat Ratio 18.82 Ratio (12.00-20.00); Calcium 9.7 mg/dL (8.7-10.3); Carbon Dioxide 28.2 mmol/L (21.6-31.8); Chol/HDL Ratio 2.45; Globulin 1.9 g/dL (1.6-3.3); LDL Cholesterol,Calculated 62.6 mg/dL (0.0-131.0); Potassium 4.3 mmol/L (3.5-5.5); Total Bilirubin 0.4 mg/dL (0.3-1.2); Total Protein 6.7 g/dL (6.2-8.2); VLDL Calculation 17.4 mg/dL (5.00-40.00)
[2020-06-26 17:12] LABS: Hemoglobin A1C 8.7 % (4.0-6.0)
[2020-06-26 19:04] LABS: Urine Creatinine 31.4 mg/dL
== END | disposition home or self-care (01) ==
LOC: LABWHC1 07:58
PROVIDERS: ATTEND Internal Medicine Endocrinology, Diabetes & Metabolism
DX: E11.65 Type 2 diabetes mellitus with hyperglycemia (principal)
CPT/HCPCS: 36415; 80053; 80061; 82043; 82570; 83036; 84443

== ENCOUNTER → 2020-08-07 | Outpatient (CLI) | payer MEDICARE ==
[2020-08-07 13:44] LABS: HCT 36.1 % (39.0-53.0); HGB 12.2 gm/dL (13.0-17.5); MCHC 33.7 g/dL (31.0-37.0); MCV 97.9 fL (80.0-100.0); Mean Platelet Volume 7.6; Platelet Count 199 k/uL (150-450); RBC 3.69 m/uL (4.30-5.90); RDW 13.3 % (11.5-15.5); WBC 8.7 k/uL (3.8-10.6)
[2020-08-07 14:43] LABS: Creatinine,Urine Random 45.3 mg/dL; Protein/Creatinine Ratio,Urine 0.265
[2020-08-07 14:47] LABS: Appearance,Urine Clear (Clear); Bilirubin,Urine Negative (Negative); Blood,Urine Negative (Negative); Color,Urine Light Yellow; Glucose,Urine (UA) Negative (Negative); Ketones,Urine Negative (Negative); Leukocyte Esterase,Urine Negative (Negative); Nitrite,Urine Negative (Negative); Protein,Urine Negative (Negative); Specific Gravity,Urine 1.009 (1.001-1.035); Urobilinogen,Urine <2.0 mg/dL (<2.0)
[2020-08-07 20:36] LABS: Ferritin 39.2 ng/mL (22.0-322.0)
[2020-08-07 20:44] LABS: % Iron Saturation 16.24 (15.00-50.00); African American GFR (CKD) 53.9 (60.0-200.0); Albumin 5.1 g/dL (3.80-4.90); Albumin/Globulin Ratio 2.68 (1.60-3.17); Anion Gap 9.4 mmol/L (4.00-12.00); BUN/Creat Ratio 16.67 Ratio (12.00-20.00); Calcium 9.9 mg/dL (8.7-10.3); Carbon Dioxide 28.6 mmol/L (21.6-31.8); Globulin 1.9 g/dL (1.6-3.3); Magnesium 1.8 mg/dL (1.5-2.4); Non-African American GFR(CKD) 46.5 (60.0-200.0); Phosphorus 3.5 mg/dL (2.4-5.1); Potassium 3.9 mmol/L (3.5-5.5); Total Bilirubin 0.3 mg/dL (0.2-1.2); Uric Acid 9.8 mg/dL (3.7-8.7)
== END | disposition home or self-care (01) ==
LOC: LABWHC1 12:58
PROVIDERS: ATTEND Nurse Practitioner Family
DX: N17.9 Acute kidney failure, unspecified (principal); D64.9 Anemia, unspecified; N39.0 Urinary tract infection, site not specified; R80.9 Proteinuria, unspecified; N25.81 Secondary hyperparathyroidism of renal origin; E55.9 Vitamin D deficiency, unspecified; M10.9 Gout, unspecified
CPT/HCPCS: 36415; 80053; 81003; 82306; 82570; 82728; 83540; 83550; 83735; 83970; 84100; 84156; 84550; 85027

== ENCOUNTER → 2020-10-16 | Outpatient (CLI) | payer MEDICARE ==
[2020-10-16 16:46] LABS: African American GFR (CKD) 53.9 (60.0-200.0); Albumin 4.7 g/dL (3.80-4.90); Albumin/Globulin Ratio 2.35 (1.60-3.17); Anion Gap 9.5 mmol/L (4.00-12.00); BUN/Creat Ratio 18.67 Ratio (12.00-20.00); Calcium 9.4 mg/dL (8.7-10.3); Carbon Dioxide 30.5 mmol/L (21.6-31.8); Non-African American GFR(CKD) 46.5 (60.0-200.0); Potassium 3.9 mmol/L (3.5-5.5); Total Bilirubin 0.3 mg/dL (0.2-1.2); Total Protein 6.7 g/dL (6.2-8.2)
[2020-10-16 17:42] LABS: Hemoglobin A1C 8.1 % (4.0-6.0)
== END | disposition home or self-care (01) ==
LOC: LABWHC1 09:22
PROVIDERS: ATTEND Internal Medicine Endocrinology, Diabetes & Metabolism
DX: E11.65 Type 2 diabetes mellitus with hyperglycemia (principal)
CPT/HCPCS: 36415; 80053; 83036

== ENCOUNTER → 2020-11-27 | Outpatient (CLI) | payer MEDICARE ==
--- NOTE | 2020-11-27 11:23 | XR ---
EXAMINATION TYPE: XR lumbosacral spine min 4V, XR pelvis AP view DATE OF EXAM: 11/27/2020 Comparison: None Clinical History: 70-year-old male R52 low back pain Findings: Lumbar spine: 5 lumbar type vertebral bodies. No pars interarticularis defect. Facet arthropathy lower lumbar spine . Dense vascular calcifications throughout the abdominal aorta with ectasia to 2.7 cm. Mild multileve l degenerative disc disease and endplate spondylosis. Degenerative grade 1 retrolisthesis T12-L1, L1- L2, and L3-L4. Vertebral body heights are preserved. Pelvis: Mild degenerative change of the left hip with some subchondral sclerosis. Hip joint space is relative ly maintained on both sides. Hyperdense focus projects over the inferior aspect of the left femoral h ead, suspect external artifact. SI joints appear symmetric and intact. Impression: 1. Lumbar spine: Facet arthropathy mid to lower lumbar spine. Degenerative trace grade 1 retrolisthes is at T12-L1, L1-L2, and L3-L4. Mild multilevel degenerative disc disease. No vertebral compression c ollapse. 2. Pelvis: Mild degenerative change of the left hip. No acute osseous abnormality seen. A high densit y focus projects over the inferior aspect of the left femoral head, suspect external artifact or some type of surgical clip. Clinically correlate.
== END | disposition home or self-care (01) ==
LOC: RADXRMAIN 09:02
PROVIDERS: ATTEND Family Medicine
DX: M51.35 Other intervertebral disc degeneration, thoracolumbar region (principal); M16.12 Unilateral primary osteoarthritis, left hip
CPT/HCPCS: 72110; 72170

== ENCOUNTER → 2021-02-05 | Outpatient (CLI) | payer MEDICARE ==
[2021-02-05 15:51] LABS: Urine Creatinine 27.6 mg/dL
[2021-02-05 19:21] LABS: African American GFR (CKD) 58.6 (60.0-200.0); Albumin 4.9 g/dL (3.80-4.90); Albumin/Globulin Ratio 2.23 (1.60-3.17); Anion Gap 10.5 mmol/L (4.00-12.00); BUN/Creat Ratio 13.57 Ratio (12.00-20.00); Calcium 9.6 mg/dL (8.7-10.3); Carbon Dioxide 32.5 mmol/L (21.6-31.8); Chol/HDL Ratio 2.55; Globulin 2.2 g/dL (1.6-3.3); LDL Cholesterol,Calculated 67.6 mg/dL (0.0-131.0); Non-African American GFR(CKD) 50.5 (60.0-200.0); Potassium 4.1 mmol/L (3.5-5.5); Total Bilirubin 0.5 mg/dL (0.3-1.2); Total Protein 7.1 g/dL (6.2-8.2); VLDL Calculation 19.4 mg/dL (5.00-40.00)
[2021-02-05 20:38] LABS: Hemoglobin A1C 7.9 % (4.0-6.0)
== END | disposition home or self-care (01) ==
LOC: LABWHC1 10:19
PROVIDERS: ATTEND Internal Medicine Cardiovascular Disease
DX: E78.2 Mixed hyperlipidemia (principal); E11.65 Type 2 diabetes mellitus with hyperglycemia
CPT/HCPCS: 36415; 80053; 80061; 82043; 82570; 83036; 84443

== ENCOUNTER → 2021-03-12 | Outpatient (CLI) | payer MEDICARE ==
--- NOTE | 2021-03-12 09:32 | MR ---
EXAMINATION TYPE: MR brain wo con DATE OF EXAM: 03/12/2021 COMPARISON: NONE HISTORY: R42 Dizziness; M62.81 Leg weakness TECHNIQUE: T1-weighted sagittal, T2, FLAIR, and diffusion axial, and T2 coronal coronal views of the brain are submitted. FINDINGS: There is no evidence of acute ischemia. There is moderate generalized degenerative change of the grea ter central component. There is abnormal signal in the periventricular region as well as multiple foc al additional areas of abnormal signal seen scattered throughout the white matter. No midline shift o r mass effect. The orbits are symmetric. Changes of chronic sinusitis with nasal septal deviation noted. Sella turci ca has a normal appearance of the craniocervical junction is maintained. IMPRESSION: 1. Degenerative and nonspecific white matter changes most typical remote ischemia. There is greater c entral ventricular dilation which could be associated with hydrocephalus or normal pressure hydroceph alus correlate clinically.
== END | disposition home or self-care (01) ==
LOC: RADMRIMAIN 08:25
PROVIDERS: ATTEND Family Medicine
DX: R42 Dizziness and giddiness (principal); M62.81 Muscle weakness (generalized)
CPT/HCPCS: 70551

== ENCOUNTER → 2021-05-14 | Outpatient (CLI) | payer MEDICARE ==
--- NOTE | 2021-05-15 10:57 | MR ---
EXAMINATION TYPE: MR cspine/lspine wo con DATE OF EXAM: 05/14/2021 COMPARISON: Plain film lumbar spine 11/27/2020 HISTORY: Left arm, BLE weakness, difficulty with gait. TECHNIQUE: Multiplanar, multisequence imaging of the cervical and lumbar spine is performed without I V contrast. FINDINGS: Cervical spine MRI: Cervical vertebral bodies show preserved height, near-anatomic alignment, there i s multilevel spondylosis with endplate discogenic marrow signal change. Loss of disc height and signa l is present at the intravertebral levels especially at C2-3, C3-4 and C4-5 consistent with disc max ccation and degenerative disc disease. Cervical cord signal is maintained. C2-3: No significant spinal stenosis or foraminal encroachment, no disc herniation C3-4: There is some uncovertebral joint hypertrophy, facet arthropathy change causing some mild osbaldo inal encroachment. No significant spinal stenosis. Minimal posterior disc bulge effaces the anterior thecal sac. C4-5: There is a posterior broad-based disc bulge, posterior extension endplate disc complex contacti ng the anterior cervical cord, mild to moderate spinal stenosis. There is bilateral foraminal encroac hment due to uncovertebral joint hypertrophy, some associated facet arthropathy. C5-6: Bilateral fora naida are patent, no sequelae of spinal stenosis or disc herniation. No spinal stenosis C6-7: Within normal limits. C7-T1: Unremarkable. IMPRESSION: Degenerative disc disease, multilevel foraminal encroachment as described. Lumbar spine MRI: Lumbar vertebral bodies show preserved height. There is multilevel spondylosis with endplate discogenic marrow signal change. Loss of disc height and signal is present at the intervert ebral levels greatest at L1-L2. The conus is at T11-12. No significant spinal stenosis. L5-S1: Facet arthropathy changes are present. Circumferential posterior disc bulge is mild. No signif icant foraminal encroachment. L4-5: Listhesis, circumferential eccentric endplate disc complex contributes cause bilateral foramina l encroachment. Facet arthropathy changes present. Narrowing of the thecal sac likely due to epidural lipomatosis. No significant spinal stenosis. L3-4: Posterior disc bulge does not create any spinal stenosis. Circumferential extension of endplate disc complex encroaches minimally on the inferior foramina. L2-3: Mild posterior disc bulge is present, no significant spinal stenosis. There is facet arthropath y with hypertrophy ligamentum flavum. Circumferential extension) complex encroaches minimally on the inferior aspect of the neural foramina. L1-L2: Posterior disc bulge is mild. No significant spinal stenosis or foraminal encroachment. IMPRESSION: Degenerative disc disease, facet arthropathy, no significant spinal stenosis.
== END | disposition home or self-care (01) ==
LOC: RADMRIMAIN 07:58
PROVIDERS: ATTEND Psychiatry & Neurology Neurology
DX: M50.221 Other cervical disc displacement at C4-C5 level (principal); M50.321 Other cervical disc degeneration at C4-C5 level; M48.02 Spinal stenosis, cervical region; M47.812 Spondylosis without myelopathy or radiculopathy, cervical region; M51.36 Other intervertebral disc degeneration, lumbar region; M47.816 Spondylosis without myelopathy or radiculopathy, lumbar region
CPT/HCPCS: 72141; 72148

== ENCOUNTER → 2021-05-14 | Outpatient (CLI) | payer MEDICARE | END | disposition home or self-care (01) | LOC: LABWHC1 09:11 | PROVIDERS: ATTEND Psychiatry & Neurology Neurology | DX: R26.89 Other abnormalities of gait and mobility (principal); R53.1 Weakness | CPT/HCPCS: 36415; 82550; 82607 ==

== ENCOUNTER 2021-06-19 15:39 | Emergency (ER) | payer MEDICARE ==
[2021-06-19 15:59] VITALS: BP 151/71; PULSE 81; RESP 18; TEMP 98.6
[2021-06-19] MEDS ORDERED: BACITRACIN OINT 1 EACH PACKET TOPICAL ONE (18:01)
--- NOTE | 2021-06-19 18:26 | ED ---
Skin/Abscess/FB HPI - General Chief complaint: Skin/Abscess/Foreign Body Stated complaint: abscess on buttocks Time Seen by Provider: 06/19/21 17:45 Source: patient, family, RN notes reviewed Mode of arrival: wheelchair Limitations: no limitations - History of Present Illness Initial comments: Patient is a 71-year-old male with history of diabetes, heart failure, COPD, presenting to the emergency Department with complaints of a wound to his coccyx area over the past couple months. Patient states this started about 6-7 months ago, they did go to a blankbook stitching machine operator who gave him a topical steroid cream to use for the first 2 weeks and then to use intermittently after that. He states over the past couple weeks it's been getting a little bit worse, they do have an appointment tomorrow with a blankbook stitching machine operator for recheck but came today as the skin has started peeling. Patient denies any fevers or chills, no nausea or vomiting. He states the area is not painful just sometimes sore when he sits on it too long. Is having a hard time ambulating but is able to ambulate on his own. He does sit in his chair quite frequently, he tries to alternate which "butt cheek he sits on." He denies any further complaints at this time. His vital signs are stable upon arrival. - Related Data Home Medications Medication Instructions Recorded Confirmed Albuterol Sulfate [Proair Hfa] 1 - 2 puff INHALATION RT-QID PRN 10/20/19 05/07/20 Dorzolamide 2% [Trusopt 2%] 1 drop BOTH EYES BID 10/20/19 05/07/20 Montelukast Sodium [Singulair] 10 mg PO HS 10/20/19 05/07/20 Netarsudil Mesylat/Latanoprost 1 drop BOTH EYES HS 10/20/19 05/07/20 [Rocklatan 0.02%-0.005% Eye Drp] glipiZIDE XL [Glucotrol XL] 5 mg PO BID 10/20/19 05/07/20 metFORMIN HCL [Glucophage] 500 mg PO TID 10/20/19 05/07/20 Allopurinol [Zyloprim] 100 mg PO DAILY 04/23/20 05/07/20 Baclofen [Lioresal] 10 mg PO TID PRN 04/23/20 05/07/20 Ergocalciferol [Vitamin D2 50,000 unit PO Q30D 04/23/20 05/07/20 (DRISDOL)] Ipratropium-Albuterol Nebulize 3 ml INHALATION RT-QID 04/23/20 05/07/20 [Duoneb 0.5 mg-3 mg/3 ml Soln] Metoprolol Succinate (ER) [Toprol 25 mg PO DAILY 04/23/20 05/07/20 XL] Insulin Glargine,Hum.rec.anlog 16 units SQ HS 05/07/20 05/07/20 [Tourony Baldwin Solostar] Previous Rx's Medication Instructions Recorded Furosemide [Lasix] 40 mg PO BID #30 tablet 10/26/19 Aspirin 81 mg PO DAILY #30 tab 04/28/20 Atorvastatin [Lipitor] 80 mg PO DAILY #30 tab 04/28/20 Ferrous Sulfate [Iron (65 MG 325 mg PO W/LUNCH #30 tab 04/28/20 Elemental)] Losartan [Cozaar] 25 mg PO HS #30 tab 04/28/20 Ticagrelor [Brilinta] 90 mg PO BID #60 tab 04/28/20 predniSONE [Deltasone] 40 mg PO DAILY #6 tab 05/08/20 Allergies Allergy/AdvReac Type Severity Reaction Status Date / Time No Known Allergies Allergy Verified 05/07/20 17:21 Review of Systems ROS Statement: Those systems with pertinent positive or pertinent negative responses have been documented in the HPI. ROS Other: All systems not noted in ROS Statement are negative. Past Medical History Past Medical History: Asthma, Heart Failure, COPD, Diabetes Mellitus, Eye Disorder Additional Past Medical History / Comment(s): "leaky" heart valve-pt does not recall which valve, NIDDM type II, neuropathy bilateral feet, bronchitis, bilateral glaucoma, past gastric ulcer, chronic low back pain History of Any Multi-Drug Resistant Organisms: None Reported Past Surgical History: Heart Catheterization With Stent Additional Past Surgical History / Comment(s): throat surgery (nodules removed from vocal cords.), cataract removal Past Anesthesia/Blood Transfusion Reactions: No Reported Reaction Date of Last Stent Placement:: 04/27/20 Past Psychological History: No Psychological Hx Reported Smoking Status: Former smoker Past Alcohol Use History: Occasional Past Drug Use History: None Reported - Past Family History Father Family Medical History: Coronary Artery Disease (CAD) Additional Family Medical History / Comment(s): Father had CAD/CABG. He is . Pt had not had contact with his father for 30 yrs. Mother Family Medical History: Congestive Heart Failure (CHF), Neurologic Disorder Additional Family Medical History / Comment(s): Parkinsons dx. Mother from CHF. family Additional Family Medical History / Comment(s): reports CAD history General Exam - General Exam Comments Initial Comments: GENERAL: Patient is well-developed and well-nourished. Patient is nontoxic and in no acute distress. HEAD: Atraumatic, normocephalic. EYES: Pupils equal round and reactive to light, extraocular movements intact, sclera anicteric, conjunctiva are normal. Eyelids were unremarkable. ENT: Moist mucous membranes. NECK: Normal range of motion, supple without lymphadenopathy or JVD. LUNGS: Unlabored respirations. Breath sounds clear to auscultation bilaterally and equal. No wheezes rales or rhonchi. HEART: Regular rate and rhythm without murmurs, rubs or gallops. NEUROLOGICAL: Patient is alert and oriented x 3. Normal speech, normal gait. PSYCH: Normal mood, normal affect. SKIN: Warm, Dry, normal turgor, no rashes. Patient has a 1-2 cm in diameter area to the right buttocks, near the coccyx area that has just proximal to the first layer was skin, stage I ulcer. There is no active draining, no pain with palpation surrounding the area, no significant erythema. No signs of an abscess or induration. Limitations: no limitations Course Vital Signs 06/19/21 15:56 Temperature 98.6 F Pulse Rate 81 Respiratory 18 Rate Blood Pressure 151/71 O2 Sat by Pulse 97 Oximetry Medical Decision Making - Medical Decision Making Patient is a 71-year-old male with history of diabetes presenting with a stage I bedsore on the right side, near the coccyx area. His been going on for about 6 months, they have been using topical steroid cream from the blankbook stitching machine operator. This seems to be drying out the area, top layer of skin is very dry. There is no active drainage, no signs of an abscess, no pain with palpation. I recommended a few days with topical antibiotic followed by a topical skin protectant. Recommended discontinuing the topical steroid cream. I did give them some to go home with. Recommended following up with their doctor. The patient and patient's are in agreement with this plan of care and patient is stable for discharge. Disposition Clinical Impression: Stage 1 decubitus ulcer in diabetic patient Disposition: HOME SELF-CARE Condition: Stable Instructions (If sedation given, give patient instructions): How to Prevent Pressure Injuries (ED) Additional Instructions: Please return to the Emergency Department if symptoms worsen or any other concerns. Recommended topical antibiotic for the next 2-3 days, followed by a skin protectant. Discontinue topical steriod cream. Try not to sit in same spot for more than an hour without adjusting. Follow-up with your doctor. Is patient prescribed a controlled substance at d/c from ED?: No Referrals: Kitty Stacy MD [Primary Care Provider] - 1-2 days Time of Disposition: 18:26
== END 2021-06-19 18:40 | disposition home or self-care (01) ==
LOC: EC 15:39
DX: E11.622 Type 2 diabetes mellitus with other skin ulcer (principal); L89.151 Pressure ulcer of sacral region, stage 1; J44.9 Chronic obstructive pulmonary disease, unspecified; I50.9 Heart failure, unspecified; Z79.4 Long term (current) use of insulin; Z79.82 Long term (current) use of aspirin; Z87.891 Personal history of nicotine dependence; Z87.11 Personal history of peptic ulcer disease; Z79.899 Other long term (current) drug therapy
CPT/HCPCS: 99283

== ENCOUNTER → 2022-01-05 | Outpatient (CLI) | payer MEDICARE ==
--- NOTE | 2022-01-05 14:29 | MR ---
EXAMINATION TYPE: MR cervical spine wo con DATE OF EXAM: 01/05/2022 COMPARISON: 05/14/2021 HISTORY: Neck and back pain for 2 years, trouble walking. Multiplanar multiecho imaging of the cervical spine with no contrast. The cervical vertebra have normal alignment. Disc spaces are fairly normal for age. There is a small posterior disc bulge and herniation at C4-5. There is developmentally adequate spinal canal. No spina l stenosis. Spinal canal measures 7.2 mm at C4-5 which is the narrowest point. Bulging more on the le ft side. Cervical spinal cord shows no evidence of edema. Brainstem appears intact. No compression fracture. N o evidence of paraspinal mass. IMPRESSION: Small posterior central and left side C4-5 cervical disc herniation without change. No spinal stenosi s.
== END | disposition home or self-care (01) ==
LOC: RADMRIMAIN 07:09
PROVIDERS: ATTEND Neurological Surgery
DX: M50.221 Other cervical disc displacement at C4-C5 level (principal)
CPT/HCPCS: 72141

== ENCOUNTER 2022-01-22 07:29 | Outpatient (CLI) | payer MEDICARE ==
[2022-01-22] MEDS ORDERED: diazePAM 5 MG TAB PO ONE (08:48)
[2022-01-22 08:53] LABS: Glucose,Whole Blood 255 mg/dL (75-99)
[2022-01-22 09:09] VITALS: TEMP 98.3
--- NOTE | 2022-01-22 12:19 | FL ---
EXAMINATION TYPE: FL guided lumbar puncture LP DATE OF EXAM: 01/22/2022 HISTORY: Normal pressure hydrocephalus. Correlation with lumbar MRI 05/14/2021 Maximal barrier technique was utilized. The skin overlying the L3 transverse process was localized u nder fluoroscopy and the overlying skin prepped and draped. Lidocaine used for local anesthesia. 20 -gauge needle was advanced into the thecal sac under fluoroscopic guidance and cerebrospinal fluid wa s noted to return in the hub of the needle. Despite patient repositioning only minimal fluid obtained approximately 5 cc, patient unable to turn on his side for measurement of opening pressure. A spot i mage verified needle placement. Intrathecal injection of radiopharmaceutical is performed without incident. The patient remained in stable condition, the needle was removed. Hemostasis achieved. No immediate complication. IMPRESSION: Lumbar puncture as described using fluoroscopy. See additional nuclear medicine cerebral spinal fluid flow study same date. 1 minute 43 seconds fluoroscopy, single image obtained documenting the procedure.
[2022-01-22] MEDS ORDERED: ACETAMINOPHEN TAB 325 MG TAB ONE (13:30)
[2022-01-22 16:12] VITALS: RESP 16
[2022-01-22 16:26] VITALS: BP 133/60
[2022-01-22 16:29] VITALS: PULSE 76
--- NOTE | 2022-01-24 15:32 | NM ---
EXAMINATION TYPE: NM cerebral spine fluid flow DATE OF EXAM: 01/24/2022 COMPARISON: MRI brain 03/12/2021 HISTORY: 71-year-old male G91.2, normal pressure hydrocephalus. TECHNIQUE: Following intrathecal administration of 550 uCi In-111 DTPA uCi In-111 DTPA via lumbar pu ncture. Images were taken at 6, 24, and 48 hours post injection in both AP and lateral projections. FINDINGS: At 6 hours, there is radiotracer seen within the thecal sac extending to the base of the brain but al so collecting abnormally within the ventricles. At 24 hours, there is some activity that is into the sylvian fissures but incomplete extension over t he cerebral convexities. Persistent tracer within the ventricles. At 48 hours, there is incomplete progression of tracer over the convexities and persistent tracer wit hin the ventricles. IMPRESSION: Delay in extension of tracer over the cerebral convexities along with early accumulation and persiste nce of tracer within the ventricles. Findings can be seen with normal pressure hydrocephalus.
== END 2022-01-22 15:02 | disposition home or self-care (01) ==
LOC: RADPROMAIN 07:29
PROVIDERS: ATTEND Neurological Surgery
DX: G91.2 (Idiopathic) normal pressure hydrocephalus (principal)
CPT/HCPCS: 62328; J2001; 78630

== ENCOUNTER → 2022-02-18 | Outpatient (CLI) | payer MEDICARE ==
[2022-02-18 11:22] VITALS: BP 122/72; PULSE 82; RESP 18; TEMP 98.3
--- NOTE | 2022-02-21 14:49 | P.PAINPG ---
PQRS Measure Charge Sheet Comment: HISTORY OF PRESENT ILLNESS: 71 yr old male w at side as a referral from Dr. Guerrero for severe and chronic LBP secondary to disc bulges, DDD and facet arthropathy for evaluation. 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 PT ended 3 mo ago but started in Aug 2021 which didn't help. States massage integrated with PT hurt more. Uses a massage gun at home. Pain is provoked with standing/ walking for periods of 5 min or more. Palliated with medications (Tylenol), heating pad use, use of an adjustable bed with LEs elevated, use of a wheelchair and cane for ambulation, repositioning and rest. PMH: Asthma, CHF, COPD, NIDDM Type II, Glaucoma PSH: Cardiac Cath w stent (2019), Laryngeal Microsurgery, Cataract Resection SH: 31 pack/ yr tobacco user (Quit 2019), Occasional ETOH use, No illicit drug use. Fdc. FH: Mother- Parkinson's Disease/ CHF/ . Father- CAD/CABG Surgery/ . All: NKDA Meds: See list REVIEW OF ORGAN SYSTEMS: CONSTITUTIONAL: No fevers or chills. No recent weight loss. NEUROLOGICAL: + numbness and tingling along the distal extremities. No seizure disorders or headaches. MUSCULOSKELETAL: + pain PSYCHIATRIC: Denies current depression or suicidal thoughts. Physical Examinations : Constitutional : Cooperative , not in acute distress . Neurologic : Cranial nerve II to XII intact. No focal neurological deficits. Psychiatric : alert & oriented x 3. Matching mood & appropriate affect. Judgment & insight intact. Musculoskeletal : Cervical Spine Motor strength in the deltoid and biceps: Normal right side. Normal Left side Motor strength biceps and the wrist extensors: Normal right side . Normal left side Motor strength in the triceps muscle: Normal right side. Normal left side Deep tendon reflexes: Normal at the biceps. Normal at Brachioradialis. Normal at triceps Vertebral body tenderness to deep palpation over Cervical facet loading test: positive bilaterally Spurling test: positive bilaterally Neck distraction test: positive bilaterally Edwige sign: positive bilaterally Lumbar spine Motor strength lower extremities ,thigh and legs 5/5 Right side , 5/5 Left side Deep tendon reflexes : Normal Knee Jerk. Normal Ankle Jerk Vertebral body tenderness over L4 w accompanying paraspinal TTP Lumbar facet Loading Test: positive Right / positive Left Range of motion of the lumbar spine Flexion 30 degrees, extension 10 degrees Straight Leg Raise test: Left/ Right positive at degree Marian[place] test: positive right / positive left. Severe tenderness over the Sacroiliac joint on the Right / Left sides Gaenslen test: positive bilaterally Seated flexion test: positive bilaterally. Sacral spine : Severe tenderness over the Sacroiliac joint: right side / left side Range of motion: Flexion of the lumbar spine <60 degrees Range of motion: Extension of the lumbar spine <20 degrees Gaenslen's Test positive Dane's Test positive Marianna test: positive right side / left side Thigh Thrust Test Sacral Thrust Test Imaging: MRI without contrast of the lumbar spine from 05/15/21 reviewed. Assessment/ Plan : Lumbar DDD Recommendation of LESI L4-L5. Need a series of injections, up to 3 within a six-month timeframe, for optimal pain relief. Risks, benefits of procedure discussed and patient verbalized understanding. Admits to aspirin or anti- coagulant use or medical history of diabetes. Protocol for discontinuation/ continuation of medications andrea procedure discussed. All questions answered. I have spent greater than 30 minutes on patient care today. Dr Moss was available by phone for the evaluation of this patient. The time was used to review the medical records including relevant urine studies and Prescription history (MAPs), review of the available imaging, evaluation and examination of the patient, coordination of care with the medical staff and if applicable referring physicians, as well as creation of the medical record - Pain Location Bilateral Lower Back Non-Pharmacological Interventions: Heat, Inactivity, Massage, Physical Therapy, Position/Reposition Pharmacological Interventions: PRN Medication PQRS Narrative: Smoking Status Current every day smoker Home Medications: Ambulatory Orders Albuterol Sulfate [Proair Hfa] 1 - 2 puff INHALATION RT-QID PRN 10/20/19 Dorzolamide 2% [Trusopt 2%] 1 drop BOTH EYES BID 10/20/19 Montelukast Sodium [Singulair] 10 mg PO HS 10/20/19 Netarsudil Mesylat/Latanoprost [Rocklatan 0.02%-0.005% Eye Drp] 1 drop BOTH EYES HS 10/20/19 glipiZIDE XL [Glucotrol XL] 5 mg PO BID 10/20/19 metFORMIN HCL [Glucophage] 500 mg PO BID 10/20/19 Furosemide [Lasix] 40 mg PO BID #30 tablet 10/26/19 Ipratropium-Albuterol Nebulize [Duoneb 0.5 mg-3 mg/3 ml Soln] 3 ml INHALATION RT-QID 04/23/20 Metoprolol Succinate (ER) [Toprol XL] 25 mg PO DAILY 04/23/20 Atorvastatin [Lipitor] 80 mg PO DAILY #30 tab 04/28/20 Cholecalciferol [Vitamin D3 (10 Mcg = 400 Iu)] 10 mcg PO DAILY 01/14/22 Insulin Aspart [NovoLOG] 10 units SQ DAILY 01/14/22 Insulin Glargine,Hum.rec.anlog [Toujeo Solostar] 30 units SQ DAILY 01/14/22 lisinopriL [Zestril] 5 mg PO DAILY 01/14/22 Pregabalin 100 mg PO BID PRN 01/22/22 Controlled Substance Measures - Controlled Substance Measures Is patient prescribed a controlled substance at discharge?: No
== END ==
LOC: PNWHC3 10:17
PROVIDERS: ATTEND Specialist
DX: M51.36 Other intervertebral disc degeneration, lumbar region (principal); J44.9 Chronic obstructive pulmonary disease, unspecified; E11.9 Type 2 diabetes mellitus without complications; I50.9 Heart failure, unspecified; F17.200 Nicotine dependence, unspecified, uncomplicated; Z79.51 Long term (current) use of inhaled steroids; Z79.84 Long term (current) use of oral hypoglycemic drugs; Z79.4 Long term (current) use of insulin
CPT/HCPCS: 99211

== ENCOUNTER → 2022-03-11 | Outpatient (CLI) | payer MEDICARE ==
--- NOTE | 2022-03-11 21:44 | MR ---
EXAMINATION TYPE: MR lumbar spine wo con DATE OF EXAM: 03/11/2022 COMPARISON: Lumbar spine May 14, 2021 HISTORY: LBP, BLE radiculopathy, difficulty walking. TECHNIQUE: Multiplanar, multisequence imaging of the lumbar spine is performed without IV contrast. FINDINGS: Sagittal images of the lumbar spine show vertebral body heights and alignment to remain sat isfactory. Multilevel disc desiccation redemonstrated. Disc space height is fairly well preserved. Sm all hemangioma involving T11 vertebral sagittal image 9 is redemonstrated The conus medullaris remain s high in position ending at T12 level without abnormal signal or suspicious clumping of lumbosacral nerve roots. Prominent epidural fat redemonstrated beginning at roughly the inferior L3 levels becomi ng severe at L5 level. Axial images at T12-L1 and L1-L2 levels show mild to moderate facet arthropathy bilaterally. Spinal c anal is preserved. No significant change from prior. Axial images at L2-L3 and L3-L4 levels redemonstrate mild broad disc bulges with mild facet arthropat hy L2-L3 level. Spinal canal is preserved. There is mild left-sided anterior inferior neural foramina l narrowing at L2-L3 level and mild bilateral anterior inferior neuroforaminal narrowing at L3-L4 lev el redemonstrated. No significant change from prior. Axial images at L4-L5 level [id number] broad disc bulge with prominent epidural fat. There is m ild to moderate facet arthropathy bilaterally. There is [id number] bilateral neural foraminal n arrowing. No significant change from prior. Axial images at L5-S1 level redemonstrated mild facet arthropathy bilaterally. There is prominent epi dural fat redemonstrated. Bilateral neural foramina are patent. No significant change from prior. No suspicious incidental retroperitoneal findings. IMPRESSION: Prominent mid to lower lumbar spine epidural lipomatosis redemonstrated. Multilevel degen erative changes as detailed above. No significant change from prior MRI.
== END | disposition home or self-care (01) ==
LOC: RADMRIMAIN 17:32
PROVIDERS: ATTEND Neurological Surgery
DX: M47.816 Spondylosis without myelopathy or radiculopathy, lumbar region (principal); M48.062 Spinal stenosis, lumbar region with neurogenic claudication
CPT/HCPCS: 72148

== ENCOUNTER 2022-03-26 09:09 | Day surgery (SDC) | payer MEDICARE ==
[2022-03-22 10:34] VITALS: BMI 37.4
[2022-03-26] MEDS ORDERED: LACTATED RINGERS 1,000 ML IV ONE ×2 (09:32→10:21)
[2022-03-26] MEDS ORDERED: LIDOCAINE 1% (10MG/ML) FOR IV START INTRADERMA PRN (09:39)
[2022-03-26] MEDS ORDERED: LACTATED RINGERS 1,000 ML IV SCH (09:39)
[2022-03-26 09:42] VITALS: TEMP 97
[2022-03-26 09:51] LABS: Glucose,Whole Blood 169 mg/dL (70-110)
[2022-03-26] MEDS ORDERED: fentaNYL (PF) 50 MCG/ML 2 ML AMP ONE (10:06)
[2022-03-26] MEDS ORDERED: methylPREDNISolone ACETATE 40 MG/ML 1 ML VIAL ONE (10:06)
[2022-03-26] MEDS ORDERED: IOPAMIDOL M200 10 ML VIAL ONE (10:06)
[2022-03-26] MEDS ORDERED: MIDAZOLAM 2 MG/2 ML VIAL ONE (10:06)
--- NOTE | 2022-03-26 10:18 | P.PCN ---
Date of Procedure: 03/26/22 Procedure(s) Performed: PREOPERATIVE DIAGNOSIS: 1- Lumbar Degenerative Disc Diseases 2-Lumbar spondylosis with Facet arthropathy without myelopathy POSTOPERATIVE DIAGNOSIS: Same as preop diagnosis. PROCEDURE 1. Lumbar epidural steroid injection under fluoroscopic guidance at the L4-5 level. (Fluoroscopy imaging was available in radiology department) 2. Lumbar epidurogram. ANESTHESIA: moderate sedation with intravenous Versed 1 mg ,and fentanyle 50 Mcg Sedation start time : 1008 Sedation end time : 1016 EBL: Minimal PROCEDURE INDICATION: The patient with low back pain and radiculitis symptoms unresponsive to conservative treatment. Fluoroscopy was used to optimize visualization of the needle placement and to maximize safety. PROCEDURE DESCRIPTION / TECHNIQUE: The patient was seen and identified in the preoperative area. Risks, benefits, complications including but not limited to infections ,bleeding ,allergic reaction to the medications ,nerve damage and not complete pain releife , and alternatives were discussed with the patient. The patient agreed to proceed with the procedure and signed the consent. IV was started, and vital signs were stable. Patient was taken to the OR and time out was completed. The patient was placed in the prone position on procedure table and a pillow was placed under the abdomen to reduce lumbar lordosis. The lumbosacral area was prepped and draped in the usual sterile fashion.ere closely monitored during the procedure. Conscious sedation was used during the procedure to decrease patients anxiety. Vital signs was monitered during the entire procedure. Using anterior-posterior fluoroscopy, the L4-5 interlaminar space was identified and the skin over this site was marked and then infiltrated with 1% lidocaine subcutaneously. Subsequently, a 20-gauge Tuohy epidural needle was inserted and advanced toward the epidural space using the ``Loss of resistance technique and guided by AP and lateral fluoroscopy. The correct needle position in the epi dural space was verified with the injection of 2 mL of the water soluble contrast dye Isovue 200 contrast and observing an excellent epidurogram with the epidural spread of the dye, after negative aspiration for blood and CSF and in the absence of paresthesias. Again after negative aspiration, a 5 ml mixture containing 40 mg of Depo-medrol , and 2 ml of preservative free Normal Saline, and 2 ml of preservative free lidocaine 1% solution was injected and a washout of epidurogram was seen. Needle was withdrawn intact, skin was cleansed, and bandages were applied. COMPLICATIONS: None DISPOSITION / PLANS: The patient was placed in a supine position and transferred to the recovery area in a stable condition for observation. There was no evidence of lower extremity motor or sensory deficit after the procedure. Patient was discharged from the recovery room after meeting discharge criteria. Home discharge instructions were given to the patient by the staff. The patient was reexamined prior to discharge. The patient will schedule a follow up in the clinic in 2-4 weeks.
[2022-03-26] MEDS ORDERED: IV FLUID CONTINUATION 800 ML IV ONE (10:21)
--- NOTE | 2022-03-26 10:24 | FL ---
Intraoperative/procedural fluoroscopic services were provided. Total fluoroscopy time is 8 seconds wi th a total of 1 submitted images to PACS. Please see the operative/procedural note for further detail s.
[2022-03-26 10:27] VITALS: RESP 16
[2022-03-26 10:39] VITALS: BP 153/79; PULSE 71
== END 2022-03-26 10:48 | disposition home or self-care (01) ==
LOC: ORPAIN 09:09
PROVIDERS: ATTEND Specialist
DX: M51.16 Intervertebral disc disorders with radiculopathy, lumbar region (principal); M47.26 Other spondylosis with radiculopathy, lumbar region; Z79.899 Other long term (current) drug therapy; Z79.82 Long term (current) use of aspirin; Z79.4 Long term (current) use of insulin; Z79.52 Long term (current) use of systemic steroids; Z87.891 Personal history of nicotine dependence; Z82.0 Family history of epilepsy and other diseases of the nervous system; Z82.49 Family history of ischemic heart disease and other diseases of the circulatory system
CPT/HCPCS: 62323; J2250; J1030; J3010; Q9966

== ENCOUNTER → 2022-04-11 | Outpatient (CLI) | payer MEDICARE ==
[2022-04-11 12:53] VITALS: BP 132/60; PULSE 67; RESP 16
--- NOTE | 2022-04-11 14:19 | P.PAINPG ---
PQRS Measure Charge Sheet Comment: A 71 yr old male w at side with a history of severe and chronic low back pain secondary to lumbar degenerative disc diseases and lumbar spondylosis with facet arthropathy without myelopathy presents today for evaluation s/p CHUY L4- L5. Pt states he had 30% pain relief s/p procedure. Pain level is currently at 9/10 in intensity, constant, localized in the lower lumbar spine, throbbing/ sharp in character w shooting towards the BLEs. Pain is provoked by standing/ walking for periods of 10 min or more. Pain is alleviated with PT in Sep 2021, home stretching regimen as tolerated, use of walker/ wheelchair for ambulation, repositioning and rest. Interventional pain procedures completed include CHUY L4-L5 x1. Patient is currently on Tylenol OTC, Aleve OTC Patient denies any side effects of the medication(s), denies excessive drowsiness or sleepiness, denies suicidal ideation and reports that the current pain medication is helping to control the pain and improve activities of daily living. Patient denies any motor or sensory deficits. Patient denies any fever or night sweats, denies any change in the bowel movements or urination. Physical Examination: -Constitutional: Cooperative. Not in acute distress . - Neurologic: Cranial nerve II to XII intact. No focal neurological deficits. - Psychatric: Alert & oriented x 3. Matching mood & appropriate affect. Judgment and insight intact. - Musculoskeletal: Cervical spine: Muscle bulk/ tone/ strength in the bilateral upper extremities normal Vertebral body tenderness to palpation over Spurling test positive Distraction test positive Facet loading test positive Thoracic spine Muscle bulk / tone/ strength in the bilateral paraspinal muscles normal Vertebral body tender to palpation over Facet loading test positive Lumbar spine: Motor bulk/ tone/ strength lower extremities , thigh and legs : 5/5 Deep tendon reflexes : Normal Knee Jerk. Normal Ankle Jerk . Vertebral body tenderness to palpation over Lumbar Facet Loading Test positive over BL L5-S1 w accompanying paraspinal TTP Straight Leg Raise: positive at 30 degrees right side/ left side Gaenslen's Test positive Sacral spine : Severe tenderness over the Sacroiliac joint: right side / left side Range of motion: Flexion of the lumbar spine <60 degrees Range of motion: Extension of the lumbar spine <20 degrees Gaenslen's Test positive Dane's Test positive [place] test: positive right side / left side Thigh Thrust Test Sacral Thrust Test Assessment and plan: Chronic low back pain secondary to lumbar degenerative disc disease , lumbar spondylosis with facet arthropathy without myelopathy Recommendation of BL L5-S1 MBB #1. May need a series of injections, up until RFA, for optimal pain relief. Risks, benefits of procedure discussed and pt verbalized understanding. Denies anticoagulant use and admits to a medical history of diabetes. Protocol for discontinuation/ continuation of medications andrea procedure discussed. All patient questions answered MAPS reviewed and it was appropriate. I have spent less than 30 minutes on patient care today. Dr Moss was available by phone for the evaluation of this patient. The time was used to review the medical records including relevant urine studies and Prescription history (MAPs), review of the available imaging, evaluation and examination of the patient, coordination of care with the medical staff and if applicable referring physicians, as well as creation of the medical record PQRS Narrative: Smoking Status Current every day smoker Hx Alcohol Use (MH) Yes: RARELY Home Medications: Ambulatory Orders Albuterol Sulfate [Proair Hfa] 1 - 2 puff INHALATION RT-QID PRN 10/20/19 Dorzolamide 2% [Trusopt 2%] 1 drop BOTH EYES BID 10/20/19 Montelukast Sodium [Singulair] 10 mg PO HS 10/20/19 Netarsudil Mesylat/Latanoprost [Rocklatan 0.02%-0.005% Eye Drp] 1 drop BOTH EYES HS 10/20/19 glipiZIDE XL [Glucotrol XL] 5 mg PO BID 10/20/19 metFORMIN HCL [Glucophage] 500 mg PO BID 10/20/19 Furosemide [Lasix] 40 mg PO BID #30 tablet 10/26/19 Ipratropium-Albuterol Nebulize [Duoneb 0.5 mg-3 mg/3 ml Soln] 3 ml INHALATION RT-QID 04/23/20 Metoprolol Succinate (ER) [Toprol XL] 25 mg PO DAILY 04/23/20 Atorvastatin [Lipitor] 80 mg PO DAILY #30 tab 04/28/20 Cholecalciferol [Vitamin D3 (10 Mcg = 400 Iu)] 10 mcg PO DAILY 01/14/22 Insulin Aspart [NovoLOG] 10 units SQ AC-LUNCH 01/14/22 Insulin Glargine,Hum.rec.anlog [Vickey Baird] 30 units SQ AC-LUNCH 01/14/22 lisinopriL [Zestril] 5 mg PO DAILY 01/14/22 Pregabalin 100 mg PO BID PRN 01/22/22 Controlled Substance Measures - Controlled Substance Measures Is patient prescribed a controlled substance at discharge?: No
== END ==
LOC: PNWHC3 12:21
PROVIDERS: ATTEND Specialist
DX: M51.36 Other intervertebral disc degeneration, lumbar region (principal); M47.816 Spondylosis without myelopathy or radiculopathy, lumbar region; G89.29 Other chronic pain; F17.200 Nicotine dependence, unspecified, uncomplicated
CPT/HCPCS: 99211

== ENCOUNTER 2022-05-24 08:26 | Day surgery (SDC) | payer MEDICARE ==
[~2022-05-24 08:26] MED LIST: LACTATED RINGERS 1,000 ML IV SCH
[2022-05-24 09:11] VITALS: TEMP 98.3
[2022-05-24 09:13] LABS: Glucose,Whole Blood 256 mg/dL (70-110)
[2022-05-24] MEDS ORDERED: MIDAZOLAM 2 MG/2 ML VIAL ONE (09:17)
[2022-05-24] MEDS ORDERED: ROPIVACAINE 5 MG/ML 20 ML AMPULE ONE (09:17)
--- NOTE | 2022-05-24 09:17 | P.PCN ---
Date of Procedure: 05/24/22 Description of Procedure: Procedure: BILATERAL L4-5, L5-S1 Diagnosis: Lumbar spondylosis without myelopathy ANESTHESIA: Per anesthesia record Imaging: Fluoroscopy was used, images where saved to the medical record The patient was seen and examined in the [facility]. Procedure risks and benefits were fully reviewed with the patient. The patient understands this is a diagnostic if local only is used, as will be the case today. The goal of the procedure is to inject medication onto the medial branch or small nerves that innervate the facet joints. In this way, we can hopefully identify which of these joints, if any, may be contributing to their pain. Informed consent for procedure was obtained. The patient was taken into the office fluoroscopy procedure room and placed prone on the table. A pillow was placed under the abdomen to reduce lumbar lordosis. Vital signs were closely monitored during the procedure. The skin over the area was prepped with Betadine X 3 and draped in usual sterile manner. Sterile technique was observed throughout procedure. Under biplanar fluoroscopic guidance, the target injection area of the L4, L5, Sacral Ala were targeted. A 25 gauge 31/2 inch spinal needle was then placed at the most medial and superior aspect of the transverse process near the "eye of the Maykel dog". Aspiration for blood was negative. 1 cc of 0.5% Ropivacaine was injected into the targeted areas separately. [place] were withdrawn intact. No complications were noted during the procedure. The patient tolerated the procedure well. The patient was placed in supine position and transferred to the recovery area for observation and remained stable until discharged home. Home discharge instructions were given to the patient by the staff. The patient will schedule a follow up as directed.
[2022-05-24] MEDS ORDERED: IV FLUID CONTINUATION 1,000 ML IV ONE (09:30)
--- NOTE | 2022-05-24 09:37 | FL ---
Fluoroscopy INDICATION: Pain FINDINGS: Fluoroscopy time: 7 seconds. Images obtained: 6. IMPRESSIONS: 1. Documentation of fluoroscopy.
[2022-05-24 09:46] VITALS: BP 145/82; PULSE 84; RESP 18
== END 2022-05-24 10:02 | disposition home or self-care (01) ==
LOC: ORPAIN 08:26
PROVIDERS: ATTEND Hospitalist
DX: M47.816 Spondylosis without myelopathy or radiculopathy, lumbar region (principal); I50.9 Heart failure, unspecified; J44.9 Chronic obstructive pulmonary disease, unspecified; H40.9 Unspecified glaucoma; E11.40 Type 2 diabetes mellitus with diabetic neuropathy, unspecified; K21.9 Gastro-esophageal reflux disease without esophagitis; Z79.84 Long term (current) use of oral hypoglycemic drugs; Z79.4 Long term (current) use of insulin; Z79.899 Other long term (current) drug therapy
CPT/HCPCS: 64493; 64494; J2250; J2795

== ENCOUNTER → 2022-06-10 | Outpatient (CLI) | payer MEDICARE ==
[2022-06-10 12:41] VITALS: BP 128/70; PULSE 79; RESP 18; TEMP 98.5
--- NOTE | 2022-06-10 14:43 | P.PAINPG ---
PQRS Measure Charge Sheet Comment: A 72 yr old male w at side with a history of severe and chronic low back pain secondary to lumbar degenerative disc diseases and lumbar spondylosis with facet arthropathy without myelopathy presents today for evaluation s/p MBB BL L3-L5 #1. 100% x 4 hrs s/p procedure. Pain level is currently at 0/10 in intensity, constant, localized in the lower lumbar spine, achy in character w shooting towards the BLEs and BL toes. Pain is provoked as high as 10/10 by standing/ walking for periods of 5 min or more. Pain is alleviated with PT x 8 wks 1 yr ago, use of a wheelchair and cane for ambulation, heat, meds (Tylenol OTC), topicals, sitting, repositioning and rest. Interventional pain procedures completed include LESI, BL MBB L3-L5 x1 Patient is currently on Tyl OTC Patient denies any side effects of the medication(s), denies excessive drowsiness or sleepiness, denies suicidal ideation and reports that the current pain medication is helping to control the pain and improve activities of daily living. Patient denies any motor or sensory deficits. Patient denies any fever or night sweats, denies any change in the bowel movements or urination. Physical Examination: -Constitutional: Cooperative. Not in acute distress . - Neurologic: Cranial nerve II to XII intact. No focal neurological deficits . - Psychatric: Alert & oriented x 3. Matching mood & appropriate affect. Judgment and insight intact. - Musculoskeletal: Cervical spine: Muscle bulk/ tone/ strength in the bilateral upper extremities normal Vertebral body tenderness to palpation over Spurling test positive Distraction test positive Facet loading test positive Thoracic spine Muscle bulk / tone/ strength in the bilateral paraspinal muscles normal Vertebral body tender to palpation over Facet loading test positive Lumbar spine: Motor bulk/ tone/ strength lower extremities , thigh and legs : 5/5 Deep tendon reflexes : Normal Knee Jerk. Normal Ankle Jerk . Vertebral body tenderness to palpation over Lumbar Facet Loading Test positive w lateral flexion BL over L4-L5, L5-S1 Straight Leg Raise: positive at 30 degrees right side/ left side Gaenslen's Test positive Sacral spine : Severe tenderness over the Sacroiliac joint: right side / left side Range of motion: Flexion of the lumbar spine <60 degrees Range of motion: Extension of the lumbar spine <20 degrees Gaenslen's Test positive Dane's Test positive [place] test: positive right side / left side Thigh Thrust Test Sacral Thrust Test Assessment and plan: Chronic low back pain secondary to lumbar degenerative disc disease , lumbar spondylosis with facet arthropathy without myelopathy Recommendation of BL MBB L4-L5, L5-S1 #2. May need a series, up until RFA, for optimal pain relief. Risks, benefits of procedure discussed and pt verbalized understanding. Denies anticoagulant use and admits to medical history of diabetes. Protocol for discontinuation/ continuation of medications andrea procedure discussed. All patient questions answered I have spent less than 30 minutes on patient care today. Dr Moss was available by phone for the evaluation of this patient. The time was used to review the medical records including relevant urine studies and Prescription history (MAPs), review of the available imaging, evaluation and examination of the patient, coordination of care with the medical staff and if applicable referring physicians, as well as creation of the medical record - Pain Location Bilateral Lower Back Non-Pharmacological Interventions: Heat, Inactivity, Physical Therapy, Sitting Pharmacological Interventions: Block, Epidural, PRN Medication, Topical Medication PQRS Narrative: Smoking Status Current every day smoker Hx Alcohol Use (MH) Yes: RARELY Home Medications: Ambulatory Orders Albuterol Sulfate [Proair Hfa] 1 - 2 puff INHALATION RT-QID PRN 10/20/19 Dorzolamide 2% [Trusopt 2%] 1 drop BOTH EYES BID 10/20/19 Montelukast Sodium [Singulair] 10 mg PO HS 10/20/19 Netarsudil Mesylat/Latanoprost [Rocklatan 0.02%-0.005% Eye Drp] 1 drop BOTH EYES HS 10/20/19 glipiZIDE XL [Glucotrol XL] 7.5 mg PO BID 10/20/19 metFORMIN HCL [Glucophage] 500 mg PO BID 10/20/19 Furosemide [Lasix] 40 mg PO BID #30 tablet 10/26/19 Ipratropium-Albuterol Nebulize [Duoneb 0.5 mg-3 mg/3 ml Soln] 3 ml INHALATION RT-QID PRN 04/23/20 Metoprolol Succinate (ER) [Toprol XL] 25 mg PO DAILY 04/23/20 Atorvastatin [Lipitor] 80 mg PO DAILY #30 tab 04/28/20 Cholecalciferol [Vitamin D3 (10 Mcg = 400 Iu)] 10 mcg PO DAILY 01/14/22 Insulin Aspart [NovoLOG] 10 units SQ AC-LUNCH 01/14/22 Insulin Glargine,Hum.rec.anlog [Tourony Solostar] 30 units SQ AC-LUNCH 01/14/22 lisinopriL [Zestril] 5 mg PO DAILY 01/14/22 Controlled Substance Measures - Controlled Substance Measures Is patient prescribed a controlled substance at discharge?: No
== END ==
LOC: PNWHC3 12:07
PROVIDERS: ATTEND Specialist
DX: M47.816 Spondylosis without myelopathy or radiculopathy, lumbar region (principal); M51.36 Other intervertebral disc degeneration, lumbar region; G89.29 Other chronic pain; F17.200 Nicotine dependence, unspecified, uncomplicated
CPT/HCPCS: 99211

== ENCOUNTER → 2022-06-14 | Outpatient (CLI) | payer MEDICARE ==
--- NOTE | 2022-06-17 12:31 | US ---
EXAMINATION TYPE: US arterial LE multi level DATE OF EXAM: 06/14/2022 12:36 PM CLINICAL HISTORY: I73.9 PERIPHERAL VASCULAR DISEASE, UNSPECIFIED. cramping everywhere in the body, h/ o heart stenting and valve replacement, diabetic, HTN, CHF, diabetes, hyperlipidemia. Doppler Waveforms: Right: Predominantly monophasic Left: Monophasic to biphasic Ankle-Brachial Indices: Right: 1.0 Left: 1.0 Toe Brachial Indices: Right: 0.5 Left: 0.5 IMPRESSION: Diminished bilateral TBI is consistent with at least mild peripheral arterial disease in the bilateral feet. Further workup and follow-up advised.
== END | disposition home or self-care (01) ==
LOC: RADUSWWP 12:01
PROVIDERS: ATTEND Family Medicine
DX: I73.9 Peripheral vascular disease, unspecified (principal); I11.0 Hypertensive heart disease with heart failure; E78.5 Hyperlipidemia, unspecified; E11.9 Type 2 diabetes mellitus without complications; I50.9 Heart failure, unspecified; Z95.2 Presence of prosthetic heart valve
CPT/HCPCS: 93923

== ENCOUNTER 2022-07-18 08:19 | Day surgery (SDC) | payer MEDICARE ==
[~2022-07-18 08:19] MED LIST changes: +LIDOCAINE 1% (10MG/ML) FOR IV START INTRADERMA PRN
[2022-07-18 09:04] VITALS: RESP 18; TEMP 97.1
[2022-07-18 09:17] LABS: Glucose,Whole Blood 195 mg/dL (70-110)
[2022-07-18] MEDS ORDERED: methylPREDNISolone ACETATE 40 MG/ML 1 ML VIAL ONE (09:21)
[2022-07-18] MEDS ORDERED: MIDAZOLAM 2 MG/2 ML VIAL ONE (09:21)
[2022-07-18] MEDS ORDERED: ROPIVACAINE 5 MG/ML 20 ML AMPULE ONE (09:21)
[2022-07-18] MEDS ORDERED: fentaNYL (PF) 50 MCG/ML 2 ML AMP ONE (09:21)
--- NOTE | 2022-07-18 09:42 | P.PCN ---
Date of Procedure: 07/18/22 Procedure(s) Performed: PREOPERATIVE DIAGNOSIS : 1- Lumbar spondylosis with Facet Arthropathy without myelopathy . 2- Lumber degenerative disc disease POSTOPERATIVE DIAGNOSIS: 1- Lumbar spondylosis with Facet Arthropathy without myelopathy . 2- Lumber degenerative disc disease PROCEDURE: Diagnostic bilateral L3 , L4 , and L5 medial branch block under fluoroscopy guidance(fluoroscopy images available in the radiology Department ) ( To target the facet joint between bilateral L4-5 , and L5-S1 ) ANESTHESIA:moderate sedation with intravenous Versed 1 mg and Fentanyl 50 mcg. Sedation start 0 923. end 09:39 EBL: Minimal COMPLICATION: None PROCEDURE INDICATION: Chronic low back pain secondary to Facet arthropathy unresponsive to conservative treatment. PROCEDURE DESCRIPTION: the patient was seen and identified in the preop holding area , risks and benefits and possible complications of the procedure and alternative were discussed with the patient, and the patient agreed to proceed with the procedure and signed the consent and vital signs monitored during the procedure and fluoroscopy was used to maximize the benefit and accuracy of the needle placement, and sedation was given to decrease patient anxiety, patient was taken to the procedure room and placed in prone position vital signs monitored in the back prepped with chlorhexidine X3 then under strict sterile technique using a right oblique fluoroscopy ,the junction of the transverse process and the superior articulating process of the right L3 , L4 , and L5 vertebra which corresponding to the fluoroscopy image of the eye of the Maykel dog on the block side for the medial branches and subsequently , after local infiltration of skin and subcu tissuies with Ropivacaine 0.5 % , one mL at each level ,then 22-gauge 5 inches long Quincke-type needles , 3 needle was used , each one of them placed at the junction of the base of the transverse process and the superior articular process at the appropriate level, and the needle was advanced until the periosteum contacted, needle placement confirmed with AP oblique and lateral view and after appropriate needle placement confirmed, and after negative aspiration for heme and CSF and there was no paresthesia 1-1/2 mL of Ropivacaine 0.5% mixed with 20 mg Depo-Medrol , then half mL injected at each level after negative aspiration the needle subse quently removed and the same procedure repeated for the left side at left side at L3 , L4 and L5 levels. At the end of the procedure and the needles removed and a bandage applied after the skin was cleaned the cleaning solution patient taken to recovery room in stable condition and monitors in the recovery room for 20-30 minutes and discharged home in stable condition after discharge criteria met and patient will follow up with the pain clinic in 2-4 weeks
[2022-07-18] MEDS ORDERED: IV FLUID CONTINUATION 1,000 ML IV ONE (09:44)
[2022-07-18 09:53] LABS: Glucose,Whole Blood 187 mg/dL (70-110)
[2022-07-18 10:07] VITALS: BP 131/75; PULSE 83
--- NOTE | 2022-07-18 14:16 | FL ---
EXAMINATION TYPE: FL guided pain mgmt statistic DATE OF EXAM: 07/18/2022 FLUOROSCOPY Fluoroscopy time of 20 seconds was used during bilateral lumbar facet blocks. 4 image/s document/s t he procedure.
== END 2022-07-18 10:14 | disposition home or self-care (01) ==
LOC: ORPAIN 08:19
PROVIDERS: ATTEND Specialist
DX: M51.36 Other intervertebral disc degeneration, lumbar region (principal); M47.816 Spondylosis without myelopathy or radiculopathy, lumbar region; G89.29 Other chronic pain
CPT/HCPCS: 99152; 64493; 64494; J2250; J1030; J3010; J2795

== ENCOUNTER → 2022-08-01 | Outpatient (CLI) | payer MEDICARE ==
[2022-08-01 12:20] VITALS: BP 133/72; PULSE 79; RESP 18; TEMP 98
--- NOTE | 2022-08-01 12:33 | P.PAINPG ---
Subjective Progress Note Date: 08/01/22 Principal diagnosis: Lumbar back pain, and leg pain Mr. Caro is a 72 -year-old pleasant male came to the [facility] pain clinic for follow-up visit after lumbar L4-L5, and L5-S1 MBB #2 procedure. He had 80% pain relief for 2 hours following the procedure, which lasted less for more than 2 weeks duration. Gradually his pain dating back. He denied any lumbar back pain at this time. Sometimes his pain radiating to her lower extremity up to the knee area. His pain is getting worse when he is doing activities standing. He denied any pain while sitting after the intervention procedures. Patient has ongoing pain for many years. Patient describes pain is aching, throbbing, constant type of pain. Pain is radiating to bilateral lower extremity up to the knee areas.. Patient rated pain levels are 1 to 2 out of 10 in severity. With the help of medications pain levels are 2-7 out of 10 in severity. Activities making pain worse. Medications, resting, intervention procedures helping in relieving patient's pain. Patient pain some days better than others. Overall activities decreased secondary to pain. Because of the pain sometimes patient is feeling lack of sleep, interest, and energy. Denied any side effects with the medications. Denied any bowel or bladder problems at this time. He is using a wheelchair for support. Patient denies any suicidal or homicidal ideations intent or plan. Patient denies any auditory or visual hallucinations. Patient denied any red flag symptoms related to pain. 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 Sensation grossly intact Lower extremity: Decreased strength, and decreased range of motion secondary to pain Lumbar spine: Paravertebral tenderness: positive Lumbar facet load test : positive Sacroiliac joint tenderness: Negative - Constitutional Constitutional Comment(s): 12 point review of symptoms negative except as mentioned in the history of present illness. Assessment and Plan Assessment: Lumbar spondylosis without myelopathy Myofascial pain syndrome Chronic pain syndrome Plan: #1 Diagnoses, prognosis, and multiple treatment options including but not limited to physical therapy, interventional therapy, adjunct medication therapy, narcotic medication, and surgical options were discussed with the patient. And all questions were answered to the patient's satisfaction. #2 treatment plan agreement : Patient was thoroughly discussed regarding the treatment options, alternatives, and importance of exercises as tolerated. Patient clearly understood. #3 Patient was counseled on importance of regular exercise. Including emile chi, aerobic exercises as tolerated. Which helps for chronic pain, and overall well- being. #4 investigations: MAPS- reviewed , urine drug test- none #5 diagnostic tests: None #6 consultation : None at this time # 7 interventional procedures: Bilateral lumbar L4-L5, and L5-S1 medial branch radiofrequency ablation . Procedure, complications, alternatives discussed with the patient. #8 medications #1 Tylenol as needed for pain, not more than 2 g per day Medication side effects, complications, long-term consequences discussed with the patient. Patient recommended to contact the pain clinic if noticed any issues with given medications. #9 morphine milligrams equivalents dose ( MME) per day: 0 from the pain clinic. # 10 TENS unit's, and percussion massage device #11 disposition: scheduled to follow up with pain clinic in 4 weeks duration. Time with Patient: Less than 30 PQRS Measure Charge Sheet Measure #130: Documentation of Current Meds in Medical Chart: Patient's medications documented in chart Measure #226: Tobacco Use: Screen & Cessation Intervention: Pt not a tobacco user Measure #111: Pneumonia Vaccination: Pneumococcal vaccine administered or previously received Measure #47: Advance Care Plan: Advance care planning discussed & documented, plan or surrogate given Measure #412: Opioid Treatment Agreement: No documentation of signed opioid treatment agreement Measure #408: Opioid Therapy Follow-up Evaluation: Patient had NO f/u eval minimum every 3 months during opioid therapy Measure #317: Preventitive Care & Scrn High Bld Press & F/U: Pre-hypertensive or hypertensive BP documented, pt will f/u with PCP Measure #128: Body Mass Index (BMI) Screening & Follow-up: BMI documented ABOVE normal parameters - f/u documented Measure #131: Pain Assessment & Follow-up: Pain positive & plan documented Measure #431: Unhealthy Alcohol Use Preventative Care & Scrn: Patient not identified as an unhealthy alcohol user Mode of Arrival: Wheelchair - Pain Location Bilateral Lower Back Non-Pharmacological Interventions: Heat, Physical Therapy, Sitting Pharmacological Interventions: Block, Epidural, PRN Medication, Topical Medication PQRS Narrative: Smoking Status Current every day smoker Blood Pressure 133/72 Pain Intensity [Bilateral 9 Lower Back] Scale Used Numeric (1 - 10) Hx Alcohol Use (MH) Yes: RARELY Home Medications: Ambulatory Orders Albuterol Sulfate [Proair Hfa] 1 - 2 puff INHALATION RT-QID PRN 10/20/19 Dorzolamide 2% [Trusopt 2%] 1 drop BOTH EYES BID 10/20/19 Montelukast Sodium [Singulair] 10 mg PO HS 10/20/19 Netarsudil Mesylat/Latanoprost [Rocklatan 0.02%-0.005% Eye Drp] 1 drop BOTH EYES HS 10/20/19 glipiZIDE XL [Glucotrol XL] 2.5 mg PO BID 10/20/19 metFORMIN HCL [Glucophage] 500 mg PO BID 10/20/19 Furosemide [Lasix] 40 mg PO BID #30 tablet 10/26/19 Ipratropium-Albuterol Nebulize [Duoneb 0.5 mg-3 mg/3 ml Soln] 3 ml INHALATION RT-QID PRN 04/23/20 Metoprolol Succinate (ER) [Toprol XL] 25 mg PO DAILY 04/23/20 Atorvastatin [Lipitor] 80 mg PO DAILY #30 tab 04/28/20 Cholecalciferol [Vitamin D3 (10 Mcg = 400 Iu)] 10 mcg PO DAILY 01/14/22 Insulin Aspart [NovoLOG] 10 units SQ AC-LUNCH 01/14/22 Insulin Glargine,Hum.rec.anlog [[place] Solostar] 30 units SQ AC-LUNCH 01/14/22 lisinopriL [Zestril] 5 mg PO DAILY 01/14/22 allopurinoL [Zyloprim] 100 mg PO DAILY 07/16/22 calcitrioL [Calcitriol] 0.25 mcg PO FR 07/16/22 glipiZIDE [Glucotrol] 5 mg PO AC-BID 07/16/22 Controlled Substance Measures - Controlled Substance Measures Is patient prescribed a controlled substance at discharge?: No
== END ==
LOC: PNWHC3 11:59
DX: M47.816 Spondylosis without myelopathy or radiculopathy, lumbar region (principal); M79.10 Myalgia, unspecified site; G89.4 Chronic pain syndrome; F17.200 Nicotine dependence, unspecified, uncomplicated
CPT/HCPCS: 99211

== ENCOUNTER 2022-09-02 05:49 | Day surgery (SDC) | payer MEDICARE ==
[2022-08-27 16:36] VITALS: BMI 38.2
[2022-09-02] MEDS ORDERED: SODIUM CHLORIDE 0.9% 1,000 ML in EMPTY BAG 1 BAG IV ONE (06:06)
[2022-09-02] MEDS ORDERED: ASPIRIN 325 MG TAB PO PRN (06:06)
[2022-09-02] MEDS ORDERED: ALPRAZolam 0.25 MG TAB PO PRN (06:06)
[2022-09-02 06:45] LABS: Glucose,Whole Blood 206 mg/dL (70-110)
[2022-09-02 06:57] VITALS: TEMP 98.8
[2022-09-02] MEDS ORDERED: SODIUM CHLORIDE 0.9% 1,000 ML IV ONE (06:57)
[2022-09-02] MEDS ORDERED: INSULIN ASPART (NovoLOG) 100 UNIT/ML VIAL SQ ONE (06:58)
[2022-09-02 07:03] LABS: Basophils # (A) 0.1 k/uL (0-0.2); Basophils % (A) 1 %; Eosinophils # (A) 0.3 k/uL (0-0.7); Eosinophils % (A) 3 %; HCT 35.7 % (39.0-53.0); HGB 11.8 gm/dL (13.0-17.5); Lymphocytes # (A) 1.2 k/uL (1.0-4.8); Lymphocytes % (A) 14 %; MCH 31.9 pg (25.0-35.0); MCHC 33.1 g/dL (31.0-37.0); MCV 96.1 fL (80.0-100.0); Mean Platelet Volume 8.1; Monocytes # (A) 0.5 k/uL (0-1.0); Monocytes % (A) 5 %; Neutrophils # (A) 6.6 k/uL (1.3-7.7); Neutrophils % (A) 74 %; Platelet Count 201 k/uL (150-450); RBC 3.72 m/uL (4.30-5.90); RDW 13.7 % (11.5-15.5); WBC 8.9 k/uL (3.8-10.6)
[2022-09-02 07:25] LABS: Calcium 8.6 mg/dL (8.4-10.2); Potassium 4.3 mmol/L (3.5-5.1)
[2022-09-02] MEDS ORDERED: fentaNYL (PF) 50 MCG/ML 2 ML AMP IV ONE (07:40)
[2022-09-02] MEDS ORDERED: MIDAZOLAM 2 MG/2 ML VIAL IV ONE (07:40)
[2022-09-02] MEDS ORDERED: LIDOCAINE 1% INJ 10MG/ML (30 ML VIAL-PF) SQ ONE (07:42)
[2022-09-02] MEDS ORDERED: HEPARIN SODIUM 1,000 UN/ML (10ML VL) IV ONE (07:49)
[2022-09-02] MEDS ORDERED: IOPAMIDOL-250 100ML BTL INTRAARTER ONE (08:07)
--- NOTE | 2022-09-02 08:11 | P.PCN ---
Description of Procedure: PROCEDURES PERFORMED: Abdominal angiography with bilateral runoff INDICATION: PAD HISTORY: She is pleasant 72-year-old male with history of CAD, severe aortic stenosis status post TAVR, who had normal ABIs however ultrasound showing concern of inflow disease with monophasic waveforms. Given lower extremity pain is his calves and feet abdominal angiogram was recommended CONSENT:I have discussed the risks, benefits and alternative therapies for the above-mentioned procedure and for both sedation/analgesia as well as necessary b lood product administration, if indicated, as they pertain to this patient. The patient has indicated understanding and acceptance of the risks and procedures discussed. PROCEDURE: After the risks, benefits and alternatives of the above mentioned procedure explained in detail with the patient, informed consent was obtained. Patient was taken to the catheterization lab and prepped and draped in usual fashion. 1% lidocaine was used to anesthetize the radial area. A 6-Hungarian sheath was placed in the right radial artery using modified Seldinger technique. A 5-Hungarian pigtail catheter was inserted to the abdominal aorta and DSA imaging was obtained. Patient tolerated the diagnostic portion well. The pigtail was removed and the sheath was removed and a TR band was placed with hemostasis achieved. The patient tolerated the procedure well. Patient was transported back to the post catheterization holding area in stable condition. Conscious Sedation: Patient was monitored under the direct supervision of vision of myself for conscious sedation using Versed and fentanyl for a total duration of 21 minutes HEMODYNAMICS: Abdominal aorta: The abdominal aorta has mild calcifcation. Renal arteries are patent. There is no significant dissection or aneurysm. There is no significant stenosis. Right lower extremity: Right common iliac artery: There is no significant stenosis. Right external iliac artery: There is no significant stenosis. Right internal iliac artery: There is no significant stenosis. Right common femoral artery: There is no significant stenosis. Right profunda: There is no significant stenosis. Right SFA: There is mild 30% right SFA stenosis. Right popliteal artery: There is no significant stenosis. Right tibioperoneal trunk: There is a 30-40% TP trunk stenosis. Right anterior tibial artery: There is 100% right anterior tibial artery stenosis. Right porterior tibial artery: There is no significant stenosis. Right peroneal artery: There is no significant stenosis. Left lower extremity: Left common iliac artery: There is no significant stenosis. Left external iliac artery: There is no significant stenosis. Left internal iliac artery: There is no significant stenosis. Left common femoral artery: There is no significant stenosis. Left profunda: There is no significant stenosis. Left SFA: There is a 50-60% left SFA stenosis. Left popliteal artery: There is no significant stenosis. Left tibioperoneal trunk: There is no significant stenosis. Left anterior tibial artery: There is 100% left anterior tibial artery stenosis. Left porterior tibial artery: There is no significant stenosis. Left peroneal artery: There is no significant stenosis. FINAL IMPRESSION: 1. Peripheral arterial disease as described above including bilateral anterior tibial artery 100% stenoses and left SFA 50-60% stenosis and otherwise mild disease. PLAN: 1. Aggressive risk factor modification per most recent ACC/AHA guidelines. 2. Symptoms not matching angiosome and not explained by PAD. Would defer any treatment of anterior tibial arteries unless he develops nonhealing ulcers.
[2022-09-02 08:44] VITALS: RESP 16
--- NOTE | 2022-09-02 08:52 | IR ---
EXAMINATION TYPE: IR angio abdominal w runoff DATE OF EXAM: 09/02/2022 CLINICAL HISTORY: Leg pain. TECHNIQUE: Fluoroscopy. COMPARISON: None. FINDINGS: Fluoroscopic guidance was provided during abdominal angiogram with runoff procedure perfor med by Dr. Coombs. A total of 3.2 minutes of fluoroscopic time was utilized during the procedure a nd 133 spot images was acquired. Please refer to procedure note for further details. IMPRESSION: As Above.
[2022-09-02 11:18] VITALS: BP 122/71; PULSE 60
[2022-09-02 11:59] LABS: Glucose,Whole Blood 293 mg/dL (70-110)
== END 2022-09-02 12:34 | disposition home or self-care (01) ==
LOC: CATHCVL 05:49
PROVIDERS: ATTEND Internal Medicine
DX: I70.223 Atherosclerosis of native arteries of extremities with rest pain, bilateral legs (principal); I70.0 Atherosclerosis of aorta; I25.10 Atherosclerotic heart disease of native coronary artery without angina pectoris; Z95.2 Presence of prosthetic heart valve; I35.0 Nonrheumatic aortic (valve) stenosis; E11.51 Type 2 diabetes mellitus with diabetic peripheral angiopathy without gangrene; I10 Essential (primary) hypertension; E78.5 Hyperlipidemia, unspecified; J44.9 Chronic obstructive pulmonary disease, unspecified; F17.210 Nicotine dependence, cigarettes, uncomplicated; Z82.49 Family history of ischemic heart disease and other diseases of the circulatory system; F10.20 Alcohol dependence, uncomplicated; Z79.4 Long term (current) use of insulin; Z79.01 Long term (current) use of anticoagulants; Z79.02 Long term (current) use of antithrombotics/antiplatelets; Z79.51 Long term (current) use of inhaled steroids; Z79.82 Long term (current) use of aspirin; Z79.891 Long term (current) use of opiate analgesic; Z79.899 Other long term (current) drug therapy
CPT/HCPCS: 36200; 75625; 75716; 80048; 85025; 99152; 36245; C1769; C1894; J2250; J2001; J3010; J1644; Q9966

== ENCOUNTER 2022-09-06 11:13 | Day surgery (SDC) | payer MEDICARE ==
[~2022-09-06 11:13] MED LIST changes: +HEPARIN SODIUM 1,000 UN/ML (10ML VL) ONE; +VERAPAMIL 2.5 MG/ML 2 ML AMP ONE; +fentaNYL (PF) 50 MCG/ML 2 ML AMP ONE
[2022-09-06 11:43] VITALS: RESP 16; TEMP 96.6
[2022-09-06 11:52] LABS: Glucose,Whole Blood 177 mg/dL (70-110)
[2022-09-06] MEDS ORDERED: methylPREDNISolone ACETATE 40 MG/ML 1 ML VIAL ONE (12:19)
[2022-09-06] MEDS ORDERED: fentaNYL (PF) 50 MCG/ML 2 ML AMP ONE (12:19)
[2022-09-06] MEDS ORDERED: MIDAZOLAM 2 MG/2 ML VIAL ONE (12:19)
[2022-09-06] MEDS ORDERED: ROPIVACAINE 5 MG/ML 20 ML AMPULE ONE (12:19)
--- NOTE | 2022-09-06 13:02 | P.PCN ---
Date of Procedure: 09/06/22 Procedure(s) Performed: PREOPERATIVE DIAGNOSIS: 1-Lumbar Spondylosis with Facet Arthropathy without myelopathy. 2- Lumber degenerative disc disease. POSTOPERATIVE DIAGNOSIS: 1- Lumbar Spondylosis with Facet Arthropathy without myelopathy. 2- Lumber degenerative disc disease. PROCEDURES : Bilateral Radiofrequency thermocoagulation, L3 , L4 , and L5 medial branch, with fluoroscopic guidance (fluoroscopy images available in the radiology department) ( to denervate the facet joint at bilateral L4-5 ,and L5-S1 levels ). ANESTHESIA: Monitored anesthesia care as per anesthesia department . EBL: Minimal PROCEDURE INDICATION: The patient with low back pain secondary to lumbar facet arthropathy who had more than 50% relief of her pain with previous diagnostic lumbar medial branch block with bupivacaine. PROCEDURE DESCRIPTION / TECHNIQUE: The patient was seen and identified in the preoperative area. Risks, benefits, complications, including but not limited to risk of infection ,bleeding , allergic reactions to the medications and no complete pain releife , and alternatives were discussed with the patient, the patient agreed to proceed with the procedure and signed the consent. IV was started. Vital signs remained stable throughout the procedure. Patient was taken to the OR and time out was completed. The patient was placed in the prone position on the procedure table. The lumber area was prepped and draped in the usual sterile fashion. . Vital signs were closely monitored during the procedure .IV sedation was used during the procedure to decrease patients anxiety. Using AP and then oblique fluoroscopy, the ``eye of the Maykel dog cor responding to the connection between the superior and transverse articular processes of right L3, L4, and L5 were identified, marked, and localized with 1% lidocaine. Subsequently, a 18 guage 150-mm radiofrequency cannula with a 10-mm active tip was advanced guided by fluoroscopy to each of the``eyes of the Maykel dog at right L3, L4, and L5. Each site then underwent sensory testing at 50 Hz and 0 to 1 volt and motor testing at 2.5 Hz and 0 to 3 volt with local stimulation, but no radicular symptoms down the legs. Thereafter each sites underwent radiofrequency thermocoagulation at 80 degrees celsius for 90 seconds after injecting 0.5 ml of PF Ropivacaine 1ml, then after the thermocoagulation done , 1 ml of the block solution containing Depo-Medrol 20 mg and 3 ml of Ropivacaine 0.5% was injected at the right L3 , L4 , and L5 , levels after negative aspiration of CSF and blood and with no paresthesias. Cannulas were retracted while injecting lidocaine 1% until the needle is out. The same procedure was repeated at the level of Left L3, L4, and L5 levels. At the end of the procedure, the skin was cleansed and bandages were applied. COMPLICATIONS: No acute complications. DISPOSITION / PLANS: The patient was placed in a supine position and transferred to the recovery area in a stable condition for observation and was discharged from the recovery room after meeting discharge criteria. Home discharge instructions given to the patient by the staff. The patient was reexamined prior to discharge. The patient will schedule a follow up in the clinic in 2-4 weeks.
[2022-09-06] MEDS ORDERED: IV FLUID CONTINUATION 1,000 ML IV ONE (13:09)
--- NOTE | 2022-09-06 13:12 | FL ---
Fluoroscopy INDICATION: Pain FINDINGS: Fluoroscopy time: 47 seconds. Images obtained: 13. IMPRESSIONS: 1. Documentation of fluoroscopy.
[2022-09-06 13:50] VITALS: BP 124/74; PULSE 65
== END 2022-09-06 14:02 | disposition home or self-care (01) ==
LOC: ORPAIN 11:13
PROVIDERS: ATTEND Specialist
DX: M51.36 Other intervertebral disc degeneration, lumbar region (principal); M47.816 Spondylosis without myelopathy or radiculopathy, lumbar region; I25.10 Atherosclerotic heart disease of native coronary artery without angina pectoris; I11.0 Hypertensive heart disease with heart failure; J44.9 Chronic obstructive pulmonary disease, unspecified; I50.9 Heart failure, unspecified; E78.5 Hyperlipidemia, unspecified; Z95.5 Presence of coronary angioplasty implant and graft; E11.40 Type 2 diabetes mellitus with diabetic neuropathy, unspecified; Z87.891 Personal history of nicotine dependence; Z79.4 Long term (current) use of insulin; Z79.84 Long term (current) use of oral hypoglycemic drugs; Z79.51 Long term (current) use of inhaled steroids; Z79.899 Other long term (current) drug therapy

== ENCOUNTER → 2023-09-24 | Outpatient (CLI) | payer MEDICARE ==
--- NOTE | 2023-09-24 15:30 | CTL ---
EXAMINATION TYPE: CT Low Dose Lung DATE OF EXAM ORDERED: 09/24/2023 HISTORY: Lung cancer screening CT DLP: 150.[address] CTDI: 4.3 mGy Automated exposure control for dose reduction was used. SCREENING VISIT: COMPARISON: TECHNIQUE: Low dose computed tomography scan was performed through the chest at 1 mm thick sections a nd reconstructed images in multiple planes at 1 mm and [address] DIAGNOSTIC QUALITY: Satisfactory FINDINGS: LUNG NODULES: There is a 2 mm nodule a right upper lobe on series 4 image 35. LUNGS: COPD: Severity: None Fibrosis: Severity: None Lymph nodes: None. Other findings: RIGHT PLEURAL SPACE: Effusion: None Calcification: None Thickening: None Pneumothorax: None LEFT PLEURAL SPACE: Effusion: None Calcification: None Thickening: None Pneumothorax: None HEART: Heart Size: Normal Coronary Calcification: There is moderate to significant coronary artery calcifications. Mild vascula r calcification is seen throughout the thoracic aorta without evidence of aneurysmal dilation. Aortic stent valve is noted. Pericardial Effusion: None OTHER FINDINGS: Upper abdomen: None Bony thorax: None Supraclavicular region: None Other: None IMPRESSION: 1. Small right upper lobe pulmonary nodule. No additional significant pulmonary nodules are seen. 2. Moderate to significant coronary artery calcification. CT LUNG RAD AND CT CHEST RECOMMENDATION: Lung-Rad 2 Benign Appearance or Behavior: Continue annual sc reening with LDCT in 12 months.
== END | disposition home or self-care (01) ==
LOC: RADCTMAIN 14:19
PROVIDERS: ATTEND Internal Medicine Critical Care Medicine
DX: Z12.2 Encounter for screening for malignant neoplasm of respiratory organs (principal); R91.1 Solitary pulmonary nodule; I25.10 Atherosclerotic heart disease of native coronary artery without angina pectoris; Z87.891 Personal history of nicotine dependence
CPT/HCPCS: 71271

== ENCOUNTER 2024-04-06 23:40 | Inpatient (IN) | payer MEDICARE ==
--- NOTE | 2024-04-06 23:47 | ED ---
Neuro HPI - General Stated Complaint: JORDYN Time Seen by Provider: 04/06/24 23:43 Source: RN notes reviewed, old records reviewed Mode of arrival: ambulatory Limitations: no limitations - History of Present Illness Is the patient presenting with stroke symptoms?: Yes -: minutes(s) Initial Comments: This is a 73-year-old male who had significant unresponsive event with altered mental status witnessed by the who states patient was somnolently breathing not arousable and unresponsive hence she called EMS and patient comes to the emergency department, prior to that patient had no complaints and was acting appropriately Location: altered Place: home Severity: severe Improves With: none Worsens With: none Context: sudden onset Associated Symptoms: confusion Treatments Prior to Arrival: none - Related Data Home Medications: Home Medications Medication Instructions Recorded Confirmed Montelukast Sodium [Singulair] 10 mg PO DAILY 10/20/19 04/07/24 Netarsudil Mesylat/Latanoprost 1 drop BOTH EYES HS 10/20/19 04/07/24 [Rocklatan 0.02%-0.005% Eye Drp] metFORMIN HCL [Glucophage] 500 mg PO BID 10/20/19 04/07/24 Metoprolol Succinate (ER) [Toprol 25 mg PO DAILY 04/23/20 04/07/24 XL] allopurinoL [Zyloprim] 100 mg PO DAILY 07/16/22 04/07/24 Dapagliflozin Propanediol [Farxiga] 10 mg PO DAILY 09/04/22 04/07/24 Dorzolamide-Timol 2.23%/0.68% 1 drop BOTH EYES BID 04/07/24 04/07/24 [Cosopt] Famotidine [Pepcid] 40 mg PO DAILY 04/07/24 04/07/24 Furosemide [Lasix] 20 mg PO DAILY PRN 04/07/24 04/07/24 Multivit-Mins/Iron/Folic/Lycop 1 tab PO DAILY 04/07/24 04/07/24 [Centrum Men's Tablet] Semaglutide [Ozempic] 2 mg SQ FR 04/07/24 04/07/24 lisinopriL [Zestril] 2.5 mg PO DAILY 04/07/24 04/07/24 Previous Rx's Medication Instructions Recorded Atorvastatin [Lipitor] 80 mg PO DAILY #30 tab 04/28/20 Allergies/Adverse Reactions: Allergies Allergy/AdvReac Type Severity Reaction Status Date / Time No Known Allergies Allergy Verified 04/07/24 08:36 Review of Systems ROS Statement: Those systems with pertinent positive or pertinent negative responses have been documented in the HPI. ROS Other: All systems not noted in ROS Statement are negative. General Exam Limitations: altered mental status, physical limitation General appearance: alert, in no apparent distress Head exam: Present: atraumatic, normocephalic, normal inspection Eye exam: Present: normal appearance, PERRL, EOMI. Absent: scleral icterus, conjunctival injection, periorbital swelling ENT exam: Present: normal exam, mucous membranes moist Neck exam: Present: normal inspection. Absent: tenderness, meningismus, lymphadenopathy Respiratory exam: Present: normal lung sounds bilaterally. Absent: respiratory distress, wheezes, rales, rhonchi, stridor Cardiovascular Exam: Present: regular rate, normal rhythm, normal heart sounds. Absent: systolic murmur, diastolic murmur, rubs, gallop, clicks GI/Abdominal exam: Present: soft, normal bowel sounds. Absent: distended, tenderness, guarding, rebound, rigid Extremities exam: Present: normal inspection, full ROM, normal capillary refill. Absent: tenderness, pedal edema, joint swelling, calf tenderness Back exam: Present: normal inspection Neurological exam: Present: alert, oriented X3, CN II-XII intact Psychiatric exam: Present: normal affect, normal mood Skin exam: Present: warm, dry, intact, normal color. Absent: rash Stroke MDM - Lab Data Result diagrams: 04/08/24 05:43 04/06/24 23:59 Lab Results 04/06/24 04/06/24 04/07/24 Range/Units 23:59 23:59 00:10 WBC 12.5 H (3.8-10.6) k/uL RBC 4.22 L (4.30-5.90) m/uL Hgb 14.2 (13.0-17.5) gm/dL Hct 44.7 (39.0-53.0) % MCV 105.8 H (80.0-100.0) fL MCH 33.6 (25.0-35.0) pg MCHC 31.8 (31.0-37.0) g/dL RDW 13.1 (11.5-15.5) % Plt Count 283 (150-450) k/uL MPV 9.3 Neutrophils % 74 % Lymphocytes % 18 % Monocytes % 3 % Eosinophils % 2 % Basophils % 0 % Neutrophils # 9.3 H (1.3-7.7) k/uL Lymphocytes # 2.2 (1.0-4.8) k/uL Monocytes # 0.4 (0-1.0) k/uL Eosinophils # 0.2 (0-0.7) k/uL Basophils # 0.1 (0-0.2) k/uL Macrocytosis Moderate Sodium 136 L (137-145) mmol/L Potassium (3.5-5.1) mmol/L Chloride 107 (98-107) mmol/L Carbon Dioxide (22-30) mmol/L Anion Gap 20 mmol/L BUN 24 H (9-20) mg/dL Creatinine 1.19 (0.66-1.25) mg/dL Est GFR (CKD-EPI)AfAm 70 (>60 ml/min/1.73 sqM) Est GFR (CKD-EPI)NonAf 60 (>60 ml/min/1.73 sqM) Glucose 226 H (74-99) mg/dL POC Glucose (mg/dL) (70-110) mg/dL POC Glu [place] ID Calcium 9.5 (8.4-10.2) mg/dL Phosphorus 5.3 H (2.5-4.5) mg/dL Magnesium 2.2 (1.6-2.3) mg/dL Total Bilirubin 2.1 H (0.2-1.3) mg/dL AST 83 H (17-59) U/L ALT 49 (4-49) U/L Alkaline Phosphatase 55 (38-126) U/L Creatine Kinase 88 (55-170) U/L Troponin I (0.000-0.034) ng/mL Total Protein 8.5 H (6.3-8.2) g/dL Albumin 5.7 H (3.5-5.0) g/dL 04/07/24 04/07/24 Range/Units 00:10 00:23 WBC (3.8-10.6) k/uL RBC (4.30-5.90) m/uL Hgb (13.0-17.5) gm/dL Hct (39.0-53.0) % MCV (80.0-100.0) fL MCH (25.0-35.0) pg MCHC (31.0-37.0) g/dL RDW (11.5-15.5) % Plt Count (150-450) k/uL MPV Neutrophils % % Lymphocytes % % Monocytes % % Eosinophils % % Basophils % % Neutrophils # (1.3-7.7) k/uL Lymphocytes # (1.0-4.8) k/uL Monocytes # (0-1.0) k/uL Eosinophils # (0-0.7) k/uL Basophils # (0-0.2) k/uL Macrocytosis Sodium (137-145) mmol/L Potassium (3.5-5.1) mmol/L Chloride (98-107) mmol/L Carbon Dioxide (22-30) mmol/L Anion Gap mmol/L BUN (9-20) mg/dL Creatinine (0.66-1.25) mg/dL Est GFR (CKD-EPI)AfAm (>60 ml/min/1.73 sqM) Est GFR (CKD-EPI)NonAf (>60 ml/min/1.73 sqM) Glucose (74-99) mg/dL POC Glucose (mg/dL) 219 H (70-110) mg/dL POC Glu [place] ID Cole Boss Calcium (8.4-10.2) mg/dL Phosphorus (2.5-4.5) mg/dL Magnesium (1.6-2.3) mg/dL Total Bilirubin (0.2-1.3) mg/dL AST (17-59) U/L ALT (4-49) U/L Alkaline Phosphatase (38-126) U/L Creatine Kinase (55-170) U/L Troponin I <0.012 (0.000-0.034) ng/mL Total Protein (6.3-8.2) g/dL Albumin (3.5-5.0) g/dL - NIH Stroke Scale 1a. Level of Consciousness: (0) alert 1b. LOC Questions: (0) answers correctly 1c. LOC Commands: (0) performs tasks correctly 2. Best Gaze: (0) normal 3. Visual: (0) no visual loss 4. Facial Palsy: (0) normal symmetrical movement 5a. Motor Arm Left: (0) no drift 5b. Motor Arm Right: (0) no drift 6a. Motor Leg Left: (0) no drift 6b. Motor Leg Right: (0) no drift 7. Limb Ataxia: (0) absent 8. Sensory: (0) normal 9. Best Language: (0) no aphasia 10. Dysarthria: (0) normal 11. Extinction/Inattention: (0) no abnormality - Thrombolytic Inclusion/Exclusion Thrombolytic Exclusion Criteria: Symptom Onset > 4.5 Hours - Medical Decision Making 73 male to ER for evaluation of altered mental status with no acute findings here in the ER and will admit for neurology evaluation and treatment - Radiology Data Radiology results: report reviewed (CT brain CTA head neck chest x-ray is negative for acute disease), image reviewed - EKG Data -: EKG Interpreted by Me (EKG is junctional 112 MA 138 QRS 88 QTc 381) Past Medical History Past Medical History: Asthma, Heart Failure, COPD, Diabetes Mellitus, Eye Disorder Additional Past Medical History / Comment(s): "leaky" heart valve-pt does not recall which valve, NIDDM type II, neuropathy bilateral feet, bronchitis, bilateral glaucoma, past gastric ulcer, chronic low back pain History of Any Multi-Drug Resistant Organisms: None Reported Past Surgical History: Heart Catheterization With Stent Additional Past Surgical History / Comment(s): throat surgery (nodules removed from vocal cords.), cataract removal Past Anesthesia/Blood Transfusion Reactions: No Reported Reaction Date of Last Stent Placement:: 04/27/20 Smoking Status: Former smoker - Past Family History Father Family Medical History: Coronary Artery Disease (CAD) Mother Family Medical History: Congestive Heart Failure (CHF), Neurologic Disorder Additional Family Medical History / Comment(s): Parkinsons dx. Mother from CHF. family Additional Family Medical History / Comment(s): reports CAD history Course Vital Signs 04/06/24 04/06/24 04/07/24 23:44 23:55 00:10 Temperature 98.0 F Pulse Rate 123 H Respiratory 20 26 H 19 Rate Blood Pressure 164/102 Blood Pressure 182/97 165/98 [Right Arm] O2 Sat by Pulse 95 98 98 Oximetry 04/07/24 04/07/24 04/07/24 00:15 00:30 00:45 Temperature 98.3 F Pulse Rate Respiratory 18 19 17 Rate Blood Pressure Blood Pressure 157/84 155/89 140/109 [Right Arm] O2 Sat by Pulse 97 98 95 Oximetry 04/07/24 04/07/24 04/07/24 01:00 01:15 04:42 Temperature Pulse Rate 84 Respiratory 20 18 19 Rate Blood Pressure 149/84 Blood Pressure 148/75 153/73 [Right Arm] O2 Sat by Pulse 97 96 96 Oximetry 04/07/24 04/07/24 04/07/24 05:39 06:22 08:00 Temperature Pulse Rate 99 100 72 Respiratory 20 19 17 Rate Blood Pressure 133/75 114/67 127/73 Blood Pressure [Right Arm] O2 Sat by Pulse 96 97 93 L Oximetry 04/07/24 04/07/24 11:15 17:00 Temperature Pulse Rate 75 76 Respiratory 15 17 Rate Blood Pressure 115/69 135/79 Blood Pressure [Right Arm] O2 Sat by Pulse 98 97 Oximetry - Reevaluation(s) Reevaluation #1: 04/06/24 23:46 Records reviewed 04/06/24 23:46 Code stroke paged 04/07/24 01:53 Patient showing no improvement in symptoms Reevaluation #2: 04/06/24 23:46 Symptoms severe Reevaluation #3: 04/07/24 01:53 Was not given tPA secondary to global symptoms as well as moving both upper and lower extremities without facial droop No significant occlusion found on CT Patient remains altered here in the ER and he did require sedation for CT scan which is persistent Reevaluation #4: Was pt. sent in by a medical professional or institution (, PA, ORTHOPEDICS NURSE, urgent care, hospital, or [facility]...) When possible be specific @ -no Did you speak to anyone other than the patient for history (EMS, parent, family, police, friend...)? What history was obtained from this source @ -no Did you review nursing and triage notes (agree or disagree)? Why? @ -agree Are old charts reviewed (outside hosp., previous admission, EMS record, old EKG, old radiological studies, urgent care reports/EKG's, [facility] records)? Report findings @ -yes Differential Diagnosis (chest pain, altered mental status, abdominal pain women, abdominal pain men, vaginal bleeding, weakness, fever, dyspnea, syncope, headache, dizziness, GI bleed, back pain, seizure, CVA, palpatations, mental health, musculoskeletal)? @ -prior EKG interpreted by me (3pts min.). @ -yes X-rays interpreted by me (1pt min.). @ -yes negative for acute disease CT interpreted by me (1pt min.). @ -Yes negative for acute disease U/S interpreted by me (1pt. min.). @ -no What testing was considered but not performed or refused? (CT, X-rays, U/S, labs)? Why? @ -none What meds were considered but not given or refused? Why? @ -none Did you discuss the management of the patient with other professionals (professionals i.e. DrAnny, PA, ORTHOPEDICS NURSE, lab, RT, psych nurse, social welfare research worker, food service utility worker, teacher, ecological technical officer, caser shoe parts)? Give summary @ -no Was smoking cessation discussed for >3mins.? @ -no Was critical care preformed (if so, how long)? @ -yes31 Were there social determinants of health that impacted care today? How? (Homelessness, low income, unemployed, alcoholism, drug addiction, transportation, low edu. Level, literacy, decrease access to med. care, senior care, rehab)? @ -none Was there de-escalation of care discussed even if they declined (Discuss DNR or withdrawal of care, Hospice)? DNR status @ -no What co-morbidities impacted this encounter? (DM, HTN, Smoking, COPD, CAD, Cancer, CVA, ARF, Chemo, Hep., AIDS, mental health diagnosis, sleep apnea, morbid obesity)? @ -none Was patient admitted / discharged? Hospital course, mention meds given and route, prescriptions, significant lab abnormalities, going to OR and other pertinent info. @ - 73 male to ER for evaluation of altered mental status with no acute findings here in the ER and will admit for neurology evaluation and treatment Admitted Undiagnosed new problem with uncertain prognosis? @ -no Drug Therapy requiring intensive monitoring for toxicity (Heparin, Nitro, Insulin, Cardizem)? @ -no Were any procedures done? @ -no Diagnosis/symptom? @ -altered mental status Acute, or Chronic, or Acute on Chronic? @ -Acute Uncomplicated (without systemic symptoms) or Complicated (systemic symptoms)? @ -Complicated Side effects of treatment? @ -no Exacerbation, Progression, or Severe Exacerbation? @ -exacerbation Poses a threat to life or bodily function? How? (Chest pain, [place], PR, pneumonia, PE, COPD, DKA, ARF, appy, cholecystitis, CVA, Diverticulitis, Homicidal, Suicidal, threat to staff... and all critical care pts) @ -yes extremes of age Reevaluation #5: Differential CVA Ischemic stroke, hemorrhagic stroke, brain tumor, atypical migraine, Wernicke's encephalopathy, seizure, multiple sclerosis, meningitis, encephalitis, hypoglycemia, Guillain-Porter, electrolytes disturbance, myasthenia gravis.... This is not meant to be an all-inclusive list - Consultations Consultation #1: Spoke with sound physicians who agreed to admit this patient Critical Care Time Critical Care Time: Yes Total Critical Care Time: 31 Disposition Clinical Impression: Altered mental status, Congestive heart failure, Heart failure, Hyponatremia, NSTEMI (non-ST elevated myocardial infarction), Acute encephalopathy Disposition: ADMITTED IP TO THIS [facility] Condition: Serious Is patient prescribed a controlled substance at d/c from ED?: No Time of Disposition: 02:00
[2024-04-06] MEDS: LORazepam 2 MG/ML INJ IV STA (23:59)
[2024-04-07] MEDS: HYDROmorphone 0.5 MG/0.5 ML SYRINGE IVP STA (00:09)
[2024-04-07] MEDS: SODIUM CHLORIDE 0.9% 1,000 ML IV STA (00:20)
--- NOTE | 2024-04-07 00:22 | CT ---
EXAMINATION TYPE: CODE STROKE: CT brain wo contrast DATE OF EXAM: 04/07/2024 HISTORY: pt is awake, diaphoretic, moves upper extremity and lower extremity. make verbal noises no u nderstandable speech pattern. Best possible, repeated scans multiple times. CT DLP: 3739.8 mGycm. Automated Exposure Control for Dose Reduction was Utilized. TECHNIQUE: CT scan of the head is performed without contrast. COMPARISON: MRI brain March 12, 2021 FINDINGS: There is no acute intracranial hemorrhage or midline shift identified. There is diffuse v entricular and sulcal prominence redemonstrated with ventricular prominence greater than expected for degree of sulcal effacement. Findings appear similar to prior MRI. Love-white matter differentiation is maintained. Bilateral aphakia redemonstrated. Paranasal sinuses are grossly clear. IMPRESSION: No acute intracranial hemorrhage or midline shift. There is diffuse cerebral atrophy an d possible underlying normal pressure hydrocephalus redemonstrated. No significant change from prior MRI. MRI noted more sensitive to evaluate for acute ischemia.
--- NOTE | 2024-04-07 00:23 | XR ---
EXAMINATION TYPE: XR chest 1V portable DATE OF EXAM: 04/07/2024 CLINICAL HISTORY: Altered mental status TECHNIQUE: Single frontal view of the chest is obtained. COMPARISON: Prior chest x-ray May 07, 2020 FINDINGS: There is mild cardiomegaly with new perihilar increased opacities bilaterally. The osseo us structures are intact. IMPRESSION: Mild cardiomegaly with bilateral perihilar edema and/or less likely acute infiltrates. Co rrelate for suspected CHF exacerbation/fluid overload state.
[2024-04-07 00:25] LABS: Glucose,Whole Blood 219 mg/dL (70-110)
--- NOTE | 2024-04-07 00:27 | CT ---
EXAMINATION TYPE: CT angio head neck DATE OF EXAM: 04/07/2024 HISTORY: pt is awake, diaphoretic, moves upper extremity and lower extremity. make verbal noises no u nderstandable speech pattern. Best possible, repeated scans multiple times. COMPARISON: None. CT DLP: 1229.9 mGycm. Automated Exposure Control for Dose Reduction was Utilized. TECHNIQUE: CTA scan of the head and neck is performed with IV Contrast, patient injected with 130 mL of Isovue 370, axial images are obtained, coronal and sagittal reformatted images are reviewed. 3D r econstructed images are created on an independent workstation and reviewed. FINDINGS: Carotid/Vascular Structures: Mild to moderate peripheral calcified plaque in aortic arch extending to the arch vessels. There is bovine arch which is normal variant. No significant stenosis. Mild periph eral calcified plaque along the right common carotid artery. No significant stenosis of the common ca rotid arteries bilaterally. Moderate peripheral mixed plaque right carotid bulb with more severe calc ified plaque extending into the proximal internal carotid artery but no significant stenosis clearly seen. Moderate to severe calcified plaque left carotid bulb extends into proximal internal carotid ar keesha without significant stenosis. Patent external carotid arteries bilaterally without significant s tenosis. Vertebral arteries are codominant and patent to the basilar junction with mild peripheral pl aque distally. Moderate plaque distal internal carotid arteries bilaterally. No large vessel occlusio n or aneurysm at the level of the [place] of [place]. Other: Some prominent but subcentimeter lymph nodes in the mediastinum are partially imaged. There is fluid filled proximal to mid esophagus partially imaged. Correlate clinically. IMPRESSION: Moderate to severe plaque of the carotid bulb level into the proximal internal carotid ar teries bilaterally but no hemodynamically significant stenosis clearly seen in either internal caroti d artery. No large vessel occlusion or aneurysm at the level of the [place] of [place]. NASCET criteria was used in interpretation of this exam?
[2024-04-07 00:36] LABS: Basophils # (A) 0.1 k/uL (0-0.2); Basophils % (A) 0 %; Eosinophils # (A) 0.2 k/uL (0-0.7); Eosinophils % (A) 2 %; HCT 44.7 % (39.0-53.0); HGB 14.2 gm/dL (13.0-17.5); Lymphocytes # (A) 2.2 k/uL (1.0-4.8); Lymphocytes % (A) 18 %; MCH 33.6 pg (25.0-35.0); MCHC 31.8 g/dL (31.0-37.0); MCV 105.8 fL (80.0-100.0); Macrocytosis Moderate; Mean Platelet Volume 9.3; Monocytes # (A) 0.4 k/uL (0-1.0); Monocytes % (A) 3 %; Neutrophils # (A) 9.3 k/uL (1.3-7.7); Neutrophils % (A) 74 %; Platelet Count 283 k/uL (150-450); RBC 4.22 m/uL (4.30-5.90); RDW 13.1 % (11.5-15.5); WBC 12.5 k/uL (3.8-10.6)
[2024-04-07] MEDS: LABETALOL 5 MG/ML VIAL MDV IVP STA (00:38)
[2024-04-07] MEDS: ACETAMINOPHEN IV (For NPO) 1,000 MG in EMPTY BAG 1 BAG IVPB STA (00:38)
[2024-04-07 00:42] LABS: AST 83 U/L (17-59); African American GFR (CKD) 70 (>60 ml/min/1.73 sqM); Albumin 5.7 g/dL (3.5-5.0); Alkaline Phosphatase 55 U/L (38-126); Anion Gap 20 mmol/L; Blood Urea Nitrogen 24 mg/dL (9-20); Calcium 9.5 mg/dL (8.4-10.2); Chloride 107 mmol/L (98-107); Creatine Kinase 88 U/L (55-170); Glucose 226 mg/dL (74-99); Non-African American GFR(CKD) 60 (>60 ml/min/1.73 sqM); Sodium 136 mmol/L (137-145); Total Bilirubin 2.1 mg/dL (0.2-1.3); Total Protein 8.5 g/dL (6.3-8.2)
[2024-04-07 00:49] LABS: ALT 49 U/L (4-49)
[2024-04-07] MEDS ORDERED: NALOXONE 0.4 MG/ML 1 ML VIAL IV PRN (01:51)
[2024-04-07 02:00] LABS: Magnesium 2.2 mg/dL (1.6-2.3); Phosphorus 5.3 mg/dL (2.5-4.5)
[2024-04-07] MEDS: ONDANSETRON 4 MG/2 ML VIAL IVP STA (02:36)
[2024-04-07] MEDS: SODIUM CHLORIDE 0.9% 1,000 ML IV SCH ×2 (02:40→02:41)
[2024-04-07 03:16] LABS: Prothrombin Time 11.3 sec (10.0-12.5)
[2024-04-07 03:26] LABS: Appearance,Urine Clear (Clear); Bilirubin,Urine Negative (Negative); Blood,Urine Negative (Negative); Color,Urine Colorless; Glucose,Urine (UA) 4+ (Negative); Ketones,Urine Negative (Negative); Leukocyte Esterase,Urine Negative (Negative); Nitrite,Urine Negative (Negative); Protein,Urine Trace (Negative); Specific Gravity,Urine 1.031 (1.001-1.035); Urobilinogen,Urine <2.0 mg/dL (<2.0)
[2024-04-07 03:29] LABS: Partial Thromboplastin Time 21.1 sec (22.0-30.0)
--- NOTE | 2024-04-07 04:33 | P.HPIM ---
History of Present Illness H&P Date: 04/07/24 Patient is a 73-year-old male with a PMH of CAD status post stenting, systolic CHF EF 40 to 45% on echo from 2020 hypertension, hypothyroidism, who was brought to the emergency room via EMS for unresponsiveness. The history was obtained from the chart and from the patient's family including and son at the bedside. The reports that the patient was at his baseline and was watching TV while sitting on his couch in their home. The patient had decided to take a nap at around 9:30 PM and had gone to sleep on the couch. She subsequently heard the patient making gurgling sounds at around 10:30 PM, when she found him unresponsive and not breathing appropriately. The patient was brought to the emergency room where he was found to be obtunded and minimally responsive. At time of interview, the patient was responsive to noxious stimuli and woke up to states that he had to urinate but was not answering questions appropriately. Code stroke was activated in the emergency room with no thrombolytic given. CT brain revealed diffuse cerebral atrophy and possible underlying normal pres sure hydrocephalus with CT angiogram head neck showing moderate to severe plaque of the carotid bulb level into the proximal internal carotid arteries bilaterally with no significant stenosis with no large vessel occlusion noted. Chest x-ray revealed mild cardiomegaly with bilateral perihilar edema suspected acute CHF. EKG revealed junctional tachycardia with ectopic premature complexes at 112 bpm as reviewed by me. Laboratory evaluation revealed WBC count of 12.5, hemoglobin 14.2, MCV 105.8, sodium 136, BUN 24, creatinine 1.19, glucose 226, AST 83, T. bili 2.1, troponin less than 0.012, with UA showing 4+ glucose. ED documentation reviewed and case discussed with ED provider. Review of systems: Unable to obtain due to mental status Physical examination: Vital signs reviewed General: non toxic, no distress, appears at stated age, overweight Derm: no unusual rashes/lesions, warm Head: atraumatic, normocephalic, symmetric Eyes: EOMI, no lid lag, anicteric sclera, pupils equal round reactive to light ENT: Nose and ears atraumatic Neck: No cervical lymphadenopathy, trachea midline, supple Mouth: no lip lesion, mucus membranes moist Cardiovascular: S1S2 reg, no murmur, positive dorsalis pedis pulse bilateral, no edema Lungs: CTA bilateral, no rhonchi, no rales, no accessory muscle use Abdominal: soft, nontender to palpation, no guarding Ext: Patient moving all extremities spontaneously upon stimuli, no gross muscle atrophy, no contractures Neuro: no gross focal neuro deficits, no facial asymmetry noted and speech appears normal Psych: Lethargic, not answering questions appropriately Assessment: Altered mental status, unclear etiology Leukocytosis, likely secondary to acute stressor with no signs of active infection at this time Junctional tachycardia with elevated troponin Chronic conditions: CHF, CAD, hypertension, hypothyroidism Imaging: CT brain revealed diffuse cerebral atrophy and possible underlying normal pressure hydrocephalus with CT angiogram head neck showing moderate to severe plaque of the carotid bulb level into the proximal internal carotid arteries bilaterally with no significant stenosis with no large vessel occlusion noted. Chest x-ray revealed mild cardiomegaly with bilateral perihilar edema suspected acute CHF. EKG revealed junctional tachycardia with ectopic premature complexes at 112 bpm as reviewed by me. Data Review: Laboratory evaluation revealed WBC count of 12.5, hemoglobin 14.2, MCV 105.8, sodium 136, BUN 24, creatinine 1.19, glucose 226, AST 83, T. bili 2.1, troponin less than 0.012 and subsequently 0.076, with UA showing 4+ glucose. Plan: Neurology consulted Continue with aspirin and statin Neurochecks Fall precautions Cardiac monitoring Echocardiogram ordered PT and speech consults Resume patient's home medications once reconciled Insulin sliding scale and blood glucose monitoring Cardiology consulted DVT prophylaxis: Lovenox subcu The patient is admitted with an anticipated greater than 2 midnight stay for evaluation of altered mental status CODE STATUS: Full Code Discussed with: , son Anticipated discharge place: Home Past Medical History Past Medical History: Asthma, Heart Failure, COPD, Diabetes Mellitus, Eye Disorder Additional Past Medical History / Comment(s): "leaky" heart valve-pt does not recall which valve, NIDDM type II, neuropathy bilateral feet, bronchitis, bilateral glaucoma, past gastric ulcer, chronic low back pain History of Any Multi-Drug Resistant Organisms: None Reported Past Surgical History: Heart Catheterization With Stent Additional Past Surgical History / Comment(s): throat surgery (nodules removed from vocal cords.), cataract removal Past Anesthesia/Blood Transfusion Reactions: No Reported Reaction Date of Last Stent Placement:: 04/27/20 Smoking Status: Former smoker - Past Family History Father Family Medical History: Coronary Artery Disease (CAD) Mother Family Medical History: Congestive Heart Failure (CHF), Neurologic Disorder Additional Family Medical History / Comment(s): Parkinsons dx. Mother from CHF. family Additional Family Medical History / Comment(s): reports CAD history Medications and Allergies Home Medications Medication Instructions Recorded Confirmed Type Albuterol Sulfate [Proair Hfa] 1 - 2 puff INHALATION RT-QID PRN 10/20/19 09/23/22 History Dorzolamide 2% [Trusopt 2%] 1 drop BOTH EYES BID 10/20/19 09/23/22 History Montelukast Sodium [Singulair] 10 mg PO HS 10/20/19 09/23/22 History Netarsudil Mesylat/Latanoprost 1 drop BOTH EYES HS 10/20/19 09/23/22 History [Rocklatan 0.02%-0.005% Eye Drp] metFORMIN HCL [Glucophage] 500 mg PO BID 10/20/19 09/23/22 History Furosemide [Lasix] 40 mg PO BID #30 tablet 10/26/19 09/23/22 Rx Ipratropium-Albuterol Nebulize 3 ml INHALATION RT-QID PRN 04/23/20 09/23/22 History [Duoneb 0.5 mg-3 mg/3 ml Soln] Metoprolol Succinate (ER) [Toprol 25 mg PO DAILY 04/23/20 09/23/22 History XL] Atorvastatin [Lipitor] 80 mg PO DAILY #30 tab 04/28/20 09/23/22 Rx Cholecalciferol [Vitamin D3 (10 10 mcg PO DAILY 01/14/22 09/23/22 History Mcg = 400 Iu)] Insulin Aspart [NovoLOG] 10 units SQ AC-BRKFST 01/14/22 09/23/22 History Insulin Glargine,Hum.rec.anlog 30 units SQ AC-LUNCH 01/14/22 09/23/22 History [Toujeo Solostar] lisinopriL [Zestril] 5 mg PO DAILY 01/14/22 09/23/22 History allopurinoL [Zyloprim] 100 mg PO DAILY 07/16/22 09/23/22 History calcitrioL 0.25 mcg PO FR 07/16/22 09/23/22 History Multivitamins, Thera [Multivitamin 1 tab PO DAILY 08/27/22 09/23/22 History (formulary)] Dapagliflozin Propanediol [Farxiga] 10 mg PO DAILY 09/04/22 09/23/22 History Semaglutide [Ozempic] 0.25 mg SQ TH 09/04/22 09/23/22 History Allergies Allergy/AdvReac Type Severity Reaction Status Date / Time No Known Allergies Allergy Verified 04/06/24 23:44 Physical Exam Vitals: Vital Signs Temp Pulse Resp BP BP Pulse Ox 04/07/24 01:15 18 153/73 96 04/07/24 01:00 20 148/75 97 04/07/24 00:45 98.3 F 17 140/109 95 04/07/24 00:30 19 155/89 98 04/07/24 00:15 18 157/84 97 04/07/24 00:10 98.0 F 19 165/98 98 04/06/24 23:55 26 H 182/97 98 04/06/24 23:44 123 H 20 164/102 95 Intake and Output 04/06/24 04/06/24 04/07/24 14:59 22:59 06:59 Other: Weight 82.3 kg Results CBC & Chem 7: 04/07/24 00:10 04/06/24 23:59 Labs: Abnormal Lab Results - Last 24 Hours (Table) 04/06/24 04/06/24 04/07/24 Range/Units 23:59 23:59 00:10 WBC 12.5 H (3.8-10.6) k/uL RBC 4.22 L (4.30-5.90) m/uL MCV 105.8 H (80.0-100.0) fL Neutrophils # 9.3 H (1.3-7.7) k/uL APTT (22.0-30.0) sec Sodium 136 L (137-145) mmol/L BUN 24 H (9-20) mg/dL Glucose 226 H (74-99) mg/dL POC Glucose (mg/dL) (70-110) mg/dL Phosphorus 5.3 H (2.5-4.5) mg/dL Total Bilirubin 2.1 H (0.2-1.3) mg/dL AST 83 H (17-59) U/L Troponin I (0.000-0.034) ng/mL Total Protein 8.5 H (6.3-8.2) g/dL Albumin 5.7 H (3.5-5.0) g/dL Urine Protein (Negative) Urine Glucose (UA) (Negative) 04/07/24 04/07/24 04/07/24 Range/Units 00:23 02:32 02:33 WBC (3.8-10.6) k/uL RBC (4.30-5.90) m/uL MCV (80.0-100.0) fL Neutrophils # (1.3-7.7) k/uL APTT 21.1 L (22.0-30.0) sec Sodium (137-145) mmol/L BUN (9-20) mg/dL Glucose (74-99) mg/dL POC Glucose (mg/dL) 219 H (70-110) mg/dL Phosphorus (2.5-4.5) mg/dL Total Bilirubin (0.2-1.3) mg/dL AST (17-59) U/L Troponin I (0.000-0.034) ng/mL Total Protein (6.3-8.2) g/dL Albumin (3.5-5.0) g/dL Urine Protein Trace H (Negative) Urine Glucose (UA) 4+ H (Negative) 04/07/24 Range/Units 03:12 WBC (3.8-10.6) k/uL RBC (4.30-5.90) m/uL MCV (80.0-100.0) fL Neutrophils # (1.3-7.7) k/uL APTT (22.0-30.0) sec Sodium (137-145) mmol/L BUN (9-20) mg/dL Glucose (74-99) mg/dL POC Glucose (mg/dL) (70-110) mg/dL Phosphorus (2.5-4.5) mg/dL Total Bilirubin (0.2-1.3) mg/dL AST (17-59) U/L Troponin I 0.076 H* (0.000-0.034) ng/mL Total Protein (6.3-8.2) g/dL Albumin (3.5-5.0) g/dL Urine Protein (Negative) Urine Glucose (UA) (Negative)
[2024-04-07] MEDS: ACETAMINOPHEN TAB 325 MG TAB PO STA (05:36)
[2024-04-07 06:29] LABS: Glucose,Whole Blood 125 mg/dL (70-110)
[2024-04-07] MEDS: INSULIN ASPART (NovoLOG) 100 UNIT/ML VIAL SQ SCH (06:47)
[2024-04-07] MEDS: ENOXAPARIN 40 MG/0.4 ML SYRINGE SQ SCH (09:10)
[2024-04-07] MEDS ORDERED: HEPARIN SODIUM 1,000 UN/ML (10ML VL) IV PRN (09:15)
[2024-04-07] MEDS: ASPIRIN 300 MG SUPP RECTAL SCH (10:07)
[2024-04-07] MEDS: HEPARIN SODIUM 1,000 UN/ML (10ML VL) IV ONE (10:43)
[2024-04-07] MEDS: ASPIRIN 325 MG TAB PO SCH (10:43)
[2024-04-07] MEDS: HEPARIN SOD,PORK IN 0.45% NACL 25,000 UNIT in 0.45% NACL 1 250ML.BAG IV SCH (10:50)
[2024-04-07] MEDS ORDERED: FUROSEMIDE 20 MG TAB PO PRN (12:19)
--- NOTE | 2024-04-07 12:22 | P.CRDCN ---
History of Present Illness Consult date: 04/07/24 Reason for Consult (text): Elevated troponins, unresponsiveness History of present illness: This is a 73-year-old male patient of Dr. Uriah Hebert with past medical history of diabetes, hypertension, dyslipidemia, peripheral artery disease, aortic stenosis status post aortic valve replacement, family history of premature CAD. Patient's gives history that he was sleeping and he seemed to be unresponsive, gurgling and breathing was funny. Patient was very confused to the point of being unresponsive and his called EMS to bring him into the hospital. Patient's states that he is the most awake now and only able to answer very simple questions. She denies history of CVA. Due to history of AVR, blood cultures will be obtained. Patient denies any chest pain at this time. Neurology is also on consult. Blood pressure 115/69, heart rate 75, pulse ox 98% on room air. Patient has been started on heparin drip. EKG: Sinus tach with PACs no ischemic changes. Chest x-ray: Mild cardiomegaly with bilateral perihilar edema Neck and brain CTA no hemodynamically significant stenosis bilateral ICA Laboratory studies: Troponin 0.012, 0.076, 0.143. Sodium 136, BUN 24 creatinine 1.19. WBC 12.5, hemoglobin 14.2, platelet count 283. CK 88. Ammonia level less than 9. Home cardiac medications: Atorvastatin 80 mg daily, Farxiga 10 mg daily, Lasix 20 mg daily as needed, lisinopril 2.5 mg daily, Toprol XL 25 mg daily, also on Ozempic. Echocardiogram performed in the office on 06/25/2023 revealed EF 50 to 55%, AV prosthesis with normal function, mild MR, mild TR. Lexiscan Cardiolite stress test performed in the office on 12/14/2020 was negative stress test by EKG criteria. Probably normal myocardial perfusion and function. Review Of Systems: At the time of my exam: CONSTITUTIONAL: Denies fever or chills. HEENT: Denies blurred vision, vision changes, or eye pain. Denies hemoptysis CARDIOVASCULAR: Denies chest pain. Denies orthopnea. Denies PND. Denies palpitations RESPIRATORY: Denies shortness of breath. GASTROINTESTINAL: Denies abdominal pain. Denies nausea or vomiting. HEMATOLOGIC: Denies bleeding disorders. GENITOURINARY: Denies any blood in urine. SKIN: Denies puritis. Denies rash. Physical examination: Gen: This is a 73-year-old male in no acute distress VS: reviewed HEENT: Head is atraumatic, normocephalic. Pupils equal, round. Sclerae is anicteric. NECK: Supple. No JVD. LUNGS: Clear to auscultation. No wheezes or rhonchi. No intercostal retractions. HEART: Regular rate and rhythm. Systolic ejection o murmur. ABDOMEN: Soft No tenderness. EXTREMITIES: No pedal edema. No calf tenderness. NEUROLOGICAL: Patient is awake, confused. Assessment: Mental status changes Elevated troponin most likely secondary to type II SD. No plan for aggressive cardiac workup at this time. History of AVR Hypertension Dyslipidemia Plan: Resume patient's home cardiac medications Obtain 2 blood cultures due to history of AVR Obtain 2-D echocardiogram and Doppler study to assess cardiac structure and fun ction Neurology workup in process Further recommendations to follow based upon clinical course Thank you kindly for this consultation. Nurse practitioner note has been reviewed, I agree with documented findings and plan of care. Patient was seen and examined. Past Medical History Past Medical History: Asthma, Heart Failure, COPD, Diabetes Mellitus, Eye Dis order Additional Past Medical History / Comment(s): "leaky" heart valve-pt does not recall which valve, NIDDM type II, neuropathy bilateral feet, bronchitis, bilateral glaucoma, past gastric ulcer, chronic low back pain History of Any Multi-Drug Resistant Organisms: None Reported Past Surgical History: Heart Catheterization With Stent Additional Past Surgical History / Comment(s): throat surgery (nodules removed from vocal cords.), cataract removal Past Anesthesia/Blood Transfusion Reactions: No Reported Reaction Date of Last Stent Placement:: 04/27/20 Smoking Status: Former smoker - Past Family History Father Family Medical History: Coronary Artery Disease (CAD) Mother Family Medical History: Congestive Heart Failure (CHF), Neurologic Disorder Additional Family Medical History / Comment(s): Parkinsons dx. Mother from CHF. family Additional Family Medical History / Comment(s): reports CAD history Medications and Allergies Home Medications Medication Instructions Recorded Confirmed Type Montelukast Sodium [Singulair] 10 mg PO DAILY 10/20/19 04/07/24 History Netarsudil Mesylat/Latanoprost 1 drop BOTH EYES HS 10/20/19 04/07/24 History [Rocklatan 0.02%-0.005% Eye Drp] metFORMIN HCL [Glucophage] 500 mg PO BID 10/20/19 04/07/24 History Metoprolol Succinate (ER) [Toprol 25 mg PO DAILY 04/23/20 04/07/24 History XL] Atorvastatin [Lipitor] 80 mg PO DAILY #30 tab 04/28/20 04/07/24 Rx allopurinoL [Zyloprim] 100 mg PO DAILY 07/16/22 04/07/24 History Dapagliflozin Propanediol [Farxiga] 10 mg PO DAILY 09/04/22 04/07/24 History Dorzolamide-Timol 2.23%/0.68% 1 drop BOTH EYES BID 04/07/24 04/07/24 History [Cosopt] Famotidine [Pepcid] 40 mg PO DAILY 04/07/24 04/07/24 History Furosemide [Lasix] 20 mg PO DAILY PRN 04/07/24 04/07/24 History Multivit-Mins/Iron/Folic/Lycop 1 tab PO DAILY 04/07/24 04/07/24 History [Centrum Men's Tablet] Semaglutide [Ozempic] 2 mg SQ FR 04/07/24 04/07/24 History lisinopriL [Zestril] 2.5 mg PO DAILY 04/07/24 04/07/24 History Allergies Allergy/AdvReac Type Severity Reaction Status Date / Time No Known Allergies Allergy Verified 04/07/24 08:36 Physical Exam Vitals: Vital Signs Temp Pulse Resp BP BP Pulse Ox 04/07/24 06:22 100 19 114/67 97 04/07/24 05:39 99 20 133/75 96 04/07/24 04:42 84 19 149/84 96 04/07/24 01:15 18 153/73 96 04/07/24 01:00 20 148/75 97 04/07/24 00:45 98.3 F 17 140/109 95 04/07/24 00:30 19 155/89 98 04/07/24 00:15 18 157/84 97 04/07/24 00:10 98.0 F 19 165/98 98 04/06/24 23:55 26 H 182/97 98 04/06/24 23:44 123 H 20 164/102 95 Intake and Output 04/06/24 04/07/24 04/07/24 22:59 06:59 14:59 Other: Weight 82.3 kg Results 04/07/24 00:10 04/06/24 23:59 Cardiac Enzymes 04/06/24 04/07/24 04/07/24 Range/Units 23:59 00:10 03:12 AST 83 H (17-59) U/L Troponin I <0.012 0.076 H* (0.000-0.034) ng/mL 04/07/24 Range/Units 06:39 AST (17-59) U/L Troponin I 0.143 H* (0.000-0.034) ng/mL Coagulation 04/07/24 Range/Units 02:32 PT 11.3 (10.0-12.5) sec APTT 21.1 L (22.0-30.0) sec CBC 04/07/24 Range/Units 00:10 WBC 12.5 H (3.8-10.6) k/uL RBC 4.22 L (4.30-5.90) m/uL Hgb 14.2 (13.0-17.5) gm/dL Hct 44.7 (39.0-53.0) % Plt Count 283 (150-450) k/uL Comprehensive Metabolic Panel 04/06/24 Range/Units 23:59 Sodium 136 L (137-145) mmol/L Potassium (3.5-5.1) mmol/L Chloride 107 (98-107) mmol/L Carbon Dioxide (22-30) mmol/L BUN 24 H (9-20) mg/dL Creatinine 1.19 (0.66-1.25) mg/dL Glucose 226 H (74-99) mg/dL Calcium 9.5 (8.4-10.2) mg/dL AST 83 H (17-59) U/L ALT 49 (4-49) U/L Alkaline Phosphatase 55 (38-126) U/L Total Protein 8.5 H (6.3-8.2) g/dL Albumin 5.7 H (3.5-5.0) g/dL Current Medications Generic Name Dose Route Start Last Admin Trade Name Freq PRN Reason Stop Dose Admin Aspirin 300 mg 04/07/24 09:00 Aspirin 300 Mg Supp RECTAL DAILY [facility] Atorvastatin Calcium 80 mg 04/07/24 21:00 Atorvastatin 80 Mg Tab PO HS [facility] Enoxaparin Sodium 40 mg 04/07/24 09:00 Enoxaparin 40 Mg/0.4 Ml Syringe SQ DAILY [facility] Insulin Aspart 0 unit 04/07/24 07:30 04/07/24 06:47 Insulin Aspart (Novolog) 100 Unit/Ml Vial SQ Not Given ACHS [facility] Protocol Morphine Sulfate 4 mg 04/07/24 01:51 Morphine Sulfate 4 Mg/Ml Syringe IV Q4HR PRN Severe Pain (Scale 7 to 10) Naloxone HCl 0.2 mg 04/07/24 01:51 Naloxone 0.4 Mg/Ml 1 Ml Vial IV Q2M PRN Opioid Reversal Ondansetron HCl 4 mg 04/07/24 01:51 Ondansetron 4 Mg/2 Ml Vial IVP Q8HR PRN Nausea And Vomiting Intake and Output 04/06/24 04/07/24 04/07/24 22:59 06:59 14:59 Other: Weight 82.3 kg 04/07/24 00:10 04/06/24 23:59
--- NOTE | 2024-04-07 13:06 | P.PN ---
Subjective Progress Note Date: 04/07/24 Principal diagnosis: change in mentation patient's mental status is back to baseline now. Denies having any chest pain or shortness of breath. No nausea or vomiting. He does not recall what happened to him. He was lethargic and briefly confused according to his . Objective - Vital Signs Vital signs: Vital Signs Temp 98.3 F 04/07/24 00:45 Pulse 75 04/07/24 11:15 Resp 15 04/07/24 11:15 BP 115/69 04/07/24 11:15 Pulse Ox 98 04/07/24 11:15 FiO2 Intake & Output 04/06/24 04/07/24 04/07/24 18:59 06:59 18:59 Weight 82.3 kg - Exam Constitutional: No acute distress, conversant, pleasant Eyes:Anicteric sclerae, moist conjunctiva, no lid-lag, PERRLA, ENMT: Oropharynx clear, no erythema, exudates Neck: Supple, FROM, no masses, or JVD, No carotid bruits, No thyromegaly Lungs: Clear to auscultation, Clear to percussion, Normal respiratory effort, no accessory muscle use Cardiovascular: Heart regular in rate and rhythm, No murmurs, gallops, or rubs, No peripheral edema Abdominal: Soft, Nontender, no guarding, rebound or rigidity, Normoactive bowel sounds, No hepatomegaly, No splenomegaly, No palpable mass Skin: Normal temperature, tone, texture, turgor, no induration, No subcutaneous nodules, No rash, lesions, No ulcers Extremities: No digital cyanosis, No clubbing, Pedal pulses intact and symmetrical, Radial pulses intact and symmetrical, No calf tenderness Psychiatric: Alert and oriented to person, place and time, appropriate affect, intact judgement Neuro: Muscles Strength 5/5 in all 4 extremities, Sensation to light touch grossly present throughout, Cranial nerves II-XII grossly intact, no focal sensory deficits - Labs CBC & Chem 7: 04/07/24 00:10 04/06/24 23:59 Labs: Abnormal Lab Results - Last 24 Hours (Table) 04/06/24 04/06/24 04/07/24 Range/Units 23:59 23:59 00:10 WBC 12.5 H (3.8-10.6) k/uL RBC 4.22 L (4.30-5.90) m/uL MCV 105.8 H (80.0-100.0) fL Neutrophils # 9.3 H (1.3-7.7) k/uL APTT (22.0-30.0) sec Sodium 136 L (137-145) mmol/L BUN 24 H (9-20) mg/dL Glucose 226 H (74-99) mg/dL POC Glucose (mg/dL) (70-110) mg/dL Phosphorus 5.3 H (2.5-4.5) mg/dL Total Bilirubin 2.1 H (0.2-1.3) mg/dL AST 83 H (17-59) U/L Troponin I (0.000-0.034) ng/mL Total Protein 8.5 H (6.3-8.2) g/dL Albumin 5.7 H (3.5-5.0) g/dL Urine Protein (Negative) Urine Glucose (UA) (Negative) 04/07/24 04/07/24 04/07/24 Range/Units 00:23 02:32 02:33 WBC (3.8-10.6) k/uL RBC (4.30-5.90) m/uL MCV (80.0-100.0) fL Neutrophils # (1.3-7.7) k/uL APTT 21.1 L (22.0-30.0) sec Sodium (137-145) mmol/L BUN (9-20) mg/dL Glucose (74-99) mg/dL POC Glucose (mg/dL) 219 H (70-110) mg/dL Phosphorus (2.5-4.5) mg/dL Total Bilirubin (0.2-1.3) mg/dL AST (17-59) U/L Troponin I (0.000-0.034) ng/mL Total Protein (6.3-8.2) g/dL Albumin (3.5-5.0) g/dL Urine Protein Trace H (Negative) Urine Glucose (UA) 4+ H (Negative) 04/07/24 04/07/24 04/07/24 Range/Units 03:12 06:27 06:39 WBC (3.8-10.6) k/uL RBC (4.30-5.90) m/uL MCV (80.0-100.0) fL Neutrophils # (1.3-7.7) k/uL APTT (22.0-30.0) sec Sodium (137-145) mmol/L BUN (9-20) mg/dL Glucose (74-99) mg/dL POC Glucose (mg/dL) 125 H (70-110) mg/dL Phosphorus (2.5-4.5) mg/dL Total Bilirubin (0.2-1.3) mg/dL AST (17-59) U/L Troponin I 0.076 H* 0.143 H* (0.000-0.034) ng/mL Total Protein (6.3-8.2) g/dL Albumin (3.5-5.0) g/dL Urine Protein (Negative) Urine Glucose (UA) (Negative) Assessment and Plan Plan: Acute encephalopathy patient currently being worked up by neurology Infectious etiology considered, blood cultures ordered, CXR and urinalysis are both negative for infection. Continue with aspirin and statin Neurochecks Fall precautions Junctional tachycardia with elevated troponin Type II MS D/w cardio service. No plans for heart cath. Heparin gtt and aspirin Tele Echo Chronic conditions: CHF, CAD, hypertension, hypothyroidism Stable, resume meds Imaging: CT brain revealed diffuse cerebral atrophy and possible underlying normal pressure hydrocephalus CT angiogram head neck showing moderate to severe plaque of the carotid bulb level into the proximal internal carotid arteries bilaterally with no significant stenosis with no large vessel occlusion noted. Chest x-ray revealed mild cardiomegaly with bilateral perihilar edema suspected acute CHF. EKG revealed junctional tachycardia with ectopic premature complexes at 112 bpm as reviewed by me. DVT prophylaxis: Lovenox subcu
[2024-04-07 13:28] LABS: Glucose,Whole Blood 109 mg/dL (70-110)
[2024-04-07] MEDS: MORPHINE SULFATE 4 MG/ML SYRINGE IV PRN (16:31)
[2024-04-07] MEDS: ONDANSETRON 4 MG/2 ML VIAL IVP PRN (16:31)
--- NOTE | 2024-04-07 16:58 | P.CNNES ---
History of Present Illness Consult date: 04/07/24 Requesting physician: Enrico Gaines Reason for Consult: ams History of Present Illness: This is a 73-year-old gentleman who presented to the emergency department because of altered mental status. History is obtained from the patient's was at bedside. Patient stated that yesterday his last normal state was about 10 PM yesterday and he was doing well but then within 1/2-hour his woke up because of patient abnormal gurgling noise and abnormal breathing. Patient was confused severely and had minimal opening of his eyes but not verbally responding or following commands. He did not have any jerking of his extremity. No foaming around the mouth. No blood around the mouth. It seems that the patient wears briefs but hard to assess whether he had any urinary incontinence per the . He did not have any focal deficit. His confusion episode did not improve until this morning. No recent fever or sick contacts. No history of seizure. No history of stroke. No history of cancer. Patient states from time to time he will bite his tongue. He cannot tell me if his tongue is sore or not. Some of the workup during this hospital visit consisted of: Initial white blood cells 12.25 thousand Sodium is 136 Calcium 9.5, magnesium is 2.2, phosphorus is 5.3, creatinine is 1.19 Glucose serum is 326 CK level is 88 Troponin is 0.076 Urinalysis is negative for any urinary tract infection next CT of the head is reported as no acute intracranial hemorrhage or midline shift. There is diffuse cerebral atrophy and possible underlying normal pressure hydrocephalus redemonstrated. No significant change from prior MRI. I reviewed the CT and I agree there is no acute or subacute stroke. I do agree that patient ventricles are more dilated than his generalized atrophy. CT angiography of the head and neck is reported as moderate to severe plaque at the carotid bulb level into the proximal internal carotid artery bilaterally but no hemodynamic significant stenosis clearly seen in either internal carotid artery. No large vessel occlusion or aneurysm at the level of [place]. Review of Systems The positive and negative as per HPI. Past Medical History Past Medical History: Asthma, Heart Failure, COPD, Diabetes Mellitus, Eye Disorder Additional Past Medical History / Comment(s): "leaky" heart valve-pt does not recall which valve, NIDDM type II, neuropathy bilateral feet, bronchitis, bilateral glaucoma, past gastric ulcer, chronic low back pain History of Any Multi-Drug Resistant Organisms: None Reported Past Surgical History: Heart Catheterization With Stent Additional Past Surgical History / Comment(s): throat surgery (nodules removed from vocal cords.), cataract removal Past Anesthesia/Blood Transfusion Reactions: No Reported Reaction Date of Last Stent Placement:: 04/27/20 Smoking Status: Former smoker - Past Family History Father Family Medical History: Coronary Artery Disease (CAD) Mother Family Medical History: Congestive Heart Failure (CHF), Neurologic Disorder Additional Family Medical History / Comment(s): Parkinsons dx. Mother from CHF. family Additional Family Medical History / Comment(s): reports CAD history Medications and Allergies Home Medications Medication Instructions Recorded Confirmed Type Montelukast Sodium [Singulair] 10 mg PO DAILY 10/20/19 04/07/24 History Netarsudil Mesylat/Latanoprost 1 drop BOTH EYES HS 10/20/19 04/07/24 History [Rocklatan 0.02%-0.005% Eye Drp] metFORMIN HCL [Glucophage] 500 mg PO BID 10/20/19 04/07/24 History Metoprolol Succinate (ER) [Toprol 25 mg PO DAILY 04/23/20 04/07/24 History XL] Atorvastatin [Lipitor] 80 mg PO DAILY #30 tab 04/28/20 04/07/24 Rx allopurinoL [Zyloprim] 100 mg PO DAILY 07/16/22 04/07/24 History Dapagliflozin Propanediol [Farxiga] 10 mg PO DAILY 09/04/22 04/07/24 History Dorzolamide-Timol 2.23%/0.68% 1 drop BOTH EYES BID 04/07/24 04/07/24 History [Cosopt] Famotidine [Pepcid] 40 mg PO DAILY 04/07/24 04/07/24 History Furosemide [Lasix] 20 mg PO DAILY PRN 04/07/24 04/07/24 History Multivit-Mins/Iron/Folic/Lycop 1 tab PO DAILY 04/07/24 04/07/24 History [Centrum Men's Tablet] Semaglutide [Ozempic] 2 mg SQ FR 04/07/24 04/07/24 History lisinopriL [Zestril] 2.5 mg PO DAILY 04/07/24 04/07/24 History Allergies Allergy/AdvReac Type Severity Reaction Status Date / Time No Known Allergies Allergy Verified 04/07/24 08:36 Physical Examination - Vital Signs Vital Signs: Vital Signs Temp Pulse Resp BP BP Pulse Ox 04/07/24 11:15 75 15 115/69 98 04/07/24 08:00 72 17 127/73 93 L 04/07/24 06:22 100 19 114/67 97 04/07/24 05:39 99 20 133/75 96 04/07/24 04:42 84 19 149/84 96 04/07/24 01:15 18 153/73 96 04/07/24 01:00 20 148/75 97 04/07/24 00:45 98.3 F 17 140/109 95 04/07/24 00:30 19 155/89 98 04/07/24 00:15 18 157/84 97 04/07/24 00:10 98.0 F 19 165/98 98 04/06/24 23:55 26 H 182/97 98 04/06/24 23:44 123 H 20 164/102 95 Intake and Output 04/07/24 04/07/24 04/07/24 06:59 14:59 22:59 Other: Weight 82.3 kg General: Lying in bed and does not appear in acute distress. HENT: Supple neck. Neuro: Patient is mildly drowsy but is awake both to voice. He is oriented to self and place. He did not know the time. He is able to name his and his son's name correctly. He is following simple commands. At times he needed cueing because his drowsy. No aphasia from head language. The pupils are round equal reactive to light. The pupils are round 3 to 4 mm bilateral. No facial weakness. No dysarthria. Patient has a tongue bite over the right lateral. Motor was hard to assess individual muscle strength but he is moving uppers more than lowers and they appear symmetrical uppers and symmetrical in the lower. Reflexes is 2+ in the uppers and 1 - in the lowers. Plantars are mute bilaterally Results - Laboratory Findings CBC and BMP: 04/07/24 00:10 04/06/24 23:59 Abnormal Lab Findings: Abnormal Labs 04/06/24 04/06/24 04/07/24 23:59 23:59 00:10 WBC 12.5 H RBC 4.22 L MCV 105.8 H Neutrophils # 9.3 H APTT Sodium 136 L BUN 24 H Glucose 226 H POC Glucose (mg/dL) Phosphorus 5.3 H Total Bilirubin 2.1 H AST 83 H Troponin I Total Protein 8.5 H Albumin 5.7 H Urine Protein Urine Glucose (UA) 04/07/24 04/07/24 04/07/24 00:23 02:32 02:33 WBC RBC MCV Neutrophils # APTT 21.1 L Sodium BUN Glucose POC Glucose (mg/dL) 219 H Phosphorus Total Bilirubin AST Troponin I Total Protein Albumin Urine Protein Trace H Urine Glucose (UA) 4+ H 04/07/24 04/07/24 04/07/24 03:12 06:27 06:39 WBC RBC MCV Neutrophils # APTT Sodium BUN Glucose POC Glucose (mg/dL) 125 H Phosphorus Total Bilirubin AST Troponin I 0.076 H* 0.143 H* Total Protein Albumin Urine Protein Urine Glucose (UA) Assessment and Plan Assessment: This is a 73-year-old gentleman who presents emergency department because of episode of severe confusion in which the woke up from the patient's having abnormal gurgling noise and she felt his breathing was off. He was severely confused and had his eyes minimally open but was not responding. It seems that he bit the right lateral part of the tongue and the anterior middle portion. History of seizure. CT of the head shows possible normal pressure hydrocephalus. Episode of confusion, tongue bite, abnormal breathing/gurgling sensation is concerning for new onset seizure CT head shows possible Normal pressure hydrocephalus Only elevated troponin will reactive Underlying history of diabetes Hypertension Hypercholesteremia Plan: I ordered MRI of the brain, routine EEG. Spoke with patient family members will hold off and any antiseizure medication until workup is complete 2Decho is ordered and is pending Seizure precaution and seizure pads Cardiology is consulted for slight elevated troponin Will defer the rest of the medical management to primary and other specialist The plan is discussed with his and son who are at bedside. Thank you for the consultation. Time with Patient: Greater than 30
[2024-04-07 18:03] LABS: Glucose,Whole Blood 132 mg/dL (70-110)
[2024-04-07 20:13] LABS: Glucose,Whole Blood 186 mg/dL (70-110)
--- NOTE | 2024-04-07 20:48 | EEG ---
ELECTROENCEPHALOGRAM REPORT CLINICAL HISTORY: This is a 73-year-old gentleman with confusion. The video EEG is obtained to evaluate for seizure epileptiform activity. RELEVANT MEDICATION: Morphine. EEG TYPE: This is a routine 21-channel EEG with video using the 10/20 electrode placement system. DESCRIPTION: Wakefulness and drowsiness are obtained. During awake state, the background consists of 9 hertz activity intermixed with delta activity. There is no physiological stage 2 sleep architecture. There is no focal slowing. Interictal and ictal are none. ACTIVATION PROCEDURE: Photic stimulation and hyperventilation are not performed. CLINICAL INTERPRETATION: This is an abnormal routine EEG. The background slowing is suggestive of mild encephalopathy. There is no focal slowing, epileptiform discharge, or seizure on the EEG. Clinical correlation is recommended. MMCHARL / IJN: [id number] /
[2024-04-07] MEDS ORDERED: ATORVASTATIN 80 MG TAB PO SCH (21:00)
[2024-04-08 04:22] VITALS: TEMP 98.6
[2024-04-08 06:06] LABS: Basophils % (A) 0 %; Eosinophils # (A) 0.5 k/uL (0-0.7); Eosinophils % (A) 3 %; HCT 39.1 % (39.0-53.0); HGB 12.8 gm/dL (13.0-17.5); Lymphocytes # (A) 1.6 k/uL (1.0-4.8); Lymphocytes % (A) 11 %; MCHC 32.9 g/dL (31.0-37.0); MCV 103.6 fL (80.0-100.0); Macrocytosis Slight; Mean Platelet Volume 8.3; Monocytes # (A) 0.7 k/uL (0-1.0); Monocytes % (A) 5 %; Neutrophils # (A) 10.9 k/uL (1.3-7.7); Neutrophils % (A) 78 %; Platelet Count 195 k/uL (150-450); RBC 3.77 m/uL (4.30-5.90); RDW 13.2 % (11.5-15.5)
[2024-04-08 06:17] LABS: INR 1.1 (<1.2); Prothrombin Time 11.4 sec (10.0-12.5)
[2024-04-08] MEDS: METOPROLOL SUCCINATE (ER) 25 MG TAB.ER.24H PO SCH (09:08)
[2024-04-08] MEDS: ATORVASTATIN 80 MG TAB PO SCH (09:08)
[2024-04-08] MEDS: DAPAGLIFLOZIN PROPANEDIOL 10 MG TABLET PO SCH (09:08)
[2024-04-08 09:14] VITALS: RESP 16
[2024-04-08 11:15] LABS: Glucose,Whole Blood 111 mg/dL (70-110)
[2024-04-08 11:17] LABS: Chol/HDL Ratio 2.44 Ratio; LDL Cholesterol,Calculated 39.8 mg/dL (0.0-131.0)
--- NOTE | 2024-04-08 13:01 | P.PN ---
Subjective Progress Note Date: 04/08/24 Reason for Consult (text): Elevated troponins, unresponsiveness History of present illness: This is a 73-year-old male patient of Dr. Uriah Hebert with past medical history of diabetes, hypertension, dyslipidemia, peripheral artery disease, aortic stenosis status post aortic valve replacement, family history of premature CAD. Patient's gives history that he was sleeping and he seemed to be unresponsive, gurgling and breathing was funny. Patient was very confused to the point of being unresponsive and his called EMS to bring him into the hospital. Patient's states that he is the most awake now and only able to answer very simple questions. She denies history of CVA. Due to history of AVR, blood cultures will be obtained. Patient denies any chest pain at this time. Neurology is also on consult. Blood pressure 115/69, heart rate 75, pulse ox 98% on room air. Patient has been started on heparin drip. EKG: Sinus tach with PACs no ischemic changes. Chest x-ray: Mild cardiomegaly with bilateral perihilar edema Neck and brain CTA no hemodynamically significant stenosis bilateral ICA Laboratory studies: Troponin 0.012, 0.076, 0.143. Sodium 136, BUN 24 creatinine 1.19. WBC 12.5, hemoglobin 14.2, platelet count 283. CK 88. Ammonia level less than 9. Home cardiac medications: Atorvastatin 80 mg daily, Farxiga 10 mg daily, Lasix 20 mg daily as needed, lisinopril 2.5 mg daily, Toprol XL 25 mg daily, also on Ozempic. Echocardiogram performed in the office on 06/25/2023 revealed EF 50 to 55%, AV prosthesis with normal function, mild MR, mild TR. Lexiscan Cardiolite stress test performed in the office on 12/14/2020 was negative stress test by EKG criteria. Probably normal myocardial perfusion and function. 04/08 Patient is seen today in follow-up on the cardiac stepdown unit. Mental status is significantly improved from yesterday. He has been maintained on IV heparin which will be discontinued. He has been afebrile, heart rate in the 70s, blood pressure 147/67, pulse ox 95% on room air. Patient is followed by neurology and scheduled for MRI of the brain today. Blood culture is status received. Echocardiogram has been taken and report is pending. Physical examination: Gen: This is a 73-year-old male in no acute distress VS: reviewed HEENT: Head is atraumatic, normocephalic. Pupils equal, round. Sclerae is anicteric. NECK: Supple. No JVD. LUNGS: Clear to auscultation. No wheezes or rhonchi. No intercostal retractions. HEART: Regular rate and rhythm. Systolic ejection o murmur. ABDOMEN: Soft No tenderness. EXTREMITIES: No pedal edema. No calf tenderness. NEUROLOGICAL: Patient is awake, confused. Assessment: Mental status changes, improved Elevated troponin most likely secondary to type II [place]. No plan for aggressive cardiac workup at this time. History of AVR Hypertension Dyslipidemia Plan: Continue patient's home cardiac medications Monitor blood cultures due to history of AVR Obtain 2-D echocardiogram report Neurology workup in process Further recommendations to follow based upon clinical course Nurse practitioner note has been reviewed, I agree with documented findings and plan of care. Patient was seen and examined. Objective - Vital Signs Vital signs: Vital Signs Temp 98.6 F 04/08/24 04:00 Pulse 79 04/08/24 04:00 Resp 17 04/08/24 04:00 BP 142/74 04/08/24 04:00 Pulse Ox 95 04/08/24 04:00 FiO2 Intake & Output 04/07/24 04/08/24 04/08/24 18:59 06:59 18:59 Intake Total 200.647 Output Total 100 Balance -100 200.647 Weight 82.3 kg Intake: Intake, IV Titration 200.647 Amount Heparin Sod,Pork in 0.45% 200.647 NaCl 25,000 unit In 0.45 % NaCl 1 250ml.bag @ 12 UNITS/KG/HR 9.876 mls/hr IV .Q24H ARIELA Rx#: [id number] Output: Urine 100 - Labs CBC & Chem 7: 04/08/24 05:43 04/06/24 23:59 Labs: Abnormal Lab Results - Last 24 Hours (Table) 04/07/24 04/07/24 04/07/24 Range/Units 16:09 18:02 20:12 WBC (3.8-10.6) k/uL RBC (4.30-5.90) m/uL Hgb (13.0-17.5) gm/dL MCV (80.0-100.0) fL Neutrophils # (1.3-7.7) k/uL APTT 69.8 H (22.0-30.0) sec POC Glucose (mg/dL) 132 H 186 H (70-110) mg/dL 04/08/24 04/08/24 Range/Units 05:43 05:43 WBC 14.0 H (3.8-10.6) k/uL RBC 3.77 L (4.30-5.90) m/uL Hgb 12.8 L (13.0-17.5) gm/dL MCV 103.6 H (80.0-100.0) fL Neutrophils # 10.9 H (1.3-7.7) k/uL APTT 65.0 H (22.0-30.0) sec POC Glucose (mg/dL) (70-110) mg/dL
--- NOTE | 2024-04-08 13:12 | CA ---
Transthoracic Echo Report Name: Davy Caro Age: 73 Gender: M : 1950 Exam Date: 04/07/2024 13:13 Exam Location: [facility] Ht (in): 70 Wt (lb): 181 Ordering Physician: Enrico Gaines DO Attending/Referring Phys: [id number], [employer] uSshma Johnston, TWILA Procedure CPT: Indications: Thrombus Cardiac Hx: Technical Quality: Poor, Technically difficult study Contrast 1: Definity Total Dose (mL): 2 Contrast 2: Total Dose (mL): MEASUREMENTS (Male / Female) Normal Values 2D ECHO LV Diastolic Diameter PLAX 4.5 cm 4.2 - 5.9 / 3.9 - 5.3 cm LV Systolic Diameter PLAX 3.4 cm IVS Diastolic Thickness 1.0 cm 0.6 - 1.0 / 0.6 - 0.9 cm LVPW Diastolic Thickness 1.3 cm 0.6 - 1.0 / 0.6 - 0.9 cm LV Relative Wall Thickness 0.5 RV Internal Dim ED PLAX 3.1 cm LVOT Diameter 1.7 cm LA Systolic Diameter LX 4.7 cm 3.0 - 4.0 / 2.7 - 3.8 cm LA Volume 47.4 cm??? 18 - 58 / 22 - 52 cm??? LA Volume Index 23.4 cm???/m??? 16 - 28 cm???/m??? M-MODE Aortic Root Diameter MM 2.6 cm LA Systolic Diameter MM 5.7 cm LA Ao Ratio MM 2.1 DOPPLER AV Peak Velocity 179.9 cm/s AV Peak Gradient 12.9 mmHg AV Mean Velocity 130.5 cm/s AV Mean Gradient 7.6 mmHg AV Velocity Time Integral 47.0 cm MV Area PHT 2.1 cm??? Mitral E Point Velocity 66.4 cm/s Mitral A Point Velocity 105.6 cm/s Mitral E to A Ratio 0.6 MV Deceleration Time 360.6 ms TR Peak Velocity 241.2 cm/s TR Peak Gradient 23.3 mmHg FINDINGS Left Ventricle Left ventricular ejection fraction is estimated at 60%. No obvious regional wall motion abnormalities. Left ventricle not well visualized. Left ventricular wall thickness normal. Right Ventricle Right ventricle not well visualized. Right ventricular systolic pressure within normal limits. Right Atrium Mild right atrial dilatation. Left Atrium Mildly increased left atrial diameter. Mitral Valve Structurally normal mitral valve. Mild mitral regurgitation. Aortic Valve Aortic valve not well visualized. TAVR bioprosthetic aortic valve without stenosis with a peak velocity 1.79 of m/s, peak gradient 12 mmHg, mean gradient 8mmHg. No paravalvular aortic regurgitation. Tricuspid Valve Structurally normal tricuspid valve. Mild tricuspid regurgitation. No tricuspid stenosis. Pulmonic Valve Structurally normal pulmonic valve. Trace pulmonic regurgitation. No pulmonic stenosis. Pericardium No pericardial or pleural effusion. Aorta Normal size aortic root and proximal ascending aorta. CONCLUSIONS Left ventricular ejection fraction 60% RVSP 23 Mildly dilated left atrium Mild mitral regurgitation Normally functioning bioprosthetic aortic valve No paravalvular leak No aortic regurgitation Mild tricuspid regurgitation No pericardial effusion Previewed by: Dr. Grant Coombs DO (Electronically Signed) Final Date: 08 April 2024 13:11
--- NOTE | 2024-04-08 14:02 | MR ---
EXAMINATION TYPE: MR brain wo/w con DATE OF EXAM: 04/08/2024 1:38 PM CLINICAL INDICATION: Male, 73 years old with history of syncope; Syncope, dizziness COMPARISON: 03/30/2024 TECHNIQUE: Multi planar, multi sequence imaging was performed through the brain including: T1, T2, In version recovery, susceptibility weighted imaging and gradient echo imaging and Diffusion weighted im aging. The patient was then given intravenous contrast and multi planar, T1 fat-saturation images wer e obtained. IV Contrast: 8 cc Gadavist FINDINGS: Mild cerebral atrophy with proportional dilation of ventricular system. Diffusion-weighted imaging s hows no evidence of restricted diffusion to suggest acute/subacute infarct. Intracranial arterial [place] w voids are maintained. Midline structures show no abnormality. Scattered foci of high T2 signal inte nsity are seen within the periventricular white matter. The susceptibility weighted images do not rev eal any evidence for micro-hemorrhage. After administration of gadolinium, no abnormal enhancement is seen. The bone marrow signal is within normal limits. Paranasal sinuses and mastoid air cells: Mild scattered paranasal sinus disease. Visualized orbits: Bilateral aphakia IMPRESSION: 1. No evidence of intracranial mass, acute/subacute infarct, or abnormal enhancement. 2. Nonspecific white matter changes, likely related to small vessel ischemic disease.
--- NOTE | 2024-04-08 14:43 | P.PN ---
Subjective Progress Note Date: 04/08/24 Principal diagnosis: change in mentation patient doing well, no further episodes of confusion. No shaking. No chest pain or shortness of breath. Objective - Vital Signs Vital signs: Vital Signs Temp 98.6 F 04/08/24 04:00 Pulse 78 04/08/24 12:00 Resp 16 04/08/24 12:00 BP 147/67 04/08/24 12:00 Pulse Ox 95 04/08/24 12:00 FiO2 Intake & Output 04/07/24 04/08/24 04/08/24 18:59 06:59 18:59 Intake Total 200.647 Output Total 100 Balance -100 200.647 Weight 82.3 kg Intake: Intake, IV Titration 200.647 Amount Heparin Sod,Pork in 0.45% 200.647 NaCl 25,000 unit In 0.45 % NaCl 1 250ml.bag @ 12 UNITS/KG/HR 9.876 mls/hr IV .Q24H [facility] Rx#: [id number] Output: Urine 100 - Exam Constitutional: No acute distress, conversant, pleasant Eyes:Anicteric sclerae, moist conjunctiva, no lid-lag, PERRLA, ENMT: Oropharynx clear, no erythema, exudates Neck: Supple, FROM, no masses, or JVD, No carotid bruits, No thyromegaly Lungs: Clear to auscultation, Clear to percussion, Normal respiratory effort, no accessory muscle use Cardiovascular: Heart regular in rate and rhythm, No murmurs, gallops, or rubs, No peripheral edema Abdominal: Soft, Nontender, no guarding, rebound or rigidity, Normoactive bowel sounds, No hepatomegaly, No splenomegaly, No palpable mass Skin: Normal temperature, tone, texture, turgor, no induration, No subcutaneous nodules, No rash, lesions, No ulcers Extremities: No digital cyanosis, No clubbing, Pedal pulses intact and symmetrical, Radial pulses intact and symmetrical, No calf tenderness Psychiatric: Alert and oriented to person, place and time, appropriate affect, intact judgement Neuro: Muscles Strength 5/5 in all 4 extremities, Sensation to light touch grossly present throughout, Cranial nerves II-XII grossly intact, no focal sensory deficits - Labs CBC & Chem 7: 04/08/24 05:43 04/06/24 23:59 Labs: Abnormal Lab Results - Last 24 Hours (Table) 04/07/24 04/07/24 04/07/24 Range/Units 16:09 18:02 20:12 WBC (3.8-10.6) k/uL RBC (4.30-5.90) m/uL Hgb (13.0-17.5) gm/dL MCV (80.0-100.0) fL Neutrophils # (1.3-7.7) k/uL APTT 69.8 H (22.0-30.0) sec POC Glucose (mg/dL) 132 H 186 H (70-110) mg/dL 04/08/24 04/08/24 04/08/24 Range/Units 05:43 05:43 11:13 WBC 14.0 H (3.8-10.6) k/uL RBC 3.77 L (4.30-5.90) m/uL Hgb 12.8 L (13.0-17.5) gm/dL MCV 103.6 H (80.0-100.0) fL Neutrophils # 10.9 H (1.3-7.7) k/uL APTT 65.0 H (22.0-30.0) sec POC Glucose (mg/dL) 111 H (70-110) mg/dL Assessment and Plan Plan: Acute encephalopathy patient was evaluated by neurology, MRI brain and EEG was normal. Infectious etiology considered, blood cultures ordered, CXR and urinalysis are both negative for infection. Continue with aspirin and statin Neurochecks Fall precautions Junctional tachycardia with elevated troponin Type II [place] D/w cardio service. No plans for heart cath. Echocardiogram showed normal EF, no significant valvular abnormalities. Chronic conditions: CHF, CAD, hypertension, hypothyroidism Stable, resume meds Imaging: CT brain revealed diffuse cerebral atrophy and possible underlying normal pressure hydrocephalus CT angiogram head neck showing moderate to severe plaque of the carotid bulb level into the proximal internal carotid arteries bilaterally with no significant stenosis with no large vessel occlusion noted. Chest x-ray revealed mild cardiomegaly with bilateral perihilar edema suspected acute CHF. EKG revealed junctional tachycardia with ectopic premature complexes at 112 bpm as reviewed by me. DVT prophylaxis: Lovenox subcu anticipated discharge in a.m.
--- NOTE | 2024-04-08 16:13 | P.PN ---
Subjective Progress Note Date: 04/08/24 I am following up with the patient and he is accompanied with his . Per the she stated that his mentation is much better today compared to initial presentation. No further episode of confusion. As stated yesterday patient does not have any history of seizures. Patient states that he bites his tongue when he is eating so that is not unusual and it is unsure if this recent episode tongue bite was while he was unresponsive or from an old recent event while eating. Objective - Vital Signs Vital signs: Vital Signs Temp 98.6 F 04/08/24 04:00 Pulse 78 04/08/24 12:00 Resp 16 04/08/24 12:00 BP 147/67 04/08/24 12:00 Pulse Ox 95 04/08/24 12:00 FiO2 Intake & Output 04/07/24 04/08/24 04/08/24 18:59 06:59 18:59 Intake Total 200.647 Output Total 100 Balance -100 200.647 Weight 82.3 kg Intake: Intake, IV Titration 200.647 Amount Heparin Sod,Pork in 0.45% 200.647 NaCl 25,000 unit In 0.45 % NaCl 1 250ml.bag @ 12 UNITS/KG/HR 9.876 mls/hr IV .Q24H [facility] Rx#: [id number] Output: Urine 100 - Exam General: Sitting in a recliner chair and is not in acute distress. Neuro: The patient is awake alert oriented to self and place. He correctly stated the current state as well as the city. He is following simple commands. No aphasia. The pupils are round equal reactive to light. Pupils are round 3 to 4 mm bilaterally. Visual johnson are full to confrontation. Extraocular movements intact no nystagmus No facial weakness no. No dysarthria Motor is left in all extremities above gravity symmetrically. Some of the workup during this hospital visit consisted of: Initial white blood cells 12.25 thousand Sodium is 136 Calcium 9.5, magnesium is 2.2, phosphorus is 5.3, creatinine is 1.19 Glucose serum is 326 CK level is 88 Troponin is 0.076 Urinalysis is negative for any urinary tract infection next CT of the head is reported as no acute intracranial hemorrhage or midline shift. There is diffuse cerebral atrophy and possible underlying normal pressure hydrocephalus redemonstrated. No significant change from prior MRI. I reviewed the CT and I agree there is no acute or subacute stroke. I do agree that patient ventricles are more dilated than his generalized atrophy. CT angiography of the head and neck is reported as moderate to severe plaque at the carotid bulb level into the proximal internal carotid artery bilaterally but no hemodynamic significant stenosis clearly seen in either internal carotid artery. No large vessel occlusion or aneurysm at the level of [place]. Routine EEG: Is abnormal. The background slowing is suggestive of mild enc ephalopathy. There is no focal slowing, epileptiform discharges or seizure on the EEG. MRI Brain: No evidence of intracranial mass, acute/subacute infarct or abnormal enhancement. 2D echo: EF 60%. I reviewed the rest of report conclusion. - Labs CBC & Chem 7: 04/08/24 05:43 04/06/24 23:59 Labs: Abnormal Lab Results - Last 24 Hours (Table) 04/07/24 04/07/24 04/07/24 Range/Units 16:09 18:02 20:12 WBC (3.8-10.6) k/uL RBC (4.30-5.90) m/uL Hgb (13.0-17.5) gm/dL MCV (80.0-100.0) fL Neutrophils # (1.3-7.7) k/uL APTT 69.8 H (22.0-30.0) sec POC Glucose (mg/dL) 132 H 186 H (70-110) mg/dL 04/08/24 04/08/24 04/08/24 Range/Units 05:43 05:43 11:13 WBC 14.0 H (3.8-10.6) k/uL RBC 3.77 L (4.30-5.90) m/uL Hgb 12.8 L (13.0-17.5) gm/dL MCV 103.6 H (80.0-100.0) fL Neutrophils # 10.9 H (1.3-7.7) k/uL APTT 65.0 H (22.0-30.0) sec POC Glucose (mg/dL) 111 H (70-110) mg/dL Assessment and Plan Assessment: This is a 73-year-old gentleman who presents emergency department because of episode of severe confusion in which the woke up from the patient's having abnormal gurgling noise and she felt his breathing was off. He was severely confused and had his eyes minimally open but was not responding. It seems that he bit the right lateral part of the tongue and the anterior middle portion. History of seizure. CT of the head shows possible normal pressure hydrocephalus. Episode of confusion, tongue bite, abnormal breathing/gurgling sensation is concerning for possible new onset seizure---Routine EEG is negative for seizure or discharges and MRI Brain is unremarkable (patient states he has tendency to bite his tongue while eating so unsure if this was related or not). CT head shows possible Normal pressure hydrocephalus Only elevated troponin will reactive Underlying history of diabetes Hypertension Hypercholesteremia Plan: Patient wanted to be started on any antiseizure medication at this time and he stated that he will speak with his PCP as well neurologist as an outpatient regarding that. Patient was in agreement with patient's decision. I notified the patient if he has any episode of seizure-like activity for sure he needs to be started on it. Consider repeating EEG as an outpatient and consider sleep provide EEG versus long-term EEG and will defer that decision to his outpatient neurologist Regarding this possible normal pressure hydrocephalus on the CT recommend patient to follow-up with a neurologist as an outpatient for further evaluation and consider a large-volume tap and then if there is improvement in his mentation or gait or urinary issues then recommend B[employer] shunt. This should be addressed by his neurologist as an outpatient. Seizure precaution and seizure pads Cardiology is consulted for slight elevated troponin Will defer the rest of the medical management to primary and other specialist The plan is discussed with his and the patient. The plan also was relayed to the his nurse. No further neurological workup. Will sign off. Please reconsult if needed. Time with Patient: Less than 30
--- NOTE | 2024-04-08 16:44 | P.DS ---
Providers Date of admission: 04/07/24 01:53 Expected date of discharge: 04/08/24 Attending physician: Maria E Patel MD Consults: 04/07/24 01:51 Consult Physician Routine Consulting Provider: Hudson Gastelum Consult Reason/Comments: ams Do you want consulting provider notified?: Yes 04/07/24 04:33 Consult Physician Urgent Consulting Provider: George Hassan Consult Reason/Comments: elevated troponin, unresponsiveness Do you want consulting provider notified?: Yes Primary care physician: [facility] Course: 73-year-old male with a PMH of CAD status post stenting, systolic CHF EF 40 to 45% on echo from 2020 hypertension, hypothyroidism, who was brought to the emergency room via EMS for unresponsiveness. The history was obtained from the chart and from the patient's family including and son at the bedside. The reports that the patient was at his baseline and was watching TV while sitting on his couch in their home. The patient had decided to take a nap at around 9:30 PM and had gone to sleep on the couch. She subsequently heard the patient making gurgling sounds at around 10:30 PM, when she found him unresponsive and not breathing appropriately. The patient was brought to the emergency room where he was found to be obtunded and minimally responsive. At time of interview, the patient was responsive to noxious stimuli and woke up to states that he had to urinate but was not answering questions appropriately. Code stroke was activated in the emergency room with no thrombolytic given. CT brain revealed diffuse cerebral atrophy and possible underlying normal pressure hydrocephalus with CT angiogram head neck showing moderate to severe plaque of the carotid bulb level into the proximal internal carotid arteries bilaterally with no significant stenosis with no large vessel occlusion noted. Chest x-ray revealed mild cardiomegaly with bilateral perihilar edema suspected acute CHF. EKG revealed junctional tachycardia with ectopic premature complexes at 112 bpm as reviewed by me. Laboratory evaluation revealed WBC count of 12.5, hemoglobin 14.2, MCV 105.8, sodium 136, BUN 24, creatinine 1.19, glucose 226, AST 83, T. bili 2.1, troponin less than 0.012, with UA showing 4+ glucose. Upon admission patient was evaluated by cardiology as well as neurology services. he was worked up with EEG and MRI of brain, both of the studies came back negative. because of elevated troponin and was evaluated by cardiology who thought that he had type 2 myocardial infarction. Had echo which came ok ok. EF was normal. according to neurology patient only had one episode of confusion, tongue bite, abnormal breathing/gurgling sensation which ''concerning for possible new onset seizure''---outpatient evaluation with sleep provide EEG versus long-term EEG, was referred to outpatient neurologist. In addition neurologist noted possible normal pressure hydrocephalus on computed tomography scan, evaluation and management for this was also referred to outpatient neurologist regarding possible LP with clinical follow up to look for symptoms improvement to evaluate for need for CUSTODY ASSISTANT shunt. Patient was evaluated and examined on the day of discharge 04/08 Time for discharge 35 minutes. Patient Condition at Discharge: Serious Plan - Discharge Summary Discharge Rx Participant: No New Discharge Prescriptions: No Action metFORMIN HCL [Glucophage] 500 mg PO BID Montelukast Sodium [Singulair] 10 mg PO DAILY Netarsudil Mesylat/Latanoprost [Rocklatan 0.02%-0.005% Eye Drp] 1 drop BOTH EYES HS Metoprolol Succinate (ER) [Toprol XL] 25 mg PO DAILY Atorvastatin [Lipitor] 80 mg PO DAILY #30 tab Semaglutide [Ozempic] 2 mg SQ FR Famotidine [Pepcid] 40 mg PO DAILY Multivit-Mins/Iron/Folic/Lycop [Centrum Men's Tablet] 1 tab PO DAILY Furosemide [Lasix] 20 mg PO DAILY PRN PRN Reason: swelling allopurinoL [Zyloprim] 100 mg PO DAILY Dapagliflozin Propanediol [Farxiga] 10 mg PO DAILY lisinopriL [Zestril] 2.5 mg PO DAILY Dorzolamide-Timol 2.23%/0.68% [Cosopt] 1 drop BOTH EYES BID Discharge Medication List Montelukast Sodium [Singulair] 10 mg PO DAILY 10/20/19 [History] Netarsudil Mesylat/Latanoprost [Rocklatan 0.02%-0.005% Eye Drp] 1 drop BOTH EYES HS 10/20/19 [History] metFORMIN HCL [Glucophage] 500 mg PO BID 10/20/19 [History] Metoprolol Succinate (ER) [Toprol XL] 25 mg PO DAILY 04/23/20 [History] Atorvastatin [Lipitor] 80 mg PO DAILY #30 tab 04/28/20 [Rx] allopurinoL [Zyloprim] 100 mg PO DAILY 07/16/22 [History] Dapagliflozin Propanediol [Farxiga] 10 mg PO DAILY 09/04/22 [History] Dorzolamide-Timol 2.23%/0.68% [Cosopt] 1 drop BOTH EYES BID 04/07/24 [History] Famotidine [Pepcid] 40 mg PO DAILY 04/07/24 [History] Furosemide [Lasix] 20 mg PO DAILY PRN 04/07/24 [History] Multivit-Mins/Iron/Folic/Lycop [Centrum Men's Tablet] 1 tab PO DAILY 04/07/24 [History] Semaglutide [Ozempic] 2 mg SQ FR 04/07/24 [History] lisinopriL [Zestril] 2.5 mg PO DAILY 04/07/24 [History] Follow up Appointment(s)/Referral(s): Nicolas Prather MD [Primary Care Provider] - 1-2 days
[2024-04-08 16:52] LABS: Glucose,Whole Blood 113 mg/dL (70-110)
[2024-04-08 16:59] VITALS: BP 136/65; PULSE 72
== END 2024-04-08 17:53 | disposition home or self-care (01) | DRG 56 ==
LOC: EC 23:40 → 3SCARD 04-07 01:53
PROVIDERS: ADMIT Internal Medicine; ATTEND Internal Medicine
DX: G91.2 (Idiopathic) normal pressure hydrocephalus (principal); I21.A1 Myocardial infarction type 2; I50.22 Chronic systolic (congestive) heart failure; E87.1 Hypo-osmolality and hyponatremia; I47.19 Other supraventricular tachycardia; E11.42 Type 2 diabetes mellitus with diabetic polyneuropathy; I11.0 Hypertensive heart disease with heart failure; E11.51 Type 2 diabetes mellitus with diabetic peripheral angiopathy without gangrene; Z79.4 Long term (current) use of insulin; J44.89 Other specified chronic obstructive pulmonary disease; I65.23 Occlusion and stenosis of bilateral carotid arteries; E03.9 Hypothyroidism, unspecified; Z95.3 Presence of xenogenic heart valve; D72.828 Other elevated white blood cell count; I25.10 Atherosclerotic heart disease of native coronary artery without angina pectoris; E78.00 Pure hypercholesterolemia, unspecified; Z95.5 Presence of coronary angioplasty implant and graft; Z79.85 Long-term (current) use of injectable non-insulin antidiabetic drugs; Z79.84 Long term (current) use of oral hypoglycemic drugs; Z87.11 Personal history of peptic ulcer disease; Z87.891 Personal history of nicotine dependence; Z79.899 Other long term (current) drug therapy
CPT/HCPCS: 36415; 70450; 70496; 70498; 70553; 71045; 80053; 80061; 81003; 82140; 82550; 83735; 84100; 84484; 85025; 85610; 85730; 87040; 93005; 93306; 95816; 96361; 96374; 96375; 99291

== ENCOUNTER → 2024-04-16 | Outpatient (CLI) | payer MEDICARE ==
--- NOTE | 2024-04-16 09:49 | MR ---
EXAMINATION TYPE: MR lumbar spine wo con DATE OF EXAM: 04/16/2024 COMPARISON: 03/11/2022 HISTORY: Lower back pain, BLE weakness. TECHNIQUE: T1 and T2 axial and sagittal images of the lumbar spine are submitted. FINDINGS: There is no abnormal signal seen within the visualized spinal cord or paraspinal soft tissu es. Previously noted epidural lipomatosis stable. Vertebral body hemangioma T11. At L1-2 there is hypertrophic change of the facets. There is mild degenerative disc disease. No canal stenosis. No foraminal encroachment. At L2-3 there is diffuse disc bulging with hypertrophic change of the facets and ligamentum flavum. M ild bilateral foraminal encroachment and borderline to mild central stenosis. Mild degenerative disc disease. At L3-4 there is mild degenerative disc disease with circumferential disc bulging, facet arthropathy and ligamentum flavum hypertrophy. Mild bilateral foraminal encroachment. Borderline central stenosis . At L4-5 there is mild to moderate degenerative change with advanced facet arthropathy and grade 1 ant erolisthesis. Broad-based disc bulging with facet arthropathy and ligamentum flavum contribute to mil d central stenosis and bilateral foraminal encroachment. At L5-S1 there is no disc herniation or canal stenosis. There is facet arthropathy. Neural foramina p atent. IMPRESSION: 1. Multilevel [id number] degenerative disc disease with multilevel disc bulging and hypertrophi c changes are stable. Findings result in multilevel borderline to mild central stenosis and foraminal encroachment.
== END | disposition home or self-care (01) ==
LOC: RADMRIMAIN 08:13
PROVIDERS: ATTEND Orthopaedic Surgery
DX: M47.812 Spondylosis without myelopathy or radiculopathy, cervical region
CPT/HCPCS: 72148